=== PATIENT | male | born 1945 | race Caucasian/White ===

== ENCOUNTER → 2018-07-01 10:15 | Outpatient (CLI) | payer MEDICARE, BC, SELFPAY ==
[2018-06-30 13:37] VITALS: BMI 20.8
[2018-07-01 12:24] LABS: Absolute Lymphocyte Count 1.18 X10^3/ul (0.83-4.51); Absolute Neutrophil Count 4.1 X10^3/uL (2.0-7.7); Basophil# 0.03 X10^3/uL; Basophil% 0.5 % (0-1); Eosinophil# 0.11 X10^3/uL; Eosinophils% 1.8 % (0-5); Hematocrit 44.4 % (40-54); Hemoglobin 14.1 g/dl (13.0-16.5); Lymphocyte # 1.18 X10^3/ul (4.0); Lymphocyte % 19.5 % (19-41); Mean Corp Hgb Conc 31.8 g/gl (32-36); Mean Corpuscular Hgb 30.3 pg (27.0-32.0); Mean Corpuscular Volume 95.3 fL (80-94); Mean Platelet Vol. 10.9 fl (6.2-12.0); Monocyte# 0.57 X10^3/uL; Monocyte% 9.4 % (0-10); Neutrophil # 4.14 X10^3/uL (2.7-7.7); Neutrophil % 68.6 % (47-70); Platelet Count 203 K/mm3 (150-450); RBC Distribution Width CV 14.4 % (11.6-14.6); RBC Distribution Width SD 47.8 fl (35.1-43.9); Red Blood Count 4.66 M/mm3 (4.6-6.2)
[2018-07-01 12:32] LABS: POSITIVE COUNT NO; POSITIVE DIFFERENTIAL NO; POSITIVE MORPHOLOGY NO
[2018-07-01 12:42] LABS: Hemoglobin A1c 5.6 % (4.2-6.3)
[2018-07-01 12:54] LABS: AST(SGOT) 19 U/L (15-37); Alanine Aminotransfer ALT/SGPT 21 U/L (16-61); Albumin, Serum 3.7 g/dL (3.2-5.0); Alkaline Phosphatase 102 U/L (45-117); Anion Gap 8 (5-15); BUN 20 mg/dL (7-18); BUN/Creat Ratio 20.2 RATIO (10-20); Calcium,Total 8.6 mg/dL (8.5-10.1); Chloride 105 mmol/L (98-107); Cholesterol 156 mg/dL (200); Creatinine, Serum 0.99 mg/dL (0.70-1.30); EST Glomerular Filtration Rate 79 mL/min (>60); Est Glom Filt Rate - Afr Amer 96 mL/min (>60); Globulin 3.6 g/dL (2.2-4.2); Glucose 101 mg/dL (74-106); High Density Lipoprotein 48 mg/dL; PSA,Total - Annual Screen 4.34 ng/mL (0.00-4.00); Potassium 4.4 mmol/L (3.5-5.1); Protein, Total 7.3 g/dL (6.4-8.2); Sodium Level 139 mmol/L (136-145); Thyroid Stim Hormone (TSH) 2.71 uIU/mL (0.358-3.74); Triglycerides 66 mg/dL; Very Low Density Lipoprotein 13 mg/dL (5-40)
== END ==
PROVIDERS: Family Provider Family Medicine; PCP Family Medicine; Visit Provider Nurse Practitioner Family
DX: I50.9 Heart failure, unspecified (principal); E78.5 Hyperlipidemia, unspecified; R73.03 Prediabetes; N40.0 Benign prostatic hyperplasia without lower urinary tract symptoms; Z12.5 Encounter for screening for malignant neoplasm of prostate
CPT/HCPCS: 36415; 80053; 80061; 83036; 84153; 84443; 85025; G0103

== ENCOUNTER → 2018-07-27 10:42 | Outpatient (CLI) | payer MEDICARE, BC, SELFPAY ==
[2018-07-06 13:40] VITALS: BMI 19.8
[2018-07-20 13:11] VITALS: BMI 19.8
--- NOTE | 2018-07-27 10:46 | ECHOD_ITS ---
Reason For Study: VALVE REPL Procedure This was a 2D Doppler, Color Flow transthoracic echocardiogram. Exam performed in department. Left Ventricle Severely dilated left ventricle. The estimated ejection fraction is 15-20 %. Stage 2 diastolic dysfunction. Septal motion consistent with IVCD. There is severe global hypokinesis of the left ventricle. Right Ventricle Mildly dilated right ventricle. A moderator band is seen in the right ventricle. Normal systolic function. Atria Normal left atrium. Normal right atrium. Normal atrial septum. Mitral Valve The mitral valve is structurally normal. No prolapse or stenosis seen. Mild (1+) eccentric mitral valve insufficiency. Tricuspid Valve Normal tricuspid valve. Trivial tricuspid valve insufficiency. Right ventricular systolic pressure estimated to be 25 mmHg. Aortic Valve Peak aortic valve gradient 4 mmHg. Mean aortic valve gradient 2 mmHg. Stable appearing bioprosthetic aortic valve apparatus. Pulmonic Valve Normal pulmonic valve. Trivial pulmonic valve insufficiency. Great Vessels Normal aortic root. Normal arch. Normal inferior vena cava. Inferior vena cava collapse with sniff. Pericardium/Pleural No pericardial effusion. MMode/2D Measurements & Calculations LVIDd: 6.1 cm IVSd: 0.88 cm LVOT diam: 2.3 cm LVIDs: 5.5 cm LVPWd: 0.90 cm LVOT area: 4.2 cm2 RVDd: 3.6 cm FS: 10.3 % Ao root diam: 3.4 cm LAV(MOD-bp): 68.7 ml LA A4 area: 17.2 cm2 LAV(MOD-bp) Indexed: 37.9 ml/m2 LAV(MOD-sp2): 86.6 ml LAV(MOD-sp4): 47.0 ml LA dimension(2D): 5.2 cm RA A4 area: 16.6 cm2 Time Measurements MV dec time: 0.23 sec Doppler Measurements & Calculations MV E max abdiel: 69.3 cm/sec Lat Peak E' Abdiel: 4.8 cm/sec Med Peak E' Abdiel: 4.8 cm/sec MV A max abdiel: 41.5 cm/sec E/E' lat: 14.5 E/E' med: 14.3 MV E/A: 1.7 Ao V2 max: 98.4 cm/sec LV V1 max: 80.0 cm/sec SV(LVOT): 68.0 ml Ao max P.9 mmHg LV V1 max P.6 mmHg Ao V2 mean: 66.9 cm/sec LV V1 mean P.2 mmHg Ao mean P.0 mmHg LV V1 mean: 52.2 cm/sec Ao V2 VTI: 19.1 cm LV V1 VTI: 16.1 cm LOVE(I,D): 3.6 cm2 LOVE(V,D): 3.4 cm2 PA V2 max: 114.0 cm/sec PI end-d abdiel: 142.8 cm/sec TR max abdiel: 224.1 cm/sec TR max P.2 mmHg Interpretation Summary Severely dilated left ventricle. The estimated ejection fraction is 15-20 %. Stage 2 diastolic dysfunction. There is severe global hypokinesis of the left ventricle. Mild (1+) eccentric mitral valve insufficiency. Right ventricular systolic pressure estimated to be 25 mmHg. Trivial tricuspid valve insufficiency. Stable appearing bioprosthetic aortic valve apparatus. There is no comparison study available. Ordering Physician: Cody Mccord Referring Physician: REG ANGUIANO Performed By: Jacqueline Arzola RDCS, RVT
== END ==
PROVIDERS: Family Provider Family Medicine; PCP Family Medicine; Referring Provider Internal Medicine Cardiovascular Disease; Visit Provider Internal Medicine Cardiovascular Disease
DX: I21.4 Non-ST elevation (NSTEMI) myocardial infarction (principal)
CPT/HCPCS: 93306

== ENCOUNTER → 2018-09-07 12:22 | Outpatient (CLI) | payer MEDICARE, BC, SELFPAY ==
[2018-09-07 11:22] VITALS: BMI 19.5
--- NOTE | 2018-09-07 12:28 | RAD_ITS ---
STUDY: X-RAY CHEST REASON FOR EXAM: Male, 73 years old. ICD placement TECHNIQUE: PA and lateral views of the chest COMPARISON: None. FINDINGS: Post CABG changes are present. The lungs are clear. There are no pleural effusions. There is no pneumothorax. The heart is normal in size. The visualized osseous structures are within normal limits. RAD/Chest PA and Lateral IMPRESSION: No acute thoracic pathology. Electronically Signed: Chetan Cobos, at 21:04 EDT Tel , Service support ,
[2018-09-07 12:50] LABS: Mucous, Urine 0 SEEN /hpf (<or=2+); Red Blood Cells-Urine 0 SEEN /hpf (0-5); Squamous Epithelial Cells - UA 0 SEEN /hpf (0-5); White Blood Cells 0 SEEN /hpf (0-5)
[2018-09-07 13:07] LABS: Color, Urine Yellow (Yellow); Glucose, Dipstick Normal (Normal); Ketone-Dipstick Negative (Negative); Leukocyte Esterase-Dipstick Negative /ul (Negative); Nitrite-Dipstick Negative (Negative); Occult Blood-Urine Negative /ul (Negative); Protein-Dipstick Negative (Negative); Specific Gravity, Urine 1.015 (1.002-1.030); Urine Bilirubin Dipstick Negative (Negative); Urine Clarity Clear (Clear); Urine Urobilinogen Normal (Normal)
[2018-09-07 13:12] LABS: Hemoglobin 12.5 g/dl (13.0-16.5); Mean Corp Hgb Conc 32.1 g/gl (32-36); Mean Corpuscular Hgb 28.7 pg (27.0-32.0); Mean Corpuscular Volume 89.7 fL (80-94); Mean Platelet Vol. 10.5 fl (6.2-12.0); Platelet Count 189 K/mm3 (150-450); RBC Distribution Width CV 13.5 % (11.6-14.6); RBC Distribution Width SD 43.7 fl (35.1-43.9); Red Blood Count 4.35 M/mm3 (4.6-6.2); White Blood Count 6.5 K/mm3 (4.4-11.0)
[2018-09-07 13:13] LABS: Scan Indicated on CBC? Y/N NO
[2018-09-07 13:21] LABS: International Normalized Ratio 1.1; Prothrombin Time (Protime)PT. 13.9 SECONDS (11.7-14.9)
[2018-09-07 13:25] LABS: Bacteria RARE /hpf (None Seen)
[2018-09-07 13:43] LABS: Anion Gap 6 (5-15); BUN 15 mg/dL (7-18); BUN/Creat Ratio 11.9 RATIO (10-20); Calcium,Total 8.6 mg/dL (8.5-10.1); Chloride 109 mmol/L (98-107); Creatinine, Serum 1.26 mg/dL (0.70-1.30); EST Glomerular Filtration Rate 60 mL/min (>60); Est Glom Filt Rate - Afr Amer 72 mL/min (>60); Glucose 102 mg/dL (74-106); Potassium 4.1 mmol/L (3.5-5.1); Sodium Level 141 mmol/L (136-145)
== END ==
PROVIDERS: Family Provider Family Medicine; PCP Family Medicine; Referring Provider Internal Medicine Cardiovascular Disease; Visit Provider Internal Medicine Cardiovascular Disease
DX: I21.4 Non-ST elevation (NSTEMI) myocardial infarction (principal); I49.3 Ventricular premature depolarization; I42.8 Other cardiomyopathies; I25.10 Atherosclerotic heart disease of native coronary artery without angina pectoris; I50.9 Heart failure, unspecified; R06.09 Other forms of dyspnea; I45.10 Unspecified right bundle-branch block
CPT/HCPCS: 36415; 71046; 80048; 81001; 85027; 85610

== ENCOUNTER 2018-09-16 11:34 | Day surgery (SDC) | payer MEDICARE, BC, SELFPAY ==
[2018-08-03 13:59] VITALS: BMI 19.3
[2018-09-07 11:22] VITALS: BMI 19.5
--- NOTE | 2018-09-07 11:51 | HP_ITS ---
HPI HPI History of Present Illness Surgical H&P: No Details: Chief Complaint: establish care Details: DONNY SOLER, is a 73 M who presents to the office today for routine follow-up care there. He is a previous smoker who quit in 1971 after approximately 10-year smoking. He has a history of homograft AVR in 1996 at the [facility] with redo aortic valve replacement on 07/26/07 at [facility] with aortic root replacement. It appears that his GUTIERRES and SVG were harvested but apparently not used for CABG. On his second surgery he received a number 29 mm Freestyle AVR this appeared to be done preoperatively by Dr. Severino for possible CABG. He has chronic LV dysfunction with an EF around 30-35% at least since 2013. As best I can tell the patient was on no medicines for CHF until he was seen in our office. His most recent EKG is on 06/14/18 which showed normal sinus than with frequent PVCs and ventricular couplets. It appears that he stated that he did not want to have any further testing of his heart or continue any medications or follow- up with his cone examiner at [facility] as of June 25, 2018. He does have a history of PTSD from the [place]. His most recent echocardiogram dated 07/05/07 showed an EF of 28% and severely calcified porcine valve. This was prior to his aortic valve replacement. Follow-up echocardiogram done at [facility] demonstrated an EF of 30-35%, RVSP of 30 mmHg, and what appear to be normally functioning bioprosthetic aortic valve. His most recent catheterization took place at [facility] on 03/31/14 which showed mild disease in the origin of the first diagonal which was small in caliber, mild diffuse disease in his remaining coronary arteries with at most a 40-50% hazy area and obtuse marginal #1, no PCI was performed recommended. He is on no medications, and his significant other claims that no medications were ever recommended, which does not seem to be credible. There is a note from his last cone examiner in [facility], indicating that the patient did not want to pursue any additional therapy or cardiac evaluation. He has never been told about a defibrillator. At the time of our initial visit he was then placed on baby aspirin and Coreg and is now here in follow-up. A baseline echocardiogram dated 07/27/2018 was performed here at [facility] with the following results: Severely dilated left ventricle. The estimated ejection fraction is 15-20 %. Stage 2 diastolic dysfunction. There is severe global hypokinesis of the left ventricle. Mild (1+) eccentric mitral valve insufficiency. Right ventricular systolic pressure estimated to be 25 mmHg. Trivial tricuspid valve insufficiency. Stable appearing bioprosthetic aortic valve apparatus. There is no comparison study available. Patient is now agreeable to undergo a defibrillator here at [facility]. He will be seeing Mirna after this visit. Since her last visit he denies any chest pain, angina, shortness of breath or dyspnea on exertion. He is taking and tolerating his medicines well. In our office today's blood pressure is 120/60, pulse is 80 and regular with ectopic beats. He has a 2/6 systolic ejection murmur best heard at the upper right sternal border and radiating to the clavicles. He has excellent 2+ upstroke in his carotids bilaterally. He has no edema. His lipids as of 07/01/18 show an HDL of 48 and LDL of 95. EKG dated 06/14/18 shows normal sinus rhythm with PVCs, intraventricular conduction delay, no previous MO. EKG dated 09/07/2018 shows normal sinus rhythm with first-degree AV block, PVCs, and left bundle branch block with a QRS duration of 146 ms. Intake Vital Signs 09/07/18 Height 5 ft 11 in 09/07/18 Weight: 140 lb 09/07/18 Body Mass Index (BMI) 19.5 09/07/18 Blood Pressure 120/60 09/07/18 Blood Pressure Location Rt brachial 09/07/18 Blood Pressure Position Sitting 09/07/18 Respiratory Rate 20 H 09/07/18 Pulse Rate 64 09/07/18 Pulse Source Auscultation Intake Visit Reasons: PER MSG FROM MANDIE / MIRNA 2:30 Night Time Babysitter Required: No Accompanied by: Is patient in pain?: No Allergies Penicillins Allergy (Severe, Verified 09/07/18 11:33) Hives Medications aspirin 81 mg tablet,delayed release 81 mg PO DAILY #30 tab 07/06/18 [Rx Confirmed 08/04/18] atorvastatin 40 mg tablet 40 mg PO QHS #30 tab 07/06/18 [Rx Confirmed 08/04/18] carvedilol 6.25 mg tablet 6.25 mg PO BID #60 tab 07/29/18 [Rx Confirmed 08/04/18] [facility] Medical History Dyspnea on exertion (Chronic) Abnormal EKG (Chronic) PVCs (premature ventricular contractions) (Chronic) Right bundle branch block (Chronic) Nonrheumatic mitral (valve) insufficiency (Chronic) Nonrheumatic tricuspid (valve) insufficiency (Chronic) Nonischemic cardiomyopathy (Chronic) Atherosclerotic heart disease of [place] coronary artery without angina pectoris (Chronic) Hypertension (Chronic) CHF (congestive heart failure) (Chronic) PTSD (post-traumatic stress disorder) (Chronic) Surgical History History of aortic valve replacement with tissue graft (Chronic 07/26/07) History of left heart catheterization (Chronic) History of prostate surgery (Chronic) Family History Mother Cancer Kidney disease Father Myocardial infarction Brother Heart disease Social History Smoking Status: Former smoker quit date: 04/27/71 alcohol intake: never substance use type: does not use what type of physical activity do you participate in: walking frequency: daily ROS Const Const: Positive for other (Feels well, here to discuss prophylactic ICD.); negative for fatigue, weakness, body ache, fever(s), headache(s), chills, frequent falls, night sweats, daytime sleepiness, difficulty sleeping, excessive sweating, weight gain, weight loss, increased appetite, poor appetite or anorexia Eyes Eyes: Negative for blind spots, loss of peripheral vision, transient loss of vision, blurry vision, change in vision, double vision, floaters, tunnel vision or other ENT ENT: Negative for headache(s), dizziness, hearing loss, tinnitus, Nosebleed/epistaxis, balance problems, post nasal drip, lip swelling, tongue swelling, bleeding gums, hoarseness, neck pain, dry mouth or other Cardio Chest Pain: No Palpitations: No Edema: None Muscle aches with walking: None Resp Respiratory: Positive for SOB with activity and other (He mows grass and gets out of breath); negative for SOB at rest, SOB orthopnea\SOB lying down, Cough, Coughing up blood/hemoptysis, chest congestion, pain on inspiration, snoring, stridor, wheezing, crackles or paroxysmal nocturnal dyspnea GI GI: Negative nausea, vomiting, heartburn, constipation, belching, bloating, cramping, vomiting blood/hematemesis, bright, red blood in stools, black,tarry stools, loose stools, Difficulty Swallowing or other : Negative for hematuria, frequent nighttime urination/ nocturia, erectile dysfunction or abnormal vaginal bleeding Musc Musc: Negative for muscle aches/ myalgia, muscle weakness, joint pain or balance problems Skin Skin: Negative redness, non-healing lesions, rash, unusual bruising, skin ulcer, wounds, jaundice or other Neuro Neuro: Negative for dizziness, lightheadedness, near syncope, syncope, orthostatic symptoms, frequent falls, headache(s), weakness, confusion, memory loss, restless legs, blurry vision, double vision, vertigo, seizures, lack of coordination or other Miguel Hematologic/Lymphatic: Negative for easy bleeding, easy bruising, enlarged lymph nodes or other Endo Endo: Negative for fatigue, cold intolerance, heat intolerance, excessive sweating, flushing, increased thirst/drinking, increased hunger, hair loss, hair growth or other Psych Psych: Negative for anxiety, depression, thoughts of harming anyone, thoughts of harming yourself, visual hallucinations, panic attacks or audible hallucinations Allergy Allergy/Immunology: Negative for throat swelling, Negative for tongue swelling, Negative for hives, Negative for rash, Negative for lip swelling Cardiology Exam Const Appearance: cooperative, healthy appearing and no acute distress Nutritional Appearance: well nourished Orientation: alert, oriented x3 and oriented to person Head Head: normal to inspection, normocephalic and atraumatic Nose: external nose normal Face and Sinus: face symmetric Mouth: oral mucosae normal Eyes General: appearance normal, both eyes and all related structures Eyelids: eyelids normal Conjunctivae: conjunctivae normal Pupils: PERRL and normal by confrontation EOM: EOM intact bilaterally Neck Neck: normal visual inspection and full ROM Carotids: normal carotid upstroke Chest Chest inspection: normal inspection of the chest Auscultation: Bilateral: Clear to Auscultation Cardio Palpation: normal PMI Rate: regular rate Rhythm: regular rhythm Heart sounds: S1 normal and S2 normal GI GI: normal to inspection, no hepatosplenomegaly and bowel sounds present Neuro General: alert, awake, oriented x3, CN's II-XI intact bilaterally and moves all extremities Skin Skin: no rashes or lesions noted Extremities Pulses: Normal: Right Femoral Pulse, Left Femoral Pulse, Right Dorsalis Pedis Pulse, Left Dorsalis Pedis Pulse, Right Posterior Tibial Pulse, Left Posterior Tibial Pulse, Right Radial Pulse, Left Radial Pulse Lower Extremity Edema: None: Bilateral Psych Psychological: normal affect Assessment & Plan 1. Nonischemic cardiomyopathy I42.8 EF 30-35% per echo 03/31/2014 done @ [facility], Dr. Jorge Randle. Mild mitral and tricuspid regurg, mild pulmonary hypertension, RVSP 30mmhg. Plan 1. Cardiomyopathy: Patient has had a persistent cardiomyopathy for several years, despite valvular replacement therapy and maximal medical therapy. I recommended that he undergo prophylactic AICD placement, and he is agreeable to this. He will continue his Coreg, and baby aspirin. His EKG suggest a left bundle branch block, with a QRS of approximately 146 ms. I will defer to Dr. Begum with respect to PRICING SPECIALIST as well as AICD. We will hold off on NEDA inhibitors or arms until after his defibrillator has been in place. Once this is completed I would have a low threshold for possible cardiac rehab, although the patient has declined this in the past. Orders Orders: 12 Lead EKG performed by [facility] Today Pacemaker Primary Insertion 09/16/18 Partial Thromboplast Time 08/30/18 Chest PA and Lateral 08/30/18 2. Atherosclerotic heart disease of [place] coronary artery without angina pectoris I25.10 Mild, nonobstructive per [facility] done 03/31/[address] Giovani Dubois, [facility] (Mild disease origin of first dx,small caliber artery. Mild diffuse disease in remainder of coronaries). Medical management recommended. Plan 2. Coronary artery disease: Patient has minimal nonobstructive coronary artery disease. No indication for any additional testing at this time. His LDL and HDL cholesterol are fairly well-controlled. Continue Lipitor. 3. Return to office in 6 months. This note was generated using a voice recognition system and there may be incorrect words, spelling or punctuation that were not noted when reviewing the office note prior to saving. A SDM interaction occurred at this visit using an SDM tool prior to initial implant of ICD. Orders Orders: Pacemaker Primary Insertion 09/16/18 Chest PA and Lateral 08/30/18 Plan Detail Other Orders Orders: 12 Lead EKG performed by [facility] Today I49.3 Pacemaker Primary Insertion 09/16/18 I45.10, I50.9, R94.31, Z95.4 Partial Thromboplast Time 08/30/18 I50.9, R06.09 Chest PA and Lateral 08/30/18 I45.10, R06.09 Follow Up +6M (Flex) Coding Level of Care Code Off vis,est,level 3 Diagnoses Nonischemic cardiomyopathy I42.8 Atherosclerotic heart disease of [place] coronary artery without angina pectoris I25.10 Coding Level of Care Code Off vis,est,level 3 Diagnoses Nonischemic cardiomyopathy I42.8 Atherosclerotic heart disease of [place] coronary artery without angina pectoris I25.10 Supplemental Info Supplemental Information Labs LDL Cholesterol 95 mg/dL (0-130) 07/01/18 HDL Cholesterol 48 mg/dL (40-) 07/01/18 Triglycerides 66 mg/dL (-199) 07/01/18 VLDL Cholesterol 13 mg/dL (5-40) 07/01/18 Diagnostics Echocardiogram 07/27/18 Electrocardiogram 09/07/18 09/07/18 1152 <Electronically signed by Cody Mccord MD> Date Cody Mccord MD
[2018-09-15 14:51] VITALS: BMI 19.5
[2018-09-16] VITALS (11 sets, daily range): BP systolic 105–119; BP diastolic 65–78; PULSE 42–70; RESP 12–18; TEMP 36.4–37.3; O2SAT 95–100
--- NOTE | 2018-09-16 14:06 | OP.PCM_ITS ---
Report of Operation Description of Surgical Findings:: Preoperative diagnosis implantation of primaRY PREVENTION icd Postoperative diagnosis same as above After informed consent and IV antibiotics the patient was brought to the [facility] catheterization laboratory. The left side of the chest was prepped and draped in the usual sterile manner. The patient was sedated with intermittent boluses of IV Versed fentanyl and propofol as well as subcutaneous 1% lidocaine. An incision was made inferior to the clavicle to accommodate the size of the hardware device. The pocket was created using blunt and Bovie dissection. Hemostasis was obtained. Using the Seldinger technique the axillary vein was cannulated once and a guidewire was advanced under fluoroscopic guidance. Over the guidewire a sheath was advanced. Through this sheath, the electrode was positioned under fluoroscopic guidance into the right ventricle and was actively fixated. Once actively fixated, the lead was tested to check for proper sensing, capture threshold, impedance and to exclude diaphragmatic stimulation. Once the lead was implanted and all electrical parameters were confirmed to be functioning normally with appropriate values, the leads was then sutured to the pectoralis muscle with 2-0 silk on the Silastic collar ?2. The sponge and needle count were correct. Hemostasis was obtained. Antibiotic solution was used to flush the pocket. The new device was brought to the field. The lead was placed in the appropriate position of the header of the device and were secured by the setscrews and confirmed by the tug test. The device and the leads were then placed in the pocket. Pocket was closed with a deep layer of running 2-0 Vicryl, superficial layer of running 4-0 Vicryl and skin with Steri- Strips that were covered with a rolled 4 x 4's and Tegaderm. There were no complications. Lead and device serial and model numbers are available in the chart documents provided by the device company herbicide service sales representative procedure summary.
--- NOTE | 2018-09-16 17:30 | RAD_ITS ---
STUDY: X-RAY CHEST REASON FOR EXAM: Male, 73 years old. ICD placement TECHNIQUE: Single AP portable view of the chest. COMPARISON: None. FINDINGS: EKG leads overlie the chest. Since the previous study, patient has undergone placement of a left subclavian ICD. Lead is in satisfactory position. No pneumothorax or mediastinal shift. There are interstitial fibrotic changes of the lungs. There is no demonstrated pleural abnormality. Sternal cerclage wires and vascular clips are present from a prior sternotomy and coronary artery bypass graft procedure (CABG). Normal mediastinum and gene. Normal visualized pulmonary arteries. There is atherosclerotic calcification of the aortic arch with tortuosity. There are diffuse degenerative changes of the visualized thoracic spine. Normal visualized ribs, clavicles, and shoulders. There is no demonstrated abnormality of the visualized soft tissue structures of the upper abdomen. RAD/Chest 1 View (Portable) IMPRESSION: Status post left subclavian ICD placement, leads in satisfactory position, no pneumothorax or mediastinal shift No acute pulmonary process Remote CABG. Electronically Signed: Vincent Sales MD at 17:58 EDT , Service support ,
[2018-09-16] MEDS: Carvedilol 6.25 MG Tablet PO (22:03)
[2018-09-16] MEDS: Atorvastatin Calcium 40 MG Tablet PO (22:03)
[2018-09-17] VITALS (9 sets, daily range): BP systolic 113–125; BP diastolic 63–74; PULSE 53–70; RESP 16–18; TEMP 36.5–36.7; O2SAT 93–96
--- NOTE | 2018-09-17 05:55 | RAD_ITS ---
STUDY: X-RAY CHEST REASON FOR EXAM: Male, 73 years old. Chest pain status post ICD TECHNIQUE: PA and lateral chest, 4 views COMPARISON: 09/16/2018 FINDINGS: Single lead left pectoral AICD. Stable position. Median sternotomy. Clear lungs. Next line normal cardiomediastinal silhouette. No acute osseous or upper abdominal process. RAD/Chest PA and Lateral IMPRESSION: No acute cardiopulmonary process. Electronically Signed: Camilo Rodrigues MD at 8:31 EDT Tel , Service support ,
[2018-09-17 06:34] LABS: Anion Gap 5 (5-15); BUN 14 mg/dL (7-18); BUN/Creat Ratio 12.6 RATIO (10-20); Calcium,Total 8.5 mg/dL (8.5-10.1); Chloride 111 mmol/L (98-107); Creatinine, Serum 1.11 mg/dL (0.70-1.30); EST Glomerular Filtration Rate 69 mL/min (>60); Est Glom Filt Rate - Afr Amer 84 mL/min (>60); Estimated Creatinine Clearance 54.03 ml/min; Glucose 84 mg/dL (74-106); Potassium 4.2 mmol/L (3.5-5.1); Sodium Level 142 mmol/L (136-145)
[2018-09-17] MEDS: Acetaminophen 325 MG Tablet PO (07:26)
[2018-09-17] MEDS: Aspirin E.C. 81 MG Tablet PO (07:55)
--- NOTE | 2018-09-17 12:18 | PCM.PN.CARD ---
Subjectve: Patient doing very well this morning, slight pain over his left wound site, but otherwise no symptoms. Defibrillator interrogated by Mirna this morning, and defibrillator activated. Defibrillator was not activated overnight out of concern for possible lead noise that may inadvertently trigger his defibrillator to discharge. Chest x-ray before and after reviewed, no evidence of pneumothorax, leads appear to be appropriately placed. Objective: Vital Signs Temp Pulse Resp BP Pulse Ox 97.7 F L 57 L 18 113/68 96 09/17/18 11:48 09/17/18 11:59 09/17/18 11:48 09/17/18 11:48 09/17/18 11:48 Oxygen Delivery Method Room Air Weight: 140 lb Body Mass Index (BMI) 19.5 Intake and Output for Last 24 Hours 09/15/18 09/16/18 09/17/18 23:59 23:59 23:59 Output Total 925 / 925 350 / 350 Balance -925 / -925 -350 / -350 General: Awake, Alert, Oriented x 3 HEENT: PERRL, EOMI, Sclera Non Icteric Neck: Supple, Good ROM, No Lymph Node Enlargement Lungs: Clear to auscultation Cardiovascular: Regular Rhythm, Normal S1, Normal S2, No Murmurs, No Rubs, No Gallops Vascular: No Carotid Bruits, Normal Femoral Pulses, Normal Radial Pulses, Normal Dorsalis Pedal Pulse, Normal Posterior Tibial Pulses Abdomen: Bowel Sounds Present, Soft, Non Tender, No HSM, No Organomegaly Extremities: No Cyanosis, No Clubbing, No edema Neurological: No Focal Motor or Sensory Deficit 09/17/18 05:53: Sodium 142, Potassium 4.2, Chloride 111 H, Carbon Dioxide 26.0, Anion Gap 5, BUN 14, Creatinine 1.11, Est GFR (MDRD) Af Amer 84, Est GFR (MDRD) Non-Af 69, BUN/Creatinine Ratio 12.6, Glucose 84, Calcium 8.5 Rhythm: EKG: ECHO: Stress Test: Cardiac Cath: PCI: CT Surgery: Holter monitor: EPS: PPM: CXR: Chest CT Scan: Medical Necessity - Tobacco Use Smoking Status: Former smoker Assessment/Plan 1. AICD implantation: Patient's chest x-rays look appropriate for lead placement, and no evidence of pneumothorax. His defibrillator has now been turned down, and hopefully with less noise in his lead system. The patient will be discharged home today with a monitoring device and transmit in order to transmit telemetry data to our office regarding noise in the lead. If the patient has any defibrillator discharges that are inappropriate, I would recommend deactivating the defibrillator until his lead system has better healed. 2. Patient may be discharged home once he receives his monitoring device. To follow-up with Dr. Mccord going forward. Code Visit Inpatient E&M: 61956 Subs Hosp L2
[2018-09-17] MEDS: Carvedilol 6.25 MG Tablet PO (12:45)
[2018-09-17] MEDS: Ramipril 2.5 MG Capsule PO (12:45)
== END 2018-09-17 12:37 | disposition home or self-care (01) ==
LOC: CLSP 11:36 → PCU 09-17 09:35
PROVIDERS: Family Provider Family Medicine; PCP Family Medicine; Referring Provider Internal Medicine Cardiovascular Disease; Visit Provider Internal Medicine Cardiovascular Disease
DX: I42.8 Other cardiomyopathies (principal); I25.10 Atherosclerotic heart disease of native coronary artery without angina pectoris; R06.09 Other forms of dyspnea; I11.0 Hypertensive heart disease with heart failure; I50.9 Heart failure, unspecified; Z95.810 Presence of automatic (implantable) cardiac defibrillator; Z87.891 Personal history of nicotine dependence; Z79.82 Long term (current) use of aspirin; Z79.899 Other long term (current) drug therapy
CPT/HCPCS: 33249; 36415; 71045; 71046; 80048; 93641; 99152; 99153; J7040; J7050; C1769; C1894

== ENCOUNTER → 2018-09-28 | Outpatient (CLI) | payer MEDICARE, BC, SELFPAY ==
[2018-09-15 14:51] VITALS: BMI 19.5
--- NOTE | 2018-09-28 12:41 | RAD_ITS ---
STUDY: X-RAY CHEST REASON FOR EXAM: Male, 73 years old. Check lead placement TECHNIQUE: PA and lateral views of the chest. COMPARISON: Prior study of 09/17/2018 FINDINGS: A left-sided pacemaker is noted. Pacemaker lead tip is in the right ventricle and appears stable in position in the interval. Status post sternotomy changes are seen. There is hyperinflation of the lungs consistent with chronic obstructive lung disease (COPD). There is no demonstrated pleural abnormality. Normal size heart. Normal mediastinum and gene. Normal visualized pulmonary arteries. There are calcified plaques of the aortic arch. Normal visualized thoracic spine. Normal visualized ribs, clavicles, and shoulders. There is no demonstrated abnormality of the visualized soft tissue structures of the upper abdomen. RAD/Chest PA and Lateral IMPRESSION: Unipolar left-sided ICD seen with lead tip appearing to be in the right ventricle. There is hemidiaphragmatic flattening with increased retrosternal airspace suggestive of COPD. There are calcified plaques of the aortic arch. Status post sternotomy changes are seen. Electronically Signed: Andres Joshi MD at 17:01 EDT , Service support ,
== END | disposition home or self-care (01) ==
LOC: RAD 12:40
PROVIDERS: Family Provider Family Medicine; PCP Family Medicine; Referring Provider Internal Medicine Cardiovascular Disease; Visit Provider Internal Medicine Cardiovascular Disease
DX: I25.10 Atherosclerotic heart disease of native coronary artery without angina pectoris (principal); I42.8 Other cardiomyopathies; I45.10 Unspecified right bundle-branch block; I50.9 Heart failure, unspecified; Z95.810 Presence of automatic (implantable) cardiac defibrillator
CPT/HCPCS: 71046

== ENCOUNTER 2018-10-15 05:54 | Day surgery (SDC) | payer MEDICARE, BC, SELFPAY ==
[2018-10-13 13:51] VITALS: BMI 19.5
[2018-10-15] VITALS (7 sets, daily range): BP systolic 134–153; BP diastolic 75–97; PULSE 56–80; RESP 16–18; TEMP 36–36.2; O2SAT 98–100; BMI 18.8
--- NOTE | 2018-10-15 06:47 | HP.PCM_ITS ---
Problem List (1) Rectal bleed Status: Acute History and Physical Date of Admission: 10/15/18 Intake Vital Signs 10/13/18 Body Mass Index (BMI) 19.5 10/13/18 Height 5 ft 11 in 10/13/18 Weight: 139 lb 4 oz 10/13/18 Body Mass Index (BMI) 19.4 10/13/18 Blood Pressure 94/69 10/13/18 Blood Pressure Location Rt brachial 10/13/18 Blood Pressure Position Sitting 10/13/18 Respiratory Rate 14 10/13/18 Pulse Rate 46 L 10/13/18 Pulse Source Monitor 10/13/18 Temperature 97.4 F L 10/13/18 Temperature Source Oral 10/13/18 Pulse Ox 97 10/13/18 Oxygen Delivery Method room air Intake Visit Reasons: Rectal Bleeding/Weight Loss Chief Complaint: 3 Mo FU Brake Tester Required: No Accompanied by: Family / Other Is patient in pain?: No Allergies Penicillins Allergy (Severe, Verified 09/29/18 13:00) Hives Medications aspirin 81 mg tablet,delayed release 81 mg PO DAILY #30 tab 07/06/18 [Rx Confirmed 10/13/18] atorvastatin 40 mg tablet 40 mg PO QHS #30 tab 07/06/18 [Rx Confirmed 10/13/18] carvedilol 6.25 mg tablet 6.25 mg PO BID #60 tab 07/29/18 [Rx Confirmed 10/13/18] ramipril 2.5 mg capsule 2.5 mg PO DAILY #30 cap 09/16/18 [Rx Confirmed 10/13/18] [facility] Medical History (Updated 09/29/18 @ 13:19 by Brain Bustamante DO) 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) Dyspnea on exertion (Chronic) Abnormal EKG (Chronic) PVCs (premature ventricular contractions) (Chronic) Right bundle branch block (Chronic) Nonrheumatic mitral (valve) insufficiency (Chronic) Nonrheumatic tricuspid (valve) insufficiency (Chronic) Nonischemic cardiomyopathy (Chronic) Atherosclerotic heart disease of [place] coronary artery without angina pectoris (Chronic) Hypertension (Chronic) CHF (congestive heart failure) (Chronic) PTSD (post-traumatic stress disorder) (Chronic) Surgical History (Updated 09/16/18 @ 14:06 by Panda Blas MD) History of aortic valve replacement with tissue graft (Chronic 07/26/07) History of left heart catheterization (Chronic) History of prostate surgery (Chronic) Family History (Updated 06/30/18 @ 13:43 by Cinda Sebastian) Mother Cancer Kidney disease Father Myocardial infarction Brother Heart disease Social History (Updated 10/13/18 @ 14:09 by Noah Michaud MD) Smoking Status: Former smoker quit date: 04/27/71 alcohol intake: never substance use type: does not use what type of physical activity do you participate in: walking frequency: daily HPI HPI HPI: DONNY SOLER, is a 73 M who presents to the office today for HPI HPI Surgical H&P: Yes HPI: DONNY SOLER, is a 73 M who presents to the office today for weight loss and rectal bleeding. The patient notes that he has been losing weight unintentionally since May of this year. He says he is not having any abdominal pain. For the last month or so he has been having bright red blood per rectum. He reports the blood is being copious and filling the bowl. His last colonoscopy was about 5 years ago according to his . ROS General General: Yes weight change and fatigue; no appetite, colon cancer, breast cancer or weakness HEENT HEENT: No difficulty swallowing, eye injury, eye surgery, swollen glands or hoarseness Endo Endocrine: No thyroid disease, diabetes mellitus, thyroid cancer, Hair loss, heat intolerance or cold intolerance Skin Skin: No rash or changing moles Musc Musculoskeletal: No back problems, arthritis, rheumatoid arthritis, gout or joint pain Cardio Cardiovascular: Yes pacemaker, heart disease and heart attack; no murmur, atrial fibrillation, high blood pressure, heart stent, palpitations, shortness of breat with exertion or chest pain Psych Psychiatric: No depression, anxiety or hearing voices Resp Respiratory: Yes shortness of breath, No sleep apnea, No cough, No COPD, No asthma, No emphysema, No wheezing Gastro Gastrointestinal: No abdominal pain, No nausea or vomiting, No diarrhea, Yes constipation, Yes blood in stool, No acid reflux, No hemorrhoids, No ulcers, No gallbladder problem, No black,tarry stools Miguel Hematologic: No blood thinners, No blood disorders, No bleeding, No anemia, No blood clots Neuro Neurologic: No system reviewed and no additional complaints, except as docu, No as per HPI, No abnormal walking, No abnormal hearing, No abnormal movements, No abnormal speech, No behavioral changes, No burning sensations, No confusion, No seizure-like activity, No unsteadiness, No dizziness, No localized weakness, No frequent falls, No headache(s), No lack of coordination, No loss of vision, No memory loss, No numbness, No other visual disturbances, No radiating pain, No restless legs, No sensory deficit, No fainting, No tingling, No tremor(s), No weakness, No other Exam Const General: cooperative Nutritional Appearance: cachectic, thin Orientation: alert, oriented x3 Resp Effort & Inspection: normal respiratory effort Auscultation: clear to auscultation bilaterally Cardio Rate: regular rate Rhythm: regular rhythm Heart Sounds: no murmurs GI Inspection: non-distended Palpation: soft, nontender Assessment & Plan Problems 1. Recent unexplained weight loss R63.4 2. Rectal hemorrhage K62.5 Plan The patient has been having rectal bleeding and unintentional weight loss. He is not having any abdominal pain and his last scope was 5 years ago. Recommend colonoscopy. If colonoscopy does not reveal anything I would recommend CT scan. I explained endoscopy in detail to the patient. I explained the risks including but not limited to stroke or heart attack with anesthesia, perforation of the GI tract, bleeding, infection. I explained that any of these could necessitate further emergency surgery. The patient understands and all questions were answered sufficiently. The patient wishes to proceed with procedure. Noah Michaud MD Pager: [facility] [address] [place] [address], [address] [place] [address] Office:
--- NOTE | 2018-10-15 07:53 | OP.ENDO_ITS ---
10/15/2018 Brain Bustamante Re : Colonoscopy procedure for Jewel Guevara Dear Dr. Bustamante This procedure was performed on Monday, October 15, 2018. My impressions and recommendations are as follows: Impressions : - Preparation of the colon was poor. - The procedure was aborted due to poor bowel prep with stool present. - No specimens collected. Recommendations : - Discharge patient to home. - Resume previous diet. - Continue present medications. - Repeat colonoscopy in 2 weeks because the bowel preparation was poor. My findings are described in the full procedure note, which is enclosed. If I can be of further assistance, please feel free to contact me at Doctor phone number(s): , Work: . Sincerely, Noah Michaud MD 10/15/2018 7:53:08 AM This report has been signed electronically.
== END 2018-10-15 08:30 | disposition home or self-care (01) ==
LOC: EN 05:54 → AC 05:55
PROVIDERS: Family Provider Family Medicine; PCP Family Medicine; Referring Provider Family Medicine; Visit Provider Surgery
PROC: 0DJD8ZZ Inspection of Lower Intestinal Tract, Via Natural or Artificial Opening Endoscopic (ICD-10-PCS; CPT 45378; principal; 2018-10-15 06:55)
DX: K62.5 Hemorrhage of anus and rectum (principal); I11.0 Hypertensive heart disease with heart failure; I50.9 Heart failure, unspecified; I25.10 Atherosclerotic heart disease of native coronary artery without angina pectoris; I42.9 Cardiomyopathy, unspecified; E78.00 Pure hypercholesterolemia, unspecified; I25.2 Old myocardial infarction; Z95.1 Presence of aortocoronary bypass graft; Z95.810 Presence of automatic (implantable) cardiac defibrillator; Z87.891 Personal history of nicotine dependence; Z79.82 Long term (current) use of aspirin; Z79.899 Other long term (current) drug therapy
CPT/HCPCS: 45378; J7120

== ENCOUNTER 2018-10-27 09:19 | Day surgery (SDC) | payer MEDICARE, BC, SELFPAY ==
--- NOTE | 2018-10-13 02:09 | HP_ITS ---
Intake Vital Signs 10/13/18 Body Mass Index (BMI) 19.5 10/13/18 Height 5 ft 11 in 10/13/18 Weight: 139 lb 4 oz 10/13/18 Body Mass Index (BMI) 19.4 10/13/18 Blood Pressure 94/69 10/13/18 Blood Pressure Location Rt brachial 10/13/18 Blood Pressure Position Sitting 10/13/18 Respiratory Rate 14 10/13/18 Pulse Rate 46 L 10/13/18 Pulse Source Monitor 10/13/18 Temperature 97.4 F L 10/13/18 Temperature Source Oral 10/13/18 Pulse Ox 97 10/13/18 Oxygen Delivery Method room air Intake Visit Reasons: Rectal Bleeding/Weight Loss Chief Complaint: 3 Mo FU Shoe Treer Required: No Accompanied by: Family / Other Is patient in pain?: No Allergies Penicillins Allergy (Severe, Verified 09/29/18 13:00) Hives Medications aspirin 81 mg tablet,delayed release 81 mg PO DAILY #30 tab 07/06/18 [Rx Confirmed 10/13/18] atorvastatin 40 mg tablet 40 mg PO QHS #30 tab 07/06/18 [Rx Confirmed 10/13/18] carvedilol 6.25 mg tablet 6.25 mg PO BID #60 tab 07/29/18 [Rx Confirmed 10/13/18] ramipril 2.5 mg capsule 2.5 mg PO DAILY #30 cap 09/16/18 [Rx Confirmed 10/13/18] [facility] Medical History (Updated 09/29/18 @ 13:19 by Brain Bustamante DO) 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) Dyspnea on exertion (Chronic) Abnormal EKG (Chronic) PVCs (premature ventricular contractions) (Chronic) Right bundle branch block (Chronic) Nonrheumatic mitral (valve) insufficiency (Chronic) Nonrheumatic tricuspid (valve) insufficiency (Chronic) Nonischemic cardiomyopathy (Chronic) Atherosclerotic heart disease of [place] coronary artery without angina pectoris (Chronic) Hypertension (Chronic) CHF (congestive heart failure) (Chronic) PTSD (post-traumatic stress disorder) (Chronic) Surgical History (Updated 09/16/18 @ 14:06 by Panda Blas MD) History of aortic valve replacement with tissue graft (Chronic 07/26/07) History of left heart catheterization (Chronic) History of prostate surgery (Chronic) Family History (Updated 06/30/18 @ 13:43 by Cinda Sebastian) Mother Cancer Kidney disease Father Myocardial infarction Brother Heart disease Social History (Updated 10/13/18 @ 14:09 by Noah Michaud MD) Smoking Status: Former smoker quit date: 04/27/71 alcohol intake: never substance use type: does not use what type of physical activity do you participate in: walking frequency: daily HPI HPI HPI: DONNY SOLER, is a 73 M who presents to the office today for HPI HPI Surgical H&P: Yes HPI: DONNY SOLER, is a 73 M who presents to the office today for weight loss and rectal bleeding. The patient notes that he has been losing weight unintentionally since May of this year. He says he is not having any abdominal pain. For the last month or so he has been having bright red blood per rectum. He reports the blood is being copious and filling the bowl. His last colonoscopy was about 5 years ago according to his . ROS General General: Yes weight change and fatigue; no appetite, colon cancer, breast cancer or weakness HEENT HEENT: No difficulty swallowing, eye injury, eye surgery, swollen glands or hoarseness Endo Endocrine: No thyroid disease, diabetes mellitus, thyroid cancer, Hair loss, heat intolerance or cold intolerance Skin Skin: No rash or changing moles Musc Musculoskeletal: No back problems, arthritis, rheumatoid arthritis, gout or joint pain Cardio Cardiovascular: Yes pacemaker, heart disease and heart attack; no murmur, atrial fibrillation, high blood pressure, heart stent, palpitations, shortness of breat with exertion or chest pain Psych Psychiatric: No depression, anxiety or hearing voices Resp Respiratory: Yes shortness of breath, No sleep apnea, No cough, No COPD, No asthma, No emphysema, No wheezing Gastro Gastrointestinal: No abdominal pain, No nausea or vomiting, No diarrhea, Yes constipation, Yes blood in stool, No acid reflux, No hemorrhoids, No ulcers, No gallbladder problem, No black,tarry stools Miguel Hematologic: No blood thinners, No blood disorders, No bleeding, No anemia, No blood clots Neuro Neurologic: No system reviewed and no additional complaints, except as docu, No as per HPI, No abnormal walking, No abnormal hearing, No abnormal movements, No abnormal speech, No behavioral changes, No burning sensations, No confusion, No seizure-like activity, No unsteadiness, No dizziness, No localized weakness, No frequent falls, No headache(s), No lack of coordination, No loss of vision, No memory loss, No numbness, No other visual disturbances, No radiating pain, No restless legs, No sensory deficit, No fainting, No tingling, No tremor(s), No weakness, No other Exam Const General: cooperative Nutritional Appearance: cachectic, thin Orientation: alert, oriented x3 Resp Effort & Inspection: normal respiratory effort Auscultation: clear to auscultation bilaterally Cardio Rate: regular rate Rhythm: regular rhythm Heart Sounds: no murmurs GI Inspection: non-distended Palpation: soft, nontender Assessment & Plan Problems 1. Recent unexplained weight loss R63.4 2. Rectal hemorrhage K62.5 Plan The patient has been having rectal bleeding and unintentional weight loss. He is not having any abdominal pain and his last scope was 5 years ago. Recommend colonoscopy. If colonoscopy does not reveal anything I would recommend CT scan. I explained endoscopy in detail to the patient. I explained the risks including but not limited to stroke or heart attack with anesthesia, perforation of the GI tract, bleeding, infection. I explained that any of these could necessitate further emergency surgery. The patient understands and all questions were answered sufficiently. The patient wishes to proceed with procedure. Noah Michaud MD Pager: [facility] [address] [place] [address], [address] [place] [address] Office: Orders Orders: Colonoscopy Today K62.5, R63.4 Coding Level of Care Code Off vis,new,level 3 Diagnoses Recent unexplained weight loss R63.4 Rectal hemorrhage K62.5 10/13/18 0939 <Electronically signed by Noah suárez MD> Date _ Noah Michaud MD I have re-examined the patient. There are no clinical changes since date of exam.
[2018-10-15 06:21] VITALS: BMI 18.8
[2018-10-27] VITALS (10 sets, daily range): BP systolic 85–146; BP diastolic 53–91; PULSE 48–65; RESP 16–18; TEMP 36.1–36.7; O2SAT 99–100; BMI 18.3
--- NOTE | 2018-10-27 11:26 | OP.ENDO_ITS ---
10/27/2018 Brain Bustamante Re : Colonoscopy procedure for Jewel Guevara Dear Dr. Bustamante This procedure was performed on Saturday, October 27, 2018. My impressions and recommendations are as follows: Impressions : - Diverticulosis in the sigmoid colon and in the descending colon. - Internal hemorrhoids. - The examination was otherwise normal on direct and retroflexion views. - No specimens collected. Recommendations : - Discharge patient to home. - Resume previous diet. - Continue present medications. - My office will schedule CT scan. - Repeat colonoscopy in 10 years for screening purposes. My findings are described in the full procedure note, which is enclosed. If I can be of further assistance, please feel free to contact me at Doctor phone number(s): , Work: . Sincerely, Noah Michaud MD 10/27/2018 11:26:21 AM This report has been signed electronically.
== END 2018-10-27 12:19 | disposition home or self-care (01) ==
LOC: EN 09:20 → AC 09:21
PROVIDERS: Family Provider Family Medicine; PCP Family Medicine; Referring Provider Surgery; Visit Provider Surgery
PROC: 0DJD8ZZ Inspection of Lower Intestinal Tract, Via Natural or Artificial Opening Endoscopic (ICD-10-PCS; CPT 45378; principal; 2018-10-27 10:55)
DX: K57.30 Diverticulosis of large intestine without perforation or abscess without bleeding (principal); K64.1 Second degree hemorrhoids; I25.10 Atherosclerotic heart disease of native coronary artery without angina pectoris; I11.0 Hypertensive heart disease with heart failure; I50.9 Heart failure, unspecified; Z87.891 Personal history of nicotine dependence; Z79.82 Long term (current) use of aspirin; Z79.899 Other long term (current) drug therapy
CPT/HCPCS: 45378; J7120

== ENCOUNTER 2019-04-04 17:41 | Emergency (ER) | payer OTHER, MEDICARE, BC, SELFPAY ==
[2018-12-03 12:59] VITALS: BMI 18.3
[2019-04-04 17:43] VITALS: BP 136/77; PULSE 86; RESP 14; TEMP 36.3; O2SAT 97; BMI 20.3
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
[2019-04-04 20:37] VITALS: BP 131/72; PULSE 80; RESP 17; O2SAT 97
== END 2019-04-04 20:37 | disposition home or self-care (01) ==
PROVIDERS: Emergency Provider Emergency Medicine; Family Provider Family Medicine; PCP Family Medicine
DX: S20.219A Contusion of unspecified front wall of thorax, initial encounter (principal); S50.02XA Contusion of left elbow, initial encounter; I25.10 Atherosclerotic heart disease of native coronary artery without angina pectoris; Z95.0 Presence of cardiac pacemaker; Z79.82 Long term (current) use of aspirin; V43.52XA Car driver injured in collision with other type car in traffic accident, initial encounter; Y93.I9 Activity, other involving external motion; Y92.410 Unspecified street and highway as the place of occurrence of the external cause; Y99.8 Other external cause status
CPT/HCPCS: 71046; 73060; 99282

== ENCOUNTER → 2019-07-12 | Outpatient (CLI) | payer MEDICARE, BC, SELFPAY ==
[2019-06-24 14:29] VITALS: BMI 19.6
--- NOTE | 2019-07-12 13:05 | ECHOD_ITS ---
Version 2 Reason For Study: CHF Procedure This was a 2D Doppler, Color Flow transthoracic echocardiogram. Exam performed in department. Dr. Mccord notified of low EF. Left Ventricle Severely dilated left ventricle. The estimated ejection fraction is 10-15 %. Septal motion consistent with IVCD. There is severe global hypokinesis of the left ventricle. Right Ventricle Severely dilated right ventricle. ICD or pacer leads identified within the right ventricle. Moderately severe global right ventricular systolic dysfunction. Atria The left atrium is severely enlarged. The right atrium is severely enlarged. Normal atrial septum. Mitral Valve The mitral valve is structurally normal. No prolapse or stenosis seen. Tricuspid Valve Normal tricuspid valve. Mild (1+) tricuspid valve insufficiency. Right ventricular systolic pressure estimated to be 44 mmHg. Mild pulmonary hypertension. Aortic Valve Bioprosthetic aortic valve. Stable appearing bioprosthetic aortic valve apparatus. Pulmonic Valve Normal pulmonic valve. Mild (1+) pulmonic valve insufficiency. Great Vessels Normal aortic root. Normal arch. The inferior vena cava is dilated. No collapse of the inferior vena cava. Pericardium/Pleural No pericardial effusion. MMode/2D Measurements & Calculations LVIDd: 7.1 cm IVSd: 0.99 cm LAV(MOD-bp): 90.5 ml LVIDs: 6.4 cm LVPWd: 0.76 cm LAV(MOD-bp) Indexed: 49.9 ml/m2 RVDd: 4.6 cm FS: 9.0 % LAV(MOD-sp2): 87.6 ml LAV(MOD-sp4): 86.7 ml LA dimension(2D): 4.3 cm LA A4 area: 25.2 cm2 RA A4 area: 23.4 cm2 Doppler Measurements & Calculations MV E max patricia: 98.1 cm/sec Ao V2 max: 113.9 cm/sec LV V1 max: 84.3 cm/sec Ao max P.2 mmHg LV V1 max P.8 mmHg PA V2 max: 89.9 cm/sec PI end-d patricia: 199.5 cm/sec TR max patricia: 323.2 cm/sec TR max P.5 mmHg Interpretation Summary Severely dilated left ventricle. The estimated ejection fraction is 10-15 %. There is severe global hypokinesis of the left ventricle. Severely dilated right ventricle. Moderately severe global right ventricular systolic dysfunction. The left atrium is severely enlarged. Mild (1+) tricuspid valve insufficiency. Right ventricular systolic pressure estimated to be 44 mmHg. Mild pulmonary hypertension. Bioprosthetic aortic valve. Stable appearing and normally functioning bioprosthetic aortic valve apparatus. The inferior vena cava is dilated Compared to echo report dated 07/27/2018, LV function has remained the same, but RVSP has increased from 20 to 44 mm Hg. Ordering Physician: Benito Donohue Referring Physician: Brain Bustamante Performed By: Clari Garcia RDCS, RVT
== END | disposition home or self-care (01) ==
LOC: CVS 12:55
PROVIDERS: PCP Family Medicine; Referring Provider Nurse Practitioner Family; Visit Provider Nurse Practitioner Family
DX: I21.4 Non-ST elevation (NSTEMI) myocardial infarction (principal); I11.0 Hypertensive heart disease with heart failure; I50.9 Heart failure, unspecified; I42.8 Other cardiomyopathies; Z95.4 Presence of other heart-valve replacement
CPT/HCPCS: 93306

== ENCOUNTER → 2019-07-19 14:45 | Outpatient (CLI) | payer MEDICARE, BC, SELFPAY ==
[2019-06-24 14:29] VITALS: BMI 19.6
[2019-07-19 15:43] LABS: Absolute Lymphocyte Count 1.37 X10^3/uL (0.83-4.51); Absolute Neutrophil Count 4.1 X10^3/uL (2.0-7.7); Basophil# 0.05 X10^3/uL; Basophil% 0.8 % (0-1); Eosinophil# 0.12 X10^3/uL; Eosinophils% 1.9 % (0-5); Hematocrit 40.4 % (40-54); Hemoglobin 12.2 g/dL (13.0-16.5); Lymphocyte # 1.37 X10^3/ul (4.0); Lymphocyte % 22.1 % (19-41); Mean Corp Hgb Conc 30.2 g/dL (32-36); Mean Corpuscular Hgb 25.1 pg (27.0-32.0); Mean Corpuscular Volume 83.1 fL (80-94); Mean Platelet Vol. 10.5 fl (6.2-12.0); Monocyte# 0.58 X10^3/uL; Monocyte% 9.4 % (0-10); NRBC Flagged by Analyzer 0 % (0-5); Neutrophil # 4.06 X10^3/uL (2.7-7.7); Neutrophil % 65.6 % (47-70); Platelet Count 242 K/mm3 (150-450); RBC Distribution Width CV 15.9 % (11.6-14.6); RBC Distribution Width SD 48.2 fl (35.1-43.9); Red Blood Count 4.86 M/mm3 (4.6-6.2); White Blood Count 6.2 K/mm3 (4.4-11.0)
[2019-07-19 16:14] LABS: BNP,B-Type NATRIURETIC PEPTIDE 1646.9 pg/mL (0-100)
[2019-07-19 16:23] LABS: Anion Gap 7 (5-15); BUN 21 mg/dL (7-18); BUN/Creat Ratio 15.9 RATIO (10-20); Calcium,Total 9.2 mg/dL (8.5-10.1); Chloride 110 mmol/L (98-107); Creatinine, Serum 1.32 mg/dL (0.70-1.30); EST Glomerular Filtration Rate 57 mL/min (>60); Est Glom Filt Rate - Afr Amer 68 mL/min (>60); Glucose 125 mg/dL (74-106); Sodium Level 142 mmol/L (136-145)
== END ==
PROVIDERS: PCP Family Medicine; Referring Provider Physician Assistant Medical; Visit Provider Physician Assistant Medical
DX: I25.10 Atherosclerotic heart disease of native coronary artery without angina pectoris (principal); I11.0 Hypertensive heart disease with heart failure; I50.9 Heart failure, unspecified; I42.8 Other cardiomyopathies
CPT/HCPCS: 36415; 80048; 83880; 85025

== ENCOUNTER 2019-11-20 14:27 | Inpatient (IN) | payer MEDICARE, BC, SELFPAY ==
[2019-11-20] VITALS (10 sets, daily range): BP systolic 117–140; BP diastolic 58–104; PULSE 78–95; RESP 14–26; TEMP 36.1–36.6; O2SAT 95–100; BMI 19.9; BMI 19.6; BMI 19.7
--- NOTE | 2019-11-20 14:49 | EKG12_ITS ---
Test Reason : CP Blood Pressure : / mmHG Vent. Rate : 089 BPM Atrial Rate : 089 BPM P-R Int : 264 ms QRS Dur : 158 ms QT Int : 412 ms P-R-T Axes : 050 000 126 degrees QTc Int : 501 ms Sinus rhythm with 1st degree A-V block with frequent Premature ventricular complexes Left bundle branch block Abnormal ECG Confirmed by ANDRZEJ GARZA, CORNELL ([id number]), film and video editor LOKI WILLIAM ([id number]) on 11/21/2019 1:19:47 PM Referred By: MEG Confirmed By:CORNELL DONNELLY MD
--- NOTE | 2019-11-20 14:51 | ED.RN ---
pt daughter alcides at desk hoping to be in with the patient. aware one visitor and at bedside. states she has ability to make decisions and they just filled out paperwork with dr. agarwal office. unable to find. notified if we had questions we would call her to notify and receive approval if needed.
--- NOTE | 2019-11-20 14:54 | ED.VIS.GEN ---
History of Present Illness Chief Complaint: Chest Pain Informant: Patient, Family Onset: Yesterday Context: Gradual Onset Current Severity: Mild Maximum Severity: Moderate Narrative: Patient presents with sharp left-sided chest pain that radiates through to his back. He states pain is worse with a deep breath he does not particularly feel short of breath. He denies any recent injury or change in activity. He does have a history of PR and has an ICD in place. Patient states that he follows with Dr. Mccord. He did take 2 baby aspirin which seemed to help alleviate his pain. - Past Medical History (1) Atherosclerotic heart disease of [place] coronary artery without angina pectoris Status: Chronic Comment: Mild, nonobstructive per [facility] done 03/31/[address] Giov[place] [facility] [place]Mild disease origin of first dx,small caliber artery. Mild diffuse disease in remainder of coronaries). Medical management recommended. (2) CHF (congestive heart failure) Status: Chronic (3) History of aortic valve replacement with tissue graft Status: Chronic Comment: Original Aortic homograft surgery (using #21 mm aortic homograft) 01/12/1997 @ [facility] per Dr. Kwaku Little for and AI with heavy calcification of aortic valve. REDO SURGERY: Degenerated aortic homograft and degenerated aortic root replaced with re-do sternotomy and #22 homograft, re-replacement of aortic root with #29 freestyle; SVG and GUTIERRES harvest (no CABG was done); right axillary artery cannulation per Dr. Wali Severino [facility] (4) Hypertension Status: Chronic (5) Implantable cardioverter-defibrillator (ICD) in situ Status: Chronic (6) NSTEMI (non-ST elevated myocardial infarction) Status: Chronic (7) Nonischemic cardiomyopathy Status: Chronic Comment: EF 30-35% per echo 03/31/2014 done @ [facility], Dr. Jorge Randle. Mild mitral and tricuspid regurg, mild pulmonary hypertension, RVSP 30mmhg. (8) Right bundle branch block Status: Chronic Past Medical History - Allergies and Home Meds Allergies/Adverse Reactions: Allergies Penicillins Allergy (Severe, Verified 11/20/19 14:29) Hives Primary Care Physician: Brain Bustamante DO [Primary Care Provider] - Doctors: Dr. Mccord Prior records reviewed: Yes Lives: Spouse/ Significant Other Smoking Status: Former smoker Review of Systems General: Denies: Chills, Fever Eyes: Denies: Visual changes - bilaterally ENT: Denies: Bilateral ear pain Cardiovascular: Reports: Chest pain Respiratory: Denies: Dyspnea - Chest pain with deep breath but does not feel short of breath, Cough Gastrointestinal: Denies: Abdominal pain, Nausea, Vomiting Musculoskeletal: Denies: Swelling, Extremity Pain Skin: Denies: Rash Neurological: Denies: Headache Hematologic: Denies: Easy bruising, Easy bleeding Allergy: Denies: Uticaria Physical Exam Vital Signs/Narrative: Vital Signs Temp Pulse Resp BP Pulse Ox 11/20/19 14:34 97.9 F 78 19 H 127/91 H 98 11/20/19 14:29 97.9 F 87 16 127/91 H 100 Inital Vital Signs reviewed: Yes General: Well nourished, Well developed Head: Normocephalic Neck: Supple Cardiovascular: Regular rate, Regular rhythm Respiratory: No distress, CTA bilaterally, Chest tenderness - Reproducible left upper chest wall tenderness. No crepitus. Abdomen: Soft, Nontender Extremities: Nontender, No edema Skin: Normal color Neurological: Alert, Oriented x3, Normal Strength, Normal Sensation Psychological: Normal affect Diagnostic/Tx/Re-eval Chest X-Ray - ED: 1 View, Read by ED Physician, Chronic Changes, Cardiomegaly Impressions Chest X-Ray 11/20/19 15:35 IMPRESSION: Possible very slight congestion/interstitial edema. There may also be mild segmental atelectasis of the lung bases. Electronically Signed: Blake Norris MD at 16:19 EDT , Service support , 11/20/19 15:35 Chest 1 View (Portable) [RAD] Stat Laboratory Results 11/20/19 11/20/19 11/20/19 14:30 14:30 14:30 WBC 5.4 RBC 4.73 Hgb 12.0 L Hct 38.8 L MCV 82.0 MCH 25.4 L MCHC 30.9 L RDW Std Deviation 50.2 H RDW Coeff of Bj 17.1 H Plt Count 215 MPV 10.1 Immature Gran % (Auto) 0.200 Neut % (Auto) 64.2 Lymph % (Auto) 24.8 Cannon % (Auto) 8.9 Eos % (Auto) 1.5 Baso % (Auto) 0.4 Absolute Neuts (auto) 3.5 Absolute Lymphs (auto) 1.33 Nucleated RBC % 0 D-Dimer Quant (PE/DVT) 2.19 H* Sodium 139 Potassium 4.4 Chloride 112 H Carbon Dioxide 20.0 L Anion Gap 7 BUN 27 H Creatinine 1.28 Estim Creat Clear Calc 47.11 Est GFR (MDRD) Af Amer 71 Est GFR (MDRD) Non-Af 59 L BUN/Creatinine Ratio 21.1 H Glucose 86 Calcium 8.7 Troponin I 0.219 H - EKG Initial EKG Interpretation: Sinus Rhythm - Sinus at 89 with frequent PVCs. 1/[address] depression in the lateral precordial leads. - Medical Decision Making Patient had taken 2 baby aspirin prior to arrival and was given 2 additional baby aspirin here. D-dimer is elevated and troponin is slightly elevated as well. I ordered a CTA however tech states patient was having a panic attack and was refusing to the CAT scan. When I went to bedside he states that he has severe claustrophobia and will not do a CT scan or an MRI. I offered to give him sedation medicine to help with anxiety and he still refuses to get a CT scan. I advised him at that point my only other choice would be to go ahead and give him anticoagulants tonight, admit him to the hospital for cycling of cardiac enzymes, and try to get a VQ scan tomorrow. I did speak with the patient's gas welder, Dr. Mccord. He agrees the patient would need a VQ scan before any kind of cardiac cath could be performed. ED Disposition - Plan for ED Patient: Disposition: Acute Care Hospital [facility] Diagnosis: Chest pain, Elevated d-dimer Referrals: Brain Bustamante, [Primary Care Provider] -
[2019-11-20 14:58] LABS: Absolute Lymphocyte Count 1.33 X10^3/uL (0.83-4.51); Absolute Neutrophil Count 3.5 X10^3/uL (2.0-7.7); Basophil# 0.02 X10^3/uL; Basophil% 0.4 % (0-1); Eosinophil# 0.08 X10^3/uL; Eosinophils% 1.5 % (0-5); Hematocrit 38.8 % (40-54); Lymphocyte # 1.33 X10^3/ul (4.0); Lymphocyte % 24.8 % (19-41); Mean Corp Hgb Conc 30.9 g/dL (32-36); Mean Corpuscular Hgb 25.4 pg (27.0-32.0); Mean Platelet Vol. 10.1 fl (6.2-12.0); Monocyte# 0.48 X10^3/uL; Monocyte% 8.9 % (0-10); NRBC Flagged by Analyzer 0 % (0-5); Neutrophil # 3.45 X10^3/uL (2.7-7.7); Neutrophil % 64.2 % (47-70); Platelet Count 215 K/mm3 (150-450); RBC Distribution Width CV 17.1 % (11.6-14.6); RBC Distribution Width SD 50.2 fl (35.1-43.9); Red Blood Count 4.73 M/mm3 (4.6-6.2); White Blood Count 5.4 K/mm3 (4.4-11.0)
[2019-11-20 15:07] LABS: D-Dimer Quantitative (DVT/PE) 2.19 FEU/ug/m (0.27-0.49)
[2019-11-20 15:12] LABS: Anion Gap 7 (5-15); BUN 27 mg/dL (7-18); BUN/Creat Ratio 21.1 RATIO (10-20); Calcium,Total 8.7 mg/dL (8.5-10.1); Chloride 112 mmol/L (98-107); Creatinine, Serum 1.28 mg/dL (0.70-1.30); EST Glomerular Filtration Rate 59 mL/min (>60); Est Glom Filt Rate - Afr Amer 71 mL/min (>60); Estimated Creatinine Clearance 47.11 ml/min; Glucose 86 mg/dL (74-106); Potassium 4.4 mmol/L (3.5-5.1); Sodium Level 139 mmol/L (136-145)
--- NOTE | 2019-11-20 15:35 | RAD_ITS ---
STUDY: X-RAY CHEST REASON FOR EXAM: Male, 74 years old. CHEST PAIN, ANXIETY TECHNIQUE: Single AP portable view of the chest. COMPARISON: 04-04-19. FINDINGS: Normal lung volumes. Mild increased interstitial markings of the mid and lower lungs bilaterally not present previously and possibly representing very slight congestion/interstitial edema. There may also be mild segmental atelectasis of the lung bases. Very small effusions not excluded. There is moderate cardiac enlargement. Previous CABG. Single lead pacemaker terminates in the right ventricle. Normal mediastinum and gene. Normal visualized pulmonary arteries. There is atherosclerotic tortuosity of the aortic arch and descending thoracic aorta. Normal visualized thoracic spine. Normal visualized ribs, clavicles, and shoulders. There is no demonstrated abnormality of the visualized soft tissue structures of the upper abdomen. RAD/Chest 1 View (Portable) IMPRESSION: Possible very slight congestion/interstitial edema. There may also be mild segmental atelectasis of the lung bases. Electronically Signed: Blake Norris MD at 16:19 EDT , Service support ,
[2019-11-20] MEDS: LORazepam 0.5 MG Tablet PO (15:40)
[2019-11-20] MEDS: 0.9% Normal Saline 1,000 ML 150 ML IV (15:40)
[2019-11-20] MEDS: Aspirin 81 MG TAB.CHEW 162 MG PO (15:40)
[2019-11-20] MEDS: Enoxaparin 60 MG/0.6 ML Syringe SC (16:05)
--- NOTE | 2019-11-20 16:33 | NURSING ---
DR FERNANDES FOR DR LANE
--- NOTE | 2019-11-20 16:55 | PCM.HP.STD ---
Problem List (1) Chest pain Status: Acute (2) Elevated d-dimer Status: Acute (3) Implantable cardioverter-defibrillator (ICD) in situ Status: Chronic (4) NSTEMI (non-ST elevated myocardial infarction) Status: Chronic (5) Nonischemic cardiomyopathy Status: Chronic Comment: EF 30-35% per echo 03/31/[address] done @ [facility], Dr. Jorge Randle. Mild mitral and tricuspid regurg, mild pulmonary hypertension, RVSP 30mmhg. (6) History of aortic valve replacement with tissue graft Status: Chronic Comment: Original Aortic homograft surgery (using #21 mm aortic homograft) 01/12/1997 @ [facility] per Dr. Kwaku Little for and AI with heavy calcification of aortic valve. REDO SURGERY: Degenerated aortic homograft and degenerated aortic root replaced with re-do sternotomy and #22 homograft, re-replacement of aortic root with #29 freestyle; SVG and GUTIERRES harvest (no CABG was done); right axillary artery cannulation per Dr. Wali Severino [facility] (7) Hypertension Status: Chronic (8) CHF (congestive heart failure) Status: Chronic History of Present Illness Date of Admission: 11/20/19 Chief Complaint: Chest pain. The patient is a 74 year old M with past medical history as mentioned above presented to the emergency room because of chest pain. Her symptoms started yesterday evening with chest pain, left-sided/retrosternal pain, dull aching pain, 8 out of 10 in severity, radiates to his back, aggravated by taking a deep breath, no relieving factors and denied associated symptoms. He denied associated shortness of breath, dizziness, lightheadedness, sweating, nausea or vomiting. He denied cough or sputum production. Denied fever or chills. In the emergency department, his vital signs were stable, was afebrile. Routine blood work was remarkable for BUN of 27, otherwise normal. EKG revealed normal sinus rhythm, first-degree AV block, PVCs, inverted T waves in leads V4, V5 and V6, LBBB, no acute segment changes. D-dimer was elevated at 2.19. Chest x-ray revealed cardiomegaly, possible very minimal pulmonary vascular congestion. He is being admitted for chest pain and elevated d-dimer for evaluation and treatment. Past Medical History Past Medical History (Chronic Problems): Chronic Problems (Last Updated 11/20/19 @ 16:[address] Marie Long MD) 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) NSTEMI (non-ST elevated myocardial infarction) (Chronic ~03/2014) Abnormal EKG (Chronic) PVCs (premature ventricular contractions) (Chronic) Right bundle branch block (Chronic) Nonrheumatic mitral (valve) insufficiency (Chronic) Mild per echo 03/31/2014 Nonrheumatic tricuspid (valve) insufficiency (Chronic) Mild per echo 03/31/2014 Nonischemic cardiomyopathy (Chronic) EF 30-35% per echo 03/31/[address] [facility], Dr. Jorge Randle. Mild mitral and tricuspid regurg, mild pulmonary hypertension, RVSP 30mmhg. Atherosclerotic heart disease of [place] coronary artery without angina pectoris (Chronic) Mild, nonobstructive per [facility] done 03/31/[address] Giovani [place]buois, [facility] [place] (Mild disease origin of first dx,small caliber artery. Mild diffuse disease in remainder of coronaries). Medical management recommended. 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 Kwaku Little for and AI with heavy calcification of aortic valve. REDO SURGERY: Degenerated aortic homograft and degenerated aortic root replaced with re-do sternotomy and #22 homograft, re-replacement of aortic root with #29 freestyle; SVG and GUTIERRES harvest (no CABG was done); right axillary artery cannulation per Dr. Wali Severino [facility] Hypertension (Chronic) CHF (congestive heart failure) (Chronic) Medical History: Medical History (Last Updated 11/20/19 @ 16:[address] Marie Long MD) 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) Z95.810 Abnormal EKG (Chronic) R94.31 PVCs (premature ventricular contractions) (Chronic) I49.3 Right bundle branch block (Chronic) I45.10 Nonrheumatic mitral (valve) insufficiency (Chronic) I34.0 Mild per echo 03/31/2014 Nonrheumatic tricuspid (valve) insufficiency (Chronic) I36.1 Mild per echo 03/31/2014 Nonischemic cardiomyopathy (Chronic) I42.8 EF 30-35% per echo 03/31/[address] [facility], Dr. Jorge Randle. Mild mitral and tricuspid regurg, mild pulmonary hypertension, RVSP 30mmhg. Atherosclerotic heart disease of [place] coronary artery without angina pectoris (Chronic) I25.10 Mild, nonobstructive per [facility] done 03/31/[address] Giovani Dubois, [facility] [place] (Mild disease origin of first dx,small caliber artery. Mild diffuse disease in remainder of coronaries). Medical management recommended. Hypertension (Chronic) I10 CHF (congestive heart failure) (Chronic) I50.9 PTSD (post-traumatic stress disorder) F43.10 Allergies Penicillins Allergy (Severe, Verified 11/20/19 14:29) Hives Home Medications: Ambulatory Orders Medication Instructions Recorded aspirin 81 mg tablet,delayed 81 mg PO DAILY #30 tab 07/06/18 release carvedilol 3.125 mg tablet 3.125 mg PO BID #60 tab 07/19/19 Atorvastatin Calcium 40 mg PO DAILY 11/20/19 Surgical History: Surgical History (Last Reviewed 11/20/19 @ 17:[address] Marie Long MD) History of aortic valve replacement with tissue graft (Chronic) Onset Date: 07/26/07 Z95.4 Original Aortic homograft surgery (using #21 mm aortic homograft) 01/12/1997 @ [facility] per Dr. Kwaku Little for and AI with heavy calcification of aortic valve. REDO SURGERY: Degenerated aortic homograft and degenerated aortic root replaced with re-do sternotomy and #22 homograft, re-replacement of aortic root with #29 freestyle; SVG and GUTIERRES harvest (no CABG was done); right axillary artery cannulation per Dr. Wali Severino [facility] History of left heart catheterization Z98.890 Most recent 03/31/2014, mild nonobstructive disease per Dr. Giovani Dubois @ [facility] History of prostate surgery Z98.890 Surgical History: - - Aortic valve replacement, prostate surgery. Psychiatric History: - - Claustrophobia. Lives: Spouse/ Significant Other Smoking Status: Former smoker Alcohol: None, Rare - *Family History Maternal Family History: Family History (Last Reviewed 11/20/19 @ 17:[address] Marie Long MD) Mother Cancer Kidney disease Father Myocardial infarction Brother Heart disease Review of Systems Constitutional: Denies: Anorexia, Chills, Fever, Weakness Eyes: Denies: Blurred vision, Double vision, Drainage, Redness HEENT: Denies: Difficulty Hearing, Ear Pain, Eye Pain, Nasal Congestion, Sore Throat Cardiovascular: Reports: Chest Pain. Denies: Chest Tightness, Edema, Heaviness, Light Headedness, Palpitations, Syncope Respiratory: Reports: Pleuritic Pain. Denies: Cough, Shortness of Breath, Sputum production, Wheezing Gastrointestinal: Denies: Abdominal Pain, Constipation, Diarrhea, Nausea, Vomiting Genitourinary: Denies: Dysuria, Frequency, Hematuria Musculoskeletal: Denies: Arm Pain, Back Pain Skin: Denies: Dryness, Rash Neurological: Denies: Balance problems, Double vision, Change in Speech, Slurred speech, Confusion, Headaches, Incoordination Psychiatric: Denies: Anxiety, Depression Endocrine: Denies: Change in Body Habitus, Polydipsia, Polyuria VTE Information - Inpt Only VTE Present on Admission: No VTE Mechan Device Prophylaxis: None VTE Pharm Prophylaxis ordered?: Yes Patient Problems: Active and Suspected Problems (Last Updated 11/20/19 @ 16:[address] Marie Long MD) Chest pain (Acute) Elevated d-dimer (Acute) - Physical Exam Vitals/I&O's: Vital Signs Temp Pulse Resp BP Pulse Ox 97.9 F 86 20 H 136/104 H 100 11/20/19 15:07 11/20/19 15:54 11/20/19 15:54 11/20/19 15:54 11/20/19 15:07 Oxygen Flow Rate (L/min) 2 Oxygen Delivery Method Nasal Cannula Weight: 142 lb 13.753 oz Body Mass Index (BMI) 19.9 General: Alert, Oriented x3, Cooperative, No apparent distress HEENT: Atraumatic, PERRLA, EOMI, Normocephalic Oral: Moist Mucosa, No Gingival or Mucosal Lesions/ Ulcerations Neck: Supple, No JVD, Negative Carotid Bruits Lungs: Clear to auscultation, Normal air movement, No wheeze, No rales, Diminished, Rhonchi Cardiovascular: Regular rate, Regular Rhythm, Normal S1, Normal S2, PMI Normal Abdomen: Bowel Sounds Present, Soft, Non Tender, Non-Distended, No Hepato-splenomegaly Extremities: No clubbing, No cyanosis, No edema Skin: No rashes, No breakdown Lymphatic: No Cervical, Supraclavicular, or Inguinal Adenopathy Neurological: Cranial nerves II-XII grossly intact, Motor Exam 5/5 strength throughout Psych/Mental Status: Normal Affect, Appropriate, Alert and oriented to time, place, person, mood and affect Laboratory Results 11/20/19 14:30: WBC 5.4, RBC 4.73, Hgb 12.0 L, Hct 38.8 L, MCV 82.0, MCH 25.4 L, MCHC 30.9 L, RDW Std Deviation 50.2 H, RDW Coeff of Bj 17.1 H, Plt Count 215, MPV 10.1, Immature Gran % (Auto) 0.200, Neut % (Auto) 64.2, Lymph % (Auto) 24.8, Ford % (Auto) 8.9, Eos % (Auto) 1.5, Baso % (Auto) 0.4, Absolute Neuts (auto) 3.5, Absolute Lymphs (auto) 1.33, Nucleated RBC % 0 11/20/19 14:30: D-Dimer Quant (PE/DVT) 2.19 H* 11/20/19 14:30: Sodium 139, Potassium 4.4, Chloride 112 H, Carbon Dioxide 20.0 L, Anion Gap 7, BUN 27 H, Creatinine 1.28, Estim Creat Clear Calc 47.11, Est GFR (MDRD) Af Amer 71, Est GFR (MDRD) Non-Af 59 L, BUN/Creatinine Ratio 21.1 H, Glucose 86, Calcium 8.7, Troponin I 0.219 H Clinical Impression(s) from Imaging Studies Chest X-Ray 11/20/19 15:35 IMPRESSION: Possible very slight congestion/interstitial edema. There may also be mild segmental atelectasis of the lung bases. Electronically Signed: Blake Norris MD at 16:19 EDT , Service support , Current Medications Sodium Chloride () 1,000 mls @ 150 mls/hr IV .[id number] [facility] Last Admin: 11/20/19 15:40 Dose: 150 mls/hr Documented by: Assessment/Plan All Active Problems (Last Updated 11/20/19 @ 16:[address] Marie Long MD) Chest pain (Acute) Elevated d-dimer (Acute) This is a 74 years old male patient presented to the emergency room because of chest pain, found to have abnormal cardiac enzymes as well as elevated d-dimer and he is being admitted for evaluation and treatment. #1 chest pain/abnormal cardiac enzymes: Differential diagnoses include CAD versus pulmonary embolism. D-dimer was elevated, patient refused to go for CTA chest. EKG reviewed as above, no acute acute changes. Troponin is 0.219. Chest x-ray reviewed as above. Plan: Admit to PCU, cardiac monitoring, serial cardiac enzymes, repeat EKG tomorrow morning, 2D echocardiogram, cardiology consult, CTA chest, start therapeutic Lovenox, continue aspirin, statins, Coreg, repeat CBC and BMP tomorrow morning, IV fluids, Tylenol PRN, PT OT evaluation and treatment. #2 elevated d-dimer: Given the pleuritic nature of the pain, PE cannot be ruled out. In the ED, patient refused CTA chest because of claustrophobia. After I offered the patient IV Ativan, he agreed to go for CTA chest. Plan: CTA chest, start therapeutic Lovenox twice daily. #3 CAD: Without prior cardiac interventions. Plan as above, continue aspirin, statin and beta-blockers. 2D echocardiogram. #4 chronic systolic CHF/nonischemic cardiomyopathy/status post ICD: Clinically stable, compensated. Chest therapy, minimal vascular congestion. Patient denies worsening shortness of breath. Plan: Continue beta-blockers, 2D echocardiogram, monitor volume status to avoid volume overload. #5 status post bioprosthetic aortic valve replacement: 2D echocardiogram ordered. #6 hypertension: Blood pressure stable, continue Coreg. #7 DVT prophylaxis: He will be on therapeutic Lovenox twice daily. This note was generated with [employer]obe[employer] dictation software. It may contain incorrect words, spelling, and punctuation that were not noted in checking the note before signing. Inpatient E&M: [id number] Init Hosp L3
--- NOTE | 2019-11-20 17:06 | EKG12_ITS ---
Test Reason : REPEAT: CP Blood Pressure : / mmHG Vent. Rate : 088 BPM Atrial Rate : 082 BPM P-R Int : 280 ms QRS Dur : 140 ms QT Int : 416 ms P-R-T Axes : 040 -10 125 degrees QTc Int : 503 ms Normal sinus rhythm 1st degree AV block Left ventricular hypertrophy with QRS widening T wave abnormality, consider lateral ischemia Abnormal ECG Confirmed by CORNELL DONNELLY MD ([id number]), editorial specialist LOKI WILLIAM ([id number]) on 11/21/2019 1:20:55 PM Referred By: KELLY Confirmed By:CORNELL DONNELLY MD
--- NOTE | 2019-11-20 17:33 | CT_ITS ---
STUDY: CTA CHEST REASON FOR EXAM: Male, 74 years old. CP AND ELEVATED D-DIMER WITH AGGRAVATION WITH DEEP INSPIRATION HX AORTIC VALVE REPLACEMENT, CHF RADIATION DOSAGE (If Supplied By Facility): CTDIvol = ( 9.97 ) mGy, DLP = ( 258.29 ) mGycm TECHNIQUE: The examination was performed with the intravenous administration of IV 75mL Isovue-370. Post-processing of the angiographic images was performed, with multiplanar reformation and 3D reconstruction. Individualized dose optimization techniques were used for this CT. COMPARISON: None. FINDINGS: Pacemaker on the left. Normal enhancement of the main pulmonary artery and right and left pulmonary arteries. Normal enhancement of the bilateral peripheral pulmonary arteries. There is no demonstrated pulmonary embolism. Normal thoracic aorta and visualized great vessels. There is no demonstrated aortic dissection. Cardiomegaly. Normal mediastinum. Normal hilar regions. Normal visualized trachea and bronchi. The lungs are well expanded. Normal pulmonary parenchyma. Bilateral pleural effusions. Normal chest wall structures. Normal osseous structures. Normal visualized upper abdomen. CT/CTA Chest W/WO Contrast IMPRESSION: No pulmonary embolus. Bilateral pleural effusions. Electronically Signed: Maksim Machado MD at 21:19 EDT Tel , Service support ,
--- NOTE | 2019-11-20 17:33 | ECHOCS_ITS ---
Reason For Study: Abn EKG Procedure This was a 2D Doppler, Color Flow transthoracic echocardiogram. Contrast injection was performed. Exam performed in department. Left Ventricle Severely dilated left ventricle. The estimated ejection fraction is 10-15 %. Stage 2 diastolic dysfunction. There is severe global hypokinesis of the left ventricle. Right Ventricle Moderately dilated right ventricle. ICD or pacer leads identified within the right ventricle. Mild to moderate global right ventricular systolic dysfunction. Atria The left atrium is mildly enlarged. The right atrium is moderately enlarged. ICD or pacer leads identified within the right atrium. Normal atrial septum. Mitral Valve The mitral valve is structurally normal. No prolapse or stenosis seen. Mild (1+) eccentric mitral valve insufficiency. Tricuspid Valve Normal tricuspid valve. Mild (1+) tricuspid valve insufficiency. Right ventricular systolic pressure estimated to be 45 mmHg. Mild pulmonary hypertension. Aortic Valve Trisinus/trileaflet aortic valve. Mild diffuse aortic valve thickening. There is no aortic stenosis. Pulmonic Valve Normal pulmonic valve. Trivial pulmonic valve insufficiency. Great Vessels Normal aortic root. Normal arch. The inferior vena cava is dilated. No collapse of the inferior vena cava. Pericardium/Pleural No pericardial effusion. Medication Diluted definity 3ml given slow IV push to enhance endocardial definition. MMode/2D Measurements & Calculations LVIDd: 6.6 cm IVSd: 1.1 cm Ao root diam: 3.4 cm LVIDs: 6.4 cm LVPWd: 0.92 cm RVDd: 4.9 cm FS: 3.5 % LAV(MOD-bp): 105.2 ml LVAd ap4: 58.2 cm2 SV(MOD-sp4): 36.5 ml LAV(MOD-bp) Indexed: 58.0 ml/m2 EDV(MOD-sp4): 261.6 ml LAV(MOD-sp2): 134.9 ml EDV(sp4-el): 271.9 ml LAV(MOD-sp4): 59.8 ml LVAs ap4: 53.7 cm2 ESV(MOD-sp4): 225.1 ml ESV(sp4-el): 238.8 ml EF(MOD-sp4): 14.0 % EF(sp4-el): 12.2 % SV(sp4-el): 33.1 ml LA A4 area: 18.2 cm2 LA dimension(2D): 5.4 cm RA A4 area: 22.6 cm2 Doppler Measurements & Calculations MV E max patricia: 79.6 cm/sec Ao V2 max: 113.1 cm/sec LV V1 max: 61.9 cm/sec Ao max P.2 mmHg LV V1 max P.6 mmHg Ao V2 mean: 80.2 cm/sec Ao mean P.9 mmHg Ao V2 VTI: 18.2 cm PA V2 max: 77.0 cm/sec PI end-d patricia: 220.7 cm/sec TR max patricia: 320.5 cm/sec TR max P.1 mmHg Interpretation Summary Severely dilated left ventricle. The estimated ejection fraction is 10-15 %. Stage 2 diastolic dysfunction. There is severe global hypokinesis of the left ventricle. Moderately dilated right ventricle. Mild to moderate global right ventricular systolic dysfunction. The left atrium is mildly enlarged. The right atrium is moderately enlarged. Mild (1+) eccentric mitral valve insufficiency. Mild (1+) tricuspid valve insufficiency. Right ventricular systolic pressure estimated to be 45 mmHg. Mild pulmonary hypertension. The inferior vena cava is dilated No collapse of the inferior vena cava. Compared to echo report dated 07/12/2019, no appreciable changes noted. The study was technically difficult. Contrast injection was performed. Ordering Physician: Marie Long Referring Physician: Brain Bustamante Performed By: Shilpa Donohue, YESSENIA, RVT
[2019-11-20] MEDS: 0.9% Normal Saline 1,000 ML 75 ML IV (18:33)
[2019-11-20] MEDS: LORazepam 2 MG/ML Syringe 1 MG IV (18:36)
[2019-11-20] MEDS: 0.9% Saline Lock 10 ML Syringe IV (18:37)
[2019-11-20] MEDS: Carvedilol 3.125 MG TABLET PO (19:16)
[2019-11-20 21:21] LABS: Magnesium 1.9 mg/dL (1.6-2.6)
[2019-11-20] MEDS: Atorvastatin Calcium 40 MG Tablet PO (22:15)
[2019-11-20] MEDS: Acetylcysteine (Mucomyst Oral) 20% SOLN 1200 MG PO (22:15)
[2019-11-21] VITALS (11 sets, daily range): BP systolic 92–120; BP diastolic 55–83; PULSE 58–88; RESP 14–20; TEMP 36.8–37.1; O2SAT 96–100
--- NOTE | 2019-11-21 05:13 | CON.PCM_ITS ---
Problem List (1) Chest pain Status: Acute (2) Elevated d-dimer Status: Acute (3) Implantable cardioverter-defibrillator (ICD) in situ Status: Chronic (4) NSTEMI (non-ST elevated myocardial infarction) Status: Chronic (5) Abnormal EKG Status: Chronic (6) PVCs (premature ventricular contractions) Status: Chronic (7) Right bundle branch block Status: Chronic (8) Nonischemic cardiomyopathy Status: Chronic Comment: EF 30-35% per echo 03/31/2014 done @ [facility], Dr. Jorge Randle. Mild mitral and tricuspid regurg, mild pulmonary hypertension, RVSP 30mmhg. (9) Atherosclerotic heart disease of [place] coronary artery without angina pectoris Status: Chronic Qualifiers: [place] vs. transplanted heart: [place] heart Qualified Code(s): I25.10 - Atherosclerotic heart disease of [place] coronary artery without angina pectoris Comment: Mild, nonobstructive per [facility] done 03/31/[address] Giovani Dubois, [facility] (Mild disease origin of first dx,small caliber artery. Mild diffuse disease in remainder of coronaries). Medical management recommended. Reason for Consult Date of Consultation: 11/21/19 Reason for Consultation: Chest pain, hypertension, hyperlipidemia, ischemic cardiomyopathy status post bypass surgery and AICD placement. Atypical chest pain. History of Present Illness: DONNY SOLER, is a 74 M who is a current patient of [facility] [employer], he is a previous smoker who quit in 1971 after approximately 10-year smoking. He has a history of homograft AVR in 1996 at the [facility] with redo aortic valve replacement on 07/26/07 at [facility] with aortic root replacement. It appears that his GUTIERRES and SVG were harvested but apparently not used for CABG. On his second surgery he received a number 29 mm Freestyle AVR this appeared to be done preoperatively by Dr. Severino for possible CABG. He has chronic LV dysfunction with an EF around 30-35% at least since 2013. As best I can tell the patient was on no medicines for CHF until he was seen in our office. His review is EKG is on 06/14/18 which showed normal sinus than with frequent PVCs and ventricular couplets. It appears that he stated that he did not want to have any further testing of his heart or continue any medications or follow- up with his cokeman at [facility] as of June 25, 2018. He does have a history of PTSD from the [place]. His previous echocardiogram dated 07/05/07 showed an EF of 28% and severely calcified porcine valve. This was prior to his aortic valve replacement. Follow-up echocardiogram done at [facility] demonstrated an EF of 30-35%, RVSP of 30 mmHg, and what appear to be normally functioning bioprosthetic aortic valve. His most recent catheterization took place at [facility] on 03/31/14 which showed mild disease in the origin of the first diagonal which was small in caliber, mild diffuse disease in his remaining coronary arteries with at most a 40-50% hazy area and obtuse marginal #1, no PCI was performed recommended. He is on no medications, and his significant other claims that no medications were ever recommended, which does not seem to be credible. There is a note from his last cokeman in [facility], indicating that the patient did not want to pursue any additional therapy or cardiac evaluation. He has never been told about a defibrillator. At the time of our initial visit he was then placed on baby aspirin and Coreg and is now here in follow-up. A baseline echocardiogram dated 07/27/2018 was performed here at [facility] with the following results: Severely dilated left ventricle. The estimated ejection fraction is 15-20 %. Stage 2 diastolic dysfunction. There is severe global hypokinesis of the left ventricle. Mild (1+) eccentric mitral valve insufficiency. Right ventricular systolic pressure estimated to be 25 mmHg. Trivial tricuspid valve insufficiency. Stable appearing bioprosthetic aortic valve apparatus. There is no comparison study available. His most recent echocardiogram dated 07/12/2019 is as follows: Severely dilated left ventricle. The estimated ejection fraction is 10-15 %. There is severe global hypokinesis of the left ventricle. Severely dilated right ventricle. Moderately severe global right ventricular systolic dysfunction. The left atrium is severely enlarged. Mild (1+) tricuspid valve insufficiency. Right ventricular systolic pressure estimated to be 44 mmHg. Mild pulmonary hypertension. Bioprosthetic aortic valve. Stable appearing and normally functioning bioprosthetic aortic valve apparatus. The inferior vena cava is dilated Compared to echo report dated 07/27/2018, LV function has remained the same, but RVSP has increased from 20 to 44 mm Hg. Patient was doing well up until around 3 days ago when he developed new onset chest pain, which apparently wax and wane, and then developed a pleuritic nature. When this did not improve he sought medical attention at [facility], and underwent an EKG which showed normal sinus rhythm with ventricular bigeminy, left bundle branch block, and first-degree AV block. His d-dimer was felt to be abnormal, and underwent a CTA of his chest which demonstrated no pulmonary embolism but pleural effusions were noted. In addition his troponins were felt to be minimally elevated at 0.21, 0.20, and 0.199. Patient was treated with aspirin and Lovenox. Currently is resting comfortably, no acute distress, and reports his chest pain is completely resolved. On my examination the patient has no reproducible tactile chest pain in his anterior chest. Symmetry is showed normal sinus rhythm with PVCs. [] Past Medical History Allergies/Adverse Reactions: Allergies Penicillins Allergy (Severe, Verified 11/20/19 14:29) Hives Home Medications: Ambulatory Orders Medication Instructions Recorded carvedilol 3.125 mg tablet 3.125 mg PO BID #60 tab 07/19/19 Aspirin [Aspirin, Baby] 162 mg PO DAILY@0800 11/20/19 Atorvastatin Calcium 40 mg PO DAILY 11/20/19 Past Medical History (Chronic Problems): Chronic Problems (Last Updated 11/20/19 @ 16:[address] Marie Long MD) 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) NSTEMI (non-ST elevated myocardial infarction) (Chronic ~03/2014) Abnormal EKG (Chronic) PVCs (premature ventricular contractions) (Chronic) Right bundle branch block (Chronic) Nonrheumatic mitral (valve) insufficiency (Chronic) Mild per echo 03/31/2014 Nonrheumatic tricuspid (valve) insufficiency (Chronic) Mild per echo 03/31/2014 Nonischemic cardiomyopathy (Chronic) EF 30-35% per echo 03/31/2014 done @ [facility], Dr. Jorge Randle. Mild mitral and tricuspid regurg, mild pulmonary hypertension, RVSP 30mmhg. Atherosclerotic heart disease of [place] coronary artery without angina pectoris (Chronic) Mild, nonobstructive per [facility] done 03/31/[address] Giovani Dubois, [facility] (Mild disease origin of first dx,small caliber artery. Mild diffuse disease in remainder of coronaries). Medical management recommended. 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 Kwaku Little for and AI with heavy calcification of aortic valve. REDO SURGERY: Degenerated aortic homograft and degenerated aortic root replaced with re-do sternotomy and #22 homograft, re-replacement of aortic root with #29 freestyle; SVG and GUTIERRES harvest (no CABG was done); right axillary artery cannulation per Dr. Wali Severino [facility] Hypertension (Chronic) CHF (congestive heart failure) (Chronic) Surgical History: - - Aortic valve replacement, prostate surgery. Psychiatric History: - - Claustrophobia. - *Family History Maternal Family History: Family History (Last Reviewed 11/20/19 @ 17:[address] Marie Long MD) Mother Cancer Kidney disease Father Myocardial infarction Brother Heart disease Lives: Spouse/ Significant Other Smoking Status: Former smoker Alcohol: None, Rare Review of Systems - Review of Systems General: Denies: Fever, Night Sweats, Fatigue Cardiovascular: Reports: Chest Discomfort, Chest Discomfort at Rest. Denies: Shortness of Breath, Orthopnea, PND, Peripheral Edema, Palpitations, Lightheadedness, Dizziness, Near Syncope, Syncope Respiratory: Denies: Cough, Sputum Production, Hemoptysis Gastrointestinal: Denies: Hematemesis, Hematochezia, Melena Genitourinary: Denies: Dysuria, Hematuria Skin: Denies: Rash Subjectve: Patient sitting up in bed, no acute distress. Objective: Vital Signs Temp Pulse Resp BP Pulse Ox 98.7 F 71 20 H 92/55 L 97 11/21/19 04:20 11/21/19 04:20 11/21/19 04:20 11/21/19 04:20 11/21/19 04:20 Oxygen Flow Rate (L/min) 2 Oxygen Delivery Method Nasal Cannula Weight: 141 lb 1.533 oz Body Mass Index (BMI) 19.6 Intake and Output for Last 24 Hours 11/19/19 11/20/19 11/21/19 23:59 23:59 23:59 Intake Total 1706.25 / 1706.25 Balance 1706.25 / 1706.25 General: Awake, Alert, Oriented x 3 HEENT: PERRL, EOMI, Sclera Non Icteric Neck: Supple, Good ROM, No Lymph Node Enlargement Lungs: Clear to auscultation Cardiovascular: Regular Rhythm, Normal S1, Normal S2, No Murmurs, No Rubs, No Gallops Vascular: No Carotid Bruits, Normal Femoral Pulses, Normal Radial Pulses, Normal Dorsalis Pedal Pulse, Normal Posterior Tibial Pulses Abdomen: Bowel Sounds Present, Soft, Non Tender, No HSM, No Organomegaly Extremities: No Cyanosis, No Clubbing, No edema Neurological: No Focal Motor or Sensory Deficit 11/20/19 14:30: WBC 5.4, RBC 4.73, Hgb 12.0 L, Hct 38.8 L, MCV 82.0, MCH 25.4 L, MCHC 30.9 L, Plt Count 215, MPV 10.1, Immature Gran % (Auto) 0.200, Neut % (Auto) 64.2, Lymph % (Auto) 24.8, Sac % (Auto) 8.9, Eos % (Auto) 1.5, Baso % (Auto) 0.4, Absolute Neuts (auto) 3.5, Nucleated RBC % 0 11/20/19 14:30: D-Dimer Quant (PE/DVT) 2.19 H* 11/20/19 14:30: Sodium 139, Potassium 4.4, Chloride 112 H, Carbon Dioxide 20.0 L , Anion Gap 7, BUN 27 H, Creatinine 1.28, Est GFR (MDRD) Af Amer 71, Est GFR (MDRD) Non-Af 59 L, BUN/Creatinine Ratio 21.1 H, Glucose 86, Calcium 8.7, Troponin I 0.219 H 11/20/19 18:08: Troponin I 0.210 H 11/20/19 20:56: Magnesium 1.9, Troponin I 0.199 H Rhythm: EKG: ECHO: From 07/12/2019 Severely dilated left ventricle. The estimated ejection fraction is 10-15 %. There is severe global hypokinesis of the left ventricle. Severely dilated right ventricle. Moderately severe global right ventricular systolic dysfunction. The left atrium is severely enlarged. Mild (1+) tricuspid valve insufficiency. Right ventricular systolic pressure estimated to be 44 mmHg. Mild pulmonary hypertension. Bioprosthetic aortic valve. Stable appearing and normally functioning bioprosthetic aortic valve apparatus. The inferior vena cava is dilated Compared to echo report dated 07/27/2018, LV function has remained the same, but RVSP has increased from 20 to 44 mm Hg. Stress Test: Cardiac Cath: PCI: CT Surgery: Holter monitor: EPS: PPM: CXR: Chest CT Scan: Assessment/Plan 1. Chest pain: The patient appears to have pleuritic type chest pain on history as well as initial physical exam upon arrival. His d-dimer was mildly elevated. This is superimposed on known severe ischemic cardiomyopathy with an EF around 10 to 15% as of June 2019. I recommended the patient undergo a repeat echocardiogram to determine if he has any kind of pericardial effusion. His CT scan demonstrated pleural effusions which may be consistent with his pleuritic type chest pain. Given the patient's known coronary artery disease and new onset chest pain and indeterminate troponin, I recommend he undergo a dobutamine echocardiogram. In addition I recommend he undergo hs-CRP and a sed rate to determine if he has pericarditis. If this is abnormal, and assuming he has no overt ischemia, would recommend treatment with ibuprofen therapy at 400 mg p.o. every 8 hours. In the meantime we will continue baby aspirin, subcu Lovenox, and Coreg therapy. His blood pressure is little bit too low for NEDA inhibitor's or arms. If the patient's stress test is grossly abnormal, he may require diagnostic coronary angiogram. If however there is no overt ischemia, I would hold off on diagnostic coronary angiogram at this time. 2. Hyperlipidemia: Recommend obtaining a fasting lipid profile. Continue Lipitor therapy. 3. Thank you very much for the opportunity to participate in the cardiac care of your patient. Consultation time took place between 430 and 5 AM. Inpatient E&M: 87007 Init Hosp L2
[2019-11-21 05:20] LABS: Basophil# 0.03 X10^3/uL; Basophil% 0.7 % (0-1); Eosinophil# 0.06 X10^3/uL; Eosinophils% 1.4 % (0-5); Hematocrit 34.7 % (40-54); Hemoglobin 10.7 g/dL (13.0-16.5); Lymphocyte % 22.6 % (19-41); Mean Corp Hgb Conc 30.8 g/dL (32-36); Mean Corpuscular Hgb 25.8 pg (27.0-32.0); Mean Corpuscular Volume 83.6 fL (80-94); Mean Platelet Vol. 10.5 fl (6.2-12.0); Monocyte# 0.36 X10^3/uL; Monocyte% 8.1 % (0-10); NRBC Flagged by Analyzer 0 % (0-5); Neutrophil # 2.96 X10^3/uL (2.7-7.7); Neutrophil % 66.7 % (47-70); Platelet Count 192 K/mm3 (150-450); RBC Distribution Width SD 51.7 fl (35.1-43.9); Red Blood Count 4.15 M/mm3 (4.6-6.2); White Blood Count 4.4 K/mm3 (4.4-11.0)
[2019-11-21 05:34] LABS: Anion Gap 6 (5-15); BUN 26 mg/dL (7-18); BUN/Creat Ratio 19.5 RATIO (10-20); Calcium,Total 8.4 mg/dL (8.5-10.1); Chloride 110 mmol/L (98-107); Creatinine, Serum 1.33 mg/dL (0.70-1.30); EST Glomerular Filtration Rate 56 mL/min (>60); Est Glom Filt Rate - Afr Amer 68 mL/min (>60); Estimated Creatinine Clearance 44.78 ml/min; Glucose 101 mg/dL (74-106); Potassium 4.3 mmol/L (3.5-5.1); Sodium Level 137 mmol/L (136-145)
[2019-11-21 05:45] LABS: CRP, High Sensitivity Cardiac 1.85 mg/L; Cholesterol 110 mg/dL (200); High Density Lipoprotein 35 mg/dL; Triglycerides 67 mg/dL; Very Low Density Lipoprotein 13 mg/dL (5-40)
[2019-11-21 05:50] LABS: Erythrocyte Sedimentation Rate 2 mm/hr (0-20)
--- NOTE | 2019-11-21 05:55 | EKG12_ITS ---
Test Reason : AM EKG Blood Pressure : / mmHG Vent. Rate : 069 BPM Atrial Rate : 069 BPM P-R Int : 282 ms QRS Dur : 132 ms QT Int : 460 ms P-R-T Axes : 057 016 207 degrees QTc Int : 492 ms Sinus rhythm with 1st degree A-V block with occasional Premature ventricular complexes Left ventricular hypertrophy with QRS widening T wave abnormality, consider inferolateral ischemia Abnormal ECG When compared with ECG of 20-NOV-2019 17:10, MANUAL COMPARISON REQUIRED, DATA IS UNCONFIRMED Confirmed by ANDRZEJ GARZA, CORNELL ([id number]), news videotape editor LOKI WILLIAM ([id number]) on 11/23/2019 1:20:24 PM Referred By: DOM Confirmed By:CORNELL DONNELLY MD
[2019-11-21] MEDS: Aspirin E.C. 81 MG Tablet PO (06:22)
--- NOTE | 2019-11-21 06:47 | NURSING ---
Left VM for notifying that pt's room moved closer to the nurses station ELIF Franco
[2019-11-21] MEDS: Carvedilol 3.125 MG TABLET PO ×2 (11:03→17:12)
[2019-11-21] MEDS: Acetylcysteine (Mucomyst Oral) 20% SOLN 1200 MG PO ×2 (11:04→20:59)
--- NOTE | 2019-11-21 11:18 | VDLE_ITS ---
Reason For Study: ELEVATED D-DIMER RIGHT LEFT GSV is normal. GSV is normal. CFV is compressible, spontaneous, phasic, CFV is compressible, spontaneous, phasic, competent and demonstrates normal competent, and demonstrates normal augmentation. augmentation. FV is compressible, spontaneous, phasic, FV is compressible, spontaneous, phasic, competent and demonstrates normal competent and demonstrates normal augmentation. augmentation. POP V is compressible, spontaneous, phasic, POP V is compressible, spontaneous, phasic, competent and demonstrates normal competent and demonstrates normal augmentation. augmentation. T/P Trunk is compressible. T/P Trunk is compressible. PTV is compressible. PTV is compressible. RT PerV is compressible. LT PerV is compressible. Procedure NON-Vascular anaechoic structure noted in the Exam performed portable in patient room. left pop fossa area measuring 1.38cm x The study was technically difficult. 1.55cm. A preliminary report was called and/or faxed to [facility]. Interpretation Summary No evidence for acute deep venous thrombosis bilateral lower extremities with patent and compressible bilateral great saphenous veins. Left popliteal space 1.3 x 1.55 cm nonvascular structure. Possible cyst but clinical correlation would be indicated Technically difficult examination Ordering Physician: Cody Mccord Referring Physician: Brain Bustamante Performed By: Clari Garcia, YESSENIA, RVT
--- NOTE | 2019-11-21 11:40 | CASEMGMT ---
RN CM Face to Face with patient for initial transition planning/care coordination assessment. RN CM introduced self and role at [facility]. Patient lying in bed, alert and oriented, at bedside. Patient willing to participate in assessment and is able to answer all questions appropriately. Care providers, pharmacy, and demographics verified. Patient wishes to discharge home, denies need for home health at this time. Patient states he has no further needs or concerns at this time. CM to follow for discharge planning needs that may arise. PCP: Brain Bustamante Specialists: Flex commercial teller [facility] Insurance: [employer] Prescription Benefit: yes Living Will/HPOA: yes Clari Guevara LNOK: Living Arrangements: Patient lives with in 1 story home with 3 steps and railing to enter home. Patient states he is independent at home. Transportation: self/ DME/HHC: Patient denies DME in the home. Patient denies previous HHC. Will monitor for need for home oxygen at discharge. Disposition Plan: Patient to discharge home with family support and follow-up plans in place. Marline BEASLEY, RN, CM
--- NOTE | 2019-11-21 11:47 | PN_ITS ---
Patient Problems: Active and Suspected Problems (Last Updated 11/20/19 @ 16:[address] Marie Long MD) Chest pain (Acute) Elevated d-dimer (Acute) Subjective: Chief complaint: Follow-up after admission for chest pain with abnormal cardiac enzymes, probable unstable angina. Patient seen and examined. No acute events overnight. This morning, he has no more chest pain. Denies shortness of breath. He underwent 2D echocardiogram, results reviewed. His vital signs are stable. - Physical Exam Vitals/I&O's: Vital Signs Temp Pulse Resp BP Pulse Ox 98.5 F 79 18 108/83 H 100 11/21/19 10:50 11/21/19 11:00 11/21/19 10:50 11/21/19 10:50 11/21/19 10:50 Oxygen Flow Rate (L/min) 2 Oxygen Delivery Method Nasal Cannula Weight: 141 lb 1.533 oz Body Mass Index (BMI) 19.6 Intake and Output for Last 24 Hours 11/19/19 11/20/19 11/21/19 23:59 23:59 23:59 Intake Total 1706.25 / 1706.25 593.75 / 593.75 Balance 1706.25 / 1706.25 593.75 / 593.75 General: Alert, Oriented x3, Cooperative, No apparent distress HEENT: Atraumatic, PERRLA, EOMI, Normocephalic Oral: Moist Mucosa, No Gingival or Mucosal Lesions/ Ulcerations Neck: Supple, No JVD, Negative Carotid Bruits, Trachea Midline, Thyroid Normal Size and Texture Lungs: Clear to auscultation, No rhonchi, No wheeze, No rales, Diminished Cardiovascular: Regular rate, Regular Rhythm, Normal S1, Normal S2, PMI Normal Abdomen: Bowel Sounds Present, Soft, Non Tender, Non-Distended, No Hepato- splenomegaly Extremities: No clubbing, No cyanosis, No edema Skin: No rashes, No breakdown Lymphatic: No Cervical, Supraclavicular, or Inguinal Adenopathy Neurological: Cranial nerves II-XII grossly intact, Neuro grossly intact Psych/Mental Status: Normal Affect, Appropriate, Alert and oriented to time, place, person, mood and affect Laboratory Results 11/20/19 14:30: WBC 5.4, RBC 4.73, Hgb 12.0 L, Hct 38.8 L, MCV 82.0, MCH 25.4 L, MCHC 30.9 L, RDW Std Deviation 50.2 H, RDW Coeff of Bj 17.1 H, Plt Count 215, M PV 10.1, Immature Gran % (Auto) 0.200, Neut % (Auto) 64.2, Lymph % (Auto) 24.8, Cross % (Auto) 8.9, Eos % (Auto) 1.5, Baso % (Auto) 0.4, Absolute Neuts (auto) 3.5, Absolute Lymphs (auto) 1.33, Nucleated RBC % 0 11/20/19 14:30: D-Dimer Quant (PE/DVT) 2.19 H* 11/20/19 14:30: Sodium 139, Potassium 4.4, Chloride 112 H, Carbon Dioxide 20.0 L , Anion Gap 7, BUN 27 H, Creatinine 1.28, Estim Creat Clear Calc 47.11, Est GFR (MDRD) Af Amer 71, Est GFR (MDRD) Non-Af 59 L, BUN/Creatinine Ratio 21.1 H, Glucose 86, Calcium 8.7, Troponin I 0.219 H 11/20/19 18:08: Troponin I 0.210 H 11/20/19 20:56: Magnesium 1.9, Troponin I 0.199 H 11/21/19 05:02: WBC 4.4, RBC 4.15 L, Hgb 10.7 L, Hct 34.7 L, MCV 83.6, MCH 25.8 L, MCHC 30.8 L, RDW Std Deviation 51.7 H, RDW Coeff of Bj 17.0 H, Plt Count 192, MPV 10.5, Immature Gran % (Auto) 0.500, Neut % (Auto) 66.7, Lymph % (Auto) 22.6, Cross % (Auto) 8.1, Eos % (Auto) 1.4, Baso % (Auto) 0.7, Absolute Neuts (auto) 3.0, Absolute Lymphs (auto) 1.00, Nucleated RBC % 0 11/21/19 05:02: Sodium 137, Potassium 4.3, Chloride 110 H, Carbon Dioxide 21.0, Anion Gap 6, BUN 26 H, Creatinine 1.33 H, Estim Creat Clear Calc 44.78, Est GFR (MDRD) Af Amer 68, Est GFR (MDRD) Non-Af 56 L, BUN/Creatinine Ratio 19.5, Glucose 101, Calcium 8.4 L 11/21/19 05:02: ESR 2 11/21/19 05:02: C-React Prot High Sens 1.85, Triglycerides 67, Cholesterol 110, LDL Cholesterol 62, VLDL Cholesterol 13, HDL Cholesterol 35 L Current Medications Acetaminophen (Tylenol) 650 mg PO Q6H PRN PRN PRN Reason: Pain Score 1-10/Temp > 100.7 F Acetylcysteine (Mucomyst) 1,200 mg PO BID [facility] Stop: 11/22/19 10:01 Last Admin: 11/21/19 11:04 Dose: 1,200 mg Documented by: [facility]) [facility] Last Admin: 11/21/19 06:22 Dose: 81 mg Documented by: Atorvastatin Calcium (Lipitor) 40 mg PO QHS [facility] Last Admin: 11/20/19 22:15 Dose: 40 mg Documented by: Carvedilol (Coreg) 3.[facility] Last Admin: 11/21/19 11:03 Dose: 3.125 mg Documented by: Clopidogrel Bisulfate (Plavix) 75 mg PO DAILY [facility] Enoxaparin Sodium (Lovenox) 60 mg SC Q12@0600,1800 [facility] Last Admin: 11/21/19 06:50 Dose: Not Given Documented by: Sodium Chloride () 250 mls @ 15 mls/hr IV .[id number] PRN PRN Reason: Saline Flush Sodium Chloride () 250 mls @ 15 mls/hr IV .[id number] PRN PRN Reason: Additional IVPB Infusion Sodium Chloride () 1,000 mls @ 0 mls/hr IV .Q0M [facility] Morphine Sulfate () 2 mg IV Q4H PRN PRN PRN Reason: Pain Score 6-10/10 Nutritional Formula (Lactose Free) (Ensure Enlive) 120 ml PO 4X/DAY [facility] Last Admin: 11/21/19 11:04 Dose: 120 ml Documented by: Ondansetron HCl (Zofran) 4 mg IV Q8H PRN PRN PRN Reason: NAUSEA/VOMITING Senna/Docusate Sodium (Senokot-S, Stephanie-Colace) 2 tablet PO BID PRN PRN PRN Reason: Constipation Sodium Chloride () 10 - 40 ml IV UD PRN PRN Reason: SALINE FLUSH Last Admin: 11/20/19 18:37 Dose: 10 ml Documented by: Zolpidem Tartrate (Ambien (Generic)) 5 mg PO QHS PRN PRN PRN Reason: INSOMNIA Medical Necessity - Tobacco Use Smoking Status: Former smoker Assessment/Plan All Active Problems (Last Updated 11/20/19 @ 16:[address] Marie Long MD) Chest pain (Acute) Elevated d-dimer (Acute) This is a 74 years old male patient presented to the emergency room because of chest pain, found to have abnormal cardiac enzymes as well as elevated d-dimer and he is being admitted for evaluation and treatment. #1 chest pain/abnormal cardiac enzymes: Probable unstable angina. Troponin remained almost flat, patient denied any more chest pain. His vital signs are stable. CTA chest showed no PE or dissection, revealed small bilateral pleural effusion. Chest x-ray reviewed as above. He is on therapeutic Lovenox twice daily, aspirin, statins, Plavix and Coreg. 2D echocardiogram revealed ejection fraction of 10 to 15%, stage II diastolic dysfunction, other findings reviewed. Cardiology on the case, plan for cardiac catheterization tomorrow morning. #2 elevated d-dimer: CTA chest showed no PE or dissection, reviewed. Patient is already on subcu Lovenox twice daily therapeutic dose. #3 CAD: Without prior cardiac interventions. continue aspirin, Lovenox, statin and beta-blockers. Plan for cardiac catheterization tomorrow morning. #4 chronic systolic CHF/nonischemic cardiomyopathy/status post ICD: Clinically s table, compensated. 2D echocardiogram reveals above. Plan to continue atenolol, statins, patient need to be started on diuretics. #5 status post bioprosthetic aortic valve replacement: 2D echocardiogram reviewed as above. #6 hypertension: Blood pressure stable, continue Coreg. #7 DVT prophylaxis: Continue therapeutic Lovenox twice daily. This note was generated with [employer] dictation software. It may contain incorrect words, spelling, and punctuation that were not noted in checking the note before signing. Inpatient E&M: 41737 Subs Hosp L2
[2019-11-21] MEDS: Clopidogrel Bisulfate 300 MG Tablet PO (12:56)
[2019-11-21] MEDS: Enoxaparin 60 MG/0.6 ML Syringe SC (17:12)
[2019-11-21] MEDS: Atorvastatin Calcium 40 MG Tablet PO (20:59)
[2019-11-22] VITALS (16 sets, daily range): BP systolic 97–125; BP diastolic 62–88; PULSE 59–82; RESP 16–20; TEMP 36.2–37; O2SAT 86–99
--- NOTE | 2019-11-22 05:55 | EKG12_ITS ---
Test Reason : AM EKG Blood Pressure : / mmHG Vent. Rate : 074 BPM Atrial Rate : 074 BPM P-R Int : 330 ms QRS Dur : 164 ms QT Int : 440 ms P-R-T Axes : 076 -04 136 degrees QTc Int : 488 ms Sinus rhythm with 1st degree A-V block Left bundle branch block Abnormal ECG When compared with ECG of 21-NOV-2019 04:44, MANUAL COMPARISON REQUIRED, DATA IS UNCONFIRMED Confirmed by APRIL LORENZ ([id number]), copy editor LOKI WILLIAM ([id number]) on 11/24/2019 11:29:46 AM Referred By: DOM Confirmed By:APRIL LORENZ
[2019-11-22] MEDS: Carvedilol 3.125 MG TABLET PO (05:57)
[2019-11-22] MEDS: Aspirin E.C. 81 MG Tablet PO (05:57)
[2019-11-22] MEDS: Clopidogrel Bisulfate 75 MG Tablet PO (05:57)
[2019-11-22] MEDS: DiphenhydrAMINE 25 MG Capsule 50 MG PO (06:55)
--- NOTE | 2019-11-22 06:57 | NURSING ---
Report called to [facility] in center medical and lab director. Pt transported down at 0657. ELIF Franco
--- NOTE | 2019-11-22 08:12 | CL.D_ITS ---
Patient Name: DONNY SOLER Study Date: 11/22/2019 Performing: Cody Mccord MD Ht: 70.86 inches 180 cm : 1945 Wt: 141.1 lbs 64 kg Age: 74 Gender: male BSA: 1.82 PROCEDURE(S) PERFORMED [id number] CLINICAL PROFILE AND INDICATIONS Patient presents with NSTEMI for urgent cardiac cath Indications: Stable Known CAD, Valvular Disease, Cardiomyopathy, Cardiac Arrythmia Heart Failure: NYHA Class: 2, Newly Diagnosed: No, Heart Failure Type: Systolic Stress/Imaging Stress/Image Study Performed: No Angina Classification Anginal Classification w/in 2 Weeks: Anginal Equivalent Dyspnea CAD Presentations: Unstable angina. Other: Dyspnea on exertion Non-STEMI. Symptom onset Date/Time : 11/20/2019 Time Not Available Comorbidities/Risk Factors: Hypertension Dyslipidemia Prior CHF Prior Valve Surgery/Procedure CONCLUSIONS Non obstructive coronary arteries Ramus branch with 65% proximal stenosis but doubtful that would improve LV dysfunction, and PCI would be high risk given severe LV dysfunction. RECOMMENDATIONS Management as per referring [employer] Specialist Would hold on PCI of small Ramus branch given severe LV dysfunciton out of proportion of amount of CA D. Doubtful that PCI of Ramus would appreciably improve LV function. Would recommend starting cozaar, lasix and eliquis for severe LV dysfunction and moderate pulmonary H TN in order to prevent LV thrombus and DVT. Manual sheath removal as pt is too thin for closure. D/w Dr Long. DESCRIPTION OF PROCEDURE The patient arrived to the procedure lab. The risks and benefits of the procedure as well as a full d escription of our services here and current unavailability of surgical backup were fully explained to the patient and/or their significant other prior to the catheterization. The Timeout was completed, verifying the correct patient and procedure. The patient's procedural site was prepped and draped in the usual fashion. Local anesthetic was given subcutaneously to right groin region with Lidocaine 2%. Using a modified Seldinger technique, arterial access was obtained via the right femoral artery, a 4 Fr sheath was inserted Left Coronary Artery selective angiography was performed in multiple views us ing a 4 Fr. JL5 catheter. Right Coronary Artery selective angiography was then performed in multiple views using a 4 Fr. 3DRC catheter.The arterial sheath was pulled and manual compression applied until hemostasis is achieved. CORONARY ANGIOGRAPHY DOMINANCE: Co- Dominant LEFT HEART ASSESSMENT Left Ventricular Ejection Fraction: Not assessed LEFT MAIN: Mild calcification, Angiographically normal LEFT ANTERIOR DESCENDING ARTERY: PROX LAD: Mild luminal irregularities less than 30% DIAGONAL 1: Mid - Moderate luminal irregularities up to 50% CIRCUMFLEX ARTERY: PROX CIRC: Mild luminal irregularities less than 30% OM 1: Proximal - Mild luminal irregularities less than 30% RAMUS: 65 % Stenosis RIGHT CORONARY ARTERY: MID RCA: Mild luminal irregularities less than 30% COMPLICATIONS No Complications PROCEDURE MEDICATIONS Oxygen: 2 L/min via nasal cannula SUMMARY OF HEMODYNAMIC DATA Time AIR REST ECG 07:22:10 AO 107/75 (86) SA 07:43:43 Signed By Cody Mccord MD On 11/22/2019 08:11:16 Cody Mccord MD
[2019-11-22] MEDS: Losartan Potassium 25 MG Tablet 12.5 MG PO (09:31)
[2019-11-22] MEDS: Furosemide 40 MG Tablet PO (09:32)
[2019-11-22] MEDS: Acetylcysteine (Mucomyst Oral) 20% SOLN 1200 MG PO (10:34)
--- NOTE | 2019-11-22 11:47 | DCINST_ITS ---
- Discharge Diagnoses Current Active Problems: Current Active and Chronic Problems (Last Updated 11/20/19 @ 16:[address] Marie Long MD) Chest pain (Acute) Elevated d-dimer (Acute) You will use the following diet at home:: Cardiac, Fluid restricted (specify 2000 mls, 1500 mls) - 1500 cc daily Your food should be the consistency of: Regular Discharge Activity: Return to Normal Activity Weight Bearing Status: Weight bearing as tolerated Call your doctor if you observe: Fever of 101 or Higher, Shortness of breath, Dizziness, Swelling in the ankles, Chest pain, Increased palpitations (irregular heartbeat), Uncontrolled pain Allergies/Adverse Reactions: Allergies Penicillins Allergy (Severe, Verified 11/20/19 14:29) Hives Medications to take at Discharge carvedilol 3.125 mg tablet 3.125 mg PO BID #60 tab 07/19/19 Atorvastatin Calcium 40 mg PO DAILY 11/20/19 Apixaban [Eliquis] 2.5 mg PO BID #90 tab 11/22/19 Aspirin E.C. [Ecotrin] 81 mg PO DAILYCM #90 tab 11/22/19 Furosemide [Lasix] 40 mg PO DAILY #90 tab 11/22/19 Losartan Potassium [Cozaar] 12.5 mg PO DAILY #90 tab 11/22/19 The following prescriptions were given: Losartan Potassium [Cozaar] 12.5 mg PO DAILY #90 tab Transmission Status: Pending to [facility] Aspirin E.C. [Ecotrin] 81 mg PO DAILYCM #90 tab Transmission Status: Pending to [facility] Apixaban [Eliquis] 2.5 mg PO BID #90 tab Transmission Status: Pending to [facility] Furosemide [Lasix] 40 mg PO DAILY #90 tab Transmission Status: Pending to [facility] Primary Care Physician: Brain Bustamante DO [Primary Care Provider] - Please follow up with your Primary Care Physician in: 1 week. Test Results: Test results from this visit will be discussed in further detail at your follow- up appointment, if applicable. Please Follow Up With: Cody Mccord MD When: 2 weeks.
--- NOTE | 2019-11-22 13:01 | CASEMGMT ---
Addendum entered by Marline So 11/22/19 13:41: D/C summary faxed to [facility] and [facility] aware that pt to be discharged today, voice understanding. Belen SAENCIO CM Addendum entered by Mraline So 11/22/19 13:16: D/C summary to be faxed once obtained. Belen ASENCIO CM Original Note: Pt to be sent home on Eliquis at discharge and med e-scribed to [facility] previously. Call to tech at [facility] and per tech, pt's co-pay for Eliquis is $4.50 at this time. Pt does qualify for home oxygen at this time. This ELIF CAMILO to room and pt/ updated on Eliquis co-pay, voice understanding. After being provided with a list of in-network local DME companies, pt's states they would like [facility] for home oxygen at this time. Script signed and faxed to [facility] at this time. Pt/ decline the need for HHC or OP at this time and decline need for any further DME, pt states 'I won't use it.' Pt/ voice no further questions/concerns/needs at this time. Belen ASENCIO CM
--- NOTE | 2019-11-22 13:13 | PCM.DC.SUM ---
Discharge Date and Diagnosis - Problem List Patient Problems: Active and Suspected Problems (Last Updated 11/20/19 @ 16:[address] Marie Long MD) Chest pain (Acute) Elevated d-dimer (Acute) Date of Admission: 11/20/19 Date of Discharge: 11/22/19 - Primary Discharge Diagnosis Acute Problems: Active Problems (Last Updated 11/20/19 @ 16:[address] Marie Long MD) #1 acute non-ST elevation DC. #2 elevated d-dimer, PE ruled out. #3 nonischemic cardiomyopathy. - Secondary Discharge Diagnosis Chronic Problems: Chronic Problems (Last Updated 11/20/19 @ 16:[address] Marie Long MD) History of left heart catheterization (Chronic 11/22/19) 03/31/2014, mild nonobstructive disease per Dr. Giovani Dubois @ [facility] 11/22/19:Ramus branch with 65% proximal stenosis but doubtful that would improve LV dysfunction, and PCI would be high risk given severe LV dysfunction. RECOMMENDATIONS: Would hold on PCI of small Ramus branch given severe LV dysfunciton out of proportion of amount of CAD. Doubtful that PCI of Ramus would appreciably improve LV function. Would recommend starting cozaar, lasix and eliquis for severe LV dysfunction and moderate pulmonary HTN in order to prevent LV thrombus and DVT. 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 Jorge Randle. Mild mitral and tricuspid regurg, mild pulmonary hypertension, RVSP 30mmhg. Atherosclerotic heart disease of [place] coronary artery without angina pectoris (Chronic) Mild, nonobstructive per [facility] done 03/31/[address] Giovani Dubois, [facility] [place] (Mild disease origin of first dx,small caliber artery. Mild diffuse disease in remainder of coronaries). Medical management recommended. 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 Kwaku Little for and AI with heavy calcification of aortic valve. REDO SURGERY: Degenerated aortic homograft and degenerated aortic root replaced with re-do sternotomy and #22 homograft, re-replacement of aortic root with #29 freestyle; SVG and GUTIERRES harvest (no CABG was done); right axillary artery cannulation per Dr. Wali Severino [facility] Hypertension (Chronic) CHF (congestive heart failure) (Chronic) Hospital Course and Treatment Imaging Results: Clinical Impression(s) from Imaging Studies Chest X-Ray 11/20/19 15:35 IMPRESSION: Possible very slight congestion/interstitial edema. There may also be mild segmental atelectasis of the lung bases. Electronically Signed: Blake Norris MD at 16:19 EDT , Service support , Chest CTA 11/20/19 17:33 IMPRESSION: No pulmonary embolus. Bilateral pleural effusions. Electronically Signed: Maksim Machado MD at 21:19 EDT Tel , Service support , Dr. Mccord, cardiology. Procedures: 2-D Echocardiogram, Cardiac catheterization, EKG Summary of Care Provided: Patient seen and examined on the day of discharge and appeared to be stable to be discharged home. He had no more chest pain. He did have minimal shortness of breath. Ambulatory pulse oximetry performed and his pulse ox came down to 86% on room air with ambulation and he did qualify for oxygen. Other vital signs were stable. The patient is a 74 year old M presented to the emergency room because of chest pain and he was admitted for evaluation. His initial EKG revealed normal sinus rhythm, first-degree AV block, PVCs, inverted T waves in leads V4, V5 and V6 as well as LBBB and without evidence of acute segment changes. Troponin was slightly elevated at 0.19, 0.210, 0.199. Patient was found to have elevated d-dimer for which CTA chest done and showed no evidence of PE or dissection, revealed small bilateral pleural effusion. Venous Doppler of bilateral lower extremities done also and showed no evidence of acute DVT. Cardiology consulted and patient underwent cardiac catheterization, found to have nonobstructive CAD, severe LV dysfunction, no interventions performed. 2D echocardiogram revealed ejection fraction of 10 to 15%, stage II diastolic function, moderately dilated right ventricle, RVSP of 45 consistent with moderate pulmonary hypertension, other findings reviewed. There was no evidence of acute CHF. Patient did require oxygen of up to 2 L. He was started on Lasix, losartan and continued on Coreg, aspirin and statins. His vital signs remained stable. Ambulatory pulse oximetry performed and his pulse ox came down to 86% with ambulation on room air and he did qualify for home oxygen to be able to ambulate around at home as he is doing his daily activities without restrictions. Patient discharged home in a stable condition, discharged on aspirin, statins, Coreg, Lasix and losartan, cardiology recommended to start patient on anticoagulation with Eliquis because he is at very high risk for developing LV thrombus, patient instructed to start taking Eliquis after 3 days given his cardiac catheterization tomorrow, instructed to start taking Eliquis on November 26, 2019, recommended follow-up with PCP in 1 week and follow-up with cardiology in 2 weeks. Patient Problems: Active and Suspected Problems (Last Updated 11/20/19 @ 16:[address] Marie Long MD) Chest pain (Acute) Elevated d-dimer (Acute) - Physical Exam Vitals/I&O's: Vital Signs Temp Pulse Resp BP Pulse Ox 97.6 F L 65 18 117/76 94 11/22/19 09:20 11/22/19 12:20 11/22/19 12:20 11/22/19 12:11/22/19 12:47 Oxygen Flow Rate (L/min) [ 2 AMBULATION with Oxygen] Oxygen Flow Rate (L/min) [ 0 AMBULATING on Room Air] Oxygen Flow Rate (L/min) [At 0 REST on Room Air] Oxygen Flow Rate (L/min) 2 Oxygen Delivery Method Room Air Weight: 141 lb 1.533 oz Body Mass Index (BMI) 19.6 Intake and Output for Last 24 Hours 11/20/19 11/21/19 11/22/19 23:59 23:59 23:59 Intake Total 1706.25 / 1706.25 953.75 / 953.75 360 / 360 Output Total 800 / 800 1850 / 1850 Balance 1706.25 / 1706.25 153.75 / 153.75 -1490 / -1490 General: Alert, Oriented x3, Cooperative, No apparent distress HEENT: Atraumatic, PERRLA, EOMI, Normocephalic Oral: Moist Mucosa, No Gingival or Mucosal Lesions/ Ulcerations Neck: Supple, No JVD, Negative Carotid Bruits, Trachea Midline, Thyroid Normal Size and Texture Lungs: Clear to auscultation, Normal air movement, No rhonchi, No wheeze, No rales, Diminished Cardiovascular: Regular rate, Regular Rhythm, Normal S1, Normal S2, PMI Normal Abdomen: Bowel Sounds Present, Soft, Non Tender, Non-Distended, No Hepato-splenomegaly Extremities: No clubbing, No cyanosis, No edema Skin: No rashes, No breakdown Lymphatic: No Cervical, Supraclavicular, or Inguinal Adenopathy Neurological: Cranial nerves II-XII grossly intact, Neuro grossly intact Psych/Mental Status: Normal Affect, Appropriate Current Medications Acetaminophen (Tylenol) 650 mg PO Q6H PRN PRN PRN Reason: Pain Score 1-10/Temp > 100.7 F [facility] Last Admin: 11/22/19 05:57 Dose: 81 mg Documented by: Atorvastatin Calcium (Lipitor) 40 mg PO QHS [facility] Last Admin: 11/21/19 20:59 Dose: 40 mg Documented by: Carvedil[facility] (Coreg) [facility] Last Admin: 11/22/19 05:57 Dose: 3.125 mg Documented by: Furosemide (Lasix) 40 mg PO DAILY [facility] Last Admin: 11/22/19 09:32 Dose: 40 mg Documented by: Heparin Sodium (Beef Lung) (Heparin 500 Unit/5 Ml (100/Ml)) 500 unit IV UD PRN PRN Reason: HEPARIN FLUSH Sodium Chloride () 250 mls @ 15 mls/hr IV .[id number] PRN PRN Reason: Saline Flush Sodium Chloride () 250 mls @ 15 mls/hr IV .[id number] PRN PRN Reason: Additional IVPB Infusion Sodium Chloride () 1,000 mls @ 0 mls/hr IV .Q0M [facility] Labetalol HCl (Trandate) 5 mg IV X1 PRN PRN Reason: SBP > 160 prior to sheath pull Stop: 11/24/19 07:57 Losartan Potassium (Cozaar) 12.5 mg PO DAILY [facility] Last Admin: 11/22/19 09:31 Dose: 12.5 mg Documented by: Morphine Sulfate () 2 mg IV Q4H PRN PRN PRN Reason: Pain Score 6-10/10 Nutritional Formula (Lactose Free) (Ensure Enlive) 120 ml PO 4X/DAY [facility] Last Admin: 11/22/19 09:32 Dose: Not Given Documented by: Ondansetron HCl (Zofran) 4 mg IV Q8H PRN PRN PRN Reason: NAUSEA/VOMITING Senna/Docusate Sodium (Senokot-S, Stephanie-Colace) 2 tablet PO BID PRN PRN PRN Reason: Constipation Sodium Chloride () 10 - 40 ml IV UD PRN PRN Reason: SALINE FLUSH Last Admin: 11/20/19 18:37 Dose: 10 ml Documented by: Zolpidem Tartrate (Ambien (Generic)) 5 mg PO QHS PRN PRN PRN Reason: INSOMNIA Discharge Activity: Return to Normal Activity Weight Bearing Status: Weight bearing as tolerated Call your doctor if you observe: Fever of 101 or Higher, Shortness of breath, Dizziness, Swelling in the ankles, Chest pain, Increased palpitations (irregular heartbeat), Uncontrolled pain Home Medications: Medications to take at Discharge carvedilol 3.125 mg tablet 3.125 mg PO BID #60 tab 07/19/19 Atorvastatin Calcium 40 mg PO DAILY 11/20/19 Apixaban [Eliquis] 2.5 mg PO BID #90 tab 11/22/19 Aspirin E.C. [Ecotrin] 81 mg PO DAILYCM #90 tab 11/22/19 Furosemide [Lasix] 40 mg PO DAILY #90 tab 11/22/19 Losartan Potassium [Cozaar] 12.5 mg PO DAILY #90 tab 07/28/20 Following Prescrptions Were Given to Patient: Losartan Potassium [Cozaar] 12.5 mg PO DAILY #90 tab Transmission Status: Received by [address] Aspirin E.C. [Ecotrin] 81 mg PO DAILYCM #90 tab Transmission Status: Received by [address] Apixaban [Eliquis] 2.5 mg PO BID #90 tab Transmission Status: Received by [address] Furosemide [Lasix] 40 mg PO DAILY #90 tab Transmission Status: Received by [address] Primary Care Physician: Brain Bustamante DO [Primary Care Provider] - Please follow up with your Primary Care Physician in: 1 week. Please Follow Up With: Cody Mccord MD When: 2 weeks. Please Follow Up With: Brain Bustamante DO Disposition: Home Minutes spent on discharge:: 32 Patient Condition:: Stable Medical Necessity - Tobacco Use Smoking Status: Former smoker Meaningful Use Info Meaningful Use Diagnoses (Choose all that apply): None applicable Inpatient E&M: 98787 [facility]
--- NOTE | 2019-11-23 14:16 | CASEMGMT ---
RN CM Discharge Follow-Up Phone Call. Margot: [place] Str[place]: 3 Discharge Date: 11/22/19 Adm Dx: CP, Abnormal cardiac enzymes, elevated D-dimer. Call to pt to inquire about how he has been doing since being discharged from the hospital. Pt's , Clari, answered and spoke w/this ELIF CAMILO. Clari states pt is doing pretty good' and staed, he slept very peacefully last night. She states he is doing well with the oxygen and denies having any questions/concerns re: oxygen at this time. She states they were able to continuous pickling line pickler the new prescriptions. She is aware of the f/u appts w/PCP and electric distribution checker. She denies having any questions/concerns/needs at this time. Mery BEASLEY RN CM
== END 2019-11-22 15:00 | disposition home or self-care (01) | DRG 281 ==
LOC: ED 15:50 → PCU 18:09
PROVIDERS: Internal Medicine Cardiovascular Disease; Admitting Provider Hospitalist; Emergency Provider Emergency Medicine; PCP Family Medicine; Visit Provider Hospitalist
DX: I21.4 Non-ST elevation (NSTEMI) myocardial infarction (principal); I42.8 Other cardiomyopathies; I50.22 Chronic systolic (congestive) heart failure; I11.0 Hypertensive heart disease with heart failure; R79.1 Abnormal coagulation profile; Z95.810 Presence of automatic (implantable) cardiac defibrillator; I25.2 Old myocardial infarction; I25.119 Atherosclerotic heart disease of native coronary artery with unspecified angina pectoris; Z95.3 Presence of xenogenic heart valve; Z87.891 Personal history of nicotine dependence; Z79.82 Long term (current) use of aspirin; Z79.899 Other long term (current) drug therapy; E78.5 Hyperlipidemia, unspecified
CPT/HCPCS: 36415; 71045; 71275; 80048; 80061; 83735; 84484; 85025; 85379; 85652; 86141; 93005; 93306; 93454; 93970; 97802; 99285; J7030; J7040; Q9957; Q9967; A4216; C1769; C1894; C8929

== ENCOUNTER → 2019-11-30 11:03 | Outpatient (CLI) | payer MEDICARE, BC, SELFPAY ==
[2019-11-30 10:34] VITALS: BMI 19.6
[2019-11-30 15:04] LABS: Hematocrit 40.4 % (40-54); Hemoglobin 12.2 g/dL (13.0-16.5); Mean Corp Hgb Conc 30.2 g/dL (32-36); Mean Corpuscular Hgb 26.2 pg (27.0-32.0); Mean Corpuscular Volume 86.7 fL (80-94); Mean Platelet Vol. 10.9 fl (6.2-12.0); Platelet Count 245 K/mm3 (150-450); RBC Distribution Width CV 17.4 % (11.6-14.6); Red Blood Count 4.66 M/mm3 (4.6-6.2); White Blood Count 5.7 K/mm3 (4.4-11.0)
[2019-11-30 15:28] LABS: ALB/GLOB Ratio 1.1 RATIO (0.9-2.4); AST(SGOT) 20 U/L (15-37); Alanine Aminotransfer ALT/SGPT 25 U/L (16-61); Albumin, Serum 3.8 g/dL (3.2-5.0); Alkaline Phosphatase 106 U/L (45-117); Anion Gap 6 (5-15); BUN 20 mg/dL (7-18); BUN/Creat Ratio 13.9 RATIO (10-20); Bilirubin, Direct 0.21 mg/dL (0.00-0.30); Calcium,Total 8.9 mg/dL (8.5-10.1); Chloride 107 mmol/L (98-107); Creatinine, Serum 1.44 mg/dL (0.70-1.30); EST Glomerular Filtration Rate 51 mL/min (>60); Est Glom Filt Rate - Afr Amer 62 mL/min (>60); Globulin 3.6 g/dL (2.2-4.2); Glucose 98 mg/dL (74-106); Potassium 3.9 mmol/L (3.5-5.1); Protein, Total 7.4 g/dL (6.4-8.2); Sodium Level 140 mmol/L (136-145); Thyroid Stim Hormone (TSH) 4.24 uIU/mL (0.358-3.74)
[2019-11-30 15:38] LABS: Cholesterol 123 mg/dL (200); High Density Lipoprotein 50 mg/dL; Triglycerides 38 mg/dL; Very Low Density Lipoprotein 8 mg/dL (5-40)
== END ==
PROVIDERS: Internal Medicine Cardiovascular Disease; PCP Family Medicine; Referring Provider Nurse Practitioner Family; Visit Provider Nurse Practitioner Family
DX: R07.9 Chest pain, unspecified (principal); I13.0 Hypertensive heart and chronic kidney disease with heart failure and stage 1 through stage 4 chronic kidney disease, or unspecified chronic kidney disease; I50.9 Heart failure, unspecified
CPT/HCPCS: 36415; 80053; 80061; 82248; 84443; 85027

== ENCOUNTER 2020-06-10 20:01 | Inpatient (IN) | payer MEDICARE, BC, SELFPAY ==
[2020-03-07 13:31] VITALS: BMI 19.9
[2020-06-10] VITALS (9 sets, daily range): BP systolic 102–117; BP diastolic 69–93; PULSE 65–78; RESP 14–24; TEMP 36.2–36.6; O2SAT 94–100; BMI 21.7; BMI 20.7; BMI 20.8
--- NOTE | 2020-06-10 20:13 | EKG12_ITS ---
Test Reason : SOB Blood Pressure : / mmHG Vent. Rate : 069 BPM Atrial Rate : 069 BPM P-R Int : 304 ms QRS Dur : 168 ms QT Int : 462 ms P-R-T Axes : 054 -22 142 degrees QTc Int : 495 ms Sinus rhythm with 1st degree A-V block with occasional Premature ventricular complexes Left bundle branch block Abnormal ECG Confirmed by GOOD GARZA, MARY ([id number]), order editor CHADWICK KELSEY ([id number]) on 06/14/2020 1:25:13 PM Referred By: DOMINGO Confirmed By:MARY FUNK MD
--- NOTE | 2020-06-10 20:17 | ED.VIS.GEN ---
History of Present Illness Chief Complaint: Shortness of Breath Informant: Patient Onset: Today, - - Acute on chronic Current Severity: Moderate Maximum Severity: Moderate Narrative: Patient presents secondary to worsening shortness of breath. He states he always has shortness of breath but yet denies history of COPD or asthma. His breathing has been worse today. He denies chest pain. No significant cough. No fever or chills. He does not use inhalers or oxygen at home. - Past Medical History (1) Atherosclerotic heart disease of [place] coronary artery without angina pectoris Status: Chronic Comment: Mild, nonobstructive per [facility] done 03/31/[address] Giovani Dubois, [facility] [place] (Mild disease origin of first dx,small caliber artery. Mild diffuse disease in remainder of coronaries). Medical management recommended. (2) CHF (congestive heart failure) Status: Chronic (3) History of aortic valve replacement with tissue graft Status: Chronic Comment: Original Aortic homograft surgery (using #21 mm aortic homograft) 01/12/[address] [facility] [address]. Kwaku Little for and AI with heavy calcification of aortic valve. REDO SURGERY: Degenerated aortic homograft and degenerated aortic root replaced with re-do sternotomy and #22 homograft, re-replacement of aortic root with #29 freestyle; SVG and GUTIERRES harvest (no CABG was done); right axillary artery cannulation per Dr. Wali Severino [facility] (4) Hypertension Status: Chronic (5) Implantable cardioverter-defibrillator (ICD) in situ Status: Chronic (6) NSTEMI (non-ST elevated myocardial infarction) Status: Chronic (7) Nonischemic cardiomyopathy Status: Chronic Comment: EF 30-35% per echo 03/31/2014 done @ [facility], Dr. Jorge Randle. Mild mitral and tricuspid regurg, mild pulmonary hypertension, RVSP 30mmhg. Past Medical History - Allergies and Home Meds Allergies/Adverse Reactions: Allergies Penicillins Allergy (Severe, Verified 06/10/20 20:01) Hives Primary Care Physician: Brain Bustamante DO [Primary Care Provider] - Prior records reviewed: Yes Surgical History: - - Aortic valve replacement, prostate surgery. Smoking Status: Never smoker Review of Systems General: Denies: Chills, Fever Eyes: Denies: Visual changes - bilaterally ENT: Denies: Bilateral ear pain Cardiovascular: Denies: Chest pain Respiratory: Reports: Dyspnea. Denies: Cough Gastrointestinal: Denies: Abdominal pain, Nausea, Vomiting, Diarrhea Genitourinary: Denies: Dysuria Musculoskeletal: Denies: Swelling, Extremity Pain Skin: Denies: Rash Hematologic: Denies: Easy bruising, Easy bleeding Allergy: Denies: Uticaria Physical Exam Vital Signs/Narrative: Vital Signs Temp Pulse Resp BP Pulse Ox 06/10/20 20:02 97.2 F L 78 24 H 117/87 H 100 Inital Vital Signs reviewed: Yes General: Well nourished, Well developed Head: Normocephalic ENT: Moist mucous membranes Neck: Supple Cardiovascular: Regular rate, Regular rhythm Respiratory: - - Tachypnea noted. Equal breath sounds bilaterally. No rhonchi or wheezes noted. Abdomen: Soft, Nontender Extremities: Nontender Skin: Pallor Neurological: Alert, Oriented x3 Psychological: Normal affect Diagnostic/Tx/Re-eval Chest X-Ray - ED: 1 View, Read by ED Physician, Chronic Changes, Cardiomegaly Impressions Chest X-Ray 06/10/20 20:33 IMPRESSION: Cardiomegaly. No acute chest disease. Electronically Signed: Blake Norris MD at 21:12 EST , Service support , 06/10/20 20:33 Chest 1 View (Portable) [RAD] Stat 06/10/20 20:10 Mucosa - Nose SARS-CoV-2 Antigen (Rapid) - Final Laboratory Results 06/10/20 06/10/20 06/10/20 20:15 20:15 20:15 WBC 4.6 RBC 4.32 L Hgb 11.7 L Hct 37.7 L MCV 87.3 MCH 27.1 MCHC 31.0 L RDW Std Deviation 46.6 H RDW Coeff of Bj 14.5 Plt Count 234 MPV 10.3 Immature Gran % (Auto) 0.200 Neut % (Auto) 64.8 Lymph % (Auto) 19.7 [place] % (Auto) 12.2 H Eos % (Auto) 2.2 Baso % (Auto) 0.9 Absolute Neuts (auto) 3.0 Absolute Lymphs (auto) 0.90 Nucleated RBC % 0 D-Dimer Quant (PE/DVT) 3.66 H* Sodium 140 Potassium 4.2 Chloride 111 H Carbon Dioxide 19.0 L Anion Gap 10 BUN 31 H Creatinine 1.72 H Estim Creat Clear Calc 37.17 Est GFR (MDRD) Af Amer 50 L Est GFR (MDRD) Non-Af 42 L BUN/Creatinine Ratio 18.0 Glucose 111 H Calcium 8.5 Troponin I 0.194 H B-Natriuretic Peptide 06/10/20 20:15 WBC RBC Hgb Hct MCV MCH MCHC RDW Std Deviation RDW Coeff of Bj Plt Count MPV Immature Gran % (Auto) Neut % (Auto) Lymph % (Auto) [place] % (Auto) Eos % (Auto) Baso % (Auto) Absolute Neuts (auto) Absolute Lymphs (auto) Nucleated RBC % D-Dimer Quant (PE/DVT) Sodium Potassium Chloride Carbon Dioxide Anion Gap BUN Creatinine Estim Creat Clear Calc Est GFR (MDRD) Af Amer Est GFR (MDRD) Non-Af BUN/Creatinine Ratio Glucose Calcium Troponin I B-Natriuretic Peptide 3821.8 H - EKG Initial EKG Interpretation: Sinus Rhythm - Sinus at 69 with occasional PVCs. Left bundle branch block. Lateral T wave flattening. - Medical Decision Making Patient's oxygenation has remained stable on room air. Test results are discussed with the patient and his daughter at bedside. I was advised by nursing staff that the patient had stopped taking his Eliquis as well as all of his cardiac medications last January because he did not feel that they were helping him. Patient has had increasing shortness of breath since that time. Blood work today does reveal a BNP greater than 3000 with a troponin of 0.194. This is consistent with his troponin values last summer. D-dimer is elevated. Creatinine is also elevated above baseline. I went back to discuss with the patient and daughter the potential of getting a CTA of his chest as the patient does describe extreme claustrophobia. I also wanted to discuss the risks with his elevated creatinine. After discussion patient does not feel that he is able to cooperate for a CTA. After thinking about this, the patient is supposed to be on Eliquis secondary to his heart valve surgery. I think it is reasonable to restart his Eliquis and he can likely forego further imaging as treatment would not be changed. Patient will be given a dose of Eliquis in the emergency room as well as IV Lasix. Patient will be admitted for further treatment. I anticipate cardiology will need to determine which medications he needs to be on going forward. ED Disposition - Plan for ED Patient: Disposition: Acute Care Hospital [facility] Diagnosis: CHF (congestive heart failure), Elevated troponin, Acute renal insufficiency Referrals: Brain Bustamante DO [Primary Care Provider] -
--- NOTE | 2020-06-10 20:23 | NURSING ---
pt quit taking most of his meds since 0ct 20
[2020-06-10 20:30] LABS: Basophil# 0.04 X10^3/uL; Basophil% 0.9 % (0-1); Eosinophils% 2.2 % (0-5); Hematocrit 37.7 % (40-54); Hemoglobin 11.7 g/dL (13.0-16.5); Lymphocyte % 19.7 % (19-41); Mean Corpuscular Hgb 27.1 pg (27.0-32.0); Mean Corpuscular Volume 87.3 fL (80-94); Mean Platelet Vol. 10.3 fl (6.2-12.0); Monocyte# 0.56 X10^3/uL; Monocyte% 12.2 % (0-10); NRBC Flagged by Analyzer 0 % (0-5); Neutrophil # 2.97 X10^3/uL (2.7-7.7); Neutrophil % 64.8 % (47-70); Platelet Count 234 K/mm3 (150-450); RBC Distribution Width CV 14.5 % (11.6-14.6); RBC Distribution Width SD 46.6 fl (35.1-43.9); Red Blood Count 4.32 M/mm3 (4.6-6.2); White Blood Count 4.6 K/mm3 (4.4-11.0)
--- NOTE | 2020-06-10 20:33 | RAD_ITS ---
STUDY: X-RAY CHEST REASON FOR EXAM: Male, 74 years old. Increased shortness of breath. Hx of hypertension and CHF. TECHNIQUE: Single AP portable view of the chest. COMPARISON: 11/20/2019. FINDINGS: Normal lung volumes. No infiltrates or effusions. There is moderate cardiac enlargement. Previous CABG. Pacemaker lead terminates in the right ventricle. Normal mediastinum and gene. Normal visualized pulmonary arteries. There is atherosclerotic tortuosity of the aortic arch and descending thoracic aorta. Normal visualized thoracic spine. Normal visualized ribs, clavicles, and shoulders. There is no demonstrated abnormality of the visualized soft tissue structures of the upper abdomen. RAD/Chest 1 View (Portable) IMPRESSION: Cardiomegaly. No acute chest disease. Electronically Signed: Blake Norris MD at 21:12 EST , Service support ,
[2020-06-10 20:48] LABS: Anion Gap 10 (5-15); BUN 31 mg/dL (7-18); Calcium,Total 8.5 mg/dL (8.5-10.1); Chloride 111 mmol/L (98-107); Creatinine, Serum 1.72 mg/dL (0.70-1.30); EST Glomerular Filtration Rate 42 mL/min (>60); Est Glom Filt Rate - Afr Amer 50 mL/min (>60); Estimated Creatinine Clearance 37.17 ml/min; Glucose 111 mg/dL (74-106); Potassium 4.2 mmol/L (3.5-5.1); Sodium Level 140 mmol/L (136-145)
[2020-06-10 20:59] LABS: D-Dimer Quantitative (DVT/PE) 3.66 FEU/ug/m (0.27-0.49)
[2020-06-10] MEDS: Furosemide 40 MG/4 ML Vial IV (21:29)
[2020-06-10] MEDS: APIXABAN 5 MG TABLET PO (21:29)
--- NOTE | 2020-06-10 21:30 | PCM.HP.STD ---
History of Present Illness Date of Admission: 06/10/20 Chief Complaint: shortness of breath The patient is a 74 year old M with an extensive PMH as outlined who was admitted via the ED on 06/10/2020 with a complaint of shortness of breath. Patient says he stopped taking all his BP and heart failure meds in January 2020 becuase they were too many for him to take. He has been feeling short of breath since then and this is gradually worsened to the point where he could absolutely not. Today. He therefore decided to come into the ED. He had associated orthopnea and PND. He denied any fever or chills or palpitations. Review of systems otherwise negative. ED, vitals were temperature of 97.2 Fahrenheit with blood pressure of 107/93, pulse rate of 72 respiratory rate of 18 with a pulse ox of 96% on room air. Chemistry showed creatinine of 1.72 and sodium of 140 with bicarb of 19 and initial troponin of 0.194 with BNP of 3821.8. CBC showed hb of 11.7, with wbc of 4.6, platelets of 234 and CXR showed cardiomegaly. D dimer was also elevated at 3.66, with patient admitting noncompliance with his eliquis since January. He is being admitted to be mangaed for acute on chronic heart failure with reduced EF due to noncompliance [] Past Medical History Past Medical History (Chronic Problems): Chronic Problems (Last Reviewed 03/07/20 @ 13:[address] Brain Bustamante, DO) History of left heart catheterization (Chronic 11/22/19) 03/31/2014, mild nonobstructive disease per Dr. Giovani Dubois @ [facility] 11/22/19:Ramus branch with 65% proximal stenosis but doubtful that would improve LV dysfunction, and PCI would be high risk given severe LV dysfunction. RECOMMENDATIONS: Would hold on PCI of small Ramus branch given severe LV dysfunciton out of proportion of amount of CAD. Doubtful that PCI of Ramus would appreciably improve LV function. Would recommend starting cozaar, lasix and eliquis for severe LV dysfunction and moderate pulmonary HTN in order to prevent LV thrombus and DVT. 11/22/19 per PEDRO @ [facility] Manual sheath removal as pt is too thin for closure 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) NSTEMI (non-ST elevated myocardial infarction) (Chronic ~03/2014) Abnormal EKG (Chronic) PVCs (premature ventricular contractions) (Chronic) Right bundle branch block (Chronic) Nonrheumatic mitral (valve) insufficiency (Chronic) Mild per echo 03/31/2014 Nonrheumatic tricuspid (valve) insufficiency (Chronic) Mild per echo 03/31/2014 Nonischemic cardiomyopathy (Chronic) EF 30-35% per echo 03/31/2014 done @ [facility], Dr. Jorge Randle. Mild mitral and tricuspid regurg, mild pulmonary hypertension, RVSP 30mmhg. Atherosclerotic heart disease of [place] coronary artery without angina pectoris (Chronic) Mild, nonobstructive per [facility] done 03/31/[address] Giovani Dubois, [facility] (Mild disease origin of first dx,small caliber artery. Mild diffuse disease in remainder of coronaries). Medical management recommended. 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 Kwaku Little for and AI with heavy calcification of aortic valve. REDO SURGERY: Degenerated aortic homograft and degenerated aortic root replaced with re-do sternotomy and #22 homograft, re-replacement of aortic root with #29 freestyle; SVG and GUTIERRES harvest (no CABG was done); right axillary artery cannulation per Dr. Wali Severino [facility] [place] Hypertension (Chronic) CHF (congestive heart failure) (Chronic) Medical History: Medical History (Last Reviewed 03/07/20 @ 13:[address] Brain Bustamante, ) 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) Z95.810 Abnormal EKG (Chronic) R94.31 PVCs (premature ventricular contractions) (Chronic) I49.3 Right bundle branch block (Chronic) I45.10 Nonrheumatic mitral (valve) insufficiency (Chronic) I34.0 Mild per echo 03/31/2014 Nonrheumatic tricuspid (valve) insufficiency (Chronic) I36.1 Mild per echo 03/31/2014 Nonischemic cardiomyopathy (Chronic) I42.8 EF 30-35% per echo 03/31/2014 done @ [facility], Dr. Jorge Randle. Mild mitral and tricuspid regurg, mild pulmonary hypertension, RVSP 30mmhg. Atherosclerotic heart disease of [place] coronary artery without angina pectoris (Chronic) I25.10 Mild, nonobstructive per [facility] done 03/31/[address] Giovani Dubois, [facility] (Mild disease origin of first dx,small caliber artery. Mild diffuse disease in remainder of coronaries). Medical management recommended. Hypertension (Chronic) I10 CHF (congestive heart failure) (Chronic) I50.9 PTSD (post-traumatic stress disorder) F43.10 Allergies Penicillins Allergy (Severe, Verified 06/10/20 20:01) Hives Home Medications: Ambulatory Orders Medication Instructions Recorded Aspirin E.C. [Ecotrin] 81 mg PO DAILYCM #90 tab 11/22/19 Furosemide [Lasix] 40 mg PO DAILY #90 tab 11/22/19 apixaban 2.5 mg tablet 2.5 mg PO BID #180 tab 01/16/20 atorvastatin 40 mg tablet 40 mg PO QPM #90 tab 01/16/20 carvedilol 3.125 mg tablet 3.125 mg PO BID #180 tab 01/16/20 Clindamycin HCl 150 mg PO TID 06/10/20 Losartan Potassium [Cozaar] 125 mg PO DAILY 06/10/20 Surgical History: Surgical History (Last Reviewed 03/07/20 @ 13:[address] Brain Bustamante, DO) History of left heart catheterization (Chronic) Onset Date: 11/22/19 Z98.890 03/31/2014, mild nonobstructive disease per Dr. Giovani Dubois @ [facility] 11/22/19:Ramus branch with 65% proximal stenosis but doubtful that would improve LV dysfunction, and PCI would be high risk given severe LV dysfunction. RECOMMENDATIONS: Would hold on PCI of small Ramus branch given severe LV dysfunciton out of proportion of amount of CAD. Doubtful that PCI of Ramus would appreciably improve LV function. Would recommend starting cozaar, lasix and eliquis for severe LV dysfunction and moderate pulmonary HTN in order to prevent LV thrombus and DVT. 11/22/19 per DJN @ [facility] Manual sheath removal as pt is too thin for closure History of aortic valve replacement with tissue graft (Chronic) Onset Date: 07/26/07 Z95.4 Original Aortic homograft surgery (using #21 mm aortic homograft) 01/12/[address] @ [facility] per [address] Kwaku Little for and AI with heavy calcification of aortic valve. REDO SURGERY: Degenerated aortic homograft and degenerated aortic root replaced with re-do sternotomy and #22 homograft, re-replacement of aortic root with #29 freestyle; SVG and GUTIERRES harvest (no CABG was done); right axillary artery cannulation per Dr. Wali Severino [facility] History of prostate surgery Z98.890 Surgical History: - - Aortic valve replacement, prostate surgery. Psychiatric History: - - Claustrophobia. Smoking Status: Never smoker Tobacco Use: Non-smoker Alcohol: None Drugs: None Review of Systems Constitutional: Denies: Chills, Fever, Weight Change HEENT: Denies: Head Aches, Sinus Congestion, Sinus Drainage Cardiovascular: Reports: Edema, Orthopnea, Paroxysmal Noc. Dyspnea. Denies: Chest Pain, Heaviness, Light Headedness, Palpitations Respiratory: Reports: Shortness of Breath, Shortness of breath at rest, Shortness of breath upon exertion. Denies: Cough, Sputum production Gastrointestinal: Denies: Abdominal Pain, Nausea, Vomiting Genitourinary: Denies: Dysuria Musculoskeletal: Denies: Joint Pain, Joint Tenderness Skin: Denies: Rash, Wounds Neurological: Denies: Numbness, Tingling, Focal weakness Psychiatric: Denies: Anxiety, Depression, Homicidal Ideations, Suicidal Ideations Hematologic/ Lymphatic: Denies: Easy Bruising, Easy Bleeding VTE Information - Inpt Only VTE Present on Admission: No VTE Pharm Prophylaxis ordered?: Yes Patient Problems: Active and Suspected Problems (Last Reviewed 03/07/20 @ 13:[address] Brain Bustamante, DO) Elevated troponin (Acute) Acute renal insufficiency (Acute) - Physical Exam Vitals/I&O's: Vital Signs Temp Pulse Resp BP Pulse Ox 97.2 F L 72 18 107/93 H 96 06/10/20 20:02 06/10/20 21:16 06/10/20 21:16 06/10/20 21:16 06/10/20 21:16 Oxygen Delivery Method Room Air Weight: 151 lb 7.321 oz Body Mass Index (BMI) 21.7 General: Alert, Oriented x3, Cooperative, No apparent distress HEENT: Atraumatic, PERRLA, EOMI, Normocephalic Oral: Dry Mucosa Neck: Supple, No JVD, Negative Carotid Bruits Lungs: - - diminished breath sounds bibasally, no wheezes or crackles Cardiovascular: Regular rate, Regular Rhythm, Normal S1, Normal S2, No murmurs Abdomen: Bowel Sounds Present, Soft, Non Tender, Non-Distended, No Hepato-splenomegaly Extremities: No clubbing, No cyanosis, No edema, Capillary Refill Less than 3 Seconds Skin: No rashes, No breakdown Musculoskeletal: No Tenderness to Palpation of Joints or Extremities Lymphatic: No Cervical, Supraclavicular, or Inguinal Adenopathy Neurological: Cranial nerves II-XII grossly intact, Neuro grossly intact, Motor Exam 5/5 strength throughout Psych/Mental Status: Normal Affect, Appropriate, Alert and oriented to time, place, person, mood and affect Microbiology Past 72 Hours 06/10/20 20:10 Mucosa - Nose SARS-CoV-2 Antigen (Rapid) - Final Laboratory Results 06/10/20 20:15: WBC 4.6, RBC 4.32 L, Hgb 11.7 L, Hct 37.7 L, MCV 87.3, MCH 27.1, MCHC 31.0 L, RDW Std Deviation 46.6 H, RDW Coeff of Bj 14.5, Plt Count 234, MPV 10.3, Immature Gran % (Auto) 0.200, Neut % (Auto) 64.8, Lymph % (Auto) 19.7, [place] % (Auto) 12.2 H, Eos % (Auto) 2.2, Baso % (Auto) 0.9, Absolute Neuts (auto) 3.0, Absolute Lymphs (auto) 0.90, Nucleated RBC % 0 06/10/20 20:15: D-Dimer Quant (PE/DVT) 3.66 H* 06/10/20 20:15: Sodium 140, Potassium 4.2, Chloride 111 H, Carbon Dioxide 19.0 L, Anion Gap 10, BUN 31 H, Creatinine 1.72 H, Estim Creat Clear Calc 37.17, Est GFR (MDRD) Af Amer 50 L, Est GFR (MDRD) Non-Af 42 L, BUN/Creatinine Ratio 18.0, Glucose 111 H, Calcium 8.5, Troponin I 0.194 H 06/10/20 20:15: B-Natriuretic Peptide 3821.8 H Diagnostic Data Chest X-Ray 06/10/20 20:33 IMPRESSION: Cardiomegaly. No acute chest disease. Electronically Signed: Blake Norris MD at 21:12 EST , Service support , Assessment/Plan All Active Problems (Last Reviewed 03/07/20 @ 13:[address] Brain Busatmante, DO) Elevated troponin (Acute) Acute renal insufficiency (Acute) Chest pain (Acute) Elevated d-dimer (Acute) 74 y/o admitted with a complaint of shortness of breath #Acute on chronic HFrEF BNP markedly elevated at 3800 and above. Patient not compliant with his medications since January 2020. Admit to PCU Start on IV Lasix 40 mg twice daily. Monitor intake and output. Fluid restriction 1500 cc daily. order 2D echo last 2D echo from October 2019 showed EF of 10-15% consult cardiology #Elevated troponin troponin elevated at 0.194, likely due to demand ischemia in setting of heart failure troponins appear to be chronically elevated. cycle troponins EKG showed no acute ST changes consult cardiology #Elevated D dimer: D dimer was 3.66. Patient refusing CTA because he is claustrophobic; prefers to discuss it with his associate software engineer before he decides if it is worth doing. in the interim, will resume eliquis #CKD stage 3: Cr is 1.72, with baseline of ~ 1.28. Will trend and monitor with diuresis #Ischemic cardiomyopathy with ICD in place 2D echo as above on carvedilol, losartan and furosemide. #History of aortic valve replacement: Stable on Eliquis which he has not been compliant with. DVT prophylaxis; will resume eliquis COde status: full code Patient and daughter counseled extensively about different types of CODE STATUS including full code, DNR CCA and DNR CCA. Patient elects to be dull code. Total [id number] time 17 minutes. Inpatient E&M: 02146 Init Hosp L3 Procedures: 49912 Advncd Care Plan 30 Min
[2020-06-11] VITALS (8 sets, daily range): BP systolic 106–127; BP diastolic 54–86; PULSE 57–112; RESP 16–18; TEMP 36.3–36.7; O2SAT 93–100
[2020-06-11 01:52] LABS: Absolute Lymphocyte Count 1.04 X10^3/uL (0.83-4.51); Absolute Neutrophil Count 3.4 X10^3/uL (2.0-7.7); Basophil# 0.04 X10^3/uL; Basophil% 0.8 % (0-1); Eosinophil# 0.16 X10^3/uL; Hematocrit 34.8 % (40-54); Hemoglobin 10.8 g/dL (13.0-16.5); Lymphocyte # 1.04 X10^3/ul (4.0); Lymphocyte % 19.7 % (19-41); Mean Corpuscular Hgb 27.8 pg (27.0-32.0); Mean Corpuscular Volume 89.7 fL (80-94); Mean Platelet Vol. 10.3 fl (6.2-12.0); Monocyte# 0.62 X10^3/uL; Monocyte% 11.7 % (0-10); NRBC Flagged by Analyzer 0 % (0-5); Neutrophil # 3.42 X10^3/uL (2.7-7.7); Neutrophil % 64.6 % (47-70); Platelet Count 181 K/mm3 (150-450); RBC Distribution Width CV 14.8 % (11.6-14.6); Red Blood Count 3.88 M/mm3 (4.6-6.2); White Blood Count 5.3 K/mm3 (4.4-11.0)
[2020-06-11 02:07] LABS: Anion Gap 8 (5-15); BUN 30 mg/dL (7-18); BUN/Creat Ratio 18.6 RATIO (10-20); Calcium,Total 8.3 mg/dL (8.5-10.1); Chloride 110 mmol/L (98-107); Creatinine, Serum 1.61 mg/dL (0.70-1.30); EST Glomerular Filtration Rate 45 mL/min (>60); Est Glom Filt Rate - Afr Amer 54 mL/min (>60); Estimated Creatinine Clearance 39.01 ml/min; Glucose 85 mg/dL (74-106); Potassium 3.8 mmol/L (3.5-5.1); Sodium Level 141 mmol/L (136-145)
[2020-06-11] MEDS: Clindamycin HCl 150 MG Capsule PO ×3 (05:03→21:11)
--- NOTE | 2020-06-11 05:55 | ECHOCS_ITS ---
Version 2 Reason For Study: Dyspnea/SOB Procedure This was a 2D Doppler, Color Flow transthoracic echocardiogram. Contrast injection was performed. Exam performed portable in patient room. Left Ventricle Severely dilated left ventricle. The estimated ejection fraction is 10 %. Stage 3 diastolic dysfunction. There is severe global hypokinesis of the left ventricle. Right Ventricle Normal RV size. ICD or pacer leads identified within the right ventricle. Normal systolic function. Atria The left atrium is moderately enlarged. The right atrium is moderately enlarged. Mitral Valve Normal mitral valve. Mild (1+) mitral valve insufficiency. Tricuspid Valve Normal tricuspid valve. Mild (1+) tricuspid valve insufficiency. Pulmonary artery systolic pressure is 40 mmHg. Aortic Valve Bioprosthetic aortic valve. Pulmonic Valve Normal pulmonic valve. Great Vessels Normal aortic root. The pulmonary artery is normal size. The inferior vena cava is dilated. Pericardium/Pleural No pericardial effusion. Medication Diluted definity 3.5ml given slow IV push to enhance endocardial definition. MMode/2D Measurements & Calculations LVIDd: 6.3 cm IVSd: 1.5 cm Ao root diam: 3.7 cm LVIDs: 6.0 cm LVPWd: 1.2 cm RVDd: 5.4 cm FS: 5.0 % LAV(MOD-bp): 119.8 ml LVAd ap4: 53.9 cm2 SV(MOD-sp4): 29.0 ml LAV(MOD-bp) Indexed: 64.6 ml/m2 EDV(MOD-sp4): 227.6 ml LAV(MOD-sp2): 124.4 ml EDV(sp4-el): 241.9 ml LAV(MOD-sp4): 115.1 ml LVAs ap4: 49.1 cm2 ESV(MOD-sp4): 198.7 ml ESV(sp4-el): 206.5 ml EF(MOD-sp4): 12.7 % EF(sp4-el): 14.6 % SV(sp4-el): 35.4 ml LA A4 area: 30.4 cm2 LA dimension(2D): 5.5 cm RA A4 area: 26.8 cm2 Doppler Measurements & Calculations MV E max abdiel: 91.3 cm/sec Lat Peak E' Abdiel: 6.6 cm/sec Med Peak E' Abdiel: 2.8 cm/sec MV A max abdiel: 25.3 cm/sec E/E' lat: 13.9 E/E' med: 32.2 MV E/A: 3.6 Ao V2 max: 111.6 cm/sec LV V1 max: 83.8 cm/sec PA V2 max: 79.8 cm/sec Ao max P.0 mmHg LV V1 max P.8 mmHg Ao V2 mean: 83.6 cm/sec Ao mean P.0 mmHg Ao V2 VTI: 18.6 cm PI end-d abdiel: 184.4 cm/sec TR max abdiel: 303.9 cm/sec TR max P.9 mmHg Interpretation Summary Severely dilated left ventricle. The estimated ejection fraction is 10 %. Stage 3 diastolic dysfunction. There is severe global hypokinesis of the left ventricle. Mild (1+) tricuspid valve insufficiency. Pulmonary artery systolic pressure is 40 mmHg. Bioprosthetic aortic valve. Contrast injection was performed. Ordering Physician: Sepideh Garland Referring Physician: Brain Bustamante Performed By: Shilpa Donohue, YESSENIA, RVT
[2020-06-11] MEDS: Acetaminophen 325 MG Tablet 650 MG PO (06:05)
--- NOTE | 2020-06-11 08:19 | CON.PCM_ITS ---
Reason for Consult Date of Consultation: 06/11/20 Reason for Consultation: Shortness of breath History of Present Illness: The patient is a 74 year old M who presented to the emergency room on June 10 with a complaint of progressive shortness of breath. He apparently discontinued taking his medications in January 2020 because there were too many for him. He has been feeling short of breath since then he denies any fever or diaphoresis near syncope or syncope. For reasons that are not entirely clear he decided to present to the emergency room was noted to have an elevated natruretic peptide level, mildly elevated troponin, elevated D-dimer. He is a previous smoker who quit in 1971 after approximately 10-year smoking. He has a history of homograft AVR in 1996 at the [facility] with redo aortic valve replacement on 07/26/07 at [facility] with aortic root replacement. It appears that his GUTIERRES and SVG were harvested but apparently not used for CABG. On his second surgery he received a number 29 mm Freestyle AVR this appeared to be done preoperatively by Dr. Severino. He has chronic LV dysfunction with an EF around 30-35% in 2013. He is status post single-chamber ICD placement on 09/16/2017. He also has a history of right bundle branch block and hypertension. He does have a history of PTSD from the [place]. Patient was recently admitted and evaluated [facility] for chest pain. He underwent heart catheterization on 11/22/2019. This showed a ramus branch with 65% proximal stenosis, but it was thought that this would not improve his overall LV function and PCI would be high risk given severe LV dysfunction. An echocardiogram during hospitalization showed an ejection fraction of 10-15% and stage II diastolic dysfunction. Patient was on Eliquis therapy to prevent LV thrombus. His major complaint is as noted above. Past Medical History Allergies/Adverse Reactions: Allergies Penicillins Allergy (Severe, Verified 06/10/20 20:01) Hives Home Medications: Ambulatory Orders Medication Instructions Recorded Aspirin E.C. [Ecotrin] 81 mg PO DAILYCM #90 tab 11/22/19 Furosemide [Lasix] 40 mg PO DAILY #90 tab 11/22/19 apixaban 2.5 mg tablet 2.5 mg PO BID #180 tab 01/16/20 atorvastatin 40 mg tablet 40 mg PO QPM #90 tab 01/16/20 carvedilol 3.125 mg tablet 3.125 mg PO BID #180 tab 01/16/20 Clindamycin HCl 150 mg PO TID 06/10/20 Losartan Potassium [Cozaar] 12.5 mg PO DAILY 06/10/20 Past Medical History (Chronic Problems): Chronic Problems (Last Updated 06/11/20 @ 16:27 by Angeles Bird) Nonrheumatic aortic (valve) stenosis with insufficiency (Chronic) History of aortic valve replacement with tissue graft (Chronic 07/26/07) Original Aortic homograft surgery (using #21 mm aortic homograft) 01/12/1997 REDO SURGERY:re-do sternotomy and #22 homograft, re-replacement of aortic root with #29 freestyle; 07/26/2007 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 Psychiatric History: - - Claustrophobia. Smoking Status: Former smoker Tobacco Use: Non-smoker Alcohol: None Drugs: None Review of Systems - Review of Systems General: Denies: Fever, Night Sweats, Fatigue HEENT: Denies: Vision Change Cardiovascular: Reports: Shortness of Breath, Shortness of Breath at Rest, Shortness of Breath with Exertion. Denies: Chest Discomfort, Orthopnea, PND, Peripheral Edema, Palpitations, Lightheadedness, Dizziness, Near Syncope, Syncope Respiratory: Denies: Cough, Sputum Production, Hemoptysis Gastrointestinal: Denies: Hematemesis, Hematochezia, Melena Genitourinary: Denies: Dysuria, Hematuria Muscoloskeletal: Denies: Myalgias Skin: Denies: Rash Neurological: Denies: Dizziness Psychiatric: Denies: Anxiety Subjectve: Middle-aged man in no distress Objective: Vital Signs Temp Pulse Resp BP Pulse Ox 97.4 F L 57 L 18 121/83 H 99 06/11/20 04:45 06/11/20 07:09 06/11/20 04:45 06/11/20 04:45 06/11/20 04:45 Oxygen Delivery Method Room Air Weight: 148 lb 12.992 oz Body Mass Index (BMI) 20.7 Intake and Output for Last 24 Hours 06/09/20 06/10/20 06/11/20 23:59 23:59 23:59 Intake Total 120 / 120 Output Total 1875 / 1875 Balance -1755 / -1755 General: Awake, Alert, Oriented x 3 HEENT: PERRL, EOMI, Sclera Non Icteric Neck: Supple, Good ROM, No Lymph Node Enlargement Lungs: Clear to auscultation Cardiovascular: Regular Rhythm, Normal S1, Normal S2, No Murmurs, No Rubs, No Gallops Vascular: No Carotid Bruits, Normal Femoral Pulses, Normal Radial Pulses, Normal Dorsalis Pedal Pulse, Normal Posterior Tibial Pulses Abdomen: Bowel Sounds Present, Soft, Non Tender, No HSM, No Organomegaly Extremities: No Cyanosis, No Clubbing, No edema Musculoskeletal: No Erythema Skin: No Rashes Lymphatic: No Lymph Node Enlargement Neurological: No Focal Motor or Sensory Deficit 06/10/20 20:15: WBC 4.6, RBC 4.32 L, Hgb 11.7 L, Hct 37.7 L, MCV 87.3, MCH 27.1, MCHC 31.0 L, Plt Count 234, MPV 10.3, Immature Gran % (Auto) 0.200, Neut % (Auto) 64.8, Lymph % (Auto) 19.7, [place] % (Auto) 12.2 H, Eos % (Auto) 2.2, Baso % (Auto) 0.9, Absolute Neuts (auto) 3.0, Nucleated RBC % 0 06/10/20 20:15: D-Dimer Quant (PE/DVT) 3.66 H* 06/10/20 20:15: Sodium 140, Potassium 4.2, Chloride 111 H, Carbon Dioxide 19.0 L , Anion Gap 10, BUN 31 H, Creatinine 1.72 H, Est GFR (MDRD) Af Amer 50 L, Est GFR (MDRD) Non-Af 42 L, BUN/Creatinine Ratio 18.0, Glucose 111 H, Calcium 8.5, Troponin I 0.194 H 06/10/20 20:15: B-Natriuretic Peptide 3821.8 H 06/10/20 23:05: Troponin I 0.186 H 06/11/20 01:45: WBC 5.3, RBC 3.88 L, Hgb 10.8 L, Hct 34.8 L, MCV 89.7, MCH 27.8, MCHC 31.0 L, Plt Count 181, MPV 10.3, Immature Gran % (Auto) 0.200, Neut % (Auto) 64.6, Lymph % (Auto) 19.7, [place] % (Auto) 11.7 H, Eos % (Auto) 3.0, Baso % (Auto) 0.8, Absolute Neuts (auto) 3.4, Nucleated RBC % 0 06/11/20 01:45: Sodium 141, Potassium 3.8, Chloride 110 H, Carbon Dioxide 23.0, Anion Gap 8, BUN 30 H, Creatinine 1.61 H, Est GFR (MDRD) Af Amer 54 L, Est GFR (MDRD) Non-Af 45 L, BUN/Creatinine Ratio 18.6, Glucose 85, Calcium 8.3 L 06/11/20 01:45: Troponin I 0.197 H Rhythm: EKG: Normal sinus rhythm with frequent premature ventricular complexes ECHO: Global reduction in left ventricular systolic function estimated EF 15% Stress Test: Cardiac Cath: PCI: CT Surgery: Holter monitor: EPS: PPM: CXR: Chest CT Scan: Assessment/Plan 1. Heart failure with reduced ejection fraction * Patient presents with shortness of breath and is noted to have an elevated natruretic peptide level and reduced left ventricular systolic function. The above is compatible with heart failure with reduced ejection fraction. The etiology of the above is nonischemic by the precipitating factor is noncompliance with medication. I have instructed him to be more compliant w ith the medication at this time. * He will continue with the beta-krystal and will titrate the dose as appropriate * Will consider Entresto * Continue diuretic * Fluid restriction * Salt restriction * I have urged follow-up. * 2. Hypertension * His blood pressure is under good control at this particular time and I would not recommend that we make any other changes. * 3. Aortic valve disease * He is status post aortic valve replacement twice. His aortic valve appears to be functioning well based on his recent echocardiogram and I will not recommend we make any changes. * He will continue with antibiotic prophylaxis * 4. Status post ICD implantation * He does have a history of an ICD implantation. Will review of his chart to make sure that he has been following up. We will continue to follow him remotely. * 5. Cardiomyopathy * He appears to have a likely nonischemic cardiomyopathy. He has mild coronary artery disease but I suspect that his minimal troponin elevation is likely demand ischemia. No recommendations to undergo a cardiac catheterization at this particular time. * He does have severe left ventricular systolic dysfunction and was placed on Eliquis for the above. The current evidence for the above is rather scanty. * With his renal dysfunction I would suggest that we either reduce the above dose or discontinuing it. * * Thank you for allowing me to participate in the care of your patient. Please don't hesitate to call if any issues arise.
--- NOTE | 2020-06-11 09:10 | CT_ITS ---
STUDY: CTA CHEST REASON FOR EXAM: Male, 74 years old. ELEV D DIMER, PROGRESSIVE SOB, QUIT TAKING HEART MEDS IN OCT RADIATION DOSAGE (If Supplied By Facility): CTDIvol = ( 7.86 ) mGy, DLP = ( 171.86 ) mGycm TECHNIQUE: The examination was performed with the intravenous administration of IV 75mL Isovue-370. Post-processing of the angiographic images was performed, with multiplanar reformation and 3D reconstruction. Individualized dose optimization techniques were used for this CT. COMPARISON: 11/20/2019, chest x-ray 06/10/2020 FINDINGS: Left subclavian pacemaker. Status post median sternotomy. Normal enhancement of the main pulmonary artery and right and left pulmonary arteries. Normal enhancement of the bilateral peripheral pulmonary arteries. There is no demonstrated pulmonary embolism. Normal thoracic aorta and visualized great vessels. There is no demonstrated aortic dissection. There is cardiomegaly. There are calcifications of the coronary arteries. Normal mediastinum. Normal hilar regions. Normal visualized trachea and bronchi. The lungs are well expanded. Normal pulmonary parenchyma. Small right pleural effusion and tiny left pleural effusion. Normal chest wall structures. Normal osseous structures. Normal visualized upper abdomen. CT/CTA Chest W/WO Contrast IMPRESSION: 1. No CT evidence of pulmonary embolism. 2. Cardiomegaly. 3. Small right pleural effusion and tiny left pleural effusion. Electronically Signed: Camilo Schaffer MD at 10:29 EST Tel , Service support ,
[2020-06-11] MEDS: 0.9% Saline Lock 10 ML Syringe IV ×2 (09:35→17:39)
[2020-06-11] MEDS: LORazepam 2 MG/ML Syringe 0.5 MG IV (09:36)
--- NOTE | 2020-06-11 11:03 | CASEMGMT ---
ELIF CAMILO assessment: Face to Face with patient for initial transition planning/care coordination assessment. RN TON introduced self and role at [facility], pt voices understanding and consents to assessment at this time. Pt is lying in bed, restless on room air at this time. Pt was sleeping when this RN TON entered room and seems sl confused while assessment completed with at bedside at this time. Care providers, pharmacy, and demographics verified at this time. Presentation: Per family, pt's SOB is worse. Heart hx but not sure what all he has had done. Admitting dx: Acute on Chronic HF PCP: Robby Specialists: [facility] Preferred [facility]acy: [facility] Insurance: [facility] Prescription Benefit: Yes Living Will/HPOA: states pt has LW and is aware that it's not on file at [facility] at this time. Pt does have HPOA on file at [facility] at this time and his , Clari Guevara, is HPOA. LNOK: Clari Guevara, ; Chitra Ca, daughter Living Arrangements: Pt states lives with in 1 story home with 3 steps in and states no concerns at home at this time. Pt states is independent with ADL's normally. Transportation: Pt states drives self and states no transportation concerns at this time. DME/HHC: Pt states has grab bars and no further DME at this time. Pt declines need for any further DME at this time. Per , pt has had home oxygen in the past. Per , pt has not been to SNF in the past but has had HHC set up in the past. Pt states no concerns with going home at time of discharge. Pt states is retired. Pt states does not smoke cigarettes or drink ETOH. Pt/ state no further concerns/needs at this time. CM to follow for home oxygen need, Xarelto co-pay, and any further discharge planning/needs. Advised pt to ask for CM if any further questions/concerns/needs arise, voice understanding. Pt Goal: Home Plan[place]IF [place]
[2020-06-11] MEDS: Furosemide 40 MG/4 ML Vial IV ×2 (11:27→17:39)
[2020-06-11] MEDS: Carvedilol 3.125 MG TABLET PO (11:27)
[2020-06-11] MEDS: Aspirin E.C. 81 MG Tablet PO (11:27)
[2020-06-11] MEDS: APIXABAN 2.5 MG TABLET PO (11:28)
[2020-06-11] MEDS: Losartan Potassium 25 MG Tablet 12.5 MG PO (11:33)
--- NOTE | 2020-06-11 12:33 | VDLE_ITS ---
Reason For Study: elevated D-dimer RIGHT LEFT GSV is normal. GSV is normal. CFV is compressible, spontaneous, competent CFV is compressible, spontaneous, competent, and demonstrates pulsatile venous flow. and demonstrates pulsatile venous flow. FV is compressible, spontaneous, competent FV is compressible, spontaneous, competent and demonstrates pulsatile venous flow. and demonstrates pulsatile venous flow. POP V is compressible, spontaneous, competent POP V is compressible, spontaneous, competent and demonstrates pulsatile venous flow. and demonstrates pulsatile venous flow. T/P Trunk is compressible. T/P Trunk is compressible. PTV is compressible. PTV is compressible. RT PerV is compressible. LT PerV is compressible. Procedure NON-vascular structure noted in the left pop This is a venous duplex using B-mode, color fossa space measuring 1.44cm x 1.55cm. flow and spectral Doppler. Exam performed portable in patient room. The exam was diagnostic. A preliminary report was called and/or faxed to PCU. Interpretation Summary No evidence for acute deep venous thrombosis bilateral lower extremities with patent and compressible bilateral great saphenous veins. Pulsatile venous flow noted bilaterally consistent with proximal venous hypertension or obstruction. Clinical correlation would be indicated Complex cystic nonvascular structure left popliteal space measuring 1.44 x 1.55 cm Ordering Physician: Slade Bob Referring Physician: Brain Bustamante Performed By: Clari Garcia, YESSENIA, RVT
--- NOTE | 2020-06-11 19:21 | PCM.PROGNOTE ---
Patient Problems: Active and Suspected Problems (Last Updated 06/11/20 @ 16:27 by Angeles Bird) Acute renal insufficiency (Acute) Elevated troponin (Acute) Subjective: Patient was seen and examined today, he underwent a CTA of the chest today which showed no evidence of pulmonary emboli, there was no evidence of any infiltrates on the chest CTA. Patient also underwent a venous duplex scan of his legs which showed no evidence of VTE. Patient's echocardiogram showed a very poor ejection fraction of 10%, cardiology did not recommend a cardiac catheterization and instead recommended medication adjustments. Patient has been self adjusting his own meds at home and he is gone off his Lasix several weeks ago. I talked at length with the patient and his who was in the room at the time of my examination, his is not in approval of the patient self adjusting his medications. I took the patient off Eliquis today because there is no evidence that he has VTE or PE. He is currently on room air. - Physical Exam Vitals/I&O's: Vital Signs Temp Pulse Resp BP Pulse Ox 97.8 F 112 H 18 106/74 100 06/11/20 16:20 06/11/20 16:20 06/11/20 16:20 06/11/20 16:20 06/11/20 16:20 Oxygen Delivery Method Room Air Weight: 67.5 kg Body Mass Index (BMI) 20.7 Intake and Output for Last 24 Hours 06/09/20 06/10/20 06/11/20 23:59 23:59 23:59 Intake Total 880 / 880 Output Total 3225 / 3225 Balance -2345 / -2345 General: Alert, Oriented x3, Cooperative, No apparent distress, Well developed HEENT: Atraumatic, PERRLA, EOMI, Normocephalic Oral: Moist Mucosa Neck: Supple, No JVD, No Nuchal Rigidity, Trachea Midline, Thyroid Normal Size and Texture Lungs: Clear to auscultation, Normal air movement, No rhonchi, No wheeze, No rales Cardiovascular: Regular rate, Regular Rhythm, Normal S1, Normal S2, No murmurs, PMI Normal, No rub noted Abdomen: Bowel Sounds Present, Soft, Non Tender, Non-Distended, No hernias noted Extremities: No clubbing, No cyanosis, Capillary Refill Less than 3 Seconds Skin: No rashes, No breakdown Musculoskeletal: No Tenderness to Palpation of Joints or Extremities Neurological: Cranial nerves II-XII grossly intact, Neuro grossly intact, Sensory exam intact to light touch and pain Psych/Mental Status: Normal Affect, Appropriate, Alert and oriented to time, place, person, mood and affect Microbiology Past 72 Hours 06/10/20 20:10 Mucosa - Nose SARS-CoV-2 Antigen (Rapid) - Final Laboratory Results 06/10/20 20:15: WBC 4.6, RBC 4.32 L, Hgb 11.7 L, Hct 37.7 L, MCV 87.3, MCH 27.1, MCHC 31.0 L, RDW Std Deviation 46.6 H, RDW Coeff of Bj 14.5, Plt Count 234, MPV 10.3, Immature Gran % (Auto) 0.200, Neut % (Auto) 64.8, Lymph % (Auto) 19.7, [place] % (Auto) 12.2 H, Eos % (Auto) 2.2, Baso % (Auto) 0.9, Absolute Neuts (auto) 3.0, Absolute Lymphs (auto) 0.90, Nucleated RBC % 0 06/10/20 20:15: D-Dimer Quant (PE/DVT) 3.66 H* 06/10/20 20:15: Sodium 140, Potassium 4.2, Chloride 111 H, Carbon Dioxide 19.0 L, Anion Gap 10, BUN 31 H, Creatinine 1.72 H, Estim Creat Clear Calc 37.17, Est GFR (MDRD) Af Amer 50 L, Est GFR (MDRD) Non-Af 42 L, BUN/Creatinine Ratio 18.0, Glucose 111 H, Calcium 8.5, Troponin I 0.194 H 06/10/20 20:15: B-Natriuretic Peptide 3821.8 H 06/10/20 23:05: Troponin I 0.186 H 06/11/20 01:45: WBC 5.3, RBC 3.88 L, Hgb 10.8 L, Hct 34.8 L, MCV 89.7, MCH 27.8, MCHC 31.0 L, RDW Std Deviation 48.0 H, RDW Coeff of Bj 14.8 H, Plt Count 181, MPV 10.3, Immature Gran % (Auto) 0.200, Neut % (Auto) 64.6, Lymph % (Auto) 19.7, [place] % (Auto) 11.7 H, Eos % (Auto) 3.0, Baso % (Auto) 0.8, Absolute Neuts (auto) 3.4, Absolute Lymphs (auto) 1.04, Nucleated RBC % 0 06/11/20 01:45: Sodium 141, Potassium 3.8, Chloride 110 H, Carbon Dioxide 23.0, Anion Gap 8, BUN 30 H, Creatinine 1.61 H, Estim Creat Clear Calc 39.01, Est GFR (MDRD) Af Amer 54 L, Est GFR (MDRD) Non-Af 45 L, BUN/Creatinine Ratio 18.6, Glucose 85, Calcium 8.3 L 06/11/20 01:45: Troponin I 0.197 H Current Medications Acetaminophen (Acetaminophen 325 Mg Tablet) 650 mg PO Q6H PRN PRN PRN Reason: Pain Score 1-10/Temp > 100.7 F Last Admin: 06/11/20 06:05 Dose: 650 mg Documented by: Aspirin (Aspirin E.C. 81 Mg Tablet) [facility] Last Admin: 06/11/20 11:27 Dose: 81 mg Documented by: Atorvastatin Calcium (Atorvastatin Calcium 40 Mg Tablet) 40 mg PO QHS COUNT INCLUDES THE [facility] Carvedilol (Carvedilol 6.25 Mg Tablet) 6.25 mg PO BID COUNT INCLUDES THE [facility] Clindamycin HCl (Clindamycin Hcl 150 Mg Capsule) 150 mg PO TID COUNT INCLUDES THE [facility] Last Admin: 06/11/20 14:41 Dose: 150 mg Documented by: Furosemide (Furosemide 40 Mg Tablet) 40 mg PO BID@1000,1800 COUNT INCLUDES THE [facility] Losartan Potassium (Losartan Potassium 25 Mg Tablet) 12.5 mg PO DAILY COUNT INCLUDES THE [facility] Last Admin: 06/11/20 11:33 Dose: 12.5 mg Documented by: Nitroglycerin (Nitroglycerin (Inpatient Use) 0.4 Mg Tab.Subl) 0.4 mg SUBLINGUAL Q5M PRN PRN Reason: CARDIAC/CHEST PAIN Ondansetron HCl (Ondansetron 4 Mg/2 Ml Vial) 4 mg IV Q8H PRN PRN PRN Reason: NAUSEA/VOMITING Sodium Chloride (0.9% Saline Lock 10 Ml Syringe) 10 - 40 ml IV UD PRN PRN Reason: SALINE FLUSH Last Admin: 06/11/20 17:39 Dose: 20 ml Documented by: Medical Necessity - Tobacco Use Smoking Status: Former smoker Tobacco Use: Non-smoker Assessment/Plan All Active Problems (Last Updated 06/11/20 @ 16:27 by Angeles Bird) Chest pain (Acute) Elevated d-dimer (Acute) Acute renal insufficiency (Acute) Elevated troponin (Acute) #1 acute systolic congestive heart failure-currently patient is stable and I do not believe he needs continued IV Lasix at this time, he is on room air, I have changed his medication to oral Lasix 40 mg twice a day. I discussed this with cardiology. #2 nonischemic cardiomyopathy-patient will be treated with medication, he has an ICD #3 essential hypertension #4 aortic valvular disease #5 noncompliance with medications-it was stressed to the patient that he should take his medications as directed. #6 elevated [id number] unknown #7 elevated troponins-chronic #8 stage III chronic kidney disease Inpatient E&M: 40245 Subs Hosp L2
[2020-06-11] MEDS: Carvedilol 6.25 MG Tablet PO (21:11)
[2020-06-11] MEDS: Atorvastatin Calcium 40 MG Tablet PO (21:11)
[2020-06-12 03:02] VITALS: BP 113/79; PULSE 70; RESP 16; TEMP 36.6; O2SAT 92
[2020-06-12 03:53] VITALS: PULSE 65
[2020-06-12] MEDS: Clindamycin HCl 150 MG Capsule PO ×2 (06:15→15:10)
[2020-06-12 06:42] VITALS: PULSE 57
[2020-06-12 07:59] LABS: Absolute Lymphocyte Count 0.66 X10^3/uL (0.83-4.51); Absolute Neutrophil Count 3.6 X10^3/uL (2.0-7.7); Basophil# 0.04 X10^3/uL; Basophil% 0.8 % (0-1); Eosinophil# 0.08 X10^3/uL; Eosinophils% 1.6 % (0-5); Hematocrit 33.3 % (40-54); Hemoglobin 10.5 g/dL (13.0-16.5); Lymphocyte # 0.66 X10^3/ul (4.0); Lymphocyte % 13.5 % (19-41); Mean Corp Hgb Conc 31.5 g/dL (32-36); Mean Corpuscular Hgb 27.2 pg (27.0-32.0); Mean Corpuscular Volume 86.3 fL (80-94); Mean Platelet Vol. 9.9 fl (6.2-12.0); Monocyte# 0.53 X10^3/uL; Monocyte% 10.8 % (0-10); NRBC Flagged by Analyzer 0 % (0-5); Neutrophil # 3.57 X10^3/uL (2.7-7.7); Neutrophil % 73.1 % (47-70); Platelet Count 184 K/mm3 (150-450); RBC Distribution Width CV 14.5 % (11.6-14.6); RBC Distribution Width SD 45.3 fl (35.1-43.9); Red Blood Count 3.86 M/mm3 (4.6-6.2); White Blood Count 4.9 K/mm3 (4.4-11.0)
[2020-06-12 08:10] LABS: Anion Gap 7 (5-15); BUN 27 mg/dL (7-18); BUN/Creat Ratio 19.9 RATIO (10-20); Calcium,Total 8.2 mg/dL (8.5-10.1); Chloride 108 mmol/L (98-107); Creatinine, Serum 1.36 mg/dL (0.70-1.30); EST Glomerular Filtration Rate 55 mL/min (>60); Est Glom Filt Rate - Afr Amer 66 mL/min (>60); Estimated Creatinine Clearance 42.49 ml/min; Glucose 87 mg/dL (74-106); Potassium 3.7 mmol/L (3.5-5.1); Sodium Level 141 mmol/L (136-145)
[2020-06-12 10:10] VITALS: BP 111/76; PULSE 74; RESP 16; TEMP 36.7; O2SAT 98
[2020-06-12] MEDS: Aspirin E.C. 81 MG Tablet PO (10:21)
[2020-06-12] MEDS: Losartan Potassium 25 MG Tablet 12.5 MG PO (10:22)
[2020-06-12] MEDS: Furosemide 40 MG Tablet PO (10:22)
[2020-06-12] MEDS: Carvedilol 6.25 MG Tablet PO (10:27)
[2020-06-12] MEDS: Acetaminophen 325 MG Tablet 650 MG PO (10:27)
[2020-06-12 11:35] VITALS: PULSE 56
--- NOTE | 2020-06-12 14:32 | PHA.DC.MR ---
Pharmacy Service has performed discharge medication reconciliation for this patient. The patient's discharge medication list was reviewed for discrepancies and discrepancies were resolved. Home Medications Aspirin E.C. [Ecotrin] 81 mg PO DAILYCM #90 tab 11/22/19 Furosemide [Lasix] 40 mg PO DAILY #90 tab 11/22/19 apixaban 2.5 mg tablet 2.5 mg PO BID #180 tab 01/16/20 atorvastatin 40 mg tablet 40 mg PO QPM #90 tab 01/16/20 carvedilol 3.125 mg tablet 3.125 mg PO BID #180 tab 01/16/20 Clindamycin HCl 150 mg PO TID 06/10/20 Losartan Potassium [Cozaar] 12.5 mg PO DAILY 06/10/20
--- NOTE | 2020-06-12 14:55 | PCM.DC ---
- Discharge Diagnoses Current Active Problems: Current Active and Chronic Problems (Last Updated 06/11/20 @ 16:27 by Angeles Bird) Acute renal insufficiency (Acute) Elevated troponin (Acute) History of aortic valve replacement with tissue graft (Chronic 07/26/07) Original Aortic homograft surgery (using #21 mm aortic homograft) 01/12/1997 [facility]:re-do sternotomy and #22 homograft, re-replacement of aortic root with #29 freestyle; 07/26/2007 Nonischemic cardiomyopathy (Chronic) 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) NSTEMI (non-ST elevated myocardial infarction) (Chronic 06/11/20) 03/2014, 06/11/20 Atherosclerotic heart disease of [place] coronary artery without angina pectoris (Chronic) Reason(s) for Visit for Discharge Instructions: Shortness of breath You will use the following diet at home:: Cardiac, Fluid restricted (specify 2000 mls, 1500 mls) - 1500mls Your food should be the consistency of: Regular Your liquids should be the consistency of: Regular/Thin Discharge Activity: Return to Normal Activity Instructions: What Is Heart Failure?, Heart Failure: Tracking Your Weight, Taking Medications for Your Heart, Heart Failure: Making Changes to Your Diet Additional Instructions: Continue to take all your medications as prescribed. Take note of changes to your medication. Continue on a low-fat low-salt diet. Restrict your total fluid intake to less than 1500 mils. Weigh yourself every day. Let your doctor know when you gain more than 4 pounds of weight. Follow-up with your primary care doctor in 1 to 2 weeks. Follow-up with the senior net c developer within 1 month.You would need repeat blood work to check on your kidney function within a week of discharge. Allergies/Adverse Reactions: Allergies Penicillins Allergy (Severe, Verified 06/10/20 20:01) Hives Medications to take at Discharge Aspirin E.C. [Ecotrin] 81 mg PO DAILYCM #90 tab 11/22/19 atorvastatin 40 mg tablet 40 mg PO QPM #90 tab 01/16/20 Clindamycin HCl 150 mg PO TID 06/10/20 Losartan Potassium [Cozaar] 12.5 mg PO DAILY 06/10/20 Acetaminophen [Tylenol Tablet] 650 mg PO Q6H PRN PRN tablet 06/12/20 Carvedilol [Coreg (Beta Aleksander)] 6.25 mg PO BID 30 Days #60 tab 06/12/20 Furosemide [Lasix] 40 mg PO BID@1000,1800 30 Days #60 tab 06/12/20 The following prescriptions were given: Carvedilol [Coreg (Beta Aleksander)] 6.25 mg PO BID 30 Days #60 tab [facility] Status: [facility] Furosemide [Lasix] 40 mg PO BID@1000,1800 30 Days #60 tab Transmission Status: Pending to [id number] [facility]. Primary Care Physician: Brain Bustamante DO [Primary Care Provider] - Please follow up with your Primary Care Physician in: within 1-2 weeks Test Results: Test results from this visit will be discussed in further detail at your follow-up appointment, if applicable. Please Follow Up With: Titi Tucker MD When: within 1 month Proposed Discharge Date: 06/12/20
--- NOTE | 2020-06-12 15:00 | DS.PCM_ITS ---
Discharge Date and Diagnosis - Problem List Patient Problems: Active and Suspected Problems (Last Updated 06/11/20 @ 16:27 by Angeles Bird) Acute renal insufficiency (Acute) Elevated troponin (Acute) Date of Admission: 06/10/20 Date of Discharge: 06/12/20 - Primary Discharge Diagnosis Acute Problems: Active Problems (Last Updated 06/11/20 @ 16:27 by Angeles Bird) Acute on chronic heart failure with reduced EF, EF 10% Elevated troponins likely demand ischemia Elevated D-dimer - Secondary Discharge Diagnosis Chronic Problems: Chronic Problems (Last Updated 06/11/20 @ 16:27 by Angeles Bird) Nonrheumatic aortic (valve) stenosis with insufficiency (Chronic) History of aortic valve replacement with tissue graft (Chronic 07/26/07) Original Aortic homograft surgery (using #21 mm aortic homograft) 01/12/1997 [facility]:re-do sternotomy and #22 homograft, re-replacement of aortic root with #29 freestyle; 07/26/2007 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 No acute chest disease. Electronically Signed: Blake Norris MD at 21:12 EST , Service support , Chest CTA 06/11/20 09:10 IMPRESSION: 1. No CT evidence of pulmonary embolism. 2. Cardiomegaly. 3. Small right pleural effusion and tiny left pleural effusion. Electronically Signed: Camilo Schaffer MD at 10:29 EST Tel , Service support , Cardiology Operations: None Procedures: 2-D Echocardiogram Summary of Care Provided: The patient is a 74 year old M with past medical history of CAD, ischemic cardi omyopathy status post AICD. Taking all his blood pressure and heart failure medication in January 2020 because there were too many for him to take. Patient was admitted with progressive shortness of breath. He admitted to orthopnea and PND. In the emergency room, he was saturating 96% on room air. His admitting creatinine was 1.72, his BMP Was three 821.8. Chest x-ray showed cardiomegaly. D-dimer was elevated at 3.66. Troponins were mildly elevated likely secondary to demand ischemia from acute CHF. He was admitted to the telemetry floor managed as acute on chronic CHF with reduced EF secondary to noncompliance. Started on Lasix with improvement. Cardiology was consulted. 2D echo shows an EF of 10%, stage III diastolic dysfunction, severe global hypokinesia nieces of the left ventricle. Pulmonary artery systolic pressure was 40. Patient initially refused a CT of the chest but was later convinced. CT of the chest was negative for acute PE. It showed cardiomegaly and small right and left pleural effusions. Ultrasound of the lower extremity was negative for acute DVT. Patient continued to improve and was counseled strongly on following the CHF protocol with low-salt diet, daily weight, fluid restriction. He will follow-up with his primary care doctor and with cardiology in the outpatient. Patient Problems: Active and Suspected Problems (Last Updated 06/11/20 @ 16:27 by Angeles Bird) Acute renal insufficiency (Acute) Elevated troponin (Acute) Subjective: The day of discharge, patient was seen and examined. He feels much improved. He denied any new complaints. He is on room air, did not qualify for oxygen. Objective: Physical exam: General: Alert, Oriented x3, Cooperative, No apparent distress, Well developed HEENT: Atraumatic, PERRLA, EOMI, Normocephalic Oral: Moist Mucosa Neck: Supple, No JVD, No Nuchal Rigidity, Trachea Midline, Thyroid Normal Size and Texture Lungs: Clear to auscultation, Normal air movement, No rhonchi, No wheeze, No rales Cardiovascular: Regular rate, Regular Rhythm, Normal S1, Normal S2, No murmurs, PMI Normal, No rub noted Abdomen: Bowel Sounds Present, Soft, Non Tender, Non-Distended, No hernias noted Extremities: No clubbing, No cyanosis, Capillary Refill Less than 3 Seconds Skin: No rashes, No breakdown Musculoskeletal: No Tenderness to Palpation of Joints or Extremities Neurological: Cranial nerves II-XII grossly intact, Neuro grossly intact, Sensory exam intact to light touch and pain Psych/Mental Status: Normal Affect, Appropriate, Alert and oriented to time, place, person, mood and affect - Physical Exam Vitals/I&O's: Vital Signs Temp Pulse Resp BP Pulse Ox 98.1 F 74 16 111/76 98 06/12/20 10:10 06/12/20 10:10 06/12/20 10:10 06/12/20 10:10 06/12/20 10:10 Oxygen Delivery Method Room Air Weight: 62.1 kg Body Mass Index (BMI) 20.7 Intake and Output for Last 24 Hours 06/10/20 06/11/20 06/12/20 23:59 23:59 23:59 Intake Total 880 / 880 200 / 200 Output Total 3225 / 3225 Balance -2345 / -2345 200 / 200 Microbiology Past 72 Hours 06/10/20 20:10 Mucosa - Nose SARS-CoV-2 Antigen (Rapid) - Final Laboratory Results 06/12/20 07:46: WBC 4.9, RBC 3.86 L, Hgb 10.5 L, Hct 33.3 L, MCV 86.3, MCH 27.2, MCHC 31.5 L, RDW Std Deviation 45.3 H, RDW Coeff of Bj 14.5, Plt Count 184, MPV 9.9, Immature Gran % (Auto) 0.200, Neut % (Auto) 73.1 H, Lymph % (Auto) 13.5 L, [place] % (Auto) 10.8 H, Eos % (Auto) 1.6, Baso % (Auto) 0.8, Absolute Neuts (auto) 3.6, Absolute Lymphs (auto) 0.66 L, Nucleated RBC % 0 06/12/20 07:46: Sodium 141, Potassium 3.7, Chloride 108 H, Carbon Dioxide 26.0, Anion Gap 7, BUN 27 H, Creatinine 1.36 H, Estim Creat Clear Calc 42.49, Est GFR (MDRD) Af Amer 66, Est GFR (MDRD) Non-Af 55 L, BUN/Creatinine Ratio 19.9, Glucose 87, Calcium 8.2 L Current Medications Acetaminophen (Acetaminophen 325 Mg Tablet) 650 mg PO Q6H PRN PRN PRN Reason: Pain Score 1-10/Temp > 100.7 F Last Admin: 06/12/20 10:27 Dose: 650 mg Documented by: Aspirin (Aspirin E.C. 81 Mg Tablet) [facility] Last Admin: 06/12/20 10:21 Dose: 81 mg Documented by: Atorvastatin Calcium (Atorvastatin Calcium 40 Mg Tablet) 40 mg PO QHS [facility] Last Admin: 06/11/20 21:11 Dose: 40 mg Documented by: Carvedilol (Carvedilol 6.25 Mg Tablet) 6.25 mg PO BID [facility] Last Admin: 06/12/20 10:27 Dose: 6.25 mg Documented by: Clindamycin HCl (Clindamycin Hcl 150 Mg Capsule) 150 mg PO TID [facility] Last Admin: 06/12/20 06:15 Dose: 150 mg Documented by: Furosemide (Furosemide 40 Mg Tablet) 40 mg PO BID@1000,1800 [facility] Last Admin: 06/12/20 10:22 Dose: 40 mg Documented by: Losartan Potassium (Losartan Potassium 25 Mg Tablet) 12.5 mg PO DAILY [facility] Last Admin: 06/12/20 10:22 Dose: 12.5 mg Documented by: Nitroglycerin (Nitroglycerin (Inpatient Use) 0.4 Mg Tab.Subl) 0.4 mg SUBLINGUAL Q5M PRN PRN Reason: CARDIAC/CHEST PAIN Ondansetron HCl (Ondansetron 4 Mg/2 Ml Vial) 4 mg IV Q8H PRN PRN PRN Reason: NAUSEA/VOMITING Sodium Chloride (0.9% Saline Lock 10 Ml Syringe) 10 - 40 ml IV UD PRN PRN Reason: SALINE FLUSH Last Admin: 06/11/20 17:39 Dose: 20 ml Documented by: Discharge Diet: Low fat/ Low Cholesterol, 2000 mg Sodium Diet Discharge Activity: Return to Normal Activity Home Medications: Medications to take at Discharge Aspirin E.C. [Ecotrin] 81 mg PO DAILY #90 tab 11/22/19 atorvastatin 40 mg tablet 40 mg PO QPM #90 tab 09/21/20 Clindamycin HCl 150 mg PO TID 06/10/20 Losartan Potassium [Cozaar] 12.5 mg PO DAILY 06/10/20 Acetaminophen [Tylenol Tablet] 650 mg PO Q6H PRN PRN tab 06/12/20 Carvedilol [Coreg (Beta Aleksander)] 6.25 mg PO BID 30 Days #60 tab 06/12/20 Furosemide [Lasix] 40 mg PO BID@1000,1800 30 Days #60 tab 06/12/20 Following Prescriptions Were Given to Patient: Carvedilol [Coreg (Beta Aleksander)] 6.25 mg PO BID 30 Days #60 tab Transmission Status: Received by [facility] [employer] Furosemide [Lasix] 40 mg PO BID@1000,1800 30 Days #60 tab Transmission Status: Received by [facility] [employer] Primary Care Physician: Brain Bustamante DO [Primary Care Provider] - Please follow up with your Primary Care Physician in: within 1-2 weeks Please Follow Up With: Titi Tucker MD When: within 1 month Patient Instructions: What Is Heart Failure?, Heart Failure: Tracking Your Weight, Taking Medications for Your Heart, Heart Failure: Making Changes to Your Diet Disposition: Home Minutes spent on discharge:: 40 Patient Condition:: Stable Medical Necessity - Tobacco Use Smoking Status: Former smoker Tobacco Use: Non-smoker Meaningful Use Info Meaningful Use Diagnoses (Choose all that apply): CHF - CHF NEDA/ARB ordered at discharge?: Yes Documented LVEF (%): 10 Inpatient E&M: 36151 Disch Hosp
[2020-06-12 15:01] VITALS: BP 103/71; PULSE 56; RESP 16; TEMP 36.6; O2SAT 97
--- NOTE | 2020-06-14 16:30 | CASEMGMT ---
ELIF CAMILO Discharge Follow-Up Phone Call. Margot: [place] Strata: 3 Discharge Date: 06/12/20 Adm Dx: Acute on Chronic CHF Call to pt's phone number to inquire about how he has been doing since being discharged from the hospital. Pt's answered and spoke with this ELIF CAMILO. She states He's doing okay, just sitting around a lot and eating. She states his breathing is doing okay. So far, so good. She states they did pickle solution maker the new prescriptions @ [facility] yesterday and denies having any questions about any of his medications. Pt is scheduled for an appt with Dr Bustamante next Thursday and with Becka Thompson @ [facility] on 07/10. She denies having any questions about the discharge instructions. She did inquire if pt is able to drive. She was made aware, per discharge instructions, there were no restrictions addressed re: driving but advised to contact pt's PCP if there were concerns or further questions. She voices understanding. Mery BEASLEY RN, CM
== END 2020-06-12 17:31 | disposition home or self-care (01) | DRG 291 ==
LOC: ED 21:47 → PCU 21:58
PROVIDERS: Internal Medicine; Admitting Provider Student in an Organized Health Care Education/Training Program; Emergency Provider Emergency Medicine; PCP Family Medicine; Visit Provider Internal Medicine
DX: I13.0 Hypertensive heart and chronic kidney disease with heart failure and stage 1 through stage 4 chronic kidney disease, or unspecified chronic kidney disease (principal); I50.43 Acute on chronic combined systolic (congestive) and diastolic (congestive) heart failure; I24.8 Other forms of acute ischemic heart disease; N18.31 Chronic kidney disease, stage 3a; Z79.1 Long term (current) use of non-steroidal anti-inflammatories (NSAID); Z91.14 Patient's other noncompliance with medication regimen; I42.8 Other cardiomyopathies; Z95.810 Presence of automatic (implantable) cardiac defibrillator; Z95.3 Presence of xenogenic heart valve; Z87.891 Personal history of nicotine dependence
CPT/HCPCS: 36415; 71045; 71275; 80048; 83880; 84484; 85025; 85379; 87426; 93005; 93306; 93970; 97802; 99285; Q9957; Q9967; A4216; C8929; J1940

== ENCOUNTER → 2020-08-14 12:03 | Outpatient (CLI) | payer MEDICARE, BC, SELFPAY ==
[2020-08-14 15:50] LABS: Absolute Lymphocyte Count 1.46 X10^3/uL (0.83-4.51); Absolute Neutrophil Count 4.6 X10^3/uL (2.0-7.7); Basophil# 0.05 X10^3/uL; Basophil% 0.7 % (0-1); Eosinophil# 0.15 X10^3/uL; Eosinophils% 2.1 % (0-5); Hematocrit 39.5 % (40-54); Hemoglobin 12.4 g/dL (13.0-16.5); Lymphocyte # 1.46 X10^3/ul (0.83-4.51); Lymphocyte % 20.8 % (19-41); Mean Corp Hgb Conc 31.4 g/dL (32-36); Mean Corpuscular Hgb 27.6 pg (27.0-32.0); Mean Corpuscular Volume 87.8 fL (80-94); Mean Platelet Vol. 11.1 fl (6.2-12.0); NRBC Flagged by Analyzer 0 % (0-5); Neutrophil # 4.64 X10^3/uL (2.7-7.7); Neutrophil % 66.1 % (47-70); Platelet Count 160 K/mm3 (150-450); RBC Distribution Width SD 63.1 fl (35.1-43.9)
[2020-08-14 16:21] LABS: ALB/GLOB Ratio 1.3 RATIO (0.9-2.4); AST(SGOT) 29 U/L (15-37); Alanine Aminotransfer ALT/SGPT 27 U/L (16-61); Albumin, Serum 3.9 g/dL (3.2-5.0); Alkaline Phosphatase 105 U/L (45-117); Anion Gap 6 (5-15); BUN 29 mg/dL (7-18); BUN/Creat Ratio 18.8 RATIO (10-20); Calcium,Total 8.9 mg/dL (8.5-10.1); Chloride 104 mmol/L (98-107); Creatinine, Serum 1.54 mg/dL (0.70-1.30); EST Glomerular Filtration Rate 47 mL/min (>60); Est Glom Filt Rate - Afr Amer 57 mL/min (>60); Globulin 3.1 g/dL (2.2-4.2); Glucose 91 mg/dL (74-106); Potassium 3.8 mmol/L (3.5-5.1); Sodium Level 138 mmol/L (136-145); T4 Free Direct 0.88 ng/dL (0.76-1.46); Thyroid Stim Hormone (TSH) 1.77 uIU/mL (0.358-3.74)
== END ==
PROVIDERS: PCP Family Medicine; Referring Provider Physician Assistant; Visit Provider Physician Assistant
DX: G24.01 Drug induced subacute dyskinesia (principal); I10 Essential (primary) hypertension; R53.83 Other fatigue
CPT/HCPCS: 36415; 80053; 84439; 84443; 85025

== ENCOUNTER 2021-08-02 13:59 | Emergency (ER) | payer MEDICARE, BC, OTHER, SELFPAY ==
[2021-08-02 14:02] VITALS: BP 154/126; PULSE 48; RESP 19; TEMP 36; O2SAT 100; BMI 18.3
--- NOTE | 2021-08-02 14:20 | EKG12_ITS ---
Test Reason : GI BLEED Blood Pressure : / mmHG Vent. Rate : 069 BPM Atrial Rate : 096 BPM P-R Int : 256 ms QRS Dur : 162 ms QT Int : 462 ms P-R-T Axes : 046 -31 149 degrees QTc Int : 495 ms Sinus rhythm with 1st degree A-V block with Premature supraventricular complexes and with frequent Pr emature ventricular complexes Left axis deviation Left bundle branch block Abnormal ECG Confirmed by ANDRZEJ GARZA, CORNELL ([id number]), map editor CHADWICK KELSEY ([id number]) on 08/07/2021 10:31:55 AM Referred By: ABRAM Confirmed By:CORNELL DONNELLY MD
--- NOTE | 2021-08-02 14:26 | EX.ED.DYSGE1 ---
HPI <NIK Fields - Last Filed: 08/02/21 14:33> History of Present Illness Chief Complaint: GI Bleed Narrative Narrative: Patient is a 76-year-old male with history of atrial fibrillation, pacer defibrillator on Eliquis who presents to the emergency department with 2 to 3 weeks of blood in his stool. Patient states that he went to his primary care doctor today, due to his abdominal pain, rectal pain, being pale weak and short of breath he is here for evaluation. Patient denies any fevers or chills. Patient did not tell his for multiple weeks, she states that he is more pale than usual as well as more lethargic, short of breath on exertion. He denies any nausea or vomiting. 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4 mg SUBLINGUAL Q5-15M PRN #25 tab 04/01/21 [Rx Last Taken Unknown] dapagliflozin 5 mg tablet 5 mg PO DAILY #90 tab 07/01/21 [Rx Last Taken Unknown] aspirin 81 mg PO DAILY 08/02/21 [History Last Taken Unknown] cephalexin 500 mg PO Q6 7 Days #28 cap 08/02/21 [Rx Last Taken Unknown] cholecalciferol (vitamin D3) 50 mcg (2,000 unit) capsule 50 mcg PO DAILY 08/02/21 [History Last Taken Unknown] amiodarone 200 mg PO DAILYCM 30 Days #30 tab 08/06/21 [Rx Last Taken Unknown] apixaban 2.5 mg PO BID #60 tab 08/06/21 [Rx Last Taken Unknown] atorvastatin 40 mg PO QPM #30 tab 08/06/21 [Rx Last Taken Unknown] carvedilol 6.25 mg PO BID #60 tablet 08/06/21 [Rx Last Taken Unknown] donepezil 10 mg PO DAILY #0 tab 08/06/21 [Rx Last Taken Unknown] furosemide 40 mg PO BID #60 tablet 08/06/21 [Rx Last Taken Unknown] isosorbide mononitrate 30 mg PO DAILY #30 tab 08/06/21 [Rx Last Taken Unknown] tamsulosin 0.4 mg PO 1730 30 Days #30 cap 08/06/21 [Rx Last Taken Unknown] Allergy/AdvReac Type Severity Reaction Status Date / Time Penicillins Allergy Severe Hives Verified 08/03/21 19:02 Family History Mother Cancer Kidney disease Father Myocardial infarction Brother Heart disease Surgical History History of aortic valve replacement with tissue graft (07/26/07) History of left heart catheterization (11/22/19) History of prostate surgery Implantable cardioverter-defibrillator (ICD) in situ Social History household members: spouse Smoking Status: Former smoker quit date: 04/27/71 alcohol intake: never substance use type: does not use what type of physical activity do you participate in: walking frequency: daily ROS <NIK Fields - Last Filed: 08/02/21 14:33> ROS ED ROS Narrative Constitutional: Negative for fever, chills, weight loss. Positive for generalized weakness Eyes: Negative for vision loss, vision change, double vision ENT: Negative for any sore throat, ear pain, congestion Cardiovascular: Negative for any chest pain, tightness, palpitations, racing heartbeat Respiratory: Negative for any cough, sputum production, hemoptysis, shortness of breath, orthopnea. Positive for shortness of breath on exertion Gastrointestinal: Negative for any nausea, vomiting, diarrhea, constipation, blood in vomit. Positive for abdominal pain, blood in stool : Negative for any urinary frequency, incontinence, dysuria, retention, blood in urine Muscle skeletal: Negative for any muscle joint pain, stiffness, myalgias, arthralgias, neck pain, back pain Neurological: Negative for any headache, dizziness, syncope, numbness or tingling Skin: Negative for any rashes, lumps, itching, abrasions, lacerations Psychiatric: Negative for any depression, anxiety, stress, suicidal ideation, homicidal ideation Hematologic: Negative for any easy bruising, excessive bruising, easy bleeding Allergies: Negative for any eczema, hives, rash EXAM <NIK Fields - Last Filed: 08/02/21 14:33> Physical Exam Narrative Exam Narrative: Vital signs reviewed. Patient is alert and oriented x4, patient does have a pale appearance. Patient is a poor historian, informant. His has to continually interrupt him to put forth information. HEET: Head normocephalic atraumatic, TMs clear bilaterally. Posterior pharynx is clear, moist mucous membranes. Nares clear bilaterally. Patient's eyelids appear pale Neck: Supple with no lymphadenopathy or tenderness. No signs of meningismus, negative jolt sign. Cardiac: Regular rate and rhythm no murmurs gallops or rubs, equal peripheral pulses bilaterally. Respiratory: Lungs clear to auscultation bilaterally. No chest tenderness. Abdomen: Soft, nondistended. No abdominal bruit or pulsatile masses. No hepatosplenomegaly. Patient does have tenderness to the lower abdomen Extremities: No peripheral edema, no signs of gross trauma or deformity. Active full range of motion of all extremities. Neuro: Cranial nerves II through XII intact, no focal neurological deficits. Skin: Clean dry and intact with no rash, purpura, petechiae, vesicles or pustules. Backslash flank: No CVA tenderness, no midline spinal tenderness, no deformity. Psych: Normal mood and affect. No SI, HI or acute psychosis. Const Vital Signs: 08/02/21 14:02 08/02/21 14:58 08/02/21 16:21 Temperature 96.8 F L Temperature Source Temporal Pulse Rate 48 L 76 Pulse Rate [Lying] 35 L Pulse Rate [Sitting (for 1 minute prior to obtaining)] 45 L Pulse Rate [Standing (for 1 minute prior to obtaining)] 67 Respiratory Rate 19 H 14 Blood Pressure 154/126 H Blood Pressure [Lying] 86/56 L Blood Pressure [Sitting (for 1 minute prior to obtaining)] 116/78 Blood Pressure [Standing (for 1 minute prior to obtaining)] 106/68 Blood Pressure Mean 135 Blood Pressure Mean [Lying] 66 Blood Pressure Mean [Sitting (for 1 minute prior to obtaining)] 90 Blood Pressure Mean [Standing (for 1 minute prior to obtaining)] 80 Pulse Ox 100 99 Oxygen Delivery Method Room Air Room Air <Dr. Geronimo Rm DO - Last Filed: 08/07/21 14:41> Physical Exam Const Vital Signs: 08/02/21 14:02 08/02/21 14:58 08/02/21 16:21 Temperature 96.8 F L Temperature Source Temporal Pulse Rate 48 L 76 Pulse Rate [Lying] 35 L Pulse Rate [Sitting (for 1 minute prior to obtaining)] 45 L Pulse Rate [Standing (for 1 minute prior to obtaining)] 67 Respiratory Rate 19 H 14 Blood Pressure 154/126 H Blood Pressure [Lying] 86/56 L Blood Pressure [Sitting (for 1 minute prior to obtaining)] 116/78 Blood Pressure [Standing (for 1 minute prior to obtaining)] 106/68 Blood Pressure Mean 135 Blood Pressure Mean [Lying] 66 Blood Pressure Mean [Sitting (for 1 minute prior to obtaining)] 90 Blood Pressure Mean [Standing (for 1 minute prior to obtaining)] 80 Pulse Ox 100 99 Oxygen Delivery Method Room Air Room Air [facility] <NIK Fields - Last Filed: 08/02/21 14:33> [facility] Lab Data Labs: Laboratory Results - last 24 hr 08/02/21 08/02/21 08/02/21 14:30 14:30 14:30 WBC 10.5 RBC 4.82 Hgb 14.8 Hct 44.8 MCV 92.9 MCH 30.7 MCHC 33.0 RDW Std Deviation 46.6 H RDW Coeff of Bj 13.8 Plt Count 195 MPV 10.3 Immature Gran % (Auto) 0.600 Neut % (Auto) 77.2 H Lymph % (Auto) 11.9 L [place] % (Auto) 7.7 Eos % (Auto) 2.2 Baso % (Auto) 0.4 Absolute Neuts (auto) 8.1 H Absolute Lymphs (auto) 1.24 Nucleated RBC % 0 PT INR Sodium 139 Potassium 3.8 Chloride 107 Carbon Dioxide 26.0 Anion Gap 6 BUN 33 H Creatinine 1.45 H Estim Creat Clear Calc 37.28 Est GFR (MDRD) Af Amer 61 Est GFR (MDRD) Non-Af 50 L BUN/Creatinine Ratio 22.8 H Glucose 112 H Lactic Acid 1.1 Calcium 8.9 Total Bilirubin 1.00 AST 14 L ALT 17 Alkaline Phosphatase 146 H Total Protein 8.3 H Albumin 4.1 Globulin 4.2 Albumin/Globulin Ratio 1.0 Lipase 160 Urine Color Urine Clarity Urine pH Ur Specific [place] Urine Protein Urine Glucose (UA) Urine Ketones Urine Occult Blood Urine Nitrite Urine Bilirubin Urine Urobilinogen Ur Leukocyte Esterase Urine RBC Urine WBC Ur Squamous Epith Cells Triple Phos Crystals Urine Bacteria Urine Mucus Blood Type Antibody Screen 08/02/21 08/02/21 08/02/21 14:30 14:30 15:15 WBC RBC Hgb Hct MCV MCH MCHC RDW Std Deviation RDW Coeff of Bj Plt Count MPV Immature Gran % (Auto) Neut % (Auto) Lymph % (Auto) [place] % (Auto) Eos % (Auto) Baso % (Auto) Absolute Neuts (auto) Absolute Lymphs (auto) Nucleated RBC % PT 13.3 INR 1.1 Sodium Potassium Chloride Carbon Dioxide Anion Gap BUN Creatinine Estim Creat Clear Calc Est GFR (MDRD) Af Amer Est GFR (MDRD) Non-Af BUN/Creatinine Ratio Glucose Lactic Acid Calcium Total Bilirubin AST ALT Alkaline Phosphatase Total Protein Albumin Globulin Albumin/Globulin Ratio Lipase Urine Color Yellow Urine Clarity Cloudy Urine pH 8.0 Ur Specific [place] 1.015 Urine Protein 30 H Urine Glucose (UA) 100 H Urine Ketones Negative Urine Occult Blood 150 H Urine Nitrite Negative Urine Bilirubin Negative Urine Urobilinogen Normal Ur Leukocyte Esterase 500 H Urine RBC 0-5 SEEN Urine WBC 10-25 SEEN Ur Squamous Epith Cells 0 SEEN Triple Phos Crystals RARE Urine Bacteria 2+ Urine Mucus 0 SEEN Blood Type A POSITIVE Antibody Screen NEGATIVE Radiography Diagnostic Testing: Clinical Impression(s) from Imaging Studies Abdomen/Pelvis CT 08/02/21 15:31 <Dr. Geronimo Rm, DO - Last Filed: 08/07/21 14:41> [facility] MDM Narrative Medical decision making narrative: Attending note: Patient seen and evaluated with office technology instructor. I perform my own [id number] evaluation. I agree with the plan of work-up. Brought in by spouse today increasing fatigue today. Patient reports noting makes blood in the stools for the past 3 weeks. He is on Eliquis for history of atrial fibrillation. History of cardiomyopathy with a AICD for the past [address] Yeager. Denies lightheaded symptoms denies dyspnea or any exertional dyspnea. Patient denies any abdominal pain however spouse reports there noticed some distention. History of enlarged prostate seen Dr. Aguilar in 2010 denies cancer history. Reports he had surgery of some sort of mesh however denied any hernia history. Brought in here today due to increasing fatigue. Exam slightly distended lower abdomen, mild tenderness there is no guarding or rebound. Negative Card's or McBurney's tenderness. Rectal exam per office technology instructor no gross blood however guaiac is returned positive. Hemoglobin 14.8. Labs otherwise stable. Creatinine 1.45 stable from previous. Lactic acid 1.1. CT scan distended bladder. Apparently self caths at home due to neurogenic bladder. Garcia catheter was placed. Treatment for UTI. Follow-up as an outpatient. Lab Data Attestation: I reviewed the patient's lab results. Labs: Laboratory Results - last 24 hr 08/02/21 08/02/21 08/02/21 14:30 14:30 14:30 WBC 10.5 RBC 4.82 Hgb 14.8 Hct 44.8 MCV 92.9 MCH 30.7 MCHC 33.0 RDW Std Deviation 46.6 H RDW Coeff of Bj 13.8 Plt Count 195 MPV 10.3 Immature Gran % (Auto) 0.600 Neut % (Auto) 77.2 H Lymph % (Auto) 11.9 L [place] % (Auto) 7.7 Eos % (Auto) 2.2 Baso % (Auto) 0.4 Absolute Neuts (auto) 8.1 H Absolute Lymphs (auto) 1.24 Nucleated RBC % 0 PT INR Sodium 139 Potassium 3.8 Chloride 107 Carbon Dioxide 26.0 Anion Gap 6 BUN 33 H Creatinine 1.45 H Estim Creat Clear Calc 37.28 Est GFR (MDRD) Af Amer 61 Est GFR (MDRD) Non-Af 50 L BUN/Creatinine Ratio 22.8 H Glucose 112 H Lactic Acid 1.1 Calcium 8.9 Total Bilirubin 1.00 AST 14 L ALT 17 Alkaline Phosphatase 146 H Total Protein 8.3 H Albumin 4.1 Globulin 4.2 Albumin/Globulin Ratio 1.0 Lipase 160 Urine Color Urine Clarity Urine pH Ur Specific [place] Urine Protein Urine Glucose (UA) Urine Ketones Urine Occult Blood Urine Nitrite Urine Bilirubin Urine Urobilinogen Ur Leukocyte Esterase Urine RBC Urine WBC Ur Squamous Epith Cells Triple Phos Crystals Urine Bacteria Urine Mucus Blood Type Antibody Screen 08/02/21 08/02/21 08/02/21 14:30 14:30 15:15 WBC RBC Hgb Hct MCV MCH MCHC RDW Std Deviation RDW Coeff of Bj Plt Count MPV Immature Gran % (Auto) Neut % (Auto) Lymph % (Auto) [place] % (Auto) Eos % (Auto) Baso % (Auto) Absolute Neuts (auto) Absolute Lymphs (auto) Nucleated RBC % PT 13.3 INR 1.1 Sodium Potassium Chloride Carbon Dioxide Anion Gap BUN Creatinine Estim Creat Clear Calc Est GFR (MDRD) Af Amer Est GFR (MDRD) Non-Af BUN/Creatinine Ratio Glucose Lactic Acid Calcium Total Bilirubin AST ALT Alkaline Phosphatase Total Protein Albumin Globulin Albumin/Globulin Ratio Lipase Urine Color Yellow Urine Clarity Cloudy Urine pH 8.0 Ur Specific [place] 1.015 Urine Protein 30 H Urine Glucose (UA) 100 H Urine Ketones Negative Urine Occult Blood 150 H Urine Nitrite Negative Urine Bilirubin Negative Urine Urobilinogen Normal Ur Leukocyte Esterase 500 H Urine RBC 0-5 SEEN Urine WBC 10-25 SEEN Ur Squamous Epith Cells 0 SEEN Triple Phos Crystals RARE Urine Bacteria 2+ Urine Mucus 0 SEEN Blood Type A POSITIVE Antibody Screen NEGATIVE Radiography Diagnostic Testing: Clinical Impression(s) from Imaging Studies Abdomen/Pelvis CT 08/02/21 15:31 Discharge Plan Triage Chief Complaint: GI Bleed ED Midlevel Provider: Louie Jung ED Provider: Geronimo Rm Dx/Rx/DC Orders Clinical Impression: Neurogenic bladder, Acute urinary retention, Urinary tract infection Instructions: ED Garcia Catheter, Care, ED Urinary Retention, Male, ED Bladder Infection, Male (Adult) Prescriptions: New cephalexin 500 mg capsule 500 mg PO Q6 7 Days Qty: 28 RF: 0 No Action nitroglycerin [Nitrostat] 0.4 mg tablet, sublingual 0.4 mg sublingual Q5-15M PRN (Reason: chest pain) Qty: 25 RF: 3 Farxiga 5 mg tablet 5 mg PO DAILY Qty: 90 RF: 3 cholecalciferol (vitamin D3) 50 mcg (2,000 unit) capsule 50 mcg PO DAILY RF: 0 acetaminophen 325 MG tablet 650 mg PO Q6H PRN PRN (Reason: Pain Score 1-10/Temp > 100.7 F) RF: 0 aspirin 81 mg Tablet,Chewable 81 mg PO DAILY RF: 0 amiodarone 200 mg Tablet 200 mg PO DAILYCM 30 Days Qty: 30 RF: 0 tamsulosin 0.4 mg Capsule 0.4 mg PO 1730 30 Days Qty: 30 RF: 0 furosemide 40 mg tablet 40 mg PO BID Qty: 60 RF: 0 atorvastatin 40 mg tablet 40 mg PO QPM Qty: 30 RF: 0 carvedilol 6.25 mg tablet 6.25 mg PO BID Qty: 60 RF: 0 donepezil 10 mg tablet 10 mg PO DAILY Qty: 0 RF: 0 isosorbide mononitrate 30 mg tablet extended release 24 hr 30 mg PO DAILY Qty: 30 RF: 0 apixaban 2.5 mg tablet 2.5 mg PO BID Qty: 60 RF: 0 Primary Care Provider: Brain Bustamante Referrals: Brain Bustamante, [Primary Care Provider] - Rivera Aguilar MD [STAFF PHYSICIAN] - Activity Restrictions/Additional Instructions: You are not emptying your bladder normally, this is causing you to have a urinary tract infection. Please follow-up with the urologist here, please let them know that you have a catheter placed from the emergency department and you need follow-up. Please take the antibiotics until finished. Print Language: Telugu Disposition Disposition: Home, Self Care Discharge Date/Time: 08/02/21 18:50
[2021-08-02] MEDS: 0.9% Normal Saline 1,000 ML 1000 ML IV (14:45)
[2021-08-02 14:52] LABS: Absolute Lymphocyte Count 1.24 X10^3/uL (0.83-4.51); Absolute Neutrophil Count 8.1 X10^3/uL (2.0-7.7); Basophil# 0.04 X10^3/uL; Basophil% 0.4 % (0-1); Eosinophil# 0.23 X10^3/uL; Eosinophils% 2.2 % (0-5); Hematocrit 44.8 % (40-54); Hemoglobin 14.8 g/dL (13.0-16.5); Lymphocyte # 1.24 X10^3/ul (0.83-4.51); Lymphocyte % 11.9 % (19-41); Mean Corpuscular Hgb 30.7 pg (27.0-32.0); Mean Corpuscular Volume 92.9 fL (80-94); Mean Platelet Vol. 10.3 fl (6.2-12.0); Monocyte# 0.81 X10^3/uL; Monocyte% 7.7 % (0-10); NRBC Flagged by Analyzer 0 % (0-5); Neutrophil # 8.08 X10^3/uL (2.7-7.7); Neutrophil % 77.2 % (47-70); Platelet Count 195 K/mm3 (150-450); RBC Distribution Width CV 13.8 % (11.6-14.6); RBC Distribution Width SD 46.6 fl (35.1-43.9); Red Blood Count 4.82 M/mm3 (4.6-6.2); White Blood Count 10.5 K/mm3 (4.4-11.0)
--- NOTE | 2021-08-02 14:56 | EX.ED.DYSGE1 ---
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 Atrial fibrillation and flutter Chronic systolic CHF (congestive heart failure) Essential (primary) hypertension HLD (hyperlipidemia) Nonischemic cardiomyopathy Nonrheumatic aortic (valve) stenosis with insufficiency Nonrheumatic mitral (valve) insufficiency Nonrheumatic tricuspid (valve) insufficiency NSTEMI (non-ST elevated myocardial infarction) (06/11/20) PTSD (post-traumatic stress disorder) PVCs (premature ventricular contractions) Right bundle branch block Home Medications acetaminophen 650 mg PO Q6H PRN PRN tab 06/12/20 [Rx Last Taken Unknown] furosemide 40 mg tablet 40 mg PO BID #180 tablet 07/26/20 [Rx Last Taken Unknown] carvedilol 6.25 mg tablet 6.25 mg PO BID #180 tablet 03/13/21 [Rx Last Taken Unknown] atorvastatin 40 mg tablet 40 mg PO QPM #90 tab 03/19/21 [Rx Last Taken Unknown] isosorbide mononitrate 30 mg tablet,extended release 24 hr 30 mg PO DAILY #30 tab 04/01/21 [Rx Last Taken Unknown] nitroglycerin 0.4 mg sublingual tablet 0.4 mg SUBLINGUAL Q5-15M PRN #25 tab 04/01/21 [Rx Last Taken Unknown] apixaban 2.5 mg tablet 2.5 mg PO BID #180 tab 07/01/21 [Rx Last Taken Unknown] dapagliflozin 5 mg tablet 5 mg PO DAILY #90 tab 07/01/21 [Rx Last Taken Unknown] aspirin [Baby Aspirin] 81 mg PO DAILY 08/02/21 [History Last Taken Unknown] cephalexin 500 mg PO Q6 7 Days #28 cap 08/02/21 [Rx Last Taken Unknown] cholecalciferol (vitamin D3) 50 mcg (2,000 unit) capsule 50 mcg PO DAILY 08/02/21 [History Last Taken Unknown] donepezil mg 08/02/21 [History Last Taken Unknown] Allergy/AdvReac Type Severity Reaction Status Date / Time Penicillins Allergy Severe Hives Verified 08/02/21 14:04 Family History Mother Cancer Kidney disease Father Myocardial infarction Brother Heart disease Surgical History (Reviewed 07/01/21 @ 15:01 by Hilary Locke MATERIAL CONTROL SUPERVISOR, MATERIAL CONTROL SUPERVISOR-C) History of aortic valve replacement with tissue graft (07/26/07) History of left heart catheterization (11/22/19) History of prostate surgery Implantable cardioverter-defibrillator (ICD) in situ Social History (Reviewed 07/01/21 @ 15:01 by Hilary Locke MATERIAL CONTROL SUPERVISOR, MATERIAL CONTROL SUPERVISOR-C) Smoking Status: Former smoker quit date: 04/27/71 alcohol intake: never substance use type: does not use what type of physical activity do you participate in: walking frequency: daily ROS ROS ED ROS Narrative Constitutional: Negative for fever, chills, weight loss, weakness Eyes: Negative for vision loss, vision change, double vision ENT: Negative for any sore throat, ear pain, congestion Cardiovascular: Negative for any chest pain, tightness, palpitations, racing heartbeat Respiratory: Negative for any cough, sputum production, hemoptysis, shortness of breath, shortness of breath on exertion, orthopnea Gastrointestinal: Negative for any abdominal pain, nausea, vomiting, diarrhea, constipation, blood in vomit. Positive for blood in stool : Negative for any urinary frequency, incontinence, dysuria, retention, blood in urine Muscle skeletal: Negative for any muscle joint pain, stiffness, myalgias, arthralgias, neck pain, back pain Neurological: Negative for any headache, dizziness, syncope, numbness or tingling Skin: Negative for any rashes, lumps, itching, abrasions, lacerations Psychiatric: Negative for any depression, anxiety, stress, suicidal ideation, homicidal ideation Hematologic: Negative for any easy bruising, excessive bruising, easy bleeding Allergies: Negative for any eczema, hives, rash EXAM Physical Exam Narrative Exam Narrative: Vital signs reviewed. HEET: Head normocephalic atraumatic, TMs clear bilaterally. Posterior pharynx is clear, moist mucous membranes. Nares clear bilaterally. Neck: Supple with no lymphadenopathy or tenderness. No signs of meningismus, negative jolt sign. Cardiac: Regular rate and rhythm no murmurs gallops or rubs, equal peripheral pulses bilaterally. Respiratory: Lungs clear to auscultation bilaterally. No chest tenderness. Abdomen: Soft, nondistended. No abdominal bruit or pulsatile masses. No hepatosplenomegaly. Tender to the suprapubic area Extremities: No peripheral edema, no signs of gross trauma or deformity. Active full range of motion of all extremities. Neuro: Cranial nerves II through XII intact, no focal neurological deficits. Skin: Clean dry and intact with no rash, purpura, petechiae, vesicles or pustules. Backslash flank: No CVA tenderness, no midline spinal tenderness, no deformity. Psych: Normal mood and affect. No SI, HI or acute psychosis. Rectal: Patient had no franny blood, dried blood, patient had no hemorrhoid external or internal. Patient had little to no stool in the rectal vault. My finger was clear. Const Vital Signs: 08/02/21 14:02 08/02/21 14:58 08/02/21 16:21 Temperature 96.8 F L Temperature Source Temporal Pulse Rate 48 L 76 Pulse Rate [Lying] 35 L Pulse Rate [Sitting (for 1 minute prior to obtaining)] 45 L Pulse Rate [Standing (for 1 minute prior to obtaining)] 67 Respiratory Rate 19 H 14 Blood Pressure 154/126 H Blood Pressure [Lying] 86/56 L Blood Pressure [Sitting (for 1 minute prior to obtaining)] 116/78 Blood Pressure [Standing (for 1 minute prior to obtaining)] 106/68 Blood Pressure Mean 135 Blood Pressure Mean [Lying] 66 Blood Pressure Mean [Sitting (for 1 minute prior to obtaining)] 90 Blood Pressure Mean [Standing (for 1 minute prior to obtaining)] 80 Pulse Ox 100 99 Oxygen Delivery Method Room Air Room Air 08/02/21 17:15 Temperature 97.8 F Temperature Source Oral Pulse Rate 84 Pulse Rate [Lying] Pulse Rate [Sitting (for 1 minute prior to obtaining)] Pulse Rate [Standing (for 1 minute prior to obtaining)] Respiratory Rate 22 H Blood Pressure 107/77 Blood Pressure [Lying] Blood Pressure [Sitting (for 1 minute prior to obtaining)] Blood Pressure [Standing (for 1 minute prior to obtaining)] Blood Pressure Mean 87 Blood Pressure Mean [Lying] Blood Pressure Mean [Sitting (for 1 minute prior to obtaining)] Blood Pressure Mean [Standing (for 1 minute prior to obtaining)] Pulse Ox 100 Oxygen Delivery Method MDM MDM MDM Narrative Medical decision making narrative: Patient appears well, patient appears nontoxic, vital signs are stable. Patient presents to the emergency department with rectal bleeding, patient is concerned because he is on Eliquis. Patient did receive a full work-up. Patient CBC showed a hemoglobin of 14.8, patient has no signs or symptoms of anemia, patient's chemistries were unremarkable, patient's urinalysis was positive for infection patient did receive a CT scan of the abdomen pelvis. The CT did show a diffuse urinary bladder diverticuli or uterus feels. This can be seen in a neurogenic bladder. Small calculi noted in the bladder. Dependent hyperdense material in the left lower side of the urinary bladder may be small milk or calcium stones. Patient's bladder was large on the CT scan. Patient also had some abdominal pain on initial exam. Patient did receive type and screen. At this time, the patient's CT scan showed a large bladder, patient states when he goes the bathroom only a little bit comes out, he now tells me that he does cath himself [facility] however he is only able to do them once or twice a day secondary to not having of catheters. Patient also has a urinary tract infection which he will be treated with Keflex. At this time, patient will receive a Garcia catheter, patient will follow up with urology, patient has a urinary tract infection secondary to not emptying his bladder more frequently. At this time, I do not believe the patient has any rectal bleeding, I believe that he is wiping and it is blood from the skin around his rectum, I do not believe that this is an internal GI bleed. Patient's vital signs remained stable. Patient stable for discharge instructed return for any worsening process. Patient given catheter care, given a leg bag, no follow-up with urology in this hospital system. Lab Data Labs: Laboratory Results - last 24 hr 08/02/21 08/02/21 08/02/21 14:30 14:30 14:30 WBC 10.5 RBC 4.82 Hgb 14.8 Hct 44.8 MCV 92.9 MCH 30.7 MCHC 33.0 RDW Std Deviation 46.6 H RDW Coeff of Bj 13.8 Plt Count 195 MPV 10.3 Immature Gran % (Auto) 0.600 Neut % (Auto) 77.2 H Lymph % (Auto) 11.9 L [place] % (Auto) 7.7 Eos % (Auto) 2.2 Baso % (Auto) 0.4 Absolute Neuts (auto) 8.1 H Absolute Lymphs (auto) 1.24 Nucleated RBC % 0 PT INR Sodium 139 Potassium 3.8 Chloride 107 Carbon Dioxide 26.0 Anion Gap 6 BUN 33 H Creatinine 1.45 H Estim Creat Clear Calc 37.28 Est GFR (MDRD) Af Amer 61 Est GFR (MDRD) Non-Af 50 L BUN/Creatinine Ratio 22.8 H Glucose 112 H Lactic Acid 1.1 Calcium 8.9 Total Bilirubin 1.00 AST 14 L ALT 17 Alkaline Phosphatase 146 H Total Protein 8.3 H Albumin 4.1 Globulin 4.2 Albumin/Globulin Ratio 1.0 Lipase 160 Urine Color Urine Clarity Urine pH Ur Specific [place] Urine Protein Urine Glucose (UA) Urine Ketones Urine Occult Blood Urine Nitrite Urine Bilirubin Urine Urobilinogen Ur Leukocyte Esterase Urine RBC Urine WBC Ur Squamous Epith Cells Triple Phos Crystals Urine Bacteria Urine Mucus Blood Type Antibody Screen 08/02/21 08/02/21 08/02/21 14:30 14:30 15:15 WBC RBC Hgb Hct MCV MCH MCHC RDW Std Deviation RDW Coeff of Bj Plt Count MPV Immature Gran % (Auto) Neut % (Auto) Lymph % (Auto) [place] % (Auto) Eos % (Auto) Baso % (Auto) Absolute Neuts (auto) Absolute Lymphs (auto) Nucleated RBC % PT 13.3 INR 1.1 Sodium Potassium Chloride Carbon Dioxide Anion Gap BUN Creatinine Estim Creat Clear Calc Est GFR (MDRD) Af Amer Est GFR (MDRD) Non-Af BUN/Creatinine Ratio Glucose Lactic Acid Calcium Total Bilirubin AST ALT Alkaline Phosphatase Total Protein Albumin Globulin Albumin/Globulin Ratio Lipase Urine Color Yellow Urine Clarity Cloudy Urine pH 8.0 Ur Specific [place] 1.015 Urine Protein 30 H Urine Glucose (UA) 100 H Urine Ketones Negative Urine Occult Blood 150 H Urine Nitrite Negative Urine Bilirubin Negative Urine Urobilinogen Normal Ur Leukocyte Esterase 500 H Urine RBC 0-5 SEEN Urine WBC 10-25 SEEN Ur Squamous Epith Cells 0 SEEN Triple Phos Crystals RARE Urine Bacteria 2+ Urine Mucus 0 SEEN Blood Type A POSITIVE Antibody Screen NEGATIVE Radiography Diagnostic Testing: Clinical Impression(s) from Imaging Studies Abdomen/Pelvis CT 08/02/21 15:31 Discharge Plan Triage Chief Complaint: GI Bleed ED Midlevel Provider: Louie Jung ED Provider: Geronimo Rm Dx/Rx/DC Orders Clinical Impression: Neurogenic bladder, Acute urinary retention, Urinary tract infection Instructions: ED Garcia Catheter, Care, ED Urinary Retention, Male, ED Bladder Infection, Male (Adult) Prescriptions: New cephalexin 500 mg capsule 500 mg PO Q6 7 Days Qty: 28 RF: 0 No Action carvedilol 6.25 mg tablet 6.25 mg PO BID Qty: 180 RF: 3 furosemide 40 mg tablet 40 mg PO BID Qty: 180 RF: 3 isosorbide mononitrate 30 mg tablet extended release 24 hr 30 mg PO DAILY Qty: 30 RF: 3 nitroglycerin [Nitrostat] 0.4 mg tablet, sublingual 0.4 mg sublingual Q5-15M PRN (Reason: chest pain) Qty: 25 RF: 3 apixaban 2.5 mg tablet 2.5 mg PO BID Qty: 180 RF: 3 Farxiga 5 mg tablet 5 mg PO DAILY Qty: 90 RF: 3 cholecalciferol (vitamin D3) 50 mcg (2,000 unit) capsule 50 mcg PO DAILY RF: 0 acetaminophen 325 MG tablet 650 mg PO Q6H PRN PRN (Reason: Pain Score 1-10/Temp > 100.7 F) RF: 0 donepezil 10 mg tablet RF: 0 aspirin [Baby Aspirin] 81 mg Tablet,Chewable 81 mg PO DAILY RF: 0 atorvastatin 40 mg tablet 40 mg PO QPM Qty: 90 RF: 3 Primary Care Provider: Brain Bustamante Referrals: Brain Bustamante DO [Primary Care Provider] - Rivera Aguilar MD [STAFF PHYSICIAN] - Activity Restrictions/Additional Instructions: You are not emptying your bladder normally, this is causing you to have a urinary tract infection. Please follow-up with the urologist here, please let them know that you have a catheter placed from the emergency department and you need follow-up. Please take the antibiotics until finished. Print Language: Irish Disposition Disposition: Home, Self Care
[2021-08-02 14:58] VITALS: BP 106/68; BP 116/78; BP 86/56; PULSE 35; PULSE 45; PULSE 67
[2021-08-02 15:01] LABS: International Normalized Ratio 1.1; Prothrombin Time (Protime)PT. 13.3 SECONDS (11.7-14.9)
[2021-08-02 15:11] LABS: AST(SGOT) 14 U/L (15-37); Alanine Aminotransfer ALT/SGPT 17 U/L (16-61); Albumin, Serum 4.1 g/dL (3.2-5.0); Alkaline Phosphatase 146 U/L (45-117); Anion Gap 6 (5-15); BUN 33 mg/dL (7-18); BUN/Creat Ratio 22.8 RATIO (10-20); Calcium,Total 8.9 mg/dL (8.5-10.1); Chloride 107 mmol/L (98-107); Creatinine, Serum 1.45 mg/dL (0.70-1.30); EST Glomerular Filtration Rate 50 mL/min (>60); Est Glom Filt Rate - Afr Amer 61 mL/min (>60); Estimated Creatinine Clearance 37.28 ml/min; Globulin 4.2 g/dL (2.2-4.2); Glucose 112 mg/dL (74-106); Lipase 160 U/L (73-393); Potassium 3.8 mmol/L (3.5-5.1); Protein, Total 8.3 g/dL (6.4-8.2); Sodium Level 139 mmol/L (136-145)
[2021-08-02 15:20] LABS: Lactic Acid 1.1 mmol/L (0.4-1.9)
[2021-08-02 15:23] LABS: Mucous, Urine 0 SEEN /hpf (<or=2+); Squamous Epithelial Cells - UA 0 SEEN /hpf (0-5)
[2021-08-02 15:24] LABS: Color, Urine Yellow (Yellow); Glucose, Dipstick 100 mg/dl (Normal); Ketone-Dipstick Negative (Negative); Leukocyte Esterase-Dipstick 500 /ul (Negative); Nitrite-Dipstick Negative (Negative); Occult Blood-Urine 150 /ul (Negative); Protein-Dipstick 30 mg/dl (Negative); Specific Gravity, Urine 1.015 (1.002-1.030); Urine Bilirubin Dipstick Negative (Negative); Urine Clarity Cloudy (Clear); Urine Urobilinogen Normal (Normal)
--- NOTE | 2021-08-02 15:31 | CT_ITS ---
STUDY: CT Abdomen And Pelvis W/ Contrast Injection 08/02/2021 4:52 PM REASON FOR EXAM: Male, 76 years old. ABDOMINAL PAIN abdominal pain TECHNIQUE: Transaxial images were obtained without oral contrast, and with IV 100mL Isovue-300 intravenous contrast. Individualized dose optimization techniques were used for this CT. COMPARISON: 02.12.12. FINDINGS: The visualized lung bases are unremarkable. The visualized portions of the heart are within normal limits. Normal liver. Normal gallbladder and extrahepatic biliary system. Normal spleen. Normal pancreas. Normal bilateral adrenal glands. No acute findings of the right kidney. No acute findings of the left kidney. Normal visualized stomach. Normal small intestine. There are multiple colonic diverticula consistent with diverticulosis. There is non-visualization of the appendix. There are no acute findings of the abdominal aorta. Normal inferior vena cava. Subcentimeter mesenteric lymph nodes. The urinary bladder is distended. This can suggest urinary retention. There are prostatic calcifications. There is are diffuse urinary bladder diverticuli or ureteroceles. Small calculi noted in the bladder. Dependent hyperdense material in the left lower side of the urinary bladder may be small milk of calcium stones. There is an umbilical hernia containing fat. There are diffuse degenerative changes of the visualized lumbar spine. IMPRESSION: (NOT LISTED IN ORDER OF SIGNIFICANCE) The urinary bladder is distended. This can suggest urinary retention. There is are diffuse urinary bladder diverticuli or ureteroceles. This can be seen in a neurogenic bladder. Small calculi noted in the bladder. Dependent hyperdense material in the left lower side of the urinary bladder may be small milk of calcium stones. Other findings as above. Electronically Signed: Zacarias Al MD at 17:02 EDT , CT/Abdomen/Pelvis W IV Cont ONLY
[2021-08-02 15:55] LABS: Bacteria 2+ /hpf (None Seen); Red Blood Cells-Urine 0-5 SEEN /hpf (0-5); Triple Phosphate Crystals Ur RARE /hpf (<or=1+); White Blood Cells 10-25 SEEN /hpf (0-5)
[2021-08-02 16:21] VITALS: PULSE 76; RESP 14; O2SAT 99
[2021-08-02 17:15] VITALS: BP 107/77; PULSE 84; RESP 22; TEMP 36.6; O2SAT 100
[2021-08-02] MEDS: Cephalexin 250 MG Capsule 500 MG PO (18:20)
[2021-08-02 18:37] VITALS: BP 168/82; PULSE 84; RESP 19; O2SAT 95
== END 2021-08-02 18:50 | disposition home or self-care (01) ==
PROVIDERS: Nurse Practitioner; Emergency Provider Emergency Medicine; PCP Family Medicine; Visit Provider Emergency Medicine
DX: K62.5 Hemorrhage of anus and rectum (principal); I11.0 Hypertensive heart disease with heart failure; I42.8 Other cardiomyopathies; I50.22 Chronic systolic (congestive) heart failure; N31.9 Neuromuscular dysfunction of bladder, unspecified; N39.0 Urinary tract infection, site not specified; Z87.891 Personal history of nicotine dependence; I25.10 Atherosclerotic heart disease of native coronary artery without angina pectoris; E78.5 Hyperlipidemia, unspecified; R33.9 Retention of urine, unspecified; Z79.899 Other long term (current) drug therapy; Z79.01 Long term (current) use of anticoagulants; Z79.82 Long term (current) use of aspirin; I25.2 Old myocardial infarction
CPT/HCPCS: 51702; 96360; 99285; 74177; 80053; 81001; 82274; 83605; 83690; 85025; 85610; 86850; 86900; 86901; 93005; J7030; Q9967; A4216

== ENCOUNTER 2021-08-03 18:50 | Inpatient (IN) | payer MEDICARE, BC, SELFPAY ==
[2021-08-03] VITALS (8 sets, daily range): BP systolic 97–136; BP diastolic 63–79; PULSE 70–98; RESP 17–25; TEMP 36.5–37.1; O2SAT 97–99; BMI 19.3; BMI 17.9
--- NOTE | 2021-08-03 18:52 | EKG12_ITS ---
Test Reason : CP Blood Pressure : / mmHG Vent. Rate : 085 BPM Atrial Rate : 066 BPM P-R Int : 322 ms QRS Dur : 170 ms QT Int : 450 ms P-R-T Axes : 071 -14 136 degrees QTc Int : 535 ms Sinus rhythm with 1st degree A-V block with frequent and consecutive Premature ventricular complexes Left bundle branch block Septal ID, age undetermined, cannot be excluded Abnormal ECG Confirmed by GOOD GARZA, MARY ([id number]), proposal editor CHADWICK KELSEY ([id number]) on 08/07/2021 11:21:01 AM Referred By: AMIRAH Confirmed By:MARY FUNK MD
--- NOTE | 2021-08-03 18:54 | EDS_ITS ---
HPI History of Present Illness Chief Complaint: Chest Pain Narrative Narrative: Patient presents via EMS because of chest pain that he had this morning, but now he complains of a headache all over. He has past medical history of atrial fibrillation with pacemaker, neurogenic bladder with Garcia catheter placement. According to EMS, family called because he had chest pain earlier today. Patient states that that has resolved. He has past medical history of reported memory loss, and is unsure why he is here but complains mainly of a headache. He denies any shortness of breath. No fevers or chills. No cough. No nausea or vomiting. 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 Atrial fibrillation and flutter Chronic systolic CHF (congestive heart failure) Essential (primary) hypertension HLD (hyperlipidemia) Nonischemic cardiomyopathy Nonrheumatic aortic (valve) stenosis with insufficiency Nonrheumatic mitral (valve) insufficiency Nonrheumatic tricuspid (valve) insufficiency NSTEMI (non-ST elevated myocardial infarction) (06/11/20) PTSD (post-traumatic stress disorder) PVCs (premature ventricular contractions) Right bundle branch block Home Medications acetaminophen 650 mg PO Q6H PRN PRN tab 06/12/20 [Rx Last Taken Unknown] furosemide 40 mg tablet 40 mg PO BID #180 tablet 07/26/20 [Rx Last Taken Unknown] carvedilol 6.25 mg tablet 6.25 mg PO BID #180 tablet 03/13/21 [Rx Last Taken Unknown] atorvastatin 40 mg tablet 40 mg PO QPM #90 tab 03/19/21 [Rx Last Taken Unknown] isosorbide mononitrate 30 mg tablet,extended release 24 hr 30 mg PO DAILY #30 tab 04/01/21 [Rx Last Taken Unknown] nitroglycerin 0.4 mg sublingual tablet 0.4 mg SUBLINGUAL Q5-15M PRN #25 tab 04/01/21 [Rx Last Taken Unknown] apixaban 2.5 mg tablet 2.5 mg PO BID #180 tab 07/01/21 [Rx Last Taken Unknown] dapagliflozin 5 mg tablet 5 mg PO DAILY #90 tab 07/01/21 [Rx Last Taken Unknown] aspirin [Baby Aspirin] 81 mg PO DAILY 08/02/21 [History Last Taken Unknown] cephalexin 500 mg PO Q6 7 Days #28 cap 08/02/21 [Rx Last Taken Unknown] cholecalciferol (vitamin D3) 50 mcg (2,000 unit) capsule 50 mcg PO DAILY 08/02/21 [History Last Taken Unknown] donepezil 10 mg DAILY 08/02/21 [History Last Taken Unknown] Allergy/AdvReac Type Severity Reaction Status Date / Time Penicillins Allergy Severe Hives Verified 08/03/21 19:02 Family History Mother Cancer Kidney disease Father Myocardial infarction Brother Heart disease Surgical History History of aortic valve replacement with tissue graft (07/26/07) History of left heart catheterization (11/22/19) History of prostate surgery Implantable cardioverter-defibrillator (ICD) in situ Social History (Updated 08/03/21 @ 20:[address] China Wallace MD) household members: spouse Smoking Status: Former smoker quit date: 04/27/71 alcohol intake: never substance use type: does not use what type of physical activity do you participate in: walking frequency: daily ROS ROS ED ROS Narrative Constitutional: No fever, no chills. HEENT: No sore throat. No neck pain. No loss of vision. No rhinorrhea. Cardiovascular: Positive chest pain-resolved. No palpitations. No pedal edema. Respiratory: No cough, no shortness of breath. Abdominal: No abdominal pain. No nausea. No vomiting. Genitourinary: No dysuria. No hematuria. Musculoskeletal: No myalgias. No arthralgias. Neurologic: Positive headaches. No dizziness. No lightheadedness. Skin: No rash. No change in color. Psychiatric: No depression. No anxiety. EXAM Physical Exam Narrative Exam Narrative: Afebrile. Vital signs noted. Mildly cachectic. HEENT: Normocephalic. Atraumatic. PERRL, EOMI. Neck soft and supple. No point tenderness or step off. Cardiovascular: Regular rate and rhythm. No murmurs, rubs, or gallops appreciated. Respiratory: No tachypnea. Lungs clear to auscultation bilaterally. Gastrointestinal: Abdomen soft, nontender, with normoactive bowel sounds. No rebound or guarding. Neurological: Awake. Alert. Oriented to person and place. Nonfocal, nonlateralizing. Skin: No rash. Normal color. No pallor. Musculoskeletal: No pedal edema. Full range of motion extremities. Const Vital Signs: 08/03/21 18:51 08/03/21 19:19 08/03/21 19:24 Temperature 97.7 F L Temperature Source Temporal Pulse Rate 85 74 Respiratory Rate 25 H 21 H Respiratory Effort Normal Non-Labored Respiratory Pattern Normal Blood Pressure 115/79 130/74 H Blood Pressure Mean 91 92 Pulse Ox 99 97 Oxygen Delivery Method Room Air Room Air 08/03/21 20:08 08/03/21 20:13 Temperature Temperature Source Pulse Rate 74 Respiratory Rate 17 Respiratory Effort Respiratory Pattern Blood Pressure 97/63 136/69 H Blood Pressure Mean 74 91 Pulse Ox 98 Oxygen Delivery Method Room Air MDM MDM MDM Narrative Medical decision making narrative: Chest pain work-up was pursued. EKG demonstrates sinus rhythm with first-degree AV block with PVCs. There is a left bundle branch block. There is no significant change from previous. No STEMI. CBC shows normal white count of 11.0, hemoglobin normal at 13.1 with hematocrit of 39.9. Platelet count slightly low at 147. Sodium normal, chloride elevated at 110, BUN also elevated at 24 with a normal creatinine of 1.22. High- sensitivity troponin is elevated at 168. BNP is elevated at 1243, but has been as high as 3000. Chest x-ray interpretation by myself shows no acute process, no infiltrate. This was confirmed by radiology. Given his elevated troponin, I discussed the patient with Dr. Main, who agrees with IV heparin and admission. I will speak with the hospitalist. Of note, his and daughter are at the bedside. They state that he felt as if he was kicked in the chest yesterday. I had his pacemaker interrogated, and the report shows no events to display since last reset of July 01, 2021. Given his elevated troponin, although he is pain- free now, I will discuss the patient for admission. He is in stable condition. In discussion with Dr. Wallace, we are unsure if he took his evening Eliquis dose. She will ask and asked that the heparin be held until his next dose of Eliquis is due should he already have taken it. Patient will be admitted to the PCU in stable condition. Lab Data Attestation: I reviewed the patient's lab results. Labs: Laboratory Results - last 24 hr 08/03/21 08/03/21 08/03/21 19:15 19:15 19:15 WBC 11.0 RBC 4.23 L Hgb 13.1 Hct 39.9 L MCV 94.3 H MCH 31.0 MCHC 32.8 RDW Std Deviation 47.3 H RDW Coeff of Bj 13.9 Plt Count 147 L MPV 10.6 Immature Gran % (Auto) 0.300 Neut % (Auto) 80.1 H Lymph % (Auto) 9.7 L [place] % (Auto) 7.5 Eos % (Auto) 2.0 Baso % (Auto) 0.4 Absolute Neuts (auto) 8.8 H Absolute Lymphs (auto) 1.07 Nucleated RBC % 0 PT INR APTT Sodium 139 Potassium 4.0 Chloride 110 H Carbon Dioxide 23.0 Anion Gap 6 BUN 24 H Creatinine 1.22 Estim Creat Clear Calc 46.54 Est GFR (MDRD) Af Amer 75 Est GFR (MDRD) Non-Af 62 BUN/Creatinine Ratio 19.7 Glucose 106 Calcium 8.4 L Troponin I High Sens 168 H* B-Natriuretic Peptide 1243.8 H 08/03/21 20:25 WBC RBC Hgb Hct MCV MCH MCHC RDW Std Deviation RDW Coeff of Bj Plt Count MPV Immature Gran % (Auto) Neut % (Auto) Lymph % (Auto) [place] % (Auto) Eos % (Auto) Baso % (Auto) Absolute Neuts (auto) Absolute Lymphs (auto) Nucleated RBC % PT 14.1 INR 1.2 APTT 30.8 Sodium Potassium Chloride Carbon Dioxide Anion Gap BUN Creatinine Estim Creat Clear Calc Est GFR (MDRD) Af Amer Est GFR (MDRD) Non-Af BUN/Creatinine Ratio Glucose Calcium Troponin I High Sens B-Natriuretic Peptide Radiography Diagnostic Testing: Clinical Impression(s) from Imaging Studies Chest X-Ray 08/03/21 19:06 IMPRESSION: Nonacute portable x-ray examination of the chest. Electronically Signed: Mir Farris MD ([place]) at 20:01 EDT , Discharge Plan Dx/Rx/DC Orders Clinical Impression: Non-ST elevated myocardial infarction (non-STEMI), Chest pain, Headache Disposition Disposition: Acute Care Hospital [facility]
--- NOTE | 2021-08-03 19:06 | RAD_ITS ---
STUDY: X-RAY CHEST REASON FOR EXAM: Male, 76 years old. chest pain TECHNIQUE: AP COMPARISON: 06/10/2020 FINDINGS: EKG leads project over the chest. The lungs are clear and expanded. There is no demonstrated pleural abnormality. There is mild cardiac enlargement. Cardiac conduction device is stable. Sternal wires and mediastinal surgical clips compatible with prior CABG. Normal mediastinum and gene. Normal visualized pulmonary arteries. There is atherosclerotic calcification of the aortic arch with tortuosity. There is demineralization of the osseous structures. Normal visualized ribs, clavicles, and shoulders. There is no demonstrated abnormality of the visualized soft tissue structures of the upper abdomen. RAD/Chest 1 View (Portable) IMPRESSION: Nonacute portable x-ray examination of the chest. Electronically Signed: Mir Farris MD ([place]) at 20:01 EDT ,
[2021-08-03] MEDS: 0.9% Normal Saline 1,000 ML 250 ML IV (19:18)
[2021-08-03] MEDS: Aspirin 81 MG TAB.CHEW 324 MG PO (19:18)
[2021-08-03 19:21] LABS: Absolute Lymphocyte Count 1.07 X10^3/uL (0.83-4.51); Absolute Neutrophil Count 8.8 X10^3/uL (2.0-7.7); Basophil# 0.04 X10^3/uL; Basophil% 0.4 % (0-1); Eosinophil# 0.22 X10^3/uL; Hematocrit 39.9 % (40-54); Hemoglobin 13.1 g/dL (13.0-16.5); Lymphocyte # 1.07 X10^3/ul (0.83-4.51); Lymphocyte % 9.7 % (19-41); Mean Corp Hgb Conc 32.8 g/dL (32-36); Mean Corpuscular Volume 94.3 fL (80-94); Mean Platelet Vol. 10.6 fl (6.2-12.0); Monocyte# 0.83 X10^3/uL; Monocyte% 7.5 % (0-10); NRBC Flagged by Analyzer 0 % (0-5); Neutrophil # 8.84 X10^3/uL (2.7-7.7); Neutrophil % 80.1 % (47-70); Platelet Count 147 K/mm3 (150-450); RBC Distribution Width CV 13.9 % (11.6-14.6); RBC Distribution Width SD 47.3 fl (35.1-43.9); Red Blood Count 4.23 M/mm3 (4.6-6.2)
--- NOTE | 2021-08-03 19:29 | ED.RN ---
DEFIB/PACEMAKER IS [employer]- INTERROGATED IN ED.
--- NOTE | 2021-08-03 19:31 | ED.RN ---
Encouraged daughter to check bottles the is pulling from and call with those medications so we know what he is actually taking vs what has been prescribed.
--- NOTE | 2021-08-03 19:39 | ED.RN ---
CT came to get patient and family declined, statng they talked to the doctor and do not want another CT.
[2021-08-03 19:40] LABS: BNP,B-Type NATRIURETIC PEPTIDE 1243.8 pg/mL (0-100)
[2021-08-03] MEDS: Acetaminophen 325 MG Tablet 650 MG PO (19:47)
--- NOTE | 2021-08-03 19:49 | ED.RN ---
Discussed the CT brain ordered since had abd and pelvis yesterday but patient still states he doess not want to go back through a CT today.
[2021-08-03 19:56] LABS: Anion Gap 6 (5-15); BUN 24 mg/dL (7-18); BUN/Creat Ratio 19.7 RATIO (10-20); Calcium,Total 8.4 mg/dL (8.5-10.1); Chloride 110 mmol/L (98-107); Creatinine, Serum 1.22 mg/dL (0.70-1.30); EST Glomerular Filtration Rate 62 mL/min (>60); Est Glom Filt Rate - Afr Amer 75 mL/min (>60); Estimated Creatinine Clearance 46.54 ml/min; Glucose 106 mg/dL (74-106); Sodium Level 139 mmol/L (136-145); Troponin-I HS 168 pg/mL (3.0-78.0)
--- NOTE | 2021-08-03 20:14 | ED.RN ---
BP went low again on monitor but went into room and patient resting on his side so asked him to roll to back and rechecked the pressure. Would like stronger pain med.
--- NOTE | 2021-08-03 20:18 | ED.RN ---
Dr Barfield declined stronger pain med for headache at this time.
--- NOTE | 2021-08-03 20:25 | HP.PCM.HOS_ITS ---
HPI - General General Date of Admission: 08/03/21 Date of Service: 08/03/21 Chief Complaint: Recent CP, current day headache. HPI Narrative The patient is a 76 y/o M w/ PMHx: Severe claustrophobia, CKD stage III unclear subtype, PAF, Chronic Systolic/Diastolic CHF/Nonischemic cardiomyopathy s/p ACID, Valvular Heart Disease s/p AVR, HTN, HLD, CAD, Dementia unclear type with unclear behavioral disturbance history, Former tobacco use who presents to the [facility] ED on 08/03/21 with history of chest discomfort earlier in the day however patient notes that this is resolved but upon current presentation is complaining of a headache (generalized, pressure, 4/10 in severity) and general malaise with no reported dyspnea, fevers or chills, nausea or vomiting or any cough however given ongoing complaints presented to the ED for patient evaluation. Patient was seen in the ED the day prior also for at that time complaints of abdominal pain and complaints of small amount of rectal BRB with wiping with CT A/P obtained noting urinary bladder distention, diffuse urinary bladder diverticuli or ureteroceles, small calculi noted in the bladder, dependent hyperdense material in the left lower side of the urinary bladder possibly small milk of calcium stones. He had notable UA and was started on keflex. Catheter was placed secondary to urinary retention with referral to Urology at discharge. Patient denies any chest pain today on presentation. He is a poor historian secondary to dementia. Patient's did administer his a.m. dose of Eliquis but is not had any evening meds. Work-up in the ED included T 97.7, heart rate 85, BP 115/79, respiratory rate 25, 99% on room air, CBC with WC 11, hemoglobin 13.1, platelet 147 with left shift, BNP 1243.8, troponin 168, BMP with chloride 110, BUN/creatinine 24/1.22, glucose 106 otherwise not marked appearing, chest x-ray with no acute cardiopulmonary findings with chronic changes, EKG SR with PVCs with no acute evidence of ischemia and no change from day prior. In the ED patient administered tylenol 650 mg po x 1, ASA 324 mg po x 1 and NS. Discussed with ED physician and plan heparin drip initiation at next dose due of Eliquis therefore confirmed he had not taken his evening dose and heparin drip is initiated. ED did discuss case with on-call distributor advertising material who will evaluate patient. [facility] Medical History Abnormal EKG Acute on chronic combined systolic (congestive) and diastolic (congestive) heart failure Atherosclerotic heart disease of [place] coronary artery without angina pectoris Atrial fibrillation and flutter Chronic systolic CHF (congestive heart failure) Essential (primary) hypertension HLD (hyperlipidemia) Nonischemic cardiomyopathy Nonrheumatic aortic (valve) stenosis with insufficiency Nonrheumatic mitral (valve) insufficiency Nonrheumatic tricuspid (valve) insufficiency NSTEMI (non-ST elevated myocardial infarction) (06/11/20) PTSD (post-traumatic stress disorder) PVCs (premature ventricular contractions) Right bundle branch block Home Medications acetaminophen 650 mg PO Q6H PRN PRN tab 06/12/20 [Rx Last Taken Unknown] furosemide 40 mg tablet 40 mg PO BID #180 tablet 07/26/20 [Rx Last Taken Unknown] carvedilol 6.25 mg tablet 6.25 mg PO BID #180 tablet 03/13/21 [Rx Last Taken Unknown] atorvastatin 40 mg tablet 40 mg PO QPM #90 tab 03/19/21 [Rx Last Taken Unknown] isosorbide mononitrate 30 mg tablet,extended release 24 hr 30 mg PO DAILY #30 tab 04/01/21 [Rx Last Taken Unknown] nitroglycerin 0.4 mg sublingual tablet 0.4 mg SUBLINGUAL Q5-15M PRN #25 tab 04/01/21 [Rx Last Taken Unknown] apixaban 2.5 mg tablet 2.5 mg PO BID #180 tab 07/01/21 [Rx Last Taken Unknown] dapagliflozin 5 mg tablet 5 mg PO DAILY #90 tab 07/01/21 [Rx Last Taken Unknown] aspirin [Baby Aspirin] 81 mg PO DAILY 08/02/21 [History Last Taken Unknown] cephalexin 500 mg PO Q6 7 Days #28 cap 08/02/21 [Rx Last Taken Unknown] cholecalciferol (vitamin D3) 50 mcg (2,000 unit) capsule 50 mcg PO DAILY 08/02/21 [History Last Taken Unknown] donepezil 10 mg DAILY 08/02/21 [History Last Taken Unknown] Allergy/AdvReac Type Severity Reaction Status Date / Time Penicillins Allergy Severe Hives Verified 08/03/21 19:02 Family History Mother Cancer Kidney disease Father Myocardial infarction Brother Heart disease Surgical History History of aortic valve replacement with tissue graft (07/26/07) History of left heart catheterization (11/22/19) History of prostate surgery Implantable cardioverter-defibrillator (ICD) in situ Social History (Updated 08/03/21 @ 20:[address] China Wallace MD) household members: spouse Smoking Status: Former smoker quit date: 04/27/71 alcohol intake: never substance use type: does not use what type of physical activity do you participate in: walking frequency: daily ROS ROS Narrative Admission Review of Systems: CONSTITUTIONAL: No weight loss, fever, chills, + weakness or fatigue. HEENT: + Headache. Eyes: No visual loss, blurred vision, double vision or yellow sclerae. Ears, Nose, Throat: No hearing loss, sneezing, congestion, runny nose or sore throat. SKIN: No rash or itching, lesions, wounds. CARDIOVASCULAR: + Chest pain, No palpitations, edema, orthopnea, syncopal events. RESPIRATORY: No shortness of breath, cough or sputum, wheezing, hemoptysis. GASTROINTESTINAL: + Suprapubic pain although improving, BRB with wiping, No anorexia, nausea, vomiting or diarrhea, melena. GENITOURINARY: + Suprapubic TTP, urinary retention. NEUROLOGICAL: + Headache, No dizziness, syncope, paralysis, ataxia, numbness or tingling in the extremities, focal weakness, change in bowel or bladder control, seizure. MUSCULOSKELETAL: + muscle, back pain, joint pain or stiffness. HEMATOLOGIC: + anemia, bleeding or bruising. LYMPHATICS: No enlarged nodes. No history of splenectomy. PSYCHIATRIC: + Severe claustrophobia, No specific history of depression or anxiety. ENDOCRINOLOGIC: No reports of sweating, cold or heat intolerance. No polyuria or polydipsia. ALLERGIES: No history of asthma, hives, eczema or rhinitis. Vital Signs Vital Signs Vital Signs: 08/03/21 18:51 08/03/21 19:19 08/03/21 19:24 Temperature 97.7 F L Temperature Source Temporal Pulse Rate 85 74 Respiratory Rate 25 H 21 H Respiratory Effort Normal Non-Labored Respiratory Pattern Normal Blood Pressure 115/79 130/74 H Blood Pressure Mean 91 92 Pulse Ox 99 97 Oxygen Delivery Method Room Air Room Air 08/03/21 20:08 08/03/21 20:13 Temperature Temperature Source Pulse Rate 74 Respiratory Rate 17 Respiratory Effort Respiratory Pattern Blood Pressure 97/63 136/69 H Blood Pressure Mean 74 91 Pulse Ox 98 Oxygen Delivery Method Room Air Weight Weight: 138 lb 10.732 oz Body Mass Index (BMI) 19.3 Physical Exam Narrative Physical Examination: General: Awake, alert, oriented to self, place and some recent events, but does have underlying dementia, remains cooperative, seated upright in the ED bed, fatigued appearing. Skin: Normal color, normal turgor, no icterus, no cyanosis. HEENT: AT/NC, EOMI, PERRLA, MMM, no carotid bruits or JVD noted. Lungs: Diminished, greater bases, appropriate effort, no rales, ronchi or wheezing. Heart: Currently regular rate and rhythm; no gallop, rub audible, + SM. Abdomen: Soft, thin cachectic habitus, NTTP except still some mild discomfort suprapubic region, narayan in place, ND, normal BS, no HSM. Extremities: No cyanosis, clubbing, or edema. Neurological: Patient awake, alert, oriented as noted, cognitive function decreased baseline with underlying dementia, appears baseline intact; pupils equally reactive to light and accommodation, cranial nerves II-XII grossly normal, moving all 4 extremities, no focal deficits, strength moderately global decreased secondary to acute complaints. Psychiatric: Affect appears fatigued, no acute evidence of depressive or anxiety feelings. Results Lab / Micro Data Result Diagrams: 08/03/21 19:15 08/03/21 19:15 Labs: Laboratory Results - last 24 hr 08/03/21 19:15: Sodium 139, Potassium 4.0, Chloride 110 H, Carbon Dioxide 23.0, Anion Gap 6, BUN 24 H, Creatinine 1.22, Estim Creat Clear Calc 46.54, Est GFR (MDRD) Af Amer 75, Est GFR (MDRD) Non-Af 62, BUN/Creatinine Ratio 19.7, Glucose 106, Calcium 8.4 L, Troponin I High Sens 168 H* 08/03/21 19:15: WBC 11.0, RBC 4.23 L, Hgb 13.1, Hct 39.9 L, MCV 94.3 H, MCH 31.0, MCHC 32.8, RDW Std Deviation 47.3 H, RDW Coeff of Bj 13.9, Plt Count 147 L, MPV 10.6, Immature Gran % (Auto) 0.300, Neut % (Auto) 80.1 H, Lymph % (Auto) 9.7 L, [place] % (Auto) 7.5, Eos % (Auto) 2.0, Baso % (Auto) 0.4, Absolute Neuts (auto) 8.8 H, Absolute Lymphs (auto) 1.07, Nucleated RBC % 0 08/03/21 19:15: B-Natriuretic Peptide 1243.8 H Radiology Impression Chest X-Ray 08/03/21 19:06 IMPRESSION: Nonacute portable x-ray examination of the chest. Electronically Signed: Mir Farris MD (Brooks) at 20:01 EDT Reading Location ID and State: [facility] / [place] , Service support , Assessment & Plan Assessment/Plan (1) Non-ST elevated myocardial infarction (non-STEMI): PLAN: The patient is a 76 y/o M w/ PMHx: CKD stage III unclear subtype, PAF, Chronic Systolic/Diastolic CHF/Nonischemic cardiomyopathy s/p ACID, Valvular Heart Disease s/p AVR, HTN, HLD, CAD, Dementia unclear type with u nclear behavioral disturbance history, Former tobacco use who presents to the [facility] ED on 08/03/21 with history of chest discomfort earlier in the day however patient notes that this is resolved but upon current presentation is complaining of a headache and general malaise, started the day prior on keflex for UTI with narayan for also retention. #1. Chest Pain concerning for NSTEMI: EKG SR with PVCs with no acute evidence of ischemia and no change from day prior, CXR w/ no acute cardiopulmonary find ings with chronic changes, initial trop 168. Will admit to PCU, place on a monitored bed, continue serial cardiac enzymes and EKGs. Magnesium level requested. FLP in AM. From review of records patient has been considered in the past for revascularization therapy of the intermedius ramus coronary artery system however from prior records he is considered not an ideal candidate for either percutaneous or surgical intervention as it might be too risky secondary to severely diminished LV systolic function with most recent catheterization 11/22/2019. Repeat echo requested. Cardiology consulted, pending. Will transition at next dose due from apixaban to heparin drip. ASA, NG, morphine. #2. Headache, unclear etiology: Patient and family have declined CT of the head despite repeated requests. We will continue evaluation of #1, maintain on monitor, if any decline or concerning neurological symptoms will immediately obtain CT of the head which was discussed at length with family given antico agulant history. #3. Recent Acute Urinary Tract Infection w/ urinary retention: 08/02/[address] abdomen pelvis consistent with UTI and UA also, UX pending, will continue oral Keflex, continue Narayan catheter given retention. Patient will have outpatient urology follow-up. #4. Chronic systolic/diastolic CHF/nonischemic cardiomyopathy: Chest x-ray with no obvious overload apparent. BNP 1243.8 however this of note is less than any previous BNP including last 06/10/2020. Patient status post AICD, will be interrogated, continue patient aspirin, apixaban-> heparin drip at next dose due, Coreg, Lasix as well as SGLT2 regimen, not on NEDA inhibitor or ARB, 06/11/2020 echocardiogram with severely dilated LV, EF 10%, stage III diastolic dysfunction, severe global hypokinesis LV, mild TVI, PASP 40 mmHg, bioprosthetic AV present. Repeat echo requested #5. CAD: We will continue patient home aspirin, apixaban-> heparin drip at next dose due, statin, Coreg regimen, not on AC better/ARB. #6. PAF: We will continue patient home Coreg and temporally transition from apixaban to heparin drip at next dose due. #7. Hypertension: Continue home regimen including isosorbide, Lasix, Coreg with hold parameters as needed, PRN hydralazine. #8. Hyperlipidemia: We will continue home statin therapy, FLP in a.m. #9. Valvular heart disease: [facility] 1996 and [facility] 2007 with most recent including aortic root replacement with AVR, 06/11/2020 echocardiogram with severely dilated LV, EF 10%, stage III diastolic dysfunction, severe global hypokinesis LV, mild TVI, PASP 40 mmHg, bioprosthetic AV present. Repeat echo requested. #10. Dementia unclear type with unclear behavioral disturbance history: We will continue patient home donepezil regimen. #11. Former tobacco use: Encourage continued tobacco cessation. #12. Chronic Kidney Disease Stage III, unclear subtype: Admission BUN/Cr 24/1.22, baseline renal function noted primarily 1.3-1.6, repeat BMP in AM. #13. Severe protein calorie malnutrition: Evidenced by reduced BMI, obvious muscle and fat loss, nutrition will be consulted. #14. DVT prophylaxis: SCDs, temporarily transition from apixaban to heparin drip at next dose due. #15. CODE status: Patient JUNIOR is his and his daughter is secondary, both are present and living will is currently in place. Discussed CODE status at length including difference between FULL code, DNR-CCA and DNR-CC status. Following discussions about the differences in these status, requested Full Code status for now. Advanced Care Planning Face to Face Time: 16 minutes. Charges/Coding Visit Charges Inpatient E&M: 14272 Init Hosp L3 Procedures Hospitalists Procedures: 54545 Advncd Care Plan 30 Min
[2021-08-03] MEDS: Heparin Injection (Vial) 5,000 UNIT/ML VIAL 4500 UNIT IV (20:31)
[2021-08-03 20:46] LABS: International Normalized Ratio 1.2; Prothrombin Time (Protime)PT. 14.1 SECONDS (11.7-14.9)
[2021-08-03 20:47] LABS: Partial Thromboplast Time 30.8 Seconds (24.1-36.2)
--- NOTE | 2021-08-03 21:57 | EKG12_ITS ---
Test Reason : CP ADMIT Blood Pressure : / mmHG Vent. Rate : 081 BPM Atrial Rate : 044 BPM P-R Int : 000 ms QRS Dur : 172 ms QT Int : 450 ms P-R-T Axes : 000 -34 133 degrees QTc Int : 522 ms Sinus rhythm with PAC's 1st degree AV block Left axis deviation Left bundle branch block Abnormal ECG When compared with ECG of 03-AUG-2021 18:55, MANUAL COMPARISON REQUIRED, DATA IS UNCONFIRMED Confirmed by MAMTA GARZA, HUGH ([id number]), index editor BRENT WAHL ([id number]) on 08/09/2021 1:08:14 PM Referred By: Confirmed By:CHELY OLEARY MD
[2021-08-03 21:58] LABS: Troponin-I HS 166 pg/mL (3.0-78.0)
--- NOTE | 2021-08-03 22:02 | ECHOD_ITS ---
Reason For Study: NSTEMI Procedure This was a 2D Doppler, Color Flow transthoracic echocardiogram. Techncically difficult due to arrhythmia. The study was technically difficult. Exam performed portable in patient room. Left Ventricle Severely dilated left ventricle. Severe global left ventricular systolic dysfunction. The estimated ejection fraction is 15 %. Unable to assess diastolic dysfunction. Right Ventricle Normal RV size. ICD or pacer leads identified within the right ventricle. Normal systolic function. Atria The left atrium is mildly enlarged. The right atrium is mildly enlarged. ICD or pacer leads identified within the right atrium. No doppler evidence for ASD. Mitral Valve There is no mitral annular calcification. Anterior leaflet diffuse mitral valve thickening. Mild (1+) mitral valve insufficiency. Tricuspid Valve Normal tricuspid valve. Moderate (2+) tricuspid valve insufficiency. Right ventricular systolic pressure estimated to be 22 mmHg. Aortic Valve Mild focal aortic valve calcification. Stable appearing bioprosthetic aortic valve apparatus. Pulmonic Valve The pulmonic valve is not well visualized. Trivial pulmonic valve insufficiency. Great Vessels The aortic root is not well visualized. Pericardium/Pleural No pericardial effusion. MMode/2D Measurements & Calculations LVIDd: 6.5 cm IVSd: 1.2 cm LVOT diam: 2.2 cm LVIDs: 6.1 cm LVPWd: 1.1 cm LVOT area: 3.9 cm2 RVDd: 4.8 cm FS: 6.3 % LA dimension: 4.1 cm LAV(MOD-bp): 65.9 ml LA A4 area: 20.2 cm2 LAV(MOD-bp) Indexed: 37.8 ml/m2 LAV(MOD-sp2): 74.9 ml LAV(MOD-sp4): 57.0 ml RA A4 area: 20.8 cm2 Doppler Measurements & Calculations MV E max patricia: 69.8 cm/sec MV V2 max: 68.1 cm/sec MV P1/2t max patricia: 65.4 cm/sec MV max P.9 mmHg MV P1/2t: 82.9 msec MV V2 mean: 45.1 cm/sec MV dec slope: 231.2 cm/sec2 MV mean P.93 mmHg MV V2 VTI: 25.8 cm MVA(P1/2t): 2.7 cm2 MVA(VTI): 2.4 cm2 Ao V2 max: 137.7 cm/sec LV V1 max: 101.7 cm/sec SV(LVOT): 61.6 ml Ao max P.7 mmHg LV V1 max P.4 mmHg Ao V2 mean: 85.4 cm/sec LV V1 mean P.0 mmHg Ao mean P.5 mmHg LV V1 mean: 62.8 cm/sec Ao V2 VTI: 21.0 cm LV V1 VTI: 15.7 cm LOVE(I,D): 2.9 cm2 LOVE(V,D): 2.9 cm2 PA V2 max: 90.6 cm/sec TR max patricia: 219.3 cm/sec TR max P.3 mmHg ECHO/Echo Complete Interpretation Summary The study was technically difficult. Severely dilated left ventricle. Severe global left ventricular systolic dysfunction. The estimated ejection fraction is 15 %. The left atrium is mildly enlarged. The right atrium is mildly enlarged. Anterior leaflet diffuse mitral valve thickening. Mild (1+) mitral valve insufficiency. Moderate (2+) tricuspid valve insufficiency. Stable appearing bioprosthetic aortic valve apparatus. Mild focal aortic valve calcification. Trivial pulmonic valve insufficiency. Right ventricular systolic pressure estimated to be 22 mmHg. Unable to assess diastolic dysfunction. ICD or pacer leads identified within the right atrium ICD or pacer leads identified within the right ventricle. Ordering Physician: China Wallace Referring Physician: Rex Bustamante M.D. Performed By: Hemal Marrufo RCS
--- NOTE | 2021-08-03 22:32 | NURSING ---
Addendum entered by Sarah Mckeon 08/03/21 22:33: This RN clarified orders with Dr. Wallace Original Note: heparin drip infusing @ 10ml/hr upon arrival to floor, original ER order d/c'd. Dr. Wallace entered new order. titrated current bag to 8ml/hr per new order.
[2021-08-03] MEDS: Atorvastatin Calcium 40 MG Tablet PO (23:02)
[2021-08-03] MEDS: Carvedilol 6.25 MG Tablet PO (23:15)
[2021-08-03] MEDS: Cephalexin 500 MG Capsule PO (23:40)
[2021-08-04] VITALS (10 sets, daily range): BP systolic 86–105; BP diastolic 59–80; PULSE 60–95; RESP 16–18; TEMP 36.3–36.7; O2SAT 95–98
[2021-08-04 01:53] LABS: Troponin-I HS 141 pg/mL (3.0-78.0)
[2021-08-04 02:42] LABS: Absolute Lymphocyte Count 1.14 X10^3/uL (0.83-4.51); Absolute Neutrophil Count 5.2 X10^3/uL (2.0-7.7); Basophil# 0.03 X10^3/uL; Basophil% 0.4 % (0-1); Eosinophil# 0.22 X10^3/uL; Eosinophils% 3.1 % (0-5); Hematocrit 33.4 % (40-54); Hemoglobin 11.1 g/dL (13.0-16.5); Lymphocyte # 1.14 X10^3/ul (0.83-4.51); Lymphocyte % 15.9 % (19-41); Mean Corp Hgb Conc 33.2 g/dL (32-36); Mean Corpuscular Hgb 30.9 pg (27.0-32.0); Mean Platelet Vol. 10.1 fl (6.2-12.0); Monocyte# 0.57 X10^3/uL; Monocyte% 7.9 % (0-10); NRBC Flagged by Analyzer 0 % (0-5); Neutrophil % 72.4 % (47-70); Platelet Count 131 K/mm3 (150-450); RBC Distribution Width CV 13.7 % (11.6-14.6); RBC Distribution Width SD 46.6 fl (35.1-43.9); Red Blood Count 3.59 M/mm3 (4.6-6.2); White Blood Count 7.2 K/mm3 (4.4-11.0)
[2021-08-04 02:58] LABS: Partial Thromboplast Time 69.5 Seconds (24.1-36.2)
[2021-08-04 03:00] LABS: ALB/GLOB Ratio 0.9 RATIO (0.9-2.4); AST(SGOT) 10 U/L (15-37); Alanine Aminotransfer ALT/SGPT 9 U/L (16-61); Albumin, Serum 2.7 g/dL (3.2-5.0); Alkaline Phosphatase 94 U/L (45-117); Anion Gap 5 (5-15); BUN 22 mg/dL (7-18); BUN/Creat Ratio 21.2 RATIO (10-20); Chloride 113 mmol/L (98-107); Cholesterol 94 mg/dL (200); Creatinine, Serum 1.04 mg/dL (0.70-1.30); EST Glomerular Filtration Rate 74 mL/min (>60); Est Glom Filt Rate - Afr Amer 90 mL/min (>60); Estimated Creatinine Clearance 50.61 ml/min; Glucose 115 mg/dL (74-106); High Density Lipoprotein 35 mg/dL; Potassium 3.7 mmol/L (3.5-5.1); Protein, Total 5.7 g/dL (6.4-8.2); Sodium Level 140 mmol/L (136-145); Triglycerides 61 mg/dL; Very Low Density Lipoprotein 12 mg/dL (5-40)
--- NOTE | 2021-08-04 05:55 | EKG12_ITS ---
Test Reason : AM EKG Blood Pressure : / mmHG Vent. Rate : 082 BPM Atrial Rate : 082 BPM P-R Int : 000 ms QRS Dur : 140 ms QT Int : 466 ms P-R-T Axes : 000 -36 166 degrees QTc Int : 544 ms Sinus rhythm with 1st degree AV block, PVC's Left axis deviation Left ventricular hypertrophy with QRS widening T wave abnormality, consider inferolateral ischemia Abnormal ECG When compared with ECG of 03-AUG-2021 22:04, MANUAL COMPARISON REQUIRED, DATA IS UNCONFIRMED Confirmed by MAMTA GARZA, HUGH ([id number]), art editor BRENT WAHL ([id number]) on 08/09/2021 1:13:04 PM Referred By: Confirmed By:CHELY OLEARY MD
[2021-08-04] MEDS: Cephalexin 500 MG Capsule PO ×4 (06:03→23:14)
[2021-08-04 09:11] LABS: Partial Thromboplast Time 51.5 Seconds (24.1-36.2)
[2021-08-04] MEDS: Carvedilol 6.25 MG Tablet PO (09:20)
[2021-08-04] MEDS: Empagliflozin 10 MG Tablet PO (09:20)
[2021-08-04] MEDS: Aspirin 81 MG TAB.CHEW PO (09:20)
[2021-08-04] MEDS: Donepezil HCl 10 MG Tablet PO (09:20)
[2021-08-04] MEDS: Isosorbide Mononitrate 30 MG Tablet PO (09:20)
[2021-08-04] MEDS: Furosemide 40 MG Tablet PO (09:20)
[2021-08-04] MEDS: Heparin Injection (Vial) 5,000 UNIT/ML VIAL IV ×2 (09:40→23:16)
--- NOTE | 2021-08-04 10:40 | PN.HOSP_ITS ---
Documented by User: Margarita Petersen NP, SEWING MACHINE OPERATOR [employer] 08/04/21 10:56 Subjective Subjective Patient seen and examined. Denies further chest pain overnight. Denies shortness of breath. Patient states headache has resolved. He states he had a head injury when he was in the service many years ago and has had chronic headaches since that time. Objective Data Objective Data Vital Signs: Vital Signs Temp Pulse Resp BP Pulse Ox 97.3 F L 75 16 104/79 98 08/04/21 09:15 08/04/21 09:15 08/04/21 09:15 08/04/21 09:15 08/04/21 09:15 Oxygen Delivery Method Room Air Weight: 128 lb 8.472 oz Body Mass Index (BMI) 17.9 Intake & Output: Intake and Output for Last 24 Hours 08/02/21 08/03/21 08/04/21 23:59 23:59 23:59 Intake Total 1019.83 / 1019.83 89.33 / 89.33 Output Total 600 / 600 Balance 1019.83 / 619.83 -510.67 / -510.67 Lab / Micro Data Result Diagrams: 08/04/21 02:30 08/04/21 02:30 Labs: Laboratory Results - last 24 hr 08/03/21 19:15: Sodium 139, Potassium 4.0, Chloride 110 H, Carbon Dioxide 23.0, Anion Gap 6, BUN 24 H, Creatinine 1.22, Estim Creat Clear Calc 46.54, Est GFR (MDRD) Af Amer 75, Est GFR (MDRD) Non-Af 62, BUN/Creatinine Ratio 19.7, Glucose 106, Calcium 8.4 L, Troponin I High Sens 168 H* 08/03/21 19:15: WBC 11.0, RBC 4.23 L, Hgb 13.1, Hct 39.9 L, MCV 94.3 H, MCH 31.0, MCHC 32.8, RDW Std Deviation 47.3 H, RDW Coeff of Bj 13.9, Plt Count 147 L, MPV 10.6, Immature Gran % (Auto) 0.300, Neut % (Auto) 80.1 H, Lymph % (Auto) 9.7 L, Stewart % (Auto) 7.5, Eos % (Auto) 2.0, Baso % (Auto) 0.4, Absolute Neuts (auto) 8.8 H, Absolute Lymphs (auto) 1.07, Nucleated RBC % 0 08/03/21 19:15: B-Natriuretic Peptide 1243.8 H 08/03/21 20:25: PT 14.1, INR 1.2, APTT 30.8 08/03/21 21:00: Magnesium 2.0, Troponin I High Sens 166 H* 08/04/21 01:20: Troponin I High Sens 141 H* 08/04/21 02:30: WBC 7.2, RBC 3.59 L, Hgb 11.1 L, Hct 33.4 L, MCV 93.0, MCH 30.9, MCHC 33.2, RDW Std Deviation 46.6 H, RDW Coeff of Bj 13.7, Plt Count 131 L, MPV 10.1, Immature Gran % (Auto) 0.300, Neut % (Auto) 72.4 H, Lymph % (Auto) 15.9 L, Stewart % (Auto) 7.9, Eos % (Auto) 3.1, Baso % (Auto) 0.4, Absolute Neuts (auto) 5.2, Absolute Lymphs (auto) 1.14, Nucleated RBC % 0 08/04/21 02:30: Sodium 140, Potassium 3.7, Chloride 113 H, Carbon Dioxide 22.0, Anion Gap 5, BUN 22 H, Creatinine 1.04, Estim Creat Clear Calc 50.61, Est GFR ( MDRD) Af Amer 90, Est GFR (MDRD) Non-Af 74, BUN/Creatinine Ratio 21.2 H, Glucose 115 H, Calcium 8.0 L, Total Bilirubin 0.50, AST 10 L, ALT 9 L, Alkaline Phosphatase 94, Total Protein 5.7 L, Albumin 2.7 L, Globulin 3.0, Albumin/Globulin Ratio 0.9, Triglycerides 61, Cholesterol 94, LDL Cholesterol 47, VLDL Cholesterol 12, HDL Cholesterol 35 L 08/04/21 02:30: APTT 69.5 H 08/04/21 08:40: APTT 51.5 H Radiography Diagnostic Testing: Radiology Impression Chest X-Ray 08/03/21 19:06 IMPRESSION: Nonacute portable x-ray examination of the chest. Electronically Signed: Mir Farris MD (Brooks) at 20:01 EDT Reading Location ID and State: [facility] / [place] , Service support , Physical Exam Const alert, oriented x3 and no apparent distress Orientation / Consciousness: awake, oriented to person, oriented to place and oriented to time HEENT normocephalic and moist oral mucous membranes Eyes PERRL, EOMs intact bilaterally and conjunctivae normal Neck no lymphadenopathy Resp normal respiratory effort and clear to auscultation bilaterally Cardio regular rate, regular rhythm and no murmurs Peripheral Pulses: pulses 2+ throughout GI normal to inspection, nondistended, normoactive bowel sounds, non-tender and non-distended Extremity normal to inspection Skin no rashes or lesions noted Lesions: no lesions Rashes: no rashes Trauma: no lacerations or abrasions Neuro CN's II-XII intact bilaterally, no focal motor deficits, no sensory deficits noted and deep tendon reflexes 2+ bilaterally Psych mental status grossly normal and affect normal Assessment & Plan Assessment/Plan (1) Chest pain: PLAN: 1. Chest pain-cardiology consulted. Troponin mildly elevated however did not trend. Prior cath October 2019 demonstrated nonobstructive coronary arteries, ramus branch with 65% proximal stenosis. Documented PCI would be high risk given severe LV dysfunction. Echocardiogram ordered. Heparin drip. Aspirin, statin. Likely continued medical management however will await repeat echo and cardiology evaluation. 2. 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 Echocardiogram 06/11/2020 demonstrated an EF of 10%, stage III diastolic dysfunction. Repeat echo ordered. No evidence of acute failure. Continue home Lasix regimen. 3. Recent UTI with urinary retention-continue previously prescribed Keflex and Gracia catheter. Outpatient follow-up with urology. Begin Flomax. 4. CAD-continue aspirin, statin, carvedilol, isosorbide. 5. Paroxysmal atrial fibrillation-on Eliquis, carvedilol. 6. Chronic kidney disease stage IIIa-at baseline. 7. Hypertension-stable, continue carvedilol, Lasix, isosorbide. 8. Hyperlipidemia-continue statin. 9. 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 10. Dementia, no known behavioral disturbance history-continue donepezil. 11. Former tobacco use-encouraged cessation. 12. Severe protein calorie malnutrition-as evidenced by cachectic appearance, evidence of muscle and fat loss. Nutrition consult. DVT prophylaxis-heparin drip This patient was seen by NIK Marie under the supervision of Dr. Garland. Time spent examining patient, reviewing data and subsequent management of care: 14 Minutes Documented by User: Dr. Sepideh Garland MD 08/04/21 13:57 Objective Data Lab / Micro Data Result Diagrams: 08/04/21 02:30 08/04/21 02:30 Charges/Coding Addendum Addendum: Patient seen by Margarita ZARAGOZA under my supervison Patient seen and examined. He had no active events overnight and felt well. Chest pain hadnt recurred. Review of systems otherwise negative he remains on heparin drip. on Examination Const alert, oriented x3 and no apparent distress General Appearance: cooperative HEENT normocephalic, head/scalp atraumatic, hearing grossly normal bilaterally and moist oral mucous membranes Eyes PERRL, EOMs intact bilaterally and conjunctivae normal Neck no lymphadenopathy, supple and no JVD Resp normal respiratory effort and clear to auscultation bilaterally Cardio regular rate, regular rhythm, S1 normal heart sound, S2 normal heart sound and no murmurs GI normal to inspection, nondistended, normoactive bowel sounds and soft to palpation GI Narrative: abdominal dressing over surgical site Extremity normal to inspection, full ROM and no clubbing, cyanosis or edema Skin no rashes or lesions noted Neuro oriented x3, CN's II-XII intact bilaterally and moves all extremities Sensorium / Orientation: awake and alert Psych affect normal Assessment and plan #Nonstemi * on heparin drip and high intensity statin * chest pain has resolved * on aspirin and high intensity statin as well as carvedilol * cardiology consulted. await rec's * 2D echo ordered * * #Chronic combined systolic and diastolic heart failure * Has known EF of 10% and stage III diastolic dysfunction from 2D echo done in May 2020. 2D echo ordered. * Not in exacerbation. * Continue Lasix * #Paroxysmal A. fib: On carvedilol. Eliquis on hold and patient currently on heparin drip #Hypertension: Stable. On carvedilol, Lasix and Imdur #Hyperlipidemia: On statin #Valvular heart disease * S/p aortic valve replacement. On heparin drip. Eliquis on hold. * #CKD stage III: Stable. Creatinine in his baseline DVT prophylaxis: On heparin drip Total time spent on care of patient today by me is 20 minutes with Margarita Petersen spending 14 minutes making a total of 34 minutes. * * Visit Charges Inpatient E&M: 67422 Subs Hosp L2
--- NOTE | 2021-08-04 14:33 | CON.PCM.CA_ITS ---
Assessment & Plan Assessment/Plan (1) History of aortic valve replacement with tissue graft: (2) Acute on chronic combined systolic (congestive) and diastolic (congestive) heart failure: (3) Nonischemic cardiomyopathy: (4) Implantable cardioverter-defibrillator (ICD) in situ: (5) Atherosclerotic heart disease of [place] coronary artery without angina pectoris: QUALIFIERS: [place] vs. transplanted heart: [place] heart Qualified Code(s): I25.10 - Atherosclerotic heart disease of [place] coronary artery without angina pectoris (6) Essential (primary) hypertension: (7) Right bundle branch block: (8) Non-ST elevated myocardial infarction (non-STEMI): PLAN: 76-year-old patient with known extensive cardiac history Patient presented with symptoms of chest pain and had a very mild elevation of cardiac biomarker high sensitive troponin CAD with paroxysmal A. fib, chronic systolic and diastolic heart failure with nonischemic cardiomyopathy and history of AICD Also patient had a history of AVR, hypertension hyperlipidemia. Review of the record last cardiac catheterization had a lesion involving the proximal ramus intermedius and due to the severe LV dysfunction decision was made to treat with medical therapy. Has severe LV systolic dysfunction by echocardiogram moderate pulmonary hypertension. Chest pain resolved no further episode of chest pain today Cardiac care plan recommendations; 1. Patient presentation is chest pain with mild elevated troponin level, last cardiac catheterization was in October 2019 Which showed ramus intermedius branch 65% proximal stenosis and a decision was made to treat with medical therapy. 2. Patient had combined chronic systolic and diastolic heart failure Last echocardiogram in June 17 showed ejection fraction of 10% with grade 3 diastolic dysfunction 3. Device interrogation showed no recent shocked by the device/ICD 4. We will continue medical therapy and will reevaluate by echocardiogram 5. His primary woodwinds teacher Dr. Yeager will continue cardiac care plan HPI Consult Data Date of Consult: 08/04/21 HPI Narrative Reason for Consultation: CAD/non-STEMI HPI Narrative: DONNY SOLER, is a 76 M who presents [facility] Medical History Abnormal EKG Acute on chronic combined systolic (congestive) and diastolic (congestive) heart failure Atherosclerotic heart disease of [place] coronary artery without angina pectoris Atrial fibrillation and flutter Chronic systolic CHF (congestive heart failure) Essential (primary) hypertension HLD (hyperlipidemia) Nonischemic cardiomyopathy Nonrheumatic aortic (valve) stenosis with insufficiency Nonrheumatic mitral (valve) insufficiency Nonrheumatic tricuspid (valve) insufficiency NSTEMI (non-ST elevated myocardial infarction) (06/11/20) PTSD (post-traumatic stress disorder) PVCs (premature ventricular contractions) Right bundle branch block Home Medications acetaminophen 650 mg PO Q6H PRN PRN tab 06/12/20 [Rx Last Taken Unknown] furosemide 40 mg tablet 40 mg PO BID #180 tablet 07/26/20 [Rx Last Taken Unknown] carvedilol 6.25 mg tablet 6.25 mg PO BID #180 tablet 03/13/21 [Rx Last Taken Unknown] atorvastatin 40 mg tablet 40 mg PO QPM #90 tab 03/19/21 [Rx Last Taken Unknown] isosorbide mononitrate 30 mg tablet,extended release 24 hr 30 mg PO DAILY #30 tab 04/01/21 [Rx Last Taken Unknown] nitroglycerin 0.4 mg sublingual tablet 0.4 mg SUBLINGUAL Q5-15M PRN #25 tab 10/15 [Rx Last Taken Unknown] apixaban 2.5 mg tablet 2.5 mg PO BID #180 tab 07/01/21 [Rx Last Taken Unknown] dapagliflozin 5 mg tablet 5 mg PO DAILY #90 tab 07/01/21 [Rx Last Taken Unknown] aspirin [Baby Aspirin] 81 mg PO DAILY 08/02/21 [History Last Taken Unknown] cephalexin 500 mg PO Q6 7 Days #28 cap 08/02/21 [Rx Last Taken Unknown] cholecalciferol (vitamin D3) 50 mcg (2,000 unit) capsule 50 mcg PO DAILY 08/02/21 [History Last Taken Unknown] donepezil 10 mg DAILY 08/02/21 [History Last Taken Unknown] Allergy/AdvReac Type Severity Reaction Status Date / Time Penicillins Allergy Severe Hives Verified 08/03/21 19:02 Family History Mother Cancer Kidney disease Father Myocardial infarction Brother Heart disease Surgical History History of aortic valve replacement with tissue graft (07/26/07) History of left heart catheterization (11/22/19) History of prostate surgery Implantable cardioverter-defibrillator (ICD) in situ Social History household members: spouse Smoking Status: Former smoker quit date: 04/27/71 alcohol intake: never substance use type: does not use what type of physical activity do you participate in: walking frequency: daily Physical Exam Narrative Patient seen and evaluated today at bedside, at bedside at time of evaluation Symptoms of chest pain resolved Patient alert orientated x3 Cardiovascular exam S1-S2 is regular Chest exam is clear to auscultation bilateral Examinations abdomen soft Examination lower extremity no clubbing no cyanosis no lower extremity edema. Risk Stratification Risk Stratification Applicable: Yes Age >/= 65: Yes >/= 3 CAD Risk Factors (HTN, HLD, DM, family hx of CAD, or current smoker): Yes Aspirin Use in the Past 7 Days: Yes Severe Angina (>/= episodes in 24 hours): No EKG ST Changes >/= 0.5mm: No Positive Cardiac Marker: Yes YARITZA Risk Stratification Score: 4 YARITZA % Risk: 20% Risk Objective Data Vital Signs: Vital Signs Temp Pulse Resp BP Pulse Ox 97.3 F L 75 16 104/79 98 08/04/21 09:15 08/04/21 09:15 08/04/21 09:15 08/04/21 09:15 08/04/21 09:15 Oxygen Delivery Method Room Air Weight: 128 lb 8.472 oz Body Mass Index (BMI) 17.9 Intake & Output: Intake and Output for Last 24 Hours 08/02/21 08/03/21 08/04/21 23:59 23:59 23:59 Intake Total 1019.83 / 1019.83 89.33 / 89.33 Output Total 600 / 600 Balance 1019.83 / 619.83 -510.67 / -510.67 Lab / Micro Data Result Diagrams: 08/04/21 02:30 08/04/21 02:30 Labs: Laboratory Results - last 24 hr 08/03/21 19:15: Sodium 139, Potassium 4.0, Chloride 110 H, Carbon Dioxide 23.0, Anion Gap 6, BUN 24 H, Creatinine 1.22, Estim Creat Clear Calc 46.54, Est GFR (MDRD) Af Amer 75, Est GFR (MDRD) Non-Af 62, BUN/Creatinine Ratio 19.7, Glucose 106, Calcium 8.4 L, Troponin I High Sens 168 H* 08/03/21 19:15: WBC 11.0, RBC 4.23 L, Hgb 13.1, Hct 39.9 L, MCV 94.3 H, MCH 31.0, MCHC 32.8, RDW Std Deviation 47.3 H, RDW Coeff of Bj 13.9, Plt Count 147 L, MPV 10.6, Immature Gran % (Auto) 0.300, Neut % (Auto) 80.1 H, Lymph % (Auto) 9.7 L, [place] % (Auto) 7.5, Eos % (Auto) 2.0, Baso % (Auto) 0.4, Absolute Neuts (auto) 8.8 H, Absolute Lymphs (auto) 1.07, Nucleated RBC % 0 08/03/21 19:15: B-Natriuretic Peptide 1243.8 H 08/03/21 20:25: PT 14.1, INR 1.2, APTT 30.8 08/03/21 21:00: Magnesium 2.0, Troponin I High Sens 166 H* 08/04/21 01:20: Troponin I High Sens 141 H* 08/04/21 02:30: WBC 7.2, RBC 3.59 L, Hgb 11.1 L, Hct 33.4 L, MCV 93.0, MCH 30.9, MCHC 33.2, RDW Std Deviation 46.6 H, RDW Coeff of Bj 13.7, Plt Count 131 L, MPV 10.1, Immature Gran % (Auto) 0.300, Neut % (Auto) 72.4 H, Lymph % (Auto) 15.9 L, [place] % (Auto) 7.9, Eos % (Auto) 3.1, Baso % (Auto) 0.4, Absolute Neuts (auto) 5.2, Absolute Lymphs (auto) 1.14, Nucleated RBC % 0 08/04/21 02:30: Sodium 140, Potassium 3.7, Chloride 113 H, Carbon Dioxide 22.0, Anion Gap 5, BUN 22 H, Creatinine 1.04, Estim Creat Clear Calc 50.61, Est GFR (MDRD) Af Amer 90, Est GFR (MDRD) Non-Af 74, BUN/Creatinine Ratio 21.2 H, Glucose 115 H, Calcium 8.0 L, Total Bilirubin 0.50, AST 10 L, ALT 9 L, Alkaline Phosphatase 94, Total Protein 5.7 L, Albumin 2.7 L, Globulin 3.0, Albumin/Globulin Ratio 0.9, Triglycerides 61, Cholesterol 94, LDL Cholesterol 47, VLDL Cholesterol 12, HDL Cholesterol 35 L 08/04/21 02:30: APTT 69.5 H 08/04/21 08:40: APTT 51.5 H Cardiology Labs/Tests 08/03/21 19:15: Sodium 139, Potassium 4.0, Chloride 110 H, Carbon Dioxide 23.0, Anion Gap 6, BUN 24 H, Creatinine 1.22, Est GFR (MDRD) Af Amer 75, Est GFR (MDRD) Non-Af 62, BUN/Creatinine Ratio 19.7, Glucose 106, Calcium 8.4 L 08/03/21 19:15: WBC 11.0, RBC 4.23 L, Hgb 13.1, Hct 39.9 L, MCV 94.3 H, MCH 31.0, MCHC 32.8, Plt Count 147 L, MPV 10.6, Immature Gran % (Auto) 0.300, Neut % (Auto) 80.1 H, Lymph % (Auto) 9.7 L, [place] % (Auto) 7.5, Eos % (Auto) 2.0, Baso % (Auto) 0.4, Absolute Neuts (auto) 8.8 H, Nucleated RBC % 0 08/03/21 19:15: B-Natriuretic Peptide 1243.8 H 08/03/21 20:25: PT 14.1, INR 1.2, APTT 30.8 08/03/21 21:00: Magnesium 2.0 08/04/21 02:30: WBC 7.2, RBC 3.59 L, Hgb 11.1 L, Hct 33.4 L, MCV 93.0, MCH 30.9, MCHC 33.2, Plt Count 131 L, MPV 10.1, Immature Gran % (Auto) 0.300, Neut % (Auto) 72.4 H, Lymph % (Auto) 15.9 L, [place] % (Auto) 7.9, Eos % (Auto) 3.1, Baso % (Auto) 0.4, Absolute Neuts (auto) 5.2, Nucleated RBC % 0 08/04/21 02:30: Sodium 140, Potassium 3.7, Chloride 113 H, Carbon Dioxide 22.0, Anion Gap 5, BUN 22 H, Creatinine 1.04, Est GFR (MDRD) Af Amer 90, Est GFR (MDRD) Non-Af 74, BUN/Creatinine Ratio 21.2 H, Glucose 115 H, Calcium 8.0 L, Total Bilirubin 0.50, Triglycerides 61, Cholesterol 94, LDL Cholesterol 47, VLDL Cholesterol 12, HDL Cholesterol 35 L 08/04/21 02:30: APTT 69.5 H 08/04/21 08:40: APTT 51.5 H Rhythm: EKG: ECHO: Stress Test: Cardiac Cath: PCI: CT Surgery: Holter monitor: EPS: PPM: CXR: Chest CT Scan: Radiography Diagnostic Testing: Radiology Impression Chest X-Ray 08/03/21 19:06 IMPRESSION: Nonacute portable x-ray examination of the chest. Electronically Signed: Mir Farris MD (Brooks) at 20:01 EDT Reading Location ID and State: [facility] / [place] , Service support ,
[2021-08-04 16:31] LABS: Partial Thromboplast Time 59.5 Seconds (24.1-36.2)
[2021-08-04 16:40] LABS: Magnesium 2.2 mg/dL (1.6-2.6)
[2021-08-04] MEDS: Tamsulosin HCl 0.4 MG Capsule PO (17:12)
[2021-08-04] MEDS: Atorvastatin Calcium 40 MG Tablet PO (21:54)
[2021-08-04 22:52] LABS: Partial Thromboplast Time 50.5 Seconds (24.1-36.2)
[2021-08-05] VITALS (13 sets, daily range): BP systolic 93–117; BP diastolic 60–73; PULSE 60–94; RESP 18; TEMP 36.2–36.7; O2SAT 92–97
[2021-08-05 05:35] LABS: Absolute Lymphocyte Count 0.81 X10^3/uL (0.83-4.51); Absolute Neutrophil Count 4.8 X10^3/uL (2.0-7.7); Basophil# 0.03 X10^3/uL; Basophil% 0.5 % (0-1); Eosinophil# 0.19 X10^3/uL; Hematocrit 34.2 % (40-54); Hemoglobin 11.4 g/dL (13.0-16.5); Lymphocyte # 0.81 X10^3/ul (0.83-4.51); Lymphocyte % 12.8 % (19-41); Mean Corp Hgb Conc 33.3 g/dL (32-36); Mean Corpuscular Hgb 30.9 pg (27.0-32.0); Mean Corpuscular Volume 92.7 fL (80-94); Mean Platelet Vol. 10.2 fl (6.2-12.0); Monocyte# 0.52 X10^3/uL; Monocyte% 8.2 % (0-10); NRBC Flagged by Analyzer 0 % (0-5); Neutrophil # 4.75 X10^3/uL (2.7-7.7); Platelet Count 154 K/mm3 (150-450); RBC Distribution Width CV 13.7 % (11.6-14.6); RBC Distribution Width SD 46.6 fl (35.1-43.9); Red Blood Count 3.69 M/mm3 (4.6-6.2); White Blood Count 6.3 K/mm3 (4.4-11.0)
[2021-08-05] MEDS: Cephalexin 500 MG Capsule PO ×4 (05:41→23:11)
[2021-08-05] MEDS: 0.9% Saline Lock 10 ML Syringe IV (05:48)
[2021-08-05 05:50] LABS: Anion Gap 5 (5-15); BUN 22 mg/dL (7-18); BUN/Creat Ratio 19.8 RATIO (10-20); Calcium,Total 8.2 mg/dL (8.5-10.1); Chloride 108 mmol/L (98-107); Creatinine, Serum 1.11 mg/dL (0.70-1.30); EST Glomerular Filtration Rate 69 mL/min (>60); Est Glom Filt Rate - Afr Amer 83 mL/min (>60); Estimated Creatinine Clearance 47.42 ml/min; Glucose 116 mg/dL (74-106); Partial Thromboplast Time 35.3 Seconds (24.1-36.2); Potassium 3.8 mmol/L (3.5-5.1); Sodium Level 137 mmol/L (136-145)
[2021-08-05 05:58] LABS: International Normalized Ratio 1.1; Prothrombin Time (Protime)PT. 13.9 SECONDS (11.7-14.9)
[2021-08-05] MEDS: Heparin Injection (Vial) 5,000 UNIT/ML VIAL IV (06:09)
[2021-08-05] MEDS: Aspirin 81 MG TAB.CHEW PO (09:01)
[2021-08-05] MEDS: Empagliflozin 10 MG Tablet PO (09:01)
[2021-08-05] MEDS: Furosemide 40 MG Tablet PO ×2 (09:02→17:29)
[2021-08-05] MEDS: Donepezil HCl 10 MG Tablet PO (09:02)
[2021-08-05] MEDS: Isosorbide Mononitrate 30 MG Tablet PO (09:02)
[2021-08-05] MEDS: Carvedilol 3.125 MG TABLET PO ×2 (09:02→23:11)
--- NOTE | 2021-08-05 09:18 | PN.CARD_ITS ---
Subjective Subjective The patient states he is feeling better today with respect to his chest as well as his breathing. His and daughter are present at the time. His states that he does look better, appears to be breathing more comfortably, and she also notes his lower extremity edema has improved. She does state that the [facility] has adjusted his medicines and that he has not necessarily been taking his medicines and/or may have missed some of his medications. Objective Data Vital Signs: Vital Signs Temp Pulse Resp BP Pulse Ox 97.1 F L 83 18 117/64 97 08/05/21 08:59 08/05/21 08:59 08/05/21 08:59 08/05/21 08:59 08/05/21 08:59 Oxygen Flow Rate (L/min) 97 Oxygen Delivery Method Room Air Weight: 133 lb 6.075 oz Body Mass Index (BMI) 17.9 Intake & Output: Intake and Output for Last 24 Hours 08/03/21 08/04/21 08/05/21 23:59 23:59 23:59 Intake Total 1019.83 / 1019.83 1511.28 / 1511.28 74.22 / 74.22 Output Total 2150 / 2750 1200 / 1200 Balance 1019.83 / 619.83 -638.72 / -1238.72 -1125.78 / -1125.78 Lab / Micro Data Result Diagrams: 08/05/21 05:23 08/05/21 05:23 Labs: Laboratory Results - last 24 hr 08/04/21 15:50: APTT 59.5 H 08/04/21 15:50: Magnesium 2.2 08/04/21 22:30: APTT 50.5 H 08/05/21 05:23: WBC 6.3, RBC 3.69 L, Hgb 11.4 L, Hct 34.2 L, MCV 92.7, MCH 30.9, MCHC 33.3, RDW Std Deviation 46.6 H, RDW Coeff of Bj 13.7, Plt Count 154, MPV 10.2, Immature Gran % (Auto) 0.500, Neut % (Auto) 75.0 H, Lymph % (Auto) 12.8 L, [place] % (Auto) 8.2, Eos % (Auto) 3.0, Baso % (Auto) 0.5, Absolute Neuts (auto) 4.8, Absolute Lymphs (auto) 0.81 L, Nucleated RBC % 0 08/05/21 05:23: PT 13.9, INR 1.1 08/05/21 05:23: Sodium 137, Potassium 3.8, Chloride 108 H, Carbon Dioxide 24.0, Anion Gap 5, BUN 22 H, Creatinine 1.11, Estim Creat Clear Calc 47.42, Est GFR (MDRD) Af Amer 83, Est GFR (MDRD) Non-Af 69, BUN/Creatinine Ratio 19.8, Glucose 116 H, Calcium 8.2 L 08/05/21 05:23: APTT 35.3 Cardiology Labs/Tests 08/04/21 15:50: APTT 59.5 H 08/04/21 15:50: Magnesium 2.2 08/04/21 22:30: APTT 50.5 H 08/05/21 05:23: WBC 6.3, RBC 3.69 L, Hgb 11.4 L, Hct 34.2 L, MCV 92.7, MCH 30.9, MCHC 33.3, Plt Count 154, MPV 10.2, Immature Gran % (Auto) 0.500, Neut % (Auto) 75.0 H, Lymph % (Auto) 12.8 L, [place] % (Auto) 8.2, Eos % (Auto) 3.0, Baso % (Auto) 0.5, Absolute Neuts (auto) 4.8, Nucleated RBC % 0 08/05/21 05:23: PT 13.9, INR 1.1 08/05/21 05:23: Sodium 137, Potassium 3.8, Chloride 108 H, Carbon Dioxide 24.0, Anion Gap 5, BUN 22 H, Creatinine 1.11, Est GFR (MDRD) Af Amer 83, Est GFR (MDR D) Non-Af 69, BUN/Creatinine Ratio 19.8, Glucose 116 H, Calcium 8.2 L 08/05/21 05:23: APTT 35.3 Rhythm: Sinus rhythm; PVCs; electronic ventricular paced beat Transthoracic echocardiogram: 06/11/2020 Interpretation Summary Severely dilated left ventricle. The estimated ejection fraction is 10 %. Stage 3 diastolic dysfunction. There is severe global hypokinesis of the left ventricle. Mild (1+) tricuspid valve insufficiency. Pulmonary artery systolic pressure is 40 mmHg. Bioprosthetic aortic valve. Contrast injection was performed. Cardiac cath: 11/22/2019: [facility] CONCLUSIONS Non obstructive coronary arteries Ramus branch with 65% proximal stenosis but doubtful that would improve LV dysfunction, and PCI would be high risk given severe LV dysfunction. RECOMMENDATIONS Management as per referring Mouthpiece Maker Would hold on PCI of small Ramus branch given severe LV dysfunciton out of proportion of amount of CAD. Doubtful that PCI of Ramus would appreciably improve LV function. Would recommend starting cozaar, lasix and eliquis for severe LV dysfunction and moderate pulmonary HTN in order to prevent LV thrombus and DVT. Manual sheath removal as pt is too thin for closure. D/w Dr Long. DESCRIPTION OF PROCEDURE The patient arrived to the procedure lab. The risks and benefits of the procedure as well as a full description of our services here and current unavailability of surgical backup were fully explained to the patient and/or their significant other prior to the catheterization. The Timeout was completed, verifying the correct patient and procedure. The patient's procedural site was prepped and draped in the usual fashion. Local anesthetic was given subcutaneously to right groin region with Lidocaine 2%. Using a modified Seldinger technique, arterial access was obtained via the right femoral artery, a 4Fr sheath was inserted Left Coronary Artery selective angiography was performed in multiple views using a 4 Fr. JL5 catheter. Right Coronary Artery selective angiography was then performed in multiple views using a 4 Fr. 3DRC catheter.The arterial sheath was pulled and manual compression applied until hemostasis is achieved. CORONARY ANGIOGRAPHY DOMINANCE: Co- Dominant LEFT HEART ASSESSMENT Left Ventricular Ejection Fraction: Not assessed LEFT MAIN: Mild calcification, Angiographically normal LEFT ANTERIOR DESCENDING ARTERY: PROX LAD: Mild luminal irregularities less than 30% DIAGONAL 1: Mid - Moderate luminal irregularities up to 50% CIRCUMFLEX ARTERY: PROX CIRC: Mild luminal irregularities less than 30% OM 1: Proximal - Mild luminal irregularities less than 30% RAMUS: 65 % Stenosis RIGHT CORONARY ARTERY: MID RCA: Mild luminal irregularities less than 30% Physical Exam Const alert, oriented x3 and no apparent distress Orientation / Consciousness: awake HEENT normocephalic, head/scalp atraumatic and hearing grossly normal bilaterally Eyes PERRL, EOMs intact bilaterally and conjunctivae normal Neck full ROM, supple and no JVD Resp Auscultation: diminished lung sounds bilateral lower Cardio regular rate, regular rhythm, S1 normal heart sound and S2 normal heart sound Rhythm: abnormal rhythm ectopic beats GI normal to inspection, nondistended, normoactive bowel sounds Extremity no pedal edema Skin no rashes or lesions noted Psych mental status grossly normal Assessment & Plan Assessment/Plan (1) Non-ST elevated myocardial infarction (non-STEMI): PLAN: The patient has mildly elevated high-sensitivity troponin I levels which have decreased over time. Based upon his presentation appears this is thought related to a non-STEMI type II event brought out by what appears to be acute on chronic systolic mediated CHF. At the present time he is continuing medical therapy. He will continue noninvasive valuation which include a transthoracic echocardiogram to further assess his left ventricular wall motion systolic func tion. His previous invasive studies were reviewed by interventional cardiology. At the present time there is no recommendation for repeat evaluation in the cardiac catheterization laboratory. (2) Atherosclerotic heart disease of nikolai coronary artery without angina pectoris: QUALIFIERS: [place] vs. transplanted heart: nikolai heart Qualified Code(s): I25.10 - Atherosclerotic heart disease of nikolai coronary artery without angina pectoris PLAN: The patient does have a history of CAD. However in the past it appears that CAD was not thought to be the etiology for his underlying cardiomyopathy. As noted above he is continuing medical management. He will continue noninvasive valuation. There are no immediate plans for repeat invasive evaluation at this time. (3) Nonischemic cardiomyopathy: PLAN: The patient does have a cardiomyopathy which is thought out of proportion to his CAD status. He is continuing medical management. The patient has been on afterload reducing therapy in the past. This was with an ARB-losartan. If the patient's hemodynamics allow would be reasonable to restart an afterload reducing agent in the future whether it is an NEDA inhibitor, an ARB, or an agent such as Entresto. He does have an ICD in place. (4) Chronic systolic CHF (congestive heart failure): PLAN: It appears the patient has had acute on chronic systolic mediated CHF. According to the spouse it is possible this may be because of medication adjustment and/or the patient missing his medications. He does appear to be responding to IV diuretic therapy with diuresis and sub sequent improvement in his clinical status. He will continue medical management with eventual adjustment of his IV diuretics back to oral diuretics. (5) History of aortic valve replacement with tissue graft: PLAN: The patient does have an aortic valve prosthesis-bioprosthetic. This is going to be reassessed with a transthoracic echocardiogram for any si gnificant changes that would warrant the need for additional evaluation and care. (6) Implantable cardioverter-defibrillator (ICD) in situ: PLAN: The patient does have an ICD in place which has been reported is functioning appropriately. Addt'l Comments The above was discussed and reviewed with the patient, his house, his daughter, and previously with Dr. Main of interventional cardiology who performed his recent [facility] cardiovascular consultation. This note was generated using a voice recognition system and there may be incorrect words, spelling or punctuation that were not noted when reviewing the office note prior to saving.
--- NOTE | 2021-08-05 12:15 | PN.HOSP_ITS ---
Documented by User: Margarita Petersen NP, RELATIONSHIP COUNSELOR-C 08/05/21 12:28 Subjective Subjective Patient seen and examined. Denies new symptoms or complaints. Denies chest pain, shortness of breath. Patient having episodes of nonsustained V. tach, asymptomatic. Initiated on amiodarone. Objective Data Objective Data Vital Signs: Vital Signs Temp Pulse Resp BP Pulse Ox 97.1 F L 94 18 117/64 97 08/05/21 08:59 08/05/21 09:30 08/05/21 08:59 08/05/21 08:59 08/05/21 08:59 Oxygen Flow Rate (L/min) 97 Oxygen Delivery Method Room Air Weight: 133 lb 6.075 oz Body Mass Index (BMI) 17.9 Intake & Output: Intake and Output for Last 24 Hours 08/03/21 08/04/21 08/05/21 23:59 23:59 23:59 Intake Total 1019.83 / 1019.83 1511.28 / 1511.28 474.22 / 474.22 Output Total 2150 / 2750 1950 / 1950 Balance 1019.83 / 619.83 -638.72 / -1238.72 -1475.78 / -1475.78 Lab / Micro Data Result Diagrams: 08/05/21 05:23 08/05/21 05:23 Labs: Laboratory Results - last 24 hr 08/04/21 15:50: APTT 59.5 H 08/04/21 15:50: Magnesium 2.2 08/04/21 22:30: APTT 50.5 H 08/05/21 05:23: WBC 6.3, RBC 3.69 L, Hgb 11.4 L, Hct 34.2 L, MCV 92.7, MCH 30.9, MCHC 33.3, RDW Std Deviation 46.6 H, RDW Coeff of Bj 13.7, Plt Count 154, MPV 10.2, Immature Gran % (Auto) 0.500, Neut % (Auto) 75.0 H, Lymph % (Auto) 12.8 L, [place] % (Auto) 8.2, Eos % (Auto) 3.0, Baso % (Auto) 0.5, Absolute Neuts (auto) 4.8, Absolute Lymphs (auto) 0.81 L, Nucleated RBC % 0 08/05/21 05:23: PT 13.9, INR 1.1 08/05/21 05:23: Sodium 137, Potassium 3.8, Chloride 108 H, Carbon Dioxide 24.0, Anion Gap 5, BUN 22 H, Creatinine 1.11, Estim Creat Clear Calc 47.42, Est GFR (MDRD) Af Amer 83, Est GFR (MDRD) Non-Af 69, BUN/Creatinine Ratio 19.8, Glucose 116 H, Calcium 8.2 L 08/05/21 05:23: APTT 35.3 Radiography Diagnostic Testing: Radiology Impression Echocardiogram 08/03/21 22:02 Interpretation Summary The study was technically difficult. Severely dilated left ventricle. Severe global left ventricular systolic dysfunction. The estimated ejection fraction is 15 %. The left atrium is mildly enlarged. The right atrium is mildly enlarged. Anterior leaflet diffuse mitral valve thickening. Mild (1+) mitral valve insufficiency. Moderate (2+) tricuspid valve insufficiency. Stable appearing bioprosthetic aortic valve apparatus. Mild focal aortic valve calcification. Trivial pulmonic valve insufficiency. Right ventricular systolic pressure estimated to be 22 mmHg. Unable to assess diastolic dysfunction. ICD or pacer leads identified within the right atrium ICD or pacer leads identified within the right ventricle. Ordering Physician: China Wallace Referring Physician: Rex Bustamante M.D. Performed By: Hemal Marrufo RCS Physical Exam Const alert, oriented x3 and no apparent distress Orientation / Consciousness: awake, oriented to person, oriented to place and oriented to time Nutritional Appearance: cachectic HEENT normocephalic and moist oral mucous membranes Eyes PERRL, EOMs intact bilaterally and conjunctivae normal Neck no lymphadenopathy Resp normal respiratory effort and clear to auscultation bilaterally Cardio regular rate, regular rhythm and no murmurs Cardio Narrative: Intermittent nonsustained V. tach Peripheral Pulses: pulses 2+ throughout GI normal to inspection, nondistended, normoactive bowel sounds, non-tender and non-distended Extremity normal to inspection Skin no rashes or lesions noted Lesions: no lesions Rashes: no rashes Trauma: no lacerations or abrasions Neuro CN's II-XII intact bilaterally, no focal motor deficits, no sensory deficits noted and deep tendon reflexes 2+ bilaterally Psych mental status grossly normal and affect normal Assessment & Plan Assessment/Plan (1) Chest pain: PLAN: 1. Chest pain-cardiology consulted. Troponin mildly elevated however did not trend. Prior cath October 2019 demonstrated nonobstructive coronary arteries, ramus branch with 65% proximal stenosis. Documented PCI would be high risk given severe LV dysfunction. Repeat echocardiogram demonstrates an EF of 15%, mild mitral valve insufficiency, moderate tricuspid valve insufficiency. Aspirin, statin. Plan for continued medical management. DC heparin drip and resume home Eliquis regimen. Likely begin wes/arb or Entresto. 2. Nonsustained ventricular tachycardia-initiate amiodarone 200 mg daily. Monitor telemetry. K, mag normal. 3. 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 Echocardiogram 06/11/2020 demonstrated an EF of 10%, stage III diastolic dysfunction. Repeat echo with EF 15% as noted above. No evidence of acute failure. Continue home Lasix regimen. 4. Recent UTI with urinary retention-continue previously prescribed Keflex and Garcia catheter. Outpatient follow-up with urology. Initiated on Flomax. 5. CAD-continue aspirin, statin, carvedilol, isosorbide. 6. Paroxysmal atrial fibrillation-on Eliquis, carvedilol. 7. Chronic kidney disease stage IIIa-at baseline. 8. Hypertension-stable, continue carvedilol, Lasix, isosorbide. 9. Hyperlipidemia-continue statin. 10. 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 11. Dementia, no known behavioral disturbance history-continue donepezil. 12. Former tobacco use-encouraged cessation. 13. Severe protein calorie malnutrition-as evidenced by cachectic appearance, evidence of muscle and fat loss. Nutrition consulted. Continue ensure/dietary supplementation. DVT prophylaxis-Resume home eliquis This patient was seen by NIK Marie under the supervision of Dr. Alonzo. Documented by User: Dr. Supriya Alonzo DO 08/05/21 14:32 Subjective Subjective This patient was seen in conjunction with Margarita Petersen NP. The following represents my in the patient history and physical examination. Please see below for addendum the above. Patient states he is feeling well overall. No current chest pain or shortness of breath. He is currently on room air. He was given a dose of IV Lasix in the emergency department but has been on his oral Lasix since. Has had some intermittent runs of VT this morning. He does have a defibrillator in place. He currently has no complaints. Objective Data Lab / Micro Data Result Diagrams: 08/05/21 05:23 08/05/21 05:23 Physical Exam Const alert, oriented x3 and no apparent distress Constitutional Narrative: Cachectic, older white male, sitting up on the edge of the bed, at bedside, patient appears older than stated age Exam Limitations: no limitations Nutritional Appearance: cachectic HEENT head/scalp atraumatic and moist oral mucous membranes HEENT Narrative: Mallampati is 1, no thrush Head and Scalp: normocephalic Resp normal respiratory effort, no retractions, no use of accessory muscles and clear to auscultation bilaterally Resp Narrative: Diffusely diminished but otherwise clear Auscultation: Negative for crackles, rales, rhonchi or wheezes Cardio regular rate, S1 normal heart sound, S2 normal heart sound, no murmurs, no rub, no gallops, no clicks and no JVD Cardio Narrative: Irregularly irregular rhythm with few ectopic beats GI normal to inspection, nondistended, normoactive bowel sounds, soft to palpation, non-tender and non-distended GI Narrative: Scaphoid abdomen Extremity Extremity Narrative: Trace bilateral lower extremity edema that is pitting in nature Peripheral Pulses: Yes pulses 2+ throughout Neuro oriented x3, moves all extremities and no focal motor deficits Sensorium / Orientation: awake and alert Speech: speech normal Psych affect normal Psych Narrative: Appropriately interactive Assessment & Plan Assessment/Plan (1) Non-ST elevated myocardial infarction (non-STEMI): (2) Non-sustained ventricular tachycardia: (3) Acute urinary retention: (4) Urinary tract infection: (5) Acute on chronic combined systolic and diastolic heart failure: PLAN: Assessment: Chest pain-resolved NSTEMI type II Acute on chronic combined heart failure Nonsustained ventricular tachycardia Recent UTI-on oral antibiotics Urinary retention-Garcia in place CAD PAF CKD stage IIIa Hypertension Hyperlipidemia History of valvular heart disease status post aortic root replacement/aortic valve replacement 06/11/2020 Dementia COPD History of tobacco abuse Severe malnutrition--> 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 Plan: -No current plans for further noninvasive or invasive studies after review with interventional cardiology -Cardiogram shows poor but stable cardiac function with an EF of 15% -With regards to nonsustained VT will add amiodarone 200 mg daily -Mag and potassium are within goal range -Continue home antibiotics -We will discharge with Garcia in place and recommend follow-up with outpatient urology -Continue home Lasix as ordered -If patient remained stable over the next 24 hours will plan for discharge tomorrow -Recommend follow-up with palliative care after discharge -Overall prognosis is extremely poor Charges/Coding Visit Charges Inpatient E&M: 83675 Subs Hosp L2
--- NOTE | 2021-08-05 12:45 | CASEMGMT ---
RN CM RADIOGRAPHER ANGIOGRAM CM to room to meet with patient for initial transition planning/care coordination assessment. ELIF CAMILO introduced self and role at [facility]. Pt voices understanding and consents to assessment at this time. Pt resting in bed in no distress at this time. , Clari, and daughter, Chitra, @ bedside. Pt is A/O at this time. Noted pt has mild dementia per H/P. Pt able to answer most questions appropriately, but did refer to his for some questions. Care providers, pharmacy, and demographics verified/updated at this time. PCP: Dr Brain Bustamante Specialists: Dr Yeager-cardiology. Pt saw Dr Aguilar years ago. Per , appt is being scheduled w/Dr Aguilar prior to discharge. Preferred Pharmacy: [facility] Retail Insurance: Jojo LEONARDO Prescription Benefit: Yes Living Will/HPOA: Pt has LW and HPOA, but would like to complete new AD. Karyna VIVEROS, is aware. LNOK: , Clari. Daughter, Chitra Living Arrangements: Pt lives w/ in one-story home w/3 steps to enter. Independent w/ADL's. When inquired about IADL's/home mgmt tasks, pt stated, I can do it, but won't. and pt both go grocery shopping. manages home tasks, medications and appts. Transportation: Pt and both drive. DME: Denies using any DME and denies needs. They state pt does not use BIPAP or CPAP. HHC/SNF: No hx SNF. Has had HHC in the past after cardiac surgery. Pt and family deny need for HHC at this time. Pt and family wish for pt to return home and state has no concerns with going home at time of discharge. Pt states does not smoke or drink ETOH. CM to follow for any further discharge planning/needs. Pt and family voice no further concerns/needs at this time. Advised [facility] to ask for CM if any further questions/concerns/needs arise. They voice understanding. ELIF CAMILO discussed Palliative care w/pt and family for CHF. They are interested in talking w/someone about Palliative care. PLAN: Home w/family support and discharge plans in place. Mery BEASLEY RN, CM
[2021-08-05 12:49] LABS: Partial Thromboplast Time 117.9 Seconds (24.1-36.2)
[2021-08-05] MEDS: Amiodarone 200 MG Tablet PO (12:59)
--- NOTE | 2021-08-05 13:36 | CASEMGMT ---
Per Lor ASENCIO CM and Sofia LEASE PURCHASE DRIVER, pt is agreeable to palliative c/s and pt qualifies for palliative c/s per screening tool. Order placed and referral e-mailed. Belen ASENCIO CM
--- NOTE | 2021-08-05 13:58 | CASEMGMT ---
Addendum entered by Karyna Cooper 08/05/21 14:11: Patient and his requested SW fax a copy of patient's Healthcare Power of Hand Collator papers to Dr Bustamante, patient's PCP. FELICE faxed documents. Karyna QUINTEROS Original Note: FELICE was informed patient would like to do a Healthcare Power of Hand Collator (HCPOA.) SW met with patient and his introduced self and role at [facility]. Patient was in agreement with completing documents. SW completed HCPOA with patient. Copies were made and given to patient along with original. FELICE also placed a copy in patient's chart. Patient named his daughter Chitra as his primary HCPOA, his daughter Lexy as his first alternate, and then his Clari as the second alternate. Karyna QUINTEROS
[2021-08-05] MEDS: Tamsulosin HCl 0.4 MG Capsule PO (17:29)
[2021-08-05] MEDS: APIXABAN 2.5 MG TABLET PO (22:07)
[2021-08-05] MEDS: Atorvastatin Calcium 40 MG Tablet PO (22:07)
[2021-08-06 03:31] VITALS: PULSE 65
[2021-08-06 04:05] VITALS: BP 95/63; PULSE 60; RESP 18; TEMP 36.4; O2SAT 96
[2021-08-06] MEDS: Cephalexin 500 MG Capsule PO (05:26)
[2021-08-06 06:42] LABS: Anion Gap 8 (5-15); BUN 20 mg/dL (7-18); BUN/Creat Ratio 16.9 RATIO (10-20); Calcium,Total 8.5 mg/dL (8.5-10.1); Chloride 101 mmol/L (98-107); Creatinine, Serum 1.18 mg/dL (0.70-1.30); EST Glomerular Filtration Rate 64 mL/min (>60); Est Glom Filt Rate - Afr Amer 77 mL/min (>60); Estimated Creatinine Clearance 44.22 ml/min; Glucose 111 mg/dL (74-106); Potassium 3.6 mmol/L (3.5-5.1); Sodium Level 137 mmol/L (136-145)
[2021-08-06] MEDS: Empagliflozin 10 MG Tablet PO (08:06)
[2021-08-06] MEDS: APIXABAN 2.5 MG TABLET PO (08:07)
[2021-08-06] MEDS: Aspirin 81 MG TAB.CHEW PO (08:07)
[2021-08-06] MEDS: Carvedilol 3.125 MG TABLET PO (08:07)
[2021-08-06] MEDS: Isosorbide Mononitrate 30 MG Tablet PO (08:07)
[2021-08-06] MEDS: Donepezil HCl 10 MG Tablet PO (08:07)
[2021-08-06] MEDS: Amiodarone 200 MG Tablet PO (08:07)
--- NOTE | 2021-08-06 08:09 | PN.CARD_ITS ---
Subjective Subjective The patient is awake and alert. He states he feels better than he did upon admission to the hospital. Objective Data Vital Signs: Vital Signs Temp Pulse Resp BP Pulse Ox 97.6 F L 60 18 95/63 96 08/06/21 04:05 08/06/21 04:05 08/06/21 04:05 08/06/21 04:05 08/06/21 04:05 Oxygen Flow Rate (L/min) 97 Oxygen Delivery Method Room Air Weight: 127 lb 6.835 oz Body Mass Index (BMI) 17.9 Intake & Output: Intake and Output for Last 24 Hours 08/04/21 08/05/21 08/06/21 23:59 23:59 23:59 Intake Total 1511.28 / 1511.28 1496.62 / 1496.62 120 / 120 Output Total 2150 / 2750 3550 / 3550 1550 / 1550 Balance -638.72 / -1238.72 -2053.38 / -2053.38 -1430 / -1430 Lab / Micro Data Result Diagrams: 08/05/21 05:23 08/06/21 05:45 Labs: Laboratory Results - last 24 hr 08/05/21 12:20: APTT 117.9 H* 08/06/21 05:45: Sodium 137, Potassium 3.6, Chloride 101, Carbon Dioxide 28.0, Anion Gap 8, BUN 20 H, Creatinine 1.18, Estim Creat Clear Calc 44.22, Est GFR (MDRD) Af Amer 77, Est GFR (MDRD) Non-Af 64, BUN/Creatinine Ratio 16.9, Glucose 111 H, Calcium 8.5 Cardiology Labs/Tests 08/05/21 12:20: APTT 117.9 H* 08/06/21 05:45: Sodium 137, Potassium 3.6, Chloride 101, Carbon Dioxide 28.0, Anion Gap 8, BUN 20 H, Creatinine 1.18, Est GFR (MDRD) Af Amer 77, Est GFR (MDRD) Non-Af 64, BUN/Creatinine Ratio 16.9, Glucose 111 H, Calcium 8.5 Rhythm: Sinus rhythm; underlying IVCD; electronic ventricular paced beats; PVCs; wide-complex dysrhythmia appearing compatible with a combination of underlying IVCD pattern, PVCs, and electronic ventricular paced beats ECHO: As noted below Radiography Diagnostic Testing: Radiology Impression Echocardiogram 08/03/21 22:02 Interpretation Summary The study was technically difficult. Severely dilated left ventricle. Severe global left ventricular systolic dysfunction. The estimated ejection fraction is 15 %. The left atrium is mildly enlarged. The right atrium is mildly enlarged. Anterior leaflet diffuse mitral valve thickening. Mild (1+) mitral valve insufficiency. Moderate (2+) tricuspid valve insufficiency. Stable appearing bioprosthetic aortic valve apparatus. Mild focal aortic valve calcification. Trivial pulmonic valve insufficiency. Right ventricular systolic pressure estimated to be 22 mmHg. Unable to assess diastolic dysfunction. ICD or pacer leads identified within the right atrium ICD or pacer leads identified within the right ventricle. Ordering Physician: China Wallace Referring Physician: Rex Bustamante M.D. Performed By: Hemal Marrufo RCS Physical Exam Const alert, oriented x3 and no apparent distress Orientation / Consciousness: awake HEENT normocephalic, head/scalp atraumatic and hearing grossly normal bilaterally Eyes PERRL, EOMs intact bilaterally and conjunctivae normal Neck full ROM, supple and no JVD Resp clear to auscultation bilaterally Cardio regular rate, regular rhythm, S1 normal heart sound and S2 normal heart sound Rhythm: abnormal rhythm ectopic beats GI normal to inspection, nondistended, normoactive bowel sounds Extremity no pedal edema Skin no rashes or lesions noted Psych mental status grossly normal Assessment & Plan Assessment/Plan (1) Non-ST elevated myocardial infarction (non-STEMI): PLAN: The patient has mildly elevated high-sensitivity troponin I levels which have decreased over time. Based upon his presentation appears this is thought related to a non-STEMI type II event brought out by what appears to be acute on chronic systolic mediated CHF. At the present time he is continuing medical therapy. He has undergone evaluation with a transthoracic echocardiogram with results as noted. His previous invasive studies were reviewed by interventional cardiology. At the present time there is no recommendation for repeat evaluation in the cardiac catheterization laboratory. (2) Atherosclerotic heart disease of [place] coronary artery without angina pectoris: QUALIFIERS: Elem vs. transplanted heart: [place] heart Qualified Code(s): I25.10 - Atherosclerotic heart disease of [place] coronary artery without angina pectoris PLAN: The patient does have a history of CAD. However in the past it appears that CAD was not thought to be the etiology for his underlying cardiomyopathy. As noted above he is continuing medical management. There are no immediate plans for repeat invasive evaluation at this time. (3) Nonischemic cardiomyopathy: PLAN: The patient does have a cardiomyopathy which is thought out of proportion to his CAD status. He is continuing medical management. The patient has been on afterload reducing therapy in the past. This was with an ARB-losartan. If the patient's hemodynamics allow would be reasonable to restart an afterload reducing agent in the future whether it is an NEDA inh ibitor, an ARB, or an agent such as Entresto. He does have an ICD in place. (4) Chronic systolic CHF (congestive heart failure): PLAN: It appears the patient has had acute on chronic systolic mediated CHF. According to the spouse it is possible this may be because of medication adjustment and/or the patient missing his medications. He does appear to be responding to IV diuretic therapy/oral diuretic therapy with diuresis and subsequent improvement in his clinical status . He will need to continue diuretic therapy to avoid recurrent volume overload. (5) History of aortic valve replacement with tissue graft: PLAN: The patient does have an aortic valve prosthesis-bioprosthetic. This is going to be reassessed with a transthoracic echocardiogram for any significant changes that would warrant the need for additional evaluation and care. (6) Implantable cardioverter-defibrillator (ICD) in situ: PLAN: The patient does have underlying ventricular ectopy. He has had wide-complex rhythms which appear compatible with a combination of underlying [place] beats with his IVCD pattern, PVCs, and electronic ventricular paced beats. The patient has been started on amiodarone therapy at 200 mg p.o. daily with the hope that this may help diminish his underlying ventricular ectopy and diminish his risks of possible ICD discharge. The patient does have an ICD in place which has been reported is functioning appropriately. Addt'l Comments Overall, the patient does appear to be symptomatically and objectively improved. At the present time he will continue medical therapy. It was impressed upon the patient that he needs to continue his medications as prescribed and follow- up as an outpatient with adjustment of medications as needed in the hopes of minimizing any recurrence of recurrent acute on chronic systolic mediated CHF. This note was generated using a voice recognition system and there may be incorrect words, spelling or punctuation that were not noted when reviewing the office note prior to saving. Procedure Criteria Type of Procedure Procedure Type: Elective Elective Risks - COVID COVID Risk Discussion: The surgeon/proceduralist and patient have discussed in detail the risk of exposure to and/or potential harm posed by the COVID-19 virus with having a surgery/procedure at this time versus the risk of delaying the surgery/procedure. It is not possible to know either the risk of delaying the surgery or procedure or chance of getting an infection with perfect accuracy, but a joint decision was made between the patient and the surgeon/proceduralist to proceed at this time with the scheduled surgery/procedure as indicated on the consent form.
[2021-08-06] MEDS: Furosemide 40 MG Tablet PO (08:14)
[2021-08-06 08:34] VITALS: PULSE 71
--- NOTE | 2021-08-06 08:34 | PCM.CONS.P ---
Assessment & Plan Assessment/Plan (1) Neurogenic bladder: (2) Acute urinary retention: (3) Chest pain: (4) Headache: (5) Memory loss, short term: (6) Elevated troponin: (7) Acute on chronic combined systolic and diastolic heart failure: (8) Implantable cardioverter-defibrillator (ICD) in situ: (9) Nonischemic cardiomyopathy: PLAN: DONNY SOLER, is a 76 M who was referred to [facility] for symptom management related to [facility] admission on 08/03/21 for chest pain concerning for Non STEMI. Patient has chronic Systolic/Diastolic CHF/Nonischemic cardiomyopathy s/p ACID, CKD stage III unclear subtype, PAF, valvular Heart Disease s/p AVR, HTN, HLD, CAD,and Dementia unclear type with unclear behavioral disturbance history. Discussed Palliative and Hospice options with both patient and daughter, Chitra. Would like to discuss with , Clari. Very interested in the extra assistance. Palliative plan would be as follows: 1) Chest pain : Palliative would follow for support of cardiac medication management and symptoms. Hospice would definitely be an option with EF of 15% especially if cognitive function declines. 2) Memory loss/agitation/insomnia: Patient is on Aricept. Appears to be stable. No behavioral disturbance at this time. Palliative to follow and manage symptoms as needed. 3) urinary retention/ a fib with fluter/ CKD stage 3/ HTN/ hx of elevated troponin/ Hx of aortic valve replacement with tissue graft/ ICD/ CHF/ nonischemic cardiomyopathy/ EF 15% : Complicates overall care, prognosis and recovery. Palliative can provide education of symptoms to report and medication management at upcoming visits but defer management to PCP and specialists. Thank you for the opportunity to participate in this patient's care, please do not hesitate to contact [facility] with any further questions or concerns, direct line is [phone]. Liaison will follow up and discuss palliative services further at discharge. Contact information left with the patient. Greater than 50% of F2F visit dedicated to education and counseling of palliative care services, medications, comorbid conditions and potential assistance with management, and plan of care moving forward. Start time: 829 End time: 933 HPI Consult Data Date of Consult: 08/06/21 HPI Narrative HPI Narrative: DONNY SOLER, is a 76 M who was referred to [facility] related to [facility] admission on 08/03/21 for chest pain concerning for Non STEMI. Patient has chronic Systolic/Diastolic CHF/Nonischemic cardiomyopathy s/p ACID, CKD stage III unclear subtype, PAF, valvular Heart Disease s/p AVR, HTN, HLD, CAD,and Dementia unclear type with unclear behavioral disturbance history. Patient has a former history of tobacco abuse. Reports chest pain earlier in the day that had resolved with a lingering headache, described as 4/10 generalized pressure pain with general malaise. Denies dyspnea, fevers or chills, nausea or vomiting or any cough. He reported to the ER a day prior for complaints of abdominal pain and complaints of small amount of rectal BRB with wiping. CT A/P obtained noting urinary bladder distention, diffuse urinary bladder diverticuli or ureteroceles, small calculi noted in the bladder, dependent hyperdense material in the left lower side of the urinary bladder possibly small milk of calcium stones. There is an umbilical hernia containing fat. There are diffuse degenerative changes of the visualized lumbar spine. Positive for UA and started on Keflex. Catheter was placed secondary to urinary retention with referral to urology at discharge. Work-up in the ED included T 97.7, heart rate 85, BP 115/79, respiratory rate 25, 99% on room air, CBC with WC 11, hemoglobin 13.1, platelet 147 with left shift, BNP 1243.8, troponin 168, BMP with chloride 110, BUN/creatinine 24/1.22, glucose 106 otherwise not marked appearing, chest x-ray with no acute cardiopulmonary findings with chronic changes, EKG SR with PVCs with no acute evidence of ischemia and no change from day prior. In the ED patient administered Tylenol 650 mg po x 1, ASA 324 mg po x 1 and NS. Patient is a poor historian related to dementia. had administered am Eliquis but no evening meds that was confirmed and heparin drip was initiated. Cardiology following. 08/04/21 Patient feels better and headache has resolved. Troponin mildly elevated however did not trend. Prior cath October 2019 demonstrated nonobstructive coronary arteries, ramus branch with 65% proximal stenosis. Echocardiogram 06/11/2020 demonstrated an EF of 10%, stage III diastolic dysfunction. Repeat ECHO 08/05 shows enlarged ventricles with mild to moderate valve insufficiency in the mitral and tricupsid valves with EF of 15%. ICD in place. Patient will resume Eliquis and likely begin a NEDA/ARB or Entresto before discharge. Patient will be following up with urology at discharge. Dementia appears stable at this time with continued Aricept. Does not appear to have any reported behavioral symptoms. PCP: Dr Brain Bustamante, Specialists: Dr Yeager-cardiology. Pt saw Dr Aguilar years ago. Per , appt is being scheduled w/Dr Aguilar prior to discharge. Preferred Pharmacy: [facility]. Patient and did complete while inpatient. HPOA LNOK: Clari. DaughterChitra Pt lives w/ in one-story home w/3 steps to enter. Independent w/ADL's. When inquired about IADL's/home mgmt tasks, pt stated, I can do it, but won't. and pt both go grocery shopping. manages home tasks, medications and appts. Pt and both drive. Denies using any DME and denies needs. They state pt does not use BIPAP or CPAP. No hx SNF. Has had HHC in the past after cardiac surgery. Pt and family deny need for HHC at this time. Pt and family wish for pt to return home and state has no concerns with going home at time of discharge. Pt states does not smoke or drink ETOH. Seen today in his room with daughterChitra present. Patient is alert and oriented. Able to answer questions without assistance. Reports that he feels better today and slept well last night. Denies any further chest pain, headache or issues with mobility. Able to walk independently but staff assist for safety. Palliative and hospice both explained due to EF of 15%. Want to discuss with Clari who is on her way in. Palliative brochure and business card left with family. Plan is for patient to discharge back home with his and follow up with cardiology and urology. Denies any issues or concerns with catheter. [facility] Medical History Abnormal EKG Acute on chronic combined systolic (congestive) and diastolic (congestive) heart failure Atherosclerotic heart disease of [place] coronary artery without angina pectoris Atrial fibrillation and flutter Chronic systolic CHF (congestive heart failure) Essential (primary) hypertension HLD (hyperlipidemia) Nonischemic cardiomyopathy Nonrheumatic aortic (valve) stenosis with insufficiency Nonrheumatic mitral (valve) insufficiency Nonrheumatic tricuspid (valve) insufficiency NSTEMI (non-ST elevated myocardial infarction) (06/11/20) PTSD (post-traumatic stress disorder) PVCs (premature ventricular contractions) Right bundle branch block Home Medications acetaminophen 650 mg PO Q6H PRN PRN tab 06/12/20 [Rx Last Taken Unknown] furosemide 40 mg tablet 40 mg PO BID #180 tablet 07/26/20 [Rx Last Taken Unknown] carvedilol 6.25 mg tablet 6.25 mg PO BID #180 tablet 03/13/21 [Rx Last Taken Unknown] atorvastatin 40 mg tablet 40 mg PO QPM #90 tab 03/19/21 [Rx Last Taken Unknown] isosorbide mononitrate 30 mg tablet,extended release 24 hr 30 mg PO DAILY #30 tab 04/01/21 [Rx Last Taken Unknown] nitroglycerin 0.4 mg sublingual tablet 0.4 mg SUBLINGUAL Q5-15M PRN #25 tab 04/01/21 [Rx Last Taken Unknown] apixaban 2.5 mg tablet 2.5 mg PO BID #180 tab 07/01/21 [Rx Last Taken Unknown] dapagliflozin 5 mg tablet 5 mg PO DAILY #90 tab 07/01/21 [Rx Last Taken Unknown] aspirin [Baby Aspirin] 81 mg PO DAILY 08/02/21 [History Last Taken Unknown] cephalexin 500 mg PO Q6 7 Days #28 cap 08/02/21 [Rx Last Taken Unknown] cholecalciferol (vitamin D3) 50 mcg (2,000 unit) capsule 50 mcg PO DAILY 08/02/21 [History Last Taken Unknown] donepezil 10 mg DAILY 08/02/21 [History Last Taken Unknown] Allergy/AdvReac Type Severity Reaction Status Date / Time Penicillins Allergy Severe Hives Verified 08/03/21 19:02 Family History Mother Cancer Kidney disease Father Myocardial infarction Brother Heart disease Surgical History History of aortic valve replacement with tissue graft (07/26/07) History of left heart catheterization (11/22/19) History of prostate surgery Implantable cardioverter-defibrillator (ICD) in situ Social History household members: spouse Smoking Status: Former smoker quit date: 04/27/71 alcohol intake: never substance use type: does not use what type of physical activity do you participate in: walking frequency: daily ROS Constitutional Constitutional: Denies difficulty sleeping, fatigue, frequent falls or headache(s) ENT HEENT: Reports none Cardiovascular Cardiovascular: Denies chest pain at rest, chest pain with activity, cold extremities, cyanosis, dyspnea at rest or dyspnea on exertion Respiratory/Chest Respiratory/Chest: Denies chest tightness, cough, dyspnea or dyspnea on exertion Gastrointestinal Gastrointestinal: Denies abdominal pain, anorexia or constipation Musculoskeletal Musculoskeletal: Reports none Integumentary Integumentary: Reports none Psychiatric Psychiatric: Denies anxiety, behavioral changes or irritability Physical Exam Const alert, oriented x3 and no apparent distress General Appearance: cooperative and comfortable HEENT normocephalic and head/scalp atraumatic Eyes EOMs intact bilaterally, conjunctivae normal and no scleral icterus Neck no lymphadenopathy and supple Resp normal respiratory effort, normal air movement and no use of accessory muscles Auscultation: clear to auscultation bilaterally Cardio regular rate, regular rhythm, S1 normal heart sound, S2 normal heart sound and no JVD Cardio Narrative: ICD Peripheral Pulses: posterior tibial pulses present GI normal to inspection, nondistended, normoactive bowel sounds, soft to palpation and non-tender Bladder / Kidney Exam: catheter in place Back/Spine normal ROM Extremity normal to inspection, full ROM and no clubbing, cyanosis or edema Skin no rashes or lesions noted Neuro CN's II-XII intact bilaterally, moves all extremities and no focal motor deficits Psych Appearance: appropriate Attitude: calm Activity / Motor Behavior: appropriate eye contact Speech: normal speech Thought Process: normal thought process
[2021-08-06 10:05] VITALS: BP 148/69; PULSE 58; RESP 16; TEMP 36.6; O2SAT 94
--- NOTE | 2021-08-06 10:08 | PCM.DC ---
Discharge Instructions Diet Discharge Diet: Low fat / Low cholesterol Activity Discharge Activity: Return to Normal Activity Dressing / Incision Call your doctor if you observe: Shortness of breath, Dizziness and Chest pain Follow Up Care Test Results: Test results from this visit will be discussed in further detail at your follow-up appointment, if applicable. Discharge Plan Admission Admit Date/Time: 08/03/21 20:29 Primary Reason for Your Visit: Chest pain Attending Provider: Supriya Alonzo Primary Care Provider: Brain Bustamante Consulting Providers: Gunnar Main Discharge Orders/Prescriptions Prescriptions: New amiodarone 200 mg Tablet 200 mg PO DAILYCM 30 Days Qty: 30 RF: 0 tamsulosin 0.4 mg Capsule 0.4 mg PO 1730 30 Days Qty: 30 RF: 0 Continued nitroglycerin [Nitrostat] 0.4 mg tablet, sublingual 0.4 mg sublingual Q5-15M PRN (Reason: chest pain) Qty: 25 RF: 3 Farxiga 5 mg tablet 5 mg PO DAILY Qty: 90 RF: 3 cholecalciferol (vitamin D3) 50 mcg (2,000 unit) capsule 50 mcg PO DAILY RF: 0 acetaminophen 325 MG tablet 650 mg PO Q6H PRN PRN (Reason: Pain Score 1-10/Temp > 100.7 F) RF: 0 aspirin 81 mg Tablet,Chewable 81 mg PO DAILY RF: 0 cephalexin 500 mg capsule 500 mg PO Q6 7 Days Qty: 28 RF: 0 furosemide 40 mg tablet 40 mg PO BID Qty: 60 RF: 0 atorvastatin 40 mg tablet 40 mg PO QPM Qty: 30 RF: 0 carvedilol 6.25 mg tablet 6.25 mg PO BID Qty: 60 RF: 0 isosorbide mononitrate 30 mg tablet extended release 24 hr 30 mg PO DAILY Qty: 30 RF: 0 apixaban 2.5 mg tablet 2.5 mg PO BID Qty: 60 RF: 0 Changed donepezil 10 mg tablet 10 mg PO DAILY Qty: 0 RF: 0 Referrals / Follow Up: Brain Bustamante DO [Primary Care Provider] - In 1 Week Rivera Aguilar MD [STAFF PHYSICIAN] - Within 1 Week (please make appt prior to dc) Louie Yeager MD [STAFF PHYSICIAN] - Within 2 Weeks (SITE COORDINATOR/PA follow up) Disposition Disposition (needs filled in before D/C Order can be placed): Home, Self Care
--- NOTE | 2021-08-06 10:46 | PCM.DC.SUM ---
Documented by User: Margarita Petersen NP, MANUFACTURING PROJECT ENGINEER-C 08/06/21 10:52 Providers Date of Admission: 08/03/21 Date of Discharge: 08/06/21 Primary Care Physician: Dr. Brain Bustamante, Consultations 08/03/21 22:02 Consult: Cardiology Routine Consulting Provider: Gunnar Main Reason for Consult: NSTEMI EMERGENT Consult: No MD Notified: Yes Date Notified: 08/03/21 Time Notified: 20:31 Method of Notification: per ED. Reason For Visit: NONSTEMI Diagnosis Discharge Diagnosis (1) Neurogenic bladder: Status: Acute Code(s): N31.9 - Neuromuscular dysfunction of bladder, unspecified (2) Acute urinary retention: Status: Acute Code(s): R33.8 - Other retention of urine (3) Chest pain: Status: Acute Code(s): R07.9 - Chest pain, unspecified (4) Headache: Status: Acute Code(s): R51.9 - Headache, unspecified (5) Memory loss, short term: Status: Acute Code(s): R41.3 - Other amnesia (6) Elevated troponin: Status: Acute Code(s): R77.8 - Other specified abnormalities of plasma proteins (7) Acute on chronic combined systolic and diastolic heart failure: Status: Chronic Code(s): I50.43 - Acute on chronic combined systolic (congestive) and diastolic (congestive) heart failure (8) Implantable cardioverter-defibrillator (ICD) in situ: Status: Chronic Code(s): Z95.810 - Presence of automatic (implantable) cardiac defibrillator (9) Nonischemic cardiomyopathy: Status: Chronic Code(s): I42.8 - Other cardiomyopathies Medications at Discharge Home Medications acetaminophen 650 mg PO Q6H PRN PRN tab 06/12/20 nitroglycerin 0.4 mg sublingual tablet 0.4 mg SUBLINGUAL Q5-15M PRN #25 tab 04/01/21 dapagliflozin 5 mg tablet 5 mg PO DAILY #90 tab 07/01/21 aspirin 81 mg PO DAILY 08/02/21 cephalexin 500 mg PO Q6 7 Days #28 cap 08/02/21 cholecalciferol (vitamin D3) 50 mcg (2,000 unit) capsule 50 mcg PO DAILY 08/02/21 amiodarone 200 mg PO DAILYCM 30 Days #30 tab 08/06/21 apixaban 2.5 mg PO BID #60 tab 08/06/21 atorvastatin 40 mg PO QPM #30 tab 08/06/21 carvedilol 6.25 mg PO BID #60 tablet 08/06/21 donepezil 10 mg PO DAILY #0 tab 08/06/21 furosemide 40 mg PO BID #60 tablet 08/06/21 isosorbide mononitrate 30 mg PO DAILY #30 tab 08/06/21 tamsulosin 0.4 mg PO 1730 30 Days #30 cap 08/06/21 Hospital Course Operations None Procedures 2-D Echocardiogram Summary of Care Provided Hospital Course: Patient is a 76-year-old male admitted 08/03/21 due to chest pain. 1. Chest pain-cardiology consulted during admission. Troponin mildly elevated however did not trend. Prior cath October 2019 demonstrated nonobstructive coronary arteries, ramus branch with 65% proximal stenosis. Documented PCI would be high risk given severe LV dysfunction. Repeat echocardiogram demonstrates an EF of 15%, mild mitral valve insufficiency, moderate tricuspid valve insufficiency. Aspirin, statin. Plan for continued medical management. Discuss addition of neda/arb or Entresto at outpatient follow up. Follow-up with PCP and cardiology at discharge. Patient to follow with palliative care as well. 2. Nonsustained ventricular tachycardia-initiate amiodarone 200 mg daily. K, mag normal. 3. 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 Echocardiogram 06/11/2020 demonstrated an EF of 10%, stage III diastolic dysfunction. Repeat echo with EF 15% as noted above. No evidence of acute failure. Continue home Lasix regimen. 4. Recent UTI with urinary retention-continue previously prescribed Keflex and Garcia catheter. Outpatient follow-up with urology. Initiated on Flomax. 5. CAD-continue aspirin, statin, carvedilol, isosorbide. 6. Paroxysmal atrial fibrillation-on Eliquis, carvedilol. 7. Chronic kidney disease stage IIIa-at baseline. 8. Hypertension-stable, continue carvedilol, Lasix, isosorbide. 9. Hyperlipidemia-continue statin. 10. 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 11. Dementia, no known behavioral disturbance history-continue donepezil. 12. Former tobacco use-encouraged cessation. 13. Severe protein calorie malnutrition-as evidenced by cachectic appearance, evidence of muscle and fat loss. Nutrition consulted. Continue ensure/dietary supplementation. Physical Exam Const alert, oriented x3 and no apparent distress Orientation / Consciousness: awake, oriented to person, oriented to place and oriented to time Nutritional Appearance: cachectic HEENT normocephalic and moist oral mucous membranes Eyes PERRL, EOMs intact bilaterally and conjunctivae normal Neck no lymphadenopathy Resp normal respiratory effort and clear to auscultation bilaterally Cardio regular rate, regular rhythm and no murmurs Cardio Narrative: Intermittent nonsustained V. tach Peripheral Pulses: pulses 2+ throughout GI normal to inspection, nondistended, normoactive bowel sounds, non-tender and non-distended Extremity normal to inspection Skin no rashes or lesions noted Lesions: no lesions Rashes: no rashes Trauma: no lacerations or abrasions Neuro CN's II-XII intact bilaterally, no focal motor deficits, no sensory deficits noted and deep tendon reflexes 2+ bilaterally Psych mental status grossly normal and affect normal Patient seen and examined prior to discharge. Physical assessment as noted above. Patient is stable for discharge with follow up recommendations as noted above. This patient was seen by NIK Marie under the supervision of Dr. Alonzo. Weight / BMI Weight Weight: 127 lb 6.835 oz Body Mass Index (BMI) 17.9 ABG / Lab / Microbiology Data Result Diagrams: 08/05/21 05:23 08/06/21 05:45 Laboratory: Laboratory Results - last 24 hr 08/05/21 12:20: APTT 117.9 H* 08/06/21 05:45: Sodium 137, Potassium 3.6, Chloride 101, Carbon Dioxide 28.0, Anion Gap 8, BUN 20 H, Creatinine 1.18, Estim Creat Clear Calc 44.22, Est GFR (MDRD) Af Amer 77, Est GFR (MDRD) Non-Af 64, BUN/Creatinine Ratio 16.9, Glucose 111 H, Calcium 8.5 Radiography Diagnostic Testing: Radiology Impression Echocardiogram 08/03/21 22:02 Interpretation Summary The study was technically difficult. Severely dilated left ventricle. Severe global left ventricular systolic dysfunction. The estimated ejection fraction is 15 %. The left atrium is mildly enlarged. The right atrium is mildly enlarged. Anterior leaflet diffuse mitral valve thickening. Mild (1+) mitral valve insufficiency. Moderate (2+) tricuspid valve insufficiency. Stable appearing bioprosthetic aortic valve apparatus. Mild focal aortic valve calcification. Trivial pulmonic valve insufficiency. Right ventricular systolic pressure estimated to be 22 mmHg. Unable to assess diastolic dysfunction. ICD or pacer leads identified within the right atrium ICD or pacer leads identified within the right ventricle. Ordering Physician: China Wallace Referring Physician: Rex Bustamante M.D. Performed By: Hemal Marrufo RCS D/C Instructions Discharge Diet: Low fat / Low cholesterol Call your doctor if you observe: Shortness of breath, Dizziness and Chest pain Meaningful Use Info Meaningful Use Diagnoses (Choose all that apply): None applicable Discharge Plan Admission Admit Date/Time: 08/03/21 20:29 Primary Reason for Your Visit: Chest pain Attending Provider: Supriya Alonzo Primary Care Provider: Brain Bustamante Consulting Providers: Gunnar Main Discharge Orders/Prescriptions Prescriptions: New amiodarone 200 mg Tablet 200 mg PO DAILYCM 30 Days Qty: 30 RF: 0 tamsulosin 0.4 mg Capsule 0.4 mg PO 1730 30 Days Qty: 30 RF: 0 Continued nitroglycerin [Nitrostat] 0.4 mg tablet, sublingual 0.4 mg sublingual Q5-15M PRN (Reason: chest pain) Qty: 25 RF: 3 Farxiga 5 mg tablet 5 mg PO DAILY Qty: 90 RF: 3 cholecalciferol (vitamin D3) 50 mcg (2,000 unit) capsule 50 mcg PO DAILY RF: 0 acetaminophen 325 MG tablet 650 mg PO Q6H PRN PRN (Reason: Pain Score 1-10/Temp > 100.7 F) RF: 0 aspirin 81 mg Tablet,Chewable 81 mg PO DAILY RF: 0 cephalexin 500 mg capsule 500 mg PO Q6 7 Days Qty: 28 RF: 0 furosemide 40 mg tablet 40 mg PO BID Qty: 60 RF: 0 atorvastatin 40 mg tablet 40 mg PO QPM Qty: 30 RF: 0 carvedilol 6.25 mg tablet 6.25 mg PO BID Qty: 60 RF: 0 isosorbide mononitrate 30 mg tablet extended release 24 hr 30 mg PO DAILY Qty: 30 RF: 0 apixaban 2.5 mg tablet 2.5 mg PO BID Qty: 60 RF: 0 Changed donepezil 10 mg tablet 10 mg PO DAILY Qty: 0 RF: 0 Referrals / Follow Up: Brain Bustamante DO [Primary Care Provider] - In 1 Week Rivera Aguilar MD [STAFF PHYSICIAN] - Within 1 Week (please make appt prior to dc) Louie Yeager MD [STAFF PHYSICIAN] - Within 2 Weeks (MANUFACTURING PROJECT ENGINEER/PA follow up) Disposition Disposition (needs filled in before D/C Order can be placed): Home, Self Care Documented by User: Dr. Supriya Alonzo DO 08/06/21 12:25 Providers Date of Admission: 08/03/21 Date of Discharge: 08/06/21 Reason For Visit: NONSTEMI Diagnosis Discharge Diagnosis (1) Acute urinary retention: Status: Acute Code(s): R33.8 - Other retention of urine (2) Acute on chronic combined systolic and diastolic heart failure: Status: Chronic Code(s): I50.43 - Acute on chronic combined systolic (congestive) and diastolic (congestive) heart failure (3) Non-sustained ventricular tachycardia: Status: Acute Code(s): I47.2 - Ventricular tachycardia (4) Urinary tract infection: Status: Acute Code(s): N39.0 - Urinary tract infection, site not specified (5) Non-ST elevated myocardial infarction (non-STEMI): Status: Acute Code(s): I21.4 - Non-ST elevation (NSTEMI) myocardial infarction Medications at Discharge Home Medications acetaminophen 650 mg PO Q6H PRN PRN tab 06/12/20 nitroglycerin 0.4 mg sublingual tablet 0.4 mg SUBLINGUAL Q5-15M PRN #25 tab 04/01/21 dapagliflozin 5 mg tablet 5 mg PO DAILY #90 tab 07/01/21 aspirin 81 mg PO DAILY 08/02/21 cephalexin 500 mg PO Q6 7 Days #28 cap 08/02/21 cholecalciferol (vitamin D3) 50 mcg (2,000 unit) capsule 50 mcg PO DAILY 08/02/21 amiodarone 200 mg PO DAILYCM 30 Days #30 tab 08/06/21 apixaban 2.5 mg PO BID #60 tab 08/06/21 atorvastatin 40 mg PO QPM #30 tab 08/06/21 carvedilol 6.25 mg PO BID #60 tablet 08/06/21 donepezil 10 mg PO DAILY #0 tab 08/06/21 furosemide 40 mg PO BID #60 tablet 08/06/21 isosorbide mononitrate 30 mg PO DAILY #30 tab 08/06/21 tamsulosin 0.4 mg PO 1730 30 Days #30 cap 08/06/21 Hospital Course Operations None Procedures 2-D Echocardiogram Summary of Care Provided Minutes Spent on Discharge: 38 Hospital Course: This patient was seen in conjunction with Margarita Petersen NP. The following is representation my independent history and physical examination. Please see below for addendum the above. Mr. Guevara is a 76-year-old white male who presented to the emergency department was [facility] on 08/03/2021 with a chief complaint of chest pain. The patient has a known history of chronic systolic and diastolic heart failure from a nonischemic cardiomyopathy with NEDA placement as well as valvular heart disease. The day of presentation he complained of chest discomfort that had occurred early in the day however the patient had noted it resolved upon presentation, he also had general malaise but no dyspnea, fever, or chills. He had been seen in the emergency department the day prior and was found to have a significantly distended urinary bladder for which a Garcia was placed and his UA was suggestive of infection he was therefore started on Keflex. He was discharged at that time and asked to follow-up with urology. Unfortunately his urine culture was canceled from that emergency department visit and we do not have an organism of which we are treating. The emergency department his vital signs were overall unremarkable. His CBC was fairly unremarkable. His BNP was markedly elevated at 1243.8 and his initial troponin was 168. His renal function was at baseline on his BNP and his chemistry panel had no other significant abnormalities. His chest x-ray showed no acute cardiopulmonary findings. His EKG showed normal sinus rhythm with PVCs and no evidence of ischemic changes. Given his troponin elevation he was given full dose aspirin and placed on a heparin drip in the emergency department and the case was discussed with the on-call auto finance sales rep who evaluated the patient. After cardiology evaluation recommendations were to repeat his echocardiogram and continue medical therapy. His device was interrogated and showed no recent shocks and his cardiac catheterization was reviewed which was performed in October 2019 and continuation of medical therapy was recommended. During his course he developed some nonsustained VT for which she was placed on 200 mg of amiodarone daily. He had no further events related to this. He was given IV Lasix in the emergency department but otherwise was maintained on his home oral doses. He diuresed well with his home dose of Lasix and was about 3 L negative for his hospitalization and dropped about 3 kg. His echocardiogram showed an EF of 15% with biatrial enlargement, moderate tricuspid insufficiency, stable bioprosthetic aortic valve and a right ventricular systolic pressure of 22 mmHg. This was stable when compared to previous echocardiograms. Given his comorbidities as well as his significant systolic heart failure he was evaluated by palliative care during his hospitalization. Overall hospice was ultimately recommended however the patient declined at this time but will continue with palliative care after discharge. He is to follow-up with cardiology palliative care as an outpatient. He also will need follow-up with urology as an outpatient as well. Flomax was initiated for his urinary retention during his hospitalization and a prescription was faxed at discharge. He was able to be discharged home in stable condition on 08/06/2021. 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 Physical Exam Const alert, oriented x3 and no apparent distress Constitutional Narrative: Cachectic, older white male, sitting up in bed, daughter, patient appears older than stated age General Appearance: cooperative, comfortable and well kempt Orientation / Consciousness: awake, oriented to person, oriented to place and oriented to time Exam Limitations: no limitations Nutritional Appearance: cachectic HEENT normocephalic, head/scalp atraumatic and moist oral mucous membranes HEENT Narrative: Hard of hearing, Mallampati is 1, dentition is poor Eyes PERRL, EOMs intact bilaterally and conjunctivae normal Neck no lymphadenopathy, supple, no JVD and no carotid bruits Neck Narrative: Trachea midline, no thyroid enlargement Resp normal respiratory effort, no retractions, no use of accessory muscles and clear to auscultation bilaterally Resp Narrative: Diffusely diminished but otherwise clear Auscultation: Negative for crackles, rales, rhonchi or wheezes Cardio regular rate, S1 normal heart sound, S2 normal heart sound, no murmurs, no rub, no gallops, no clicks and no JVD Cardio Narrative: Irregularly irregular rhythm with few ectopic beats Peripheral Pulses: pulses 2+ throughout GI normal to inspection, nondistended, normoactive bowel sounds, soft to palpation, non-tender and non-distended GI Narrative: Scaphoid abdomen Extremity normal to inspection and no clubbing, cyanosis or edema Extremity Narrative: Edema has resolved Skin no rashes or lesions noted, no wounds, skin turgor normal and no jaundice Lesions: no lesions Rashes: no rashes Trauma: no lacerations or abrasions Neuro oriented x3, CN's II-XII intact bilaterally, moves all extremities, no focal motor deficits, no sensory deficits noted and deep tendon reflexes 2+ bilaterally Sensorium / Orientation: awake and alert Speech: speech normal Psych mental status grossly normal and affect normal Psych Narrative: Appropriately interactive ABG / Lab / Microbiology Data Result Diagrams: 08/05/21 05:23 08/06/21 05:45 Discharge Plan Admission Admit Date/Time: 08/03/21 20:29 Primary Reason for Your Visit: Chest pain Attending Provider: Supriya Alonzo Primary Care Provider: Brain Bustamante Consulting Providers: Gunnar Main Discharge Orders/Prescriptions Prescriptions: New amiodarone 200 mg Tablet 200 mg PO DAILYCM 30 Days Qty: 30 RF: 0 tamsulosin 0.4 mg Capsule 0.4 mg PO 1730 30 Days Qty: 30 RF: 0 Continued nitroglycerin [Nitrostat] 0.4 mg tablet, sublingual 0.4 mg sublingual Q5-15M PRN (Reason: chest pain) Qty: 25 RF: 3 Farxiga 5 mg tablet 5 mg PO DAILY Qty: 90 RF: 3 cholecalciferol (vitamin D3) 50 mcg (2,000 unit) capsule 50 mcg PO DAILY RF: 0 acetaminophen 325 MG tablet 650 mg PO Q6H PRN PRN (Reason: Pain Score 1-10/Temp > 100.7 F) RF: 0 aspirin 81 mg Tablet,Chewable 81 mg PO DAILY RF: 0 cephalexin 500 mg capsule 500 mg PO Q6 7 Days Qty: 28 RF: 0 furosemide 40 mg tablet 40 mg PO BID Qty: 60 RF: 0 atorvastatin 40 mg tablet 40 mg PO QPM Qty: 30 RF: 0 carvedilol 6.25 mg tablet 6.25 mg PO BID Qty: 60 RF: 0 isosorbide mononitrate 30 mg tablet extended release 24 hr 30 mg PO DAILY Qty: 30 RF: 0 apixaban 2.5 mg tablet 2.5 mg PO BID Qty: 60 RF: 0 Changed donepezil 10 mg tablet 10 mg PO DAILY Qty: 0 RF: 0 Referrals / Follow Up: Brani Bustamante DO [Primary Care Provider] - In 1 Week Rivera Aguilar MD [STAFF PHYSICIAN] - Within 1 Week (please make appt prior to dc) Louie Yeager MD [STAFF PHYSICIAN] - Within 2 Weeks (MANUFACTURING PROJECT ENGINEER/PA follow up) Disposition Disposition (needs filled in before D/C Order can be placed): Home, Self Care Charges/Coding Visit Charges Inpatient E&M: 40314 Disch Hosp
--- NOTE | 2021-08-06 12:33 | PHA.DC.MC ---
Pharmacy Service has performed discharge medication reconciliation and counseling for this patient. 1. AMIODARONE 200MG PO DAILYCM 2. TAMSULOSIN 0.4MG PO DAILY @ 1730 The patient's discharge medication list was reviewed for discrepancies and discrepancies were resolved. Home Medications acetaminophen 650 mg PO Q6H PRN PRN tab 06/12/20 nitroglycerin 0.4 mg sublingual tablet 0.4 mg SUBLINGUAL Q5-15M PRN #25 tab 04/01/21 dapagliflozin 5 mg tablet 5 mg PO DAILY #90 tab 07/01/21 aspirin 81 mg PO DAILY 08/02/21 cephalexin 500 mg PO Q6 7 Days #28 cap 08/02/21 cholecalciferol (vitamin D3) 50 mcg (2,000 unit) capsule 50 mcg PO DAILY 08/02/21 amiodarone 200 mg PO DAILYCM 30 Days #30 tab 08/06/21 apixaban 2.5 mg PO BID #60 tab 08/06/21 atorvastatin 40 mg PO QPM #30 tab 08/06/21 carvedilol 6.25 mg PO BID #60 tablet 08/06/21 donepezil 10 mg PO DAILY #0 tab 08/06/21 furosemide 40 mg PO BID #60 tablet 08/06/21 isosorbide mononitrate 30 mg PO DAILY #30 tab 08/06/21 tamsulosin 0.4 mg PO 1730 30 Days #30 cap 08/06/21 The patient was counseled on the following discharge medications and changes in medications for homegoing were reviewed. The Reason for Use, instructions for use, and potential side effects were reviewed for all new medications. The patient's questions regarding all of their medications were answered. The patient was able to verbally demonstrate an understanding of their discharge medications.
== END 2021-08-06 13:28 | disposition home or self-care (01) | DRG 280 ==
LOC: ED 20:25 → PCU 20:50
PROVIDERS: Internal Medicine Interventional Cardiology; Nurse Practitioner Family; Student in an Organized Health Care Education/Training Program; Admitting Provider Family Medicine; Emergency Provider Emergency Medicine; PCP Family Medicine; Visit Provider Internal Medicine
DX: I13.0 Hypertensive heart and chronic kidney disease with heart failure and stage 1 through stage 4 chronic kidney disease, or unspecified chronic kidney disease (principal); I21.A1 Myocardial infarction type 2; E43 Unspecified severe protein-calorie malnutrition; I50.43 Acute on chronic combined systolic (congestive) and diastolic (congestive) heart failure; F03.91 Unspecified dementia, unspecified severity, with behavioral disturbance; I47.2 Ventricular tachycardia; I45.2 Bifascicular block; N39.0 Urinary tract infection, site not specified; Z68.1 Body mass index [BMI] 19.9 or less, adult; I42.8 Other cardiomyopathies; I48.0 Paroxysmal atrial fibrillation; J44.9 Chronic obstructive pulmonary disease, unspecified; N18.31 Chronic kidney disease, stage 3a; I25.10 Atherosclerotic heart disease of native coronary artery without angina pectoris; I44.0 Atrioventricular block, first degree; E78.5 Hyperlipidemia, unspecified; K42.9 Umbilical hernia without obstruction or gangrene; I49.3 Ventricular premature depolarization; N31.9 Neuromuscular dysfunction of bladder, unspecified; Z87.891 Personal history of nicotine dependence; Z79.01 Long term (current) use of anticoagulants; Z95.810 Presence of automatic (implantable) cardiac defibrillator; Z79.82 Long term (current) use of aspirin; Z95.3 Presence of xenogenic heart valve; Z79.899 Other long term (current) drug therapy
CPT/HCPCS: 36415; 51702; 71045; 74177; 80048; 80053; 80061; 81001; 82274; 83605; 83690; 83735; 83880; 84484; 85025; 85610; 85730; 86850; 86900; 86901; 93005; 93306; 96360; 97162; 97166; 97530; 97802; 99285; J7030; Q9957; Q9967; A4216

== ENCOUNTER 2021-12-10 13:06 | Inpatient (IN) | payer MEDICARE, BC, SELFPAY ==
[2021-12-10] VITALS (9 sets, daily range): BP systolic 96–109; BP diastolic 66–81; PULSE 66–88; RESP 16–18; TEMP 36.1–36.6; O2SAT 94–99; BMI 16.7; BMI 17.2
--- NOTE | 2021-12-10 13:38 | EKG12_ITS ---
Test Reason : CP Blood Pressure : / mmHG Vent. Rate : 073 BPM Atrial Rate : 029 BPM P-R Int : 000 ms QRS Dur : 170 ms QT Int : 466 ms P-R-T Axes : 000 -36 143 degrees QTc Int : 513 ms Undetermined rhythm : Consider Atrial Fibrillation Left axis deviation Left bundle branch block Abnormal ECG Confirmed by GOOD GARZA, MARY ([id number]), editor dictionary BRENT WAHL ([id number]) on 12/11/2021 12:51:36 PM Referred By: Confirmed By:MARY FUNK MD
--- NOTE | 2021-12-10 13:40 | RAD_ITS ---
INDICATION: chest pain EXAMINATION/TECHNIQUE: X-RAY - XR Chest 1 View COMPARISON: 08/03/2021. FINDINGS: LINES/DEVICES: AICD visualized in the left chest with single lead in the RV. Sternal wires are seen in position. LUNGS: Mild prominence of the bronchovascular interstitial lung markings is visualized with subsegmental atelectatic streaks seen most prominent in the left lower lung field. No consolidation, edema or effusion. No pneumothorax. MEDIASTINUM AND CARDIOVASCULAR STRUCTURES: Tortuosity of the thoracic aorta visualized with calcifications visualized in the aortic arch. Cardiac mediastinal silhouette is otherwise unremarkable. BONES AND SOFT TISSUES: Degenerative bone changes are seen. RAD/Chest 1 View (Portable) IMPRESSION: Chronic interstitial lung changes with superimposed scattered areas of airspace opacification and subsegmental atelectatic streaks correlate for early infiltrates or Covid 19 disease. Electronically Signed: Zay Lira MD at 14:05 EDT ,
--- NOTE | 2021-12-10 13:57 | ED.RN ---
Per , pt. has not been taking any of his medications for weeks. When asked patient why he is not taking his medications he shrugged his shoulders but gave no verbal answer.
[2021-12-10 14:05] LABS: Absolute Lymphocyte Count 1.61 X10^3/uL (0.83-4.51); Absolute Neutrophil Count 3.6 X10^3/uL (2.0-7.7); Basophil# 0.01 X10^3/uL; Basophil% 0.2 % (0-1); Eosinophil# 0.01 X10^3/uL; Eosinophils% 0.2 % (0-5); Hematocrit 49.5 % (40-54); Hemoglobin 16.4 g/dL (13.0-16.5); Lymphocyte # 1.61 X10^3/ul (0.83-4.51); Mean Corp Hgb Conc 33.1 g/dL (32-36); Mean Corpuscular Hgb 30.4 pg (27.0-32.0); Mean Corpuscular Volume 91.7 fL (80-94); Mean Platelet Vol. 11.2 fl (6.2-12.0); Monocyte% 8.7 % (0-10); NRBC Flagged by Analyzer 0 % (0-5); Neutrophil # 3.59 X10^3/uL (2.7-7.7); Neutrophil % 62.6 % (47-70); Platelet Count 105 K/mm3 (150-450); RBC Distribution Width CV 13.6 % (11.6-14.6); RBC Distribution Width SD 45.9 fl (35.1-43.9); White Blood Count 5.7 K/mm3 (4.4-11.0)
--- NOTE | 2021-12-10 14:13 | EDS_ITS ---
HPI History of Present Illness Chief Complaint: Chest Pain Informant: patient and spouse/S.O. Limited: dementia Narrative Narrative: Patient presents with for evaluation of chest pain. Patient is an extremely poor historian. Patient and tell me that he has been ill for the past week. They went to [facility] yesterday and he tested positive for COVID. He has been having intermittent sharp stabbing pain over his pacemaker site for quite some time. He tells me it has been more frequent since he became ill but yet tells me the last time it happened was a week ago. The report from [facility] states that he went there with 7 to 10 days of chest pressure. His test results revealed a troponin of 600. Plan was to transfer him to [facility] as his concrete pourer is here however patient and family chose to sign out AGAINST MEDICAL ADVICE. Patient and today state that they were discharged from [facility] and told his to come to [facility] today to be evaluated for his heart. When I asked him specifically what is going on with his heart they just said a bunch of stuff. Patient denies having fever or chills. He denies feeling short of breath but feels that he is short of breath. He has had a dry cough. 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 Atrial fibrillation and flutter Chronic systolic CHF (congestive heart failure) Essential (primary) hypertension HLD (hyperlipidemia) Memory loss, short term Neurogenic bladder Non-ST elevated myocardial infarction (non-STEMI) Non-sustained ventricular tachycardia Nonischemic cardiomyopathy Nonrheumatic aortic (valve) stenosis with insufficiency Nonrheumatic mitral (valve) insufficiency Nonrheumatic tricuspid (valve) insufficiency NSTEMI (non-ST elevated myocardial infarction) (06/11/20) PTSD (post-traumatic stress disorder) PVCs (premature ventricular contractions) Right bundle branch block Home Medications acetaminophen 325 mg tablet 650 mg PO Q6H PRN PRN Pain Score 1-10/Temp > 100.7 F 06/12/20 [Rx Last Taken Unknown] nitroglycerin 0.4 mg sublingual tablet (Nitrostat) 0.4 mg sublingual Q5-15M PRN chest pain #25 tabs 04/01/21 [Rx Last Taken Unknown] dapagliflozin 5 mg tablet (Farxiga) 5 mg PO DAILY #90 tabs 07/01/21 [Rx Last Taken Unknown] cholecalciferol (vitamin D3) 50 mcg (2,000 unit) capsule 50 mcg PO DAILY vitamin 08/02/21 [History Last Taken Unknown] apixaban 2.5 mg tablet 2.5 mg PO BID #60 tabs 08/06/21 [Rx Last Taken Unknown] atorvastatin 40 mg tablet 40 mg PO QPM #30 tabs 08/06/21 [Rx Last Taken Unknown] isosorbide mononitrate 30 mg tablet,extended release 24 hr 30 mg PO DAILY #30 tabs 08/06/21 [Rx Last Taken Unknown] tamsulosin 0.4 mg capsule 0.4 mg PO 1730 30 days #30 caps 08/06/21 [Rx Last Taken Unknown] furosemide 40 mg tablet See Rx Instructions .Route .COMPLEX #180 tabs 08/20/21 [Rx Last Taken Unknown] amiodarone 200 mg tablet 100 mg PO DAILY 30 days #45 tabs 08/23/21 [Rx Last Taken Unknown] carvedilol 3.125 mg tablet 3.125 mg PO BID #180 tabs 08/23/21 [Rx Last Taken Unknown] Allergy/AdvReac Type Severity Reaction Status Date / Time Penicillins Allergy Severe Hives Verified 12/10/21 13:10 milk Allergy Unknown Unknown Verified 12/10/21 13:10 Family History Mother Cancer Kidney disease Father Myocardial infarction Brother Heart disease Surgical History History of aortic valve replacement with tissue graft (07/26/07) History of left heart catheterization (11/22/19) History of prostate surgery Implantable cardioverter-defibrillator (ICD) in situ Social History household members: spouse Smoking Status: Former smoker quit date: 04/27/71 how long ago did patient quit smokin alcohol intake: never substance use type: does not use caffeine: Yes Type: coffee Number of servings: 2 what type of physical activity do you participate in: walking frequency: daily ROS ROS ED Constitutional Constitutional ED: Denies chills or fever(s) Eyes Eyes: Denies change in vision or discharge from eye(s) ENT ENT ED: Denies discharge from eye(s), rhinorrhea or sore throat Cardiovascular Cardiovascular: Reports chest pain; Denies palpitations Respiratory/Chest Respiratory/Chest: Reports cough and dyspnea; Denies sputum Gastrointestinal Gastrointestinal: Denies abdominal pain, diarrhea, nausea or vomiting Genitourinary Genitourinary ED: Denies difficulty urinating or dysuria Musculoskeletal Musculoskeletal: Denies back pain or extremity pain Integumentary Denies Abrasions or rash Neurologic Neurologic: Reports weakness; Denies headache(s) Allergic/Immunologic Allergic/Immunologic ED: Denies lip swelling or urticaria EXAM Physical Exam Const Vital Signs: 12/10/21 13:07 12/10/21 13:51 12/10/21 13:52 Temperature 97.4 F L Temperature Source Temporal Pulse Rate 72 Respiratory Rate 18 Respiratory Effort Short of Breath Blood Pressure 96/71 Blood Pressure Mean 79 Pulse Ox 94 99 Oxygen Delivery Method Room Air Room Air 12/10/21 14:50 Temperature Temperature Source Pulse Rate Respiratory Rate Respiratory Effort Blood Pressure 99/76 Blood Pressure Mean 83 Pulse Ox Oxygen Delivery Method Positive cachectic General Appearance ED: cachectic Nutritional Appearance: cachectic HEENT Reports normocephalic and head/scalp atraumatic Eyes PERRL and EOMs intact bilaterally Neck supple Chest Wall inspection of chest normal and palpation of chest normal Resp normal respiratory effort and clear to auscultation bilaterally Cardio regular rate and regular rhythm GI GI Narrative: Abdomen is soft with diffuse tenderness palpation. No guarding or rebound. Hypoactive bowel sounds noted. Palpation: soft Extremity normal to inspection Extremity Narrative: No calf tenderness or edema. Neuro oriented x3 Neuro Narrative: Generalized weakness with no focal neurodeficits. Sensorium / Orientation: alert Psych mental status grossly normal Skin no rashes or lesions noted MDM MDM MDM Narrative Medical decision making narrative: Patient placed on technician chemical cleaning. EKG and chest x-ray obtained. Lab work ordered. I was able to review the records from [facility] yesterday. Patient's troponin was 616. Per their documentation patient signed out AMA. Lab Data Attestation: I reviewed the patient's lab results. Labs: Laboratory Results - last 24 hr 12/10/21 12/10/21 12/10/21 13:55 13:55 14:30 WBC 5.7 RBC 5.40 Hgb 16.4 Hct 49.5 MCV 91.7 MCH 30.4 MCHC 33.1 RDW Std Deviation 45.9 H RDW Coeff of Bj 13.6 Plt Count 105 L MPV 11.2 Immature Gran % (Auto) 0.300 Neut % (Auto) 62.6 Lymph % (Auto) 28.0 Gibson % (Auto) 8.7 Eos % (Auto) 0.2 Baso % (Auto) 0.2 Absolute Neuts (auto) 3.6 Absolute Lymphs (auto) 1.61 Nucleated RBC % 0 D-Dimer Quant (PE/DVT) Cancelled Sodium 142 Potassium 4.0 Chloride 112 H Carbon Dioxide 22.0 Anion Gap 8 BUN 25 H Creatinine 1.07 Estim Creat Clear Calc 45.92 Est GFR (MDRD) Af Amer 87 Est GFR (MDRD) Non-Af 72 BUN/Creatinine Ratio 23.4 H Glucose 113 H Calcium 8.8 Troponin I High Sens 648 H* 12/10/21 15:02 WBC RBC Hgb Hct MCV MCH MCHC RDW Std Deviation RDW Coeff of Bj Plt Count MPV Immature Gran % (Auto) Neut % (Auto) Lymph % (Auto) Gibson % (Auto) Eos % (Auto) Baso % (Auto) Absolute Neuts (auto) Absolute Lymphs (auto) Nucleated RBC % D-Dimer Quant (PE/DVT) 2.85 H* Sodium Potassium Chloride Carbon Dioxide Anion Gap BUN Creatinine Estim Creat Clear Calc Est GFR (MDRD) Af Amer Est GFR (MDRD) Non-Af BUN/Creatinine Ratio Glucose Calcium Troponin I High Sens Radiography Chest X-Ray - ED: 1 View, Read by ED Physician, Chronic Changes, Right Infiltrate and Left Infiltrate Diagnostic Testing: Clinical Impression(s) from Imaging Studies Chest X-Ray 12/10/21 13:40 IMPRESSION: Chronic interstitial lung changes with superimposed scattered areas of airspace opacification and subsegmental atelectatic streaks correlate for early infiltrates or Covid 19 disease. Electronically Signed: Zay Lira MD at 14:05 EDT Reading Location ID and State: [facility] / [place] Tel , Service support , Chest CTA 12/10/21 15:25 IMPRESSION: 1. No demonstrated pulmonary embolism or arterial dissection. 2. There is bilateral pneumonia. Electronically Signed: Zacarias Al MD at 16:15 EDT , EKG Initial EKG: Attestation: I personally reviewed and interpreted this EKG as follows: Interpretation: Atrial Fibrillation (A. fib at 75 with PVCs and left bundle branch block.) Treatment and Re-Evaluation Narrative: Repeat evaluation patient resting comfortably. He has been receiving IV fluids at 100 cc. Eitel signs are stable. CBC is unremarkable. Chemistry studies reveal normal renal function. Troponin is 648. His D-dimer is elevated at 285. Chest x-ray per my interpretation does appear to show scattered bilateral small infiltrates. This is consistent with COVID. CTA of the chest is obtained and reveals no evidence of PE. There is bilateral pneumonia. I did speak Dr. Yeager, the patient's concrete pourer. He feels that treatment will likely be medical in nature and ensuring patient is back on all his cardiac meds. I will speak with hospitalist regarding admission. Discharge Plan Triage Chief Complaint: Chest Pain ED Provider: Alla Perez Dx/Rx/DC Orders Clinical Impression: COVID-19, NSTEMI (non-ST elevation myocardial infarction) Prescriptions: No Action nitroglycerin [Nitrostat] 0.4 mg tablet, sublingual 0.4 mg sublingual Q5-15M PRN (Reason: chest pain) Qty: 25 3RF Rx Instructions: do not exceed 3 doses per episode Farxiga 5 mg tablet 5 mg PO DAILY Qty: 90 3RF cholecalciferol (vitamin D3) 50 mcg (2,000 unit) capsule 50 mcg PO DAILY carvedilol 3.125 mg tablet 3.125 mg PO BID Qty: 180 3RF amiodarone 200 mg tablet 100 mg PO DAILY 30 Days Qty: 45 3RF acetaminophen 325 MG tablet 650 mg PO Q6H PRN PRN (Reason: Pain Score 1-10/Temp > 100.7 F) 0RF tamsulosin 0.4 mg Capsule 0.4 mg PO 1730 30 Days Qty: 30 0RF atorvastatin 40 mg tablet 40 mg PO QPM Qty: 30 0RF isosorbide mononitrate 30 mg tablet extended release 24 hr 30 mg PO DAILY Qty: 30 0RF apixaban 2.5 mg tablet 2.5 mg PO BID Qty: 60 0RF furosemide 40 mg tablet See Rx Instructions .ROUTE .COMPLEX Qty: 180 3RF Dose Instruction: TAKE 1 TABLET TWICE A DAY Rx Instructions: TAKE 1 TABLET TWICE A DAY Primary Care Provider: Brain Bustamante Referrals: Brain Bustamante, [Primary Care Provider] - Disposition Disposition: Acute Care Hospital [facility]
[2021-12-10] MEDS: 0.9% Normal Saline 1,000 ML 100 ML IV (14:20)
[2021-12-10 14:28] LABS: Anion Gap 8 (5-15); BUN 25 mg/dL (7-18); BUN/Creat Ratio 23.4 RATIO (10-20); Calcium,Total 8.8 mg/dL (8.5-10.1); Chloride 112 mmol/L (98-107); Creatinine, Serum 1.07 mg/dL (0.70-1.30); EST Glomerular Filtration Rate 72 mL/min (>60); Est Glom Filt Rate - Afr Amer 87 mL/min (>60); Estimated Creatinine Clearance 45.92 ml/min; Glucose 113 mg/dL (74-106); Sodium Level 142 mmol/L (136-145); Troponin-I HS 648 pg/mL (3.0-78.0)
--- NOTE | 2021-12-10 14:48 | NURSING ---
PER SANDEEP IN LAB, ARCELIA, WAS TOO Q AND S
[2021-12-10 15:24] LABS: D-Dimer Quantitative (DVT/PE) 2.85 FEU/ug/m (0.27-0.49)
--- NOTE | 2021-12-10 15:25 | CT_ITS ---
EXAM: CT ANGIOGRAPHY CHEST WITHOUT AND WITH INTRAVENOUS CONTRAST CLINICAL INDICATION: cp, sob, elevated d-dimer TECHNIQUE: Helically acquired angiography images were obtained of the chest without and with intravenous contrast. This CT exam was performed using one or more of the following dose reduction techniques: automated exposure control, adjustment of the mA and/or kV according to patient size, and/or use of iterative reconstruction technique. This report was created using [employer] report generation technology. MIP reconstructed images were created and reviewed. CONTRAST: IV 65mL [id number] RADIATION DOSE: CTDIvol = 14.90 mGy, DLP = 171.21 mGy-cm COMPARISON: None. FINDINGS: PULMONARY ARTERIES: No demonstrated pulmonary embolism or arterial dissection. AORTA: There is atherosclerotic calcification of the aortic arch with tortuosity and elongation of the aortic arch and descending thoracic aorta. Normal in caliber. No evidence of dissection. GREAT VESSELS OF AORTIC ARCH: Unremarkable. Normal in caliber. No evidence of dissection. LUNGS AND PLEURAL SPACES: There is bilateral pneumonia. No mass. No pleural effusion or thickening. HEART: There are calcifications of the coronary arteries. MEDIASTINUM: Unremarkable. No mediastinal or hilar adenopathy. Esophagus is unremarkable. No hiatal hernia. THYROID: Unremarkable. No thyroid lesions. BONES/JOINTS: There are degenerative changes of the shoulders. There are multi-level degenerative changes of the thoracic spine. Multiple median sternotomy wires are noted consistent for cardiac surgery. No suspicious lytic or blastic abnormality. TUBES, LINES AND DEVICES: There is a left sided pacemaker battery pack. CT/CTA Chest W/WO Contrast IMPRESSION: 1. No demonstrated pulmonary embolism or arterial dissection. 2. There is bilateral pneumonia. Electronically Signed: Zacarias Al MD at 16:15 EDT ,
--- NOTE | 2021-12-10 17:04 | NURSING ---
DR LANGE FOR DR LANE
[2021-12-10 17:07] LABS: Troponin-I HS 563 pg/mL (3.0-78.0)
--- NOTE | 2021-12-10 17:18 | NURSING ---
SALONI LANGE NSTEMI, COVID
[2021-12-10] MEDS: Aspirin 81 MG TAB.CHEW PO (18:47)
--- NOTE | 2021-12-10 19:44 | CON.PCM.CA_ITS ---
Assessment & Plan Assessment/Plan (1) NSTEMI (non-ST elevation myocardial infarction): PLAN: At the present time the patient has elevated high-sensitivity troponin I levels which are decreasing based upon his most recent report. It is noted that he has had, in the past, elevated high-sensitivity troponin I levels as well. At the present time he appears to be without any acute symptoms of an acute coronary syndrome. His ECG demonstrates his atrial fibrillation with his left axis deviation and his left bundle branch block pattern. His enzyme levels may be compatible with a type II event secondary to his acute respiratory events superimposed upon his history of a non-CAD related cardiomyopathy with diminished LV systolic function/LVEF. At the moment it would be reasonable for the patient to be monitored. An attempt should be made to reinitiate his cardiovascular medical therapy for his multiple cardiovascular conditions, etc. He can be reevaluated noninvasively. At the moment it does not appear he requires urgent/emergent invasive evaluation or care. (2) CAD (coronary artery disease): PLAN: The patient has a history of nonobstructive CAD as noted. Thus, it appears less likely in such a short period of time that he would have developed angiographically significant appearing CAD/hemodynamically significant CAD to explain his symptoms and/or his enzyme findings. At the moment he can be followed and monitored as noted above. He should reinitiate medical therapy to minimize his cardiovascular risks. (3) Cardiomyopathy: PLAN: The patient does have a history of a nonischemic mediated cardiomyopathy. He does not appear to have evidence of acute on chronic systolic CHF at the moment. He should continue medical management. (4) S/P AVR (aortic valve replacement): PLAN: The patient has undergone aortic valve replacement x2. Based upon his most recent noninvasive studies his aortic valve apparatus appeared to be stable. He should continue AHA antibiotic prophylaxis. He can be followed noninvasively by history, exam, and echocardiographic studies as deemed appropriate. (5) CHF (congestive heart failure): PLAN: The patient does not appear to have acute on chronic systolic mediated CHF at the moment. It would be reasonable to reinitiate medical management as deemed appropriate based upon his cardiovascular disease process. (6) Atrial fibrillation and flutter: PLAN: The patient appears to be remaining in an underlying atrial fibrillation. He can continue rate control therapy as deemed appropriate. He should be reinitiated on anticoagulant therapy barring unforeseen c ircumstances. (7) Implantable cardioverter-defibrillator (ICD) in situ: PLAN: The patient's ICD was recently interrogated. It appeared to be functioning appropriately. He will continue medical management. (8) HLD (hyperlipidemia): PLAN: The patient has a history of hyperlipidemia. He should continue risk factor evaluation and care. (9) HTN (hypertension): PLAN: The patient's blood pressure can be followed. He should continue medical management as deemed necessary. (10) COVID-19: PLAN: The patient was diagnosed with COVID-19. He has been placed on respiratory precautions. He will continue evaluation care per internal medicine with respect to the need for medical management, etc. Addt'l Comments The patient's case has been discussed and reviewed with the patient, the [facility] emergency department staff, and Dr. Alonzo of the [facility] staff. This note was generated using a voice recognition system and there may be incorrect words, spelling or punctuation that were not noted when reviewing the office note prior to saving. HPI Consult Data Date of Consult: 12/10/21 HPI Narrative HPI Narrative: DONNY SOLER, is a 76 year old white male who presents for cardiovascular consultation based upon concerns of intermittent chest discomfort, abnormal cardiac enzymes, CAD-nonobstructive, non-CAD related cardiomyopathy, chronic systolic CHF, status post aortic valve replacement ([facility]-1996 and [facility]- 2007: Most recent aortic valve replacement including an aortic root replacement [#22 homograft and #29 freestyle respectively]), atrial fibrillation/flutter, status post ICD placement, hyperlipidemia, hypertension, in the setting of COVID-19 positivity. The patient had apparently been complaining of not feeling well for the last week and having intermittent chest discomfort. At times this was concerning for a somewhat sharp stabbing discomfort. He was evaluated at the [facility]. At that time he was found to have an elevated high-sensitivity troponin I level and was reported as positive for COVID-19. According to the emergency department staff he reportedly signed out of their emergency department AMA. However, his family states that is incorrect and he left their emergency department to subsequently presented to [facility] emergency department for further evaluation. The patient states that his chest pain has waxed and waned. He states at times it has been sharp and stabbing. He states sometimes it occurs over where he believes his ICD is located. Sometimes he believes he has back discomfort. Sometimes he believes his discomfort is worsened by certain physical movements or activities. He is not complaining of ongoing discomfort at the present time. He states that he does not feel acutely short of breath or dyspneic. There is been no report of orthopnea or PND. He notes in the past he has had some waxing and waning edema of his ankle area but not at the moment. There has been no near-syncope or syncope. He does not recall his ICD discharging. He states he has not been taking his cardiovascular medications for quite some time. He states he just stopped. [facility] Medical History Abnormal EKG Acute on chronic combined systolic (congestive) and diastolic (congestive) heart failure Atherosclerotic heart disease of pauma coronary artery without angina pectoris Atrial fibrillation and flutter Chronic systolic CHF (congestive heart failure) Essential (primary) hypertension HLD (hyperlipidemia) Memory loss, short term Neurogenic bladder Non-ST elevated myocardial infarction (non-STEMI) Non-sustained ventricular tachycardia Nonischemic cardiomyopathy Nonrheumatic aortic (valve) stenosis with insufficiency Nonrheumatic mitral (valve) insufficiency Nonrheumatic tricuspid (valve) insufficiency NSTEMI (non-ST elevated myocardial infarction) (06/11/20) PTSD (post-traumatic stress disorder) PVCs (premature ventricular contractions) Right bundle branch block Home Medications nitroglycerin 0.4 mg sublingual tablet (Nitrostat) 0.4 mg sublingual Q5-15M PRN chest pain #25 tabs 04/01/21 [Rx Last Taken Unknown] dapagliflozin 5 mg tablet (Farxiga) 5 mg PO DAILY #90 tabs 07/01/21 [Rx Last Taken 2 Months Ago ~10/10/21] cholecalciferol (vitamin D3) 50 mcg (2,000 unit) capsule 50 mcg PO DAILY vitamin 08/02/21 [History Last Taken 2 Months Ago ~10/10/21] isosorbide mononitrate 30 mg tablet,extended release 24 hr 30 mg PO DAILY #30 tabs 08/06/21 [Rx Last Taken 2 Months Ago ~10/10/21] tamsulosin 0.4 mg capsule 0.4 mg PO 1730 30 days #30 caps 08/06/21 [Rx Last Taken 2 Months Ago ~10/10/21] amiodarone 200 mg tablet 100 mg PO DAILY 30 days #45 tabs 08/23/21 [Rx Last Taken 2 Months Ago ~10/10/21] carvedilol 3.125 mg tablet 3.125 mg PO BID #180 tabs 08/23/21 [Rx Last Taken 2 Months Ago ~10/10/21] apixaban 2.5 mg tablet 2.5 mg PO BID BLOOD THINNER 12/10/21 [History Last Taken 2 Months Ago ~10/10/21] atorvastatin 40 mg tablet 40 mg PO QHS HLD 12/10/21 [History Last Taken 2 Months Ago ~10/10/21] furosemide 40 mg tablet 40 mg PO BID 12/10/21 [History Last Taken 2 Months Ago ~10/10/21] Allergy/AdvReac Type Severity Reaction Status Date / Time Penicillins Allergy Severe Hives Verified 12/10/21 13:10 milk Allergy Unknown Unknown Verified 12/10/21 13:10 Family History Mother Cancer Kidney disease Father Myocardial infarction Brother Heart disease Surgical History History of aortic valve replacement with tissue graft (07/26/07) History of left heart catheterization (11/22/19) History of prostate surgery Implantable cardioverter-defibrillator (ICD) in situ Social History household members: spouse Smoking Status: Former smoker quit date: 04/27/71 how long ago did patient quit smokin alcohol intake: never substance use type: does not use caffeine: Yes Type: coffee Number of servings: 2 what type of physical activity do you participate in: walking frequency: daily ROS Constitutional Constitutional: Reports as per HPI Eyes Eyes: Reports as per HPI ENT HEENT: Reports as per HPI Cardiovascular Cardiovascular: Reports chest pain and dyspnea Respiratory/Chest Respiratory/Chest: Reports dyspnea Gastrointestinal Gastrointestinal: Reports as per HPI Genitourinary Genitourinary: Reports as per HPI Musculoskeletal Musculoskeletal: Reports as per HPI Integumentary Integumentary: Reports as per HPI Neurologic Neurologic: Reports as per HPI Psychiatric Psychiatric: Reports as per HPI Physical Exam Const alert, oriented x3 and no apparent distress Orientation / Consciousness: awake HEENT normocephalic, head/scalp atraumatic and hearing grossly normal bilaterally Teeth and Gingiva: poor dentition Eyes PERRL, EOMs intact bilaterally, conjunctivae normal and no scleral icterus Neck full ROM, supple and no JVD Carotids: normal carotid upstroke Chest Chest: left pectoral incision Resp normal respiratory effort Auscultation: wheezes scattered wheezes Cardio S1 normal heart sound and S2 normal heart sound Rhythm: abnormal rhythm irregularly irregular GI normal to inspection, nondistended, normoactive bowel sounds, soft to palpation and non-tender Extremity no pedal edema Skin no rashes or lesions noted Psych mental status grossly normal Risk Stratification Risk Stratification Applicable: Yes Age >/= 65: Yes >/= 3 CAD Risk Factors (HTN, HLD, DM, family hx of CAD, or current smoker): Yes Aspirin Use in the Past 7 Days: No Severe Angina (>/= episodes in 24 hours): No EKG ST Changes >/= 0.5mm: No Positive Cardiac Marker: Yes YARITZA Risk Stratification Score: 3 YARITZA % Risk: 13% Risk Procedure Criteria Type of Procedure Procedure Type: Elective Elective Risks - COVID COVID Risk Discussion: The surgeon/proceduralist and patient have discussed in detail the risk of exposure to and/or potential harm posed by the COVID-19 virus with having a surg edson/procedure at this time versus the risk of delaying the surgery/procedure. It is not possible to know either the risk of delaying the surgery or procedure or chance of getting an infection with perfect accuracy, but a joint decision was made between the patient and the surgeon/proceduralist to proceed at this time with the scheduled surgery/procedure as indicated on the consent form. Objective Data Vital Signs: Vital Signs Temp Pulse Resp BP Pulse Ox O2 Del Method 97.8 F 68 16 109/72 99 Room Air 12/10/21 18:25 12/10/21 19:00 12/10/21 18:25 12/10/21 18:25 12/10/21 18:25 12/10/21 18:25 Oxygen Delivery Method Room Air Weight: 124 lb Body Mass Index (BMI) 17.2 Lab / Micro Data Result Diagrams: 12/10/21 13:55 12/10/21 13:55 Labs: Laboratory Results - last 24 hr 12/10/21 13:55: WBC 5.7, RBC 5.40, Hgb 16.4, Hct 49.5, MCV 91.7, MCH 30.4, MCHC 33.1, RDW Std Deviation 45.9 H, RDW Coeff of Bj 13.6, Plt Count 105 L, MPV 11.2, Immature Gran % (Auto) 0.300, Neut % (Auto) 62.6, Lymph % (Auto) 28.0, [place] % (Auto) 8.7, Eos % (Auto) 0.2, Baso % (Auto) 0.2, Absolute Neuts (auto) 3.6, Absolute Lymphs (auto) 1.61, Nucleated RBC % 0 12/10/21 13:55: Sodium 142, Potassium 4.0, Chloride 112 H, Carbon Dioxide 22.0, Anion Gap 8, BUN 25 H, Creatinine 1.07, Estim Creat Clear Calc 45.92, Est GFR (MDRD) Af Amer 87, Est GFR (MDRD) Non-Af 72, BUN/Creatinine Ratio 23.4 H, Glucose 113 H, Calcium 8.8, Troponin I High Sens 648 H* 12/10/21 14:30: D-Dimer Quant (PE/DVT) Cancelled 12/10/21 15:02: D-Dimer Quant (PE/DVT) 2.85 H* 12/10/21 16:13: Troponin I High Sens 563 H* Cardiology Labs/Tests 12/10/21 13:55: WBC 5.7, RBC 5.40, Hgb 16.4, Hct 49.5, MCV 91.7, MCH 30.4, MCHC 33.1, Plt Count 105 L, MPV 11.2, Immature Gran % (Auto) 0.300, Neut % (Auto) 62.6, Lymph % (Auto) 28.0, Newberry % (Auto) 8.7, Eos % (Auto) 0.2, Baso % (Auto) 0.2, Absolute Neuts (auto) 3.6, Nucleated RBC % 0 12/10/21 13:55: Sodium 142, Potassium 4.0, Chloride 112 H, Carbon Dioxide 22.0, Anion Gap 8, BUN 25 H, Creatinine 1.07, Est GFR (MDRD) Af Amer 87, Est GFR (MDRD) Non-Af 72, BUN/Creatinine Ratio 23.4 H, Glucose 113 H, Calcium 8.8 12/10/21 14:30: D-Dimer Quant (PE/DVT) Cancelled 12/10/21 15:02: D-Dimer Quant (PE/DVT) 2.85 H* Rhythm: Atrial fibrillation EKG: Atrial fibrillation; left axis deviation; left bundle branch block Transthoracic echocardiogram: 06/11/2020 Interpretation Summary Severely dilated left ventricle. The estimated ejection fraction is 10 %. Stage 3 diastolic dysfunction. There is severe global hypokinesis of the left ventricle. Mild (1+) tricuspid valve insufficiency. Pulmonary artery systolic pressure is 40 mmHg. Bioprosthetic aortic valve. Contrast injection was performed. Echocardiogram 08/03/2021: Interpretation Summary The study was technically difficult. ? Severely dilated left ventricle. Severe global left ventricular systolic dysfunction. The estimated ejection fraction is 15 %. The left atrium is mildly enlarged. The right atrium is mildly enlarged. Anterior leaflet diffuse mitral valve thickening. Mild (1+) mitral valve insufficiency. Moderate (2+) tricuspid valve insufficiency. Stable appearing bioprosthetic aortic valve apparatus. Mild focal aortic valve calcification. Trivial pulmonic valve insufficiency. Right ventricular systolic pressure estimated to be 22 mmHg. Unable to assess diastolic dysfunction. ICD or pacer leads identified within the right atrium ICD or pacer leads identified within the right ventricle. Cardiac cath: 11/22/2019: [facility] CONCLUSIONS Non obstructive coronary arteries Ramus branch with 65% proximal stenosis but doubtful that would improve LV dysfunction, and PCI would be high risk given severe LV dysfunction. RECOMMENDATIONS Management as per referring Tumbler Tender Would hold on PCI of small Ramus branch given severe LV dysfunciton out of proportion of amount of CAD. ? Doubtful that PCI of Ramus would appreciably improve LV function. Would recommend starting cozaar, lasix and eliquis for severe LV dysfunction and moderate pulmonary HTN in order to prevent LV thrombus and DVT. Manual sheath removal as pt is too thin for closure.? D/w Dr Long. DESCRIPTION OF? PROCEDURE The patient arrived to the procedure lab. The risks and benefits of the procedure as well as a full description of our services here and current unavailability of surgical backup were fully explained to the patient and/or their significant other prior to the catheterization. The Timeout was completed, verifying the correct patient and procedure. The patient's procedural site was prepped and draped in the usual fashion. Local anesthetic was given subcutaneously to right groin region with Lidocaine 2%. Using a modified Seldinger technique, arterial access was obtained via the right femoral artery, a 4Fr sheath was inserted? Left Coronary Artery selective angiography was performed in multiple views using a 4 Fr. JL5 catheter. Right Coronary Artery selective angiography was then performed in multiple views using a 4 Fr. 3DRC catheter.The arterial sheath was pulled and manual compression applied until hemostasis is achieved. CORONARY ANGIOGRAPHY DOMINANCE:? Co- Dominant LEFT HEART ASSESSMENT Left Ventricular Ejection Fraction: Not assessed LEFT MAIN: Mild calcification, Angiographically normal LEFT ANTERIOR DESCENDING ARTERY: PROX LAD: Mild luminal irregularities less than 30% DIAGONAL 1: Mid - Moderate luminal irregularities up to 50% CIRCUMFLEX ARTERY: PROX CIRC: Mild luminal irregularities less than 30% OM 1: Proximal - Mild luminal irregularities less than 30% RAMUS: 65 % Stenosis RIGHT CORONARY ARTERY: MID RCA: Mild luminal irregularities less than 30% ICD: [place]: Model: D150: Serial number: [id number]: Implant date: 09-16-2018: Single-chamber ICD Interrogation date: 11-26-2021 Battery longevity: 12 years Radiography Diagnostic Testing: Radiology Impression Chest X-Ray 12/10/21 13:40 IMPRESSION: Chronic interstitial lung changes with superimposed scattered areas of airspace opacification and subsegmental atelectatic streaks correlate for early infiltrates or Covid 19 disease. Electronically Signed: Zay Lira MD at 14:05 EDT , Chest CTA 12/10/21 15:25 IMPRESSION: 1. No demonstrated pulmonary embolism or arterial dissection. 2. There is bilateral pneumonia. Electronically Signed: Zacarias Al MD at 16:15 EDT ,
--- NOTE | 2021-12-10 20:45 | HP.PCM.HOS_ITS ---
HPI - General General Date of Admission: 12/10/21 Date of Service: 12/10/21 Chief Complaint: Chest pain HPI Narrative DONNY SOLER, is a 76 M who presented to the emergency department [facility] on 12/10/2021 secondary to chest pain. The patient is an extremely poor historian and his does assist with his history. He had evidently been ill for the past week and went to [facility] yesterday and tested positive for COVID-19 at that time. His had been hospitalized previously for COVID-19. At presentation over there he complained of chest pain and reported that was stabbing over his pacemaker site. The report from [facility] noted that he went there was 7 to 10 days of chest pressure and his initial troponin was 600. Per documentation there the recommendation was for transfer to [place] however they decided to leave AGAINST MEDICAL ADVICE. Patient and his state that they were discharged from [facility] and told to come here today to be evaluated. He has had some nasal congestion and s ome malaise with decreased appetite and weakness but no shortness of breath or hypoxia. He has had an intermittent cough that is been dry. He currently is not complaining of any chest pain. It is documented that the last time he took his cardiac medications for his nonischemic cardiomyopathy was approximately 2 months ago. His stated that he refused to take them and he could not give me a reason as to why he does not take them any longer. He did indicate to her that he did not think they were working. Vital signs here on presentation emergency department showed a temperature of 97.4, heart rate of 72, blood pressure of 96/71, respiratory rate of 18, pulse ox was 94% on room air with a repeat at 99%. His CBC was overall unremarkable other than thrombocytopenia which showed a platelet count of 105,000. This is lower than his baseline however his platelets appear to fluctuate some. His BMP shows a mildly elevated BUN at 25 and a serum creatinine of 1.05 and given his body habitus I suspect this would be lower indicating some mild dehydration but otherwise is overall unimpressive. A D-dimer was obtained and found to be 2.85 for which a CTA of his chest was performed. This was negative for PE or dissection but did show multifocal bilateral slight infiltrates consistent with COVID-19 infection. His initial troponin was 648. EKG was normal sinus rhythm without any ST-T changes consistent with acute ischemia. Given his troponin elevation the case was discussed with cardiology by the emergency department physician who recommended admission with evaluation of his LV. But thought that he would most likely be treated medically at this time. 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 Atrial fibrillation and flutter Chronic systolic CHF (congestive heart failure) Essential (primary) hypertension HLD (hyperlipidemia) Memory loss, short term Neurogenic bladder Non-ST elevated myocardial infarction (non-STEMI) Non-sustained ventricular tachycardia Nonischemic cardiomyopathy Nonrheumatic aortic (valve) stenosis with insufficiency Nonrheumatic mitral (valve) insufficiency Nonrheumatic tricuspid (valve) insufficiency NSTEMI (non-ST elevated myocardial infarction) (06/11/20) PTSD (post-traumatic stress disorder) PVCs (premature ventricular contractions) Right bundle branch block Home Medications nitroglycerin 0.4 mg sublingual tablet (Nitrostat) 0.4 mg sublingual Q5-15M PRN chest pain #25 tabs 04/01/21 [Rx Last Taken Unknown] dapagliflozin 5 mg tablet (Farxiga) 5 mg PO DAILY #90 tabs 07/01/21 [Rx Last Taken 2 Months Ago ~10/10/21] cholecalciferol (vitamin D3) 50 mcg (2,000 unit) capsule 50 mcg PO DAILY vitamin 08/02/21 [History Last Taken 2 Months Ago ~10/10/21] isosorbide mononitrate 30 mg tablet,extended release 24 hr 30 mg PO DAILY #30 tabs 08/06/21 [Rx Last Taken 2 Months Ago ~10/10/21] tamsulosin 0.4 mg capsule 0.4 mg PO 1730 30 days #30 caps 08/06/21 [Rx Last Taken 2 Months Ago ~10/10/21] amiodarone 200 mg tablet 100 mg PO DAILY 30 days #45 tabs 08/23/21 [Rx Last Taken 2 Months Ago ~10/10/21] carvedilol 3.125 mg tablet 3.125 mg PO BID #180 tabs 08/23/21 [Rx Last Taken 2 Months Ago ~10/10/21] apixaban 2.5 mg tablet 2.5 mg PO BID BLOOD THINNER 12/10/21 [History Last Taken 2 Months Ago ~10/10/21] atorvastatin 40 mg tablet 40 mg PO QHS HLD 12/10/21 [History Last Taken 2 Months Ago ~10/10/21] furosemide 40 mg tablet 40 mg PO BID 12/10/21 [History Last Taken 2 Months Ago ~10/10/21] Allergy/AdvReac Type Severity Reaction Status Date / Time Penicillins Allergy Severe Hives Verified 12/10/21 13:10 milk Allergy Unknown Unknown Verified 12/10/21 13:10 Family History Mother Cancer Kidney disease Father Myocardial infarction Brother Heart disease Surgical History History of aortic valve replacement with tissue graft (07/26/07) History of left heart catheterization (11/22/19) History of prostate surgery Implantable cardioverter-defibrillator (ICD) in situ Social History household members: spouse Smoking Status: Former smoker quit date: 04/27/71 how long ago did patient quit smokin alcohol intake: never substance use type: does not use caffeine: Yes Type: coffee Number of servings: 2 what type of physical activity do you participate in: walking frequency: daily ROS Constitutional Constitutional: Reports anorexia, fatigue, malaise and weakness; Denies change in weight, chills, fever(s), night sweats or other Eyes Eyes: Denies blurry vision, change in eye color, change in vision, discharge from eye(s), double vision, erythema, eye pain, loss of vision or other ENT HEENT: Denies abnormal hearing, dysphagia, ear pain, epistaxis, headache(s), hearing loss, nasal congestion, nasal discharge, post nasal drip, sinus pressure, sore throat or other Cardiovascular Cardiovascular: Reports chest pain; Denies claudication, dyspnea on exertion, edema, lightheadedness, orthopnea, palpitations, paroxysmal nocturnal dyspnea, rapid heart rate, syncope or other Respiratory/Chest Respiratory/Chest: Reports cough; Denies dyspnea, excessive phlegm production, hemoptysis, productive cough, shortness of breath at rest, shortness of breath with exertion, wheezing or other Gastrointestinal Gastrointestinal: Denies abdominal pain, coffee ground emesis, constipation, diarrhea, dyspepsia, hematemesis, hematochezia, loose stools, melena, nausea, vomiting or other Genitourinary Genitourinary: Denies burning urination, difficulty urinating, dysuria, hematuria, nocturia, urinary frequency, urinary hesitancy, urinary incontinence, urinary urgency or other Musculoskeletal Musculoskeletal: Reports myalgias; Denies arthralgias, back pain, joint pain, joint stiffness, joint swelling, neck pain or other Neurologic Neurologic: Reports confusion and other Details: Dementia at baseline Endocrine Endocrinology: Denies change in body appearance, cold intolerance, excessive sweating, heat intolerance, polydipsia, polyuria or other Hematologic/Lymphatic Hematologic/Lymphatic: Denies anemia, easy bleeding, easy bruising, lymphadenopathy or other Allergic/Immunologic Allergic/Immunologic: Denies rhinitis, hives, eczemia, asthma or other Vital Signs Vital Signs Vital Signs: 12/10/21 13:07 12/10/21 13:51 12/10/21 13:52 Temperature 97.4 F L Temperature Source Temporal Pulse Rate 72 Respiratory Rate 18 Respiratory Effort Short of Breath Blood Pressure 96/71 Blood Pressure Mean 79 Blood Pressure Source Blood Pressure Position Blood Pressure Location Pulse Ox 94 99 Oxygen Delivery Method Room Air Room Air 12/10/21 14:50 12/10/21 16:53 12/10/21 17:57 Temperature 97.4 F L Temperature Source Temporal Pulse Rate 66 66 Respiratory Rate 16 16 Respiratory Effort Blood Pressure 99/76 97/81 H 97/81 H Blood Pressure Mean 83 86 86 Blood Pressure Source Blood Pressure Position Blood Pressure Location Pulse Ox 98 98 Oxygen Delivery Method Room Air Room Air 12/10/21 18:25 12/10/21 18:35 12/10/21 19:00 Temperature 97.8 F Temperature Source Oral Pulse Rate 79 88 68 Respiratory Rate 16 Respiratory Effort Blood Pressure 109/72 Blood Pressure Mean 84 Blood Pressure Source Monitor Blood Pressure Position Semi-Fowlers Blood Pressure Location Right Arm Pulse Ox 99 Oxygen Delivery Method Room Air Weight Weight: 56.245 kg Body Mass Index (BMI) 17.2 Physical Exam Const alert and no apparent distress Constitutional Narrative: Older white male lying in bed, thin/cachectic/appears much older than stated age, at bedside, patient appears in no distress at this time, oriented to self/location and was able to tell me the year but not the month or the president of [facility] General Appearance: cooperative HEENT normocephalic and head/scalp atraumatic HEENT Narrative: Mild hearing loss, dentition is poor, Mallampati is 1-2, mucous membranes are dry Eyes PERRL, EOMs intact bilaterally and conjunctivae normal Eyes Narrative: No scleral icterus Neck no lymphadenopathy, supple, no JVD and no carotid bruits Resp normal respiratory effort, no retractions, no use of accessory muscles and clear to auscultation bilaterally Resp Narrative: Diminished but clear Auscultation: Negative for crackles, rales, rhonchi or wheezes Cardio regular rate, regular rhythm, S1 normal heart sound, S2 normal heart sound, no murmurs, no rub, no gallops, no clicks and no JVD GI normal to inspection, nondistended, normoactive bowel sounds, soft to palpation, non-tender and non-distended; Negative for hepatosplenomegaly GI Narrative: Scaphoid abdomen Extremity no clubbing, cyanosis or edema Neuro CN's II-XII intact bilaterally, moves all extremities and no focal motor deficits Neuro Narrative: Generalized weakness noted Speech: speech normal Psych Psych Narrative: Affect is flat, patient's interactions are odd at times Results Lab / Micro Data Attestation: I reviewed the patient's lab results. Result Diagrams: 12/10/21 13:55 12/10/21 13:55 Labs: Laboratory Results - last 24 hr 12/10/21 13:55: WBC 5.7, RBC 5.40, Hgb 16.4, Hct 49.5, MCV 91.7, MCH 30.4, MCHC 33.1, RDW Std Deviation 45.9 H, RDW Coeff of Bj 13.6, Plt Count 105 L, MPV 11.2, Immature Gran % (Auto) 0.300, Neut % (Auto) 62.6, Lymph % (Auto) 28.0, Mon o % (Auto) 8.7, Eos % (Auto) 0.2, Baso % (Auto) 0.2, Absolute Neuts (auto) 3.6, Absolute Lymphs (auto) 1.61, Nucleated RBC % 0 12/10/21 13:55: Sodium 142, Potassium 4.0, Chloride 112 H, Carbon Dioxide 22.0, Anion Gap 8, BUN 25 H, Creatinine 1.07, Estim Creat Clear Calc 45.92, Est GFR (MDRD) Af Amer 87, Est GFR (MDRD) Non-Af 72, BUN/Creatinine Ratio 23.4 H, Glucose 113 H, Calcium 8.8, Troponin I High Sens 648 H* 12/10/21 14:30: D-Dimer Quant (PE/DVT) Cancelled 12/10/21 15:02: D-Dimer Quant (PE/DVT) 2.85 H* 12/10/21 16:13: Troponin I High Sens 563 H* Radiology Impression Chest X-Ray 12/10/21 13:40 IMPRESSION: Chronic interstitial lung changes with superimposed scattered areas of airspace opacification and subsegmental atelectatic streaks correlate for early infiltrates or Covid 19 disease. Electronically Signed: Zay Lira MD at 14:05 EDT , Chest CTA 12/10/21 15:25 IMPRESSION: 1. No demonstrated pulmonary embolism or arterial dissection. 2. There is bilateral pneumonia. Electronically Signed: Zacarias Al MD at 16:15 EDT , Assessment & Plan Assessment/Plan (1) COVID-19: (2) NSTEMI (non-ST elevation myocardial infarction): (3) Thrombocytopenia: PLAN: Plan NSTEMI -May be demand related secondary to his acute COVID-19 infection -Potentially troponin elevation could be related to myocarditis related to COVID-19 however patient is currently not having any chest pain -Reinitiate home cardiac medications as patient has been noncompliant -Start aspirin 81 mg -Check echocardiogram -Cycle cardiac enzymes for trend -Discussed case with cardiology and they will evaluate the patient Acute COVID-19 infection -Symptoms predominantly include mild dry cough, malaise, generalized weakness, and myalgias - was recently infected as well and was hospitalized for the same -No hypoxia or shortness of breath -May need therapy consultation depending on how he does with nursing staff Mild thrombocytopenia -Suspect related to acute COVID-19 infection -Appears to be baseline low/borderline -Continue to monitor CAD/hypertension/hyperlipidemia -Restart home med since she has been noncompliant -Carvedilol 3.125 mill Sunday been ID -Atorvastatin 40 mg q. at bedtime's -Lasix 40 mg p.o. twice daily -Isosorbide mononitrate 30 mg daily -Treatment as above Nonischemic cardiomyopathy -most recent echocardiogram is from 08/03/2021 and showed an EF of 50% with a severely dilated LV and global LV dysfunction, mild biatrial enlargement, 2+ tricuspid valve insufficiency, stable appearing bioprosthetic aortic valve, right ventricular systolic pressure 22 mmHg -Patient does have an ICD -Restart home medications -It appears the patient was evaluated by palliative care previously--> evaluation after discharge would be appropriate again DM-2 -Patient is supposed to be on oral agents however noncompliant -Last hemoglobin A1c from 2018 was 5.6 -We will trend blood sugars -Blood sugar in the emergency department was 113 -Doubt that this is any longer a problem Suspected severe malnutrition -Start supplements -Consult dietitian -BMI is 17.3 and p.o. intake is poor per BPH -Continue Flomax as History of paroxysmal atrial fibrillation -Restart home amiodarone -Restart apixaban 5 mg p.o. twice daily DVT prophylaxis -Apixaban CODE STATUS -DNR with no intubation as per discussion with the patient and his in the emergency department prior to admission Charges/Coding Visit Charges Inpatient E&M: 50792 Init Hosp L3
[2021-12-10 21:43] LABS: Troponin-I HS 511 pg/mL (3.0-78.0)
[2021-12-10] MEDS: Atorvastatin Calcium 40 MG Tablet PO (21:48)
[2021-12-10] MEDS: Carvedilol 3.125 MG TABLET PO (21:48)
[2021-12-10] MEDS: APIXABAN 5 MG TABLET PO (21:49)
--- NOTE | 2021-12-10 22:06 | EKG12_ITS ---
Test Reason : CP Blood Pressure : / mmHG Vent. Rate : 075 BPM Atrial Rate : 070 BPM P-R Int : 000 ms QRS Dur : 172 ms QT Int : 460 ms P-R-T Axes : 000 -33 148 degrees QTc Int : 513 ms Atrial fibrillation with premature ventricular or aberrantly conducted complexes Left axis deviation Left bundle branch block Abnormal ECG Confirmed by ANDRZEJ GARZA, CORNELL ([id number]), production editor BRENT WAHL ([id number]) on 12/12/2021 10:06:18 AM Referred By: KELLY Confirmed By:CORNELL DONNELLY MD
[2021-12-11 03:00] VITALS: PULSE 74
[2021-12-11 03:45] VITALS: BP 104/68; PULSE 70; RESP 16; TEMP 35.9; O2SAT 95
--- NOTE | 2021-12-11 05:55 | ECHOD_ITS ---
Reason For Study: ELEVATED TROP Procedure This was a 2D Doppler, Color Flow transthoracic echocardiogram. The exam was of adequate technical quality. Exam performed portable in patient room. The exam was abbreviated due to the COVID 19 protocol. Left Ventricle Severely dilated left ventricle. Mild concentric left ventricular hypertrophy. Severe global left ventricular systolic dysfunction. The estimated ejection fraction is 15 %. Diastolic function is indeterminate. Right Ventricle Normal RV size. ICD or pacer leads identified within the right ventricle. Normal systolic function. Atria The left atrium is mildly enlarged. Normal right atrium. ICD or pacer leads identified within the right atrium. No doppler evidence for ASD. Mitral Valve There is no mitral annular calcification. Mild papillary muscle dysfunction of the mitral valve. Mild (1+) mitral valve insufficiency. Tricuspid Valve Normal tricuspid valve. Mild to moderate (1-2+) tricuspid valve insufficiency. Right ventricular systolic pressure estimated to be 27 mmHg. Aortic Valve Trisinus/trileaflet aortic valve. Mild focal aortic valve calcification. Trivial aortic valve insufficiency. Stable appearing bioprosthetic aortic valve apparatus. Pulmonic Valve The pulmonic valve is not well visualized. Mild (1+) pulmonic valve insufficiency. Great Vessels The aortic root was not well visualized. Pericardium/Pleural No pericardial effusion. MMode/2D Measurements & Calculations LVIDd: 6.5 cm IVSd: 1.3 cm LAV(MOD-bp): 81.1 ml LVIDs: 5.7 cm LVPWd: 1.5 cm LAV(MOD-bp) Indexed: 47.1 ml/m2 FS: 12.3 % LAV(MOD-sp2): 101.6 ml LAV(MOD-sp4): 67.2 ml SV(MOD-sp4): 40.4 ml SV(sp4-el): 44.6 ml LVAd ap4: 45.7 cm2 LVLd ap4: 8.9 cm EDV(MOD-sp4): 193.4 ml EDV(sp4-el): 200.3 ml LVAs ap4: 39.5 cm2 LVLs ap4: 8.5 cm ESV(MOD-sp4): 153.1 ml ESV(sp4-el): 155.6 ml EF(MOD-sp4): 20.9 % EF(sp4-el): 22.3 % LA A4 area: 22.2 cm2 LA dimension(2D): 4.8 cm RA A4 area: 15.8 cm2 Doppler Measurements & Calculations PA V2 max: 95.9 cm/sec TR max patricia: 243.0 cm/sec TR max P.6 mmHg ECHO/Echo Complete Interpretation Summary Severely dilated left ventricle. Severe global left ventricular systolic dysfunction. The estimated ejection fraction is 15 %. Mild concentric left ventricular hypertrophy. The left atrium is mildly enlarged. Mild papillary muscle dysfunction of the mitral valve. Mild (1+) mitral valve insufficiency. Mild to moderate (1-2+) tricuspid valve insufficiency. Stable appearing bioprosthetic aortic valve apparatus. Mild focal aortic valve calcification. Trivial aortic valve insufficiency. Mild (1+) pulmonic valve insufficiency. Right ventricular systolic pressure estimated to be 27 mmHg. Diastolic function is indeterminate. ICD or pacer leads identified within the right atrium ICD or pacer leads identified within the right ventricle. Comment: 2D echocardiographic images demonstrate a mobile echodensity in the le ft atrium near the interatrial septum of uncertain etiology with a differential diagnosis includin g etiologies such as thrombus, however, other etiologies such as a left atrial myxoma cannot necessa rily be excluded- clinical correlation recommended. Comment: The above [facility]. Ordering Physician: Supriya Alonzo Referring Physician: Rex Bustamante M.D. Performed By: Ana Rodriguez RCS
[2021-12-11 06:26] LABS: Absolute Lymphocyte Count 1.34 X10^3/uL (0.83-4.51); Basophil# 0.01 X10^3/uL; Basophil% 0.2 % (0-1); Eosinophil# 0.05 X10^3/uL; Hematocrit 40.8 % (40-54); Hemoglobin 13.6 g/dL (13.0-16.5); Lymphocyte # 1.34 X10^3/ul (0.83-4.51); Lymphocyte % 27.7 % (19-41); Mean Corp Hgb Conc 33.3 g/dL (32-36); Mean Corpuscular Hgb 30.6 pg (27.0-32.0); Mean Corpuscular Volume 91.9 fL (80-94); Mean Platelet Vol. 11.1 fl (6.2-12.0); Monocyte# 0.43 X10^3/uL; Monocyte% 8.9 % (0-10); NRBC Flagged by Analyzer 0 % (0-5); Neutrophil # 2.99 X10^3/uL (2.7-7.7); Neutrophil % 61.8 % (47-70); Platelet Count 103 K/mm3 (150-450); RBC Distribution Width CV 13.5 % (11.6-14.6); Red Blood Count 4.44 M/mm3 (4.6-6.2); White Blood Count 4.8 K/mm3 (4.4-11.0)
[2021-12-11 07:18] LABS: ALB/GLOB Ratio 0.8 RATIO (0.9-2.4); AST(SGOT) 22 U/L (15-37); Alanine Aminotransfer ALT/SGPT 13 U/L (16-61); Albumin, Serum 2.5 g/dL (3.2-5.0); Alkaline Phosphatase 70 U/L (45-117); Anion Gap 5 (5-15); BUN 23 mg/dL (7-18); BUN/Creat Ratio 25.5 RATIO (10-20); Calcium,Total 8.1 mg/dL (8.5-10.1); Chloride 116 mmol/L (98-107); EST Glomerular Filtration Rate 87 mL/min (>60); Est Glom Filt Rate - Afr Amer 106 mL/min (>60); Estimated Creatinine Clearance 56.42 ml/min; Globulin 3.3 g/dL (2.2-4.2); Glucose 89 mg/dL (74-106); Phosphorus 2.5 mg/dL (2.5-4.9); Potassium 3.5 mmol/L (3.5-5.1); Protein, Total 5.8 g/dL (6.4-8.2); Sodium Level 144 mmol/L (136-145); Thyroid Stim Hormone (TSH) 2.69 uIU/mL (0.358-3.74)
[2021-12-11 07:32] VITALS: PULSE 72
--- NOTE | 2021-12-11 08:38 | NURSING ---
pt called out twice now asking when can get out of here. and that want to go home dr. matos aware [facility] and will round at 1000 and let pt go home. called into room and picked up phone and aware.
--- NOTE | 2021-12-11 10:00 | CASEMGMT ---
RN CM called patient in room for initial transition planning/care coordination assessment. RN CM introduced self and role at [facility]. Patient is alert and oriented. Patient willing to participate in assessment and is able to answer all questions appropriately. Care providers, pharmacy, and demographics verified. Patient wishes to discharge home, denies need for home health at this time. Patient states he has no further needs or concerns at this time. CM to follow for discharge planning needs that may arise. PCP: Robby Specialists: [employer] [facility] Insurance: Jojo LEONARDO Prescription Benefit: yes Living Will/HPOA: yes, Clari Guevara LNOK: , daughter Living Arrangements: Patient lives with in a 1 story home with no steps to enter. Patient states he is independent at home. Transportation: self, DME/HHC: Patient denies DME or previous HHC Disposition Plan: Patient to discharge home with family support and follow-up plans in place. Marline CARREONN, RN, CM
[2021-12-11] MEDS: Isosorbide Mononitrate 30 MG Tablet PO (10:15)
[2021-12-11] MEDS: Furosemide 40 MG Tablet PO (10:15)
[2021-12-11] MEDS: Carvedilol 3.125 MG TABLET PO (10:15)
[2021-12-11] MEDS: APIXABAN 5 MG TABLET PO (10:15)
[2021-12-11 10:23] VITALS: BP 117/92; PULSE 68; RESP 16; TEMP 36.6; O2SAT 97
--- NOTE | 2021-12-11 10:59 | CASEMGMT ---
Patient has a Healthcare Power of [place] on file at [facility]. Patient's daughter Chitra Ca is patient's Healthcare Power of [place]. Patient does not have a Healthcare Living Will. Karyna QUINTEROS
--- NOTE | 2021-12-11 11:22 | DCINST_ITS ---
Discharge Instructions Diet Discharge Diet: No restrictions Activity Discharge Activity: Return to Normal Activity Weight Bearing Status: Full weight bearing Follow Up Care Test Results: Test results from this visit will be discussed in further detail at your follow- up appointment, if applicable. Discharge Plan Admission Admit Date/Time: 12/10/21 17:22 Primary Reason for Your Visit: NSTEMI Attending Provider: Slade Bob Primary Care Provider: Brain Bustamante Consulting Providers: Louie Yeager ; Supriya Alonzo Discharge Orders/Prescriptions Prescriptions: Continued nitroglycerin [Nitrostat] 0.4 mg tablet, sublingual 0.4 mg sublingual Q5-15M PRN (Reason: chest pain) Qty: 25 3RF Rx Instructions: do not exceed 3 doses per episode Farxiga 5 mg tablet 5 mg PO DAILY Qty: 90 3RF cholecalciferol (vitamin D3) 50 mcg (2,000 unit) capsule 50 mcg PO DAILY carvedilol 3.125 mg tablet 3.125 mg PO BID Qty: 180 3RF amiodarone 200 mg tablet 100 mg PO DAILY 30 Days Qty: 45 3RF tamsulosin 0.4 mg Capsule 0.4 mg PO 1730 30 Days Qty: 30 0RF isosorbide mononitrate 30 mg tablet extended release 24 hr 30 mg PO DAILY Qty: 30 0RF furosemide 40 mg tablet 40 mg PO BID Rx Instructions: TAKE 1 TABLET TWICE A DAY atorvastatin 40 mg tablet 40 mg PO QHS apixaban 2.5 mg tablet 2.5 mg PO BID Referrals / Follow Up: Brain Bustamante DO [Primary Care Provider] - Disposition Disposition (needs filled in before D/C Order can be placed): Home, Self Care
[2021-12-11 11:24] VITALS: BP 117/92; PULSE 68; RESP 16; TEMP 36.6; O2SAT 97
--- NOTE | 2021-12-11 11:24 | CASEMGMT ---
Per Dr. Bob, pt has been non-compliant with all meds. Pt has already been on Eliquis in past. Pt is on room air. Pt voices no further questions/concerns/needs with discharge and is anxious to be discharged. Belen ASENCIO CM
--- NOTE | 2021-12-11 11:36 | PHA.DC.MR ---
Pharmacy Service has performed discharge medication reconciliation for this patient. The patient's discharge medication list was reviewed for discrepancies and discrepancies were resolved. Home Medications nitroglycerin 0.4 mg sublingual tablet (Nitrostat) 0.4 mg sublingual Q5-15M PRN chest pain #25 tabs 04/01/21 dapagliflozin 5 mg tablet (Farxiga) 5 mg PO DAILY #90 tabs 07/01/21 cholecalciferol (vitamin D3) 50 mcg (2,000 unit) capsule 50 mcg PO DAILY vitamin 08/02/21 isosorbide mononitrate 30 mg tablet,extended release 24 hr 30 mg PO DAILY #30 tabs 08/06/21 tamsulosin 0.4 mg capsule 0.4 mg PO 1730 30 days #30 caps 08/06/21 amiodarone 200 mg tablet 100 mg PO DAILY 30 days #45 tabs 08/23/21 carvedilol 3.125 mg tablet 3.125 mg PO BID #180 tabs 08/23/21 apixaban 2.5 mg tablet 2.5 mg PO BID BLOOD THINNER 12/10/21 atorvastatin 40 mg tablet 40 mg PO QHS HLD 12/10/21 furosemide 40 mg tablet 40 mg PO BID 12/10/21
--- NOTE | 2021-12-18 08:26 | DS.PCM_ITS ---
Providers Date of Admission: 12/10/21 Date of Discharge: 12/11/21 Primary Care Physician: Dr. Brain Bustamante, DO Consultations 12/10/21 18:13 Consult: Cardiology Routine Consulting Provider: Louie Yeager Reason for Consult: troponin elevation EMERGENT Consult: No MD Notified: Yes Date Notified: 12/10/21 Time Notified: 17:27 Method of Notification: Verbal Reason For Visit: NSTEMI Diagnosis Discharge Diagnosis (1) NSTEMI (non-ST elevation myocardial infarction): Status: Acute Code(s): I21.4 - Non-ST elevation (NSTEMI) myocardial infarction (2) CAD (coronary artery disease): Status: Acute Code(s): I25.10 - Atherosclerotic heart disease of [place] coronary artery without angina pectoris (3) Cardiomyopathy: Status: Acute Code(s): I42.9 - Cardiomyopathy, unspecified (4) S/P AVR (aortic valve replacement): Status: Acute Code(s): Z95.2 - Presence of prosthetic heart valve (5) CHF (congestive heart failure): Status: Acute Code(s): I50.9 - Heart failure, unspecified (6) Atrial fibrillation and flutter: Status: Acute Code(s): I48.91 - Unspecified atrial fibrillation; I48.92 - Unspecified atrial flutter (7) Implantable cardioverter-defibrillator (ICD) in situ: Status: Acute Code(s): Z95.810 - Presence of automatic (implantable) cardiac defibrillator (8) HLD (hyperlipidemia): Status: Acute Code(s): E78.5 - Hyperlipidemia, unspecified (9) HTN (hypertension): Status: Chronic Code(s): I10 - Essential (primary) hypertension (10) COVID-19: Status: Acute Code(s): U07.1 - COVID-19 (11) Thrombocytopenia: Status: Acute Code(s): D69.6 - Thrombocytopenia, unspecified Plan Final gnosis: #1 non-STEMI #2 coronary artery disease #3 nonischemic cardiomyopathy #4 COVID-19 infection without pneumonia #5 essential hypertension #6 hyperlipidemia Medications at Discharge Home Medications nitroglycerin 0.4 mg sublingual tablet (Nitrostat) 0.4 mg sublingual Q5-15M PRN chest pain #25 tabs 04/01/21 dapagliflozin 5 mg tablet (Farxiga) 5 mg PO DAILY #90 tabs 07/01/21 cholecalciferol (vitamin D3) 50 mcg (2,000 unit) capsule 50 mcg PO DAILY vitamin 08/02/21 isosorbide mononitrate 30 mg tablet,extended release 24 hr 30 mg PO DAILY #30 tabs 08/06/21 tamsulosin 0.4 mg capsule 0.4 mg PO 1730 30 days #30 caps 08/06/21 amiodarone 200 mg tablet 100 mg PO DAILY 30 days #45 tabs 08/23/21 carvedilol 3.125 mg tablet 3.125 mg PO BID #180 tabs 08/23/21 apixaban 2.5 mg tablet 2.5 mg PO BID BLOOD THINNER 12/10/21 atorvastatin 40 mg tablet 40 mg PO QHS HLD 12/10/21 furosemide 40 mg tablet 40 mg PO BID 12/10/21 Hospital Course Operations None Procedures 2-D Echocardiogram Summary of Care Provided Minutes Spent on Discharge: 31 Hospital Course: 76-year-old white male was seen in the emergency room at [facility] for evaluation of chest pain, he had been tested at [facility] the day before and tested positive for COVID-19. Patient had been ill for approximately 5 to 7 days, the troponin that was done at [facility] was elevated at 600, there was plans to transfer him to [place] however the family chose to sign out AGAINST MEDICAL ADVICE and he shows up to the ER at [facility] for evaluation of chest discomfort. Patient was a poor historian and did not specifically complain of chest pain. Work-up in the emergency room showed a normal white blood cell count, patient's BUN was elevated at 25 and chloride was elevated at 112 his D-dimer was elevated at 2.85, chest x-ray showed chronic interstitial lung changes with superimposed scattered areas of airspace opacification and atelectatic streaks, CT of the chest was performed which showed no evidence of pulmonary embolism but showed evidence of bilateral pneumonia, EKG showed atrial fibrillation with a rate of 75 with PVCs, left bundle branch block was noted. Patient's troponin was elevated at 648. Patient was not hypoxic on room air. Patient was not felt to have COVID-19 pneumonia, he was admitted to PCU and seen in consultation by car lebronbenjie, serial troponins trended downward, an echocardiogram was obtained which showed an EF of 15%, this was unchanged from an echocardiogram that had been obtained in July 2021. Cardiology elected to treat the patient medically and not perform any invasive testing. On 12/11/2021, patient was seen and examined: On examination he appeared in good health and spirits. Vital signs as documented. Skin warm and dry and without overt rashes. Neck without JVD, neck was supple, trachea midline, thyroid was normal. Lungs clear bilaterally, normal air movement was noted. Heart exam notable for irregular rhythm, normal sounds and absence of murmurs, rubs or gallops. Abdomen unremarkable and without evidence of organomegaly, masses, or abdominal aortic enlargement. Bowel sounds are present, abdomen is not distended. Extremities nonedematous, no cyanosis was noted, no clubbing was noted. Neuro: Cranial nerves II through XII are grossly intact, no focal motor deficits were noted, sensation to light touch and pinprick intact, motor exam 5/5 throughout. Psych: Patient is alert and oriented x3, he does not appear anxious or depressed, he does not appear agitated. On 12/11/2021, patient was seen and examined and felt to be stable for discharge home. Weight / BMI Weight Weight: 56.245 kg Body Mass Index (BMI) 17.2 ABG / Lab / Microbiology Data Result Diagrams: 12/11/21 05:45 12/11/21 05:45 D/C Instructions Discharge Diet: No restrictions Weight Bearing Status: Full weight bearing Meaningful Use Info Meaningful Use Diagnoses (Choose all that apply): AMI AMI/Post PCI/Angioplasty Aspirin given w/in 24hrs of arrival?: No Reason no aspirin w/in 24hrs of arrival?: not indicated ASA at discharge?: No Reason ASA not ordered:: Drug Interaction (on full anticoagulation) Antiplatelet Therapy at Discharge:: No Reason Antiplatelet Therapy not ordered:: not needed Statins at discharge?: Yes Chris/ARB at discharge?: No Reason Chris/ARB not ordered:: Not indicated Beta Aleksander at discharge?: Yes Done w/ Acute OK measure.: Yes Documented LVEF (%): 15 Discharge Plan Admission Admit Date/Time: 12/10/21 17:22 Primary Reason for Your Visit: NSTEMI Attending Provider: Slade Bob Primary Care Provider: Brain Bustamante Consulting Providers: Louie Yeager ; Supriya Alonzo Discharge Orders/Prescriptions Prescriptions: Continued nitroglycerin [Nitrostat] 0.4 mg tablet, sublingual 0.4 mg sublingual Q5-15M PRN (Reason: chest pain) Qty: 25 3RF Rx Instructions: do not exceed 3 doses per episode Farxiga 5 mg tablet 5 mg PO DAILY Qty: 90 3RF cholecalciferol (vitamin D3) 50 mcg (2,000 unit) capsule 50 mcg PO DAILY carvedilol 3.125 mg tablet 3.125 mg PO BID Qty: 180 3RF amiodarone 200 mg tablet 100 mg PO DAILY 30 Days Qty: 45 3RF tamsulosin 0.4 mg Capsule 0.4 mg PO 1730 30 Days Qty: 30 0RF isosorbide mononitrate 30 mg tablet extended release 24 hr 30 mg PO DAILY Qty: 30 0RF furosemide 40 mg tablet 40 mg PO BID Rx Instructions: TAKE 1 TABLET TWICE A DAY atorvastatin 40 mg tablet 40 mg PO QHS apixaban 2.5 mg tablet 2.5 mg PO BID Referrals / Follow Up: Brain Bustamante DO [Primary Care Provider] - 12/18/21 1:00 pm (Your appt is with Slade Mariee ) Disposition Disposition (needs filled in before D/C Order can be placed): Home, Self Care Charges/Coding Visit Charges Inpatient E&M: 00133 Disch Hosp
== END 2021-12-11 11:57 | disposition home or self-care (01) | DRG 280 ==
LOC: ED 16:46 → PCU 17:43
PROVIDERS: Admitting Provider Internal Medicine; Emergency Provider Emergency Medicine; PCP Family Medicine; Visit Provider Internal Medicine
DX: I21.4 Non-ST elevation (NSTEMI) myocardial infarction (principal); E43 Unspecified severe protein-calorie malnutrition; U07.1 COVID-19; I42.8 Other cardiomyopathies; I48.92 Unspecified atrial flutter; I50.22 Chronic systolic (congestive) heart failure; Z68.1 Body mass index [BMI] 19.9 or less, adult; D69.6 Thrombocytopenia, unspecified; I11.0 Hypertensive heart disease with heart failure; E11.9 Type 2 diabetes mellitus without complications; I48.0 Paroxysmal atrial fibrillation; E78.5 Hyperlipidemia, unspecified; I25.10 Atherosclerotic heart disease of native coronary artery without angina pectoris; I44.7 Left bundle-branch block, unspecified; N40.0 Benign prostatic hyperplasia without lower urinary tract symptoms; Z66 Do not resuscitate; Z91.14 Patient's other noncompliance with medication regimen; Z95.2 Presence of prosthetic heart valve; Z95.810 Presence of automatic (implantable) cardiac defibrillator; Z79.01 Long term (current) use of anticoagulants; Z79.84 Long term (current) use of oral hypoglycemic drugs; Z79.899 Other long term (current) drug therapy; Z87.891 Personal history of nicotine dependence
CPT/HCPCS: 36415; 71045; 71275; 80048; 80053; 83735; 84100; 84443; 84484; 85025; 85379; 93005; 93306; 99251; 99284; J7030; Q9967; G0463

== ENCOUNTER 2021-12-21 20:59 | Emergency (ER) | payer MEDICARE, BC, SELFPAY ==
[2021-12-21 21:00] VITALS: BP 107/81; PULSE 41; RESP 15; TEMP 36.5; O2SAT 97; BMI 17.4
--- NOTE | 2021-12-21 21:10 | EKG12_ITS ---
Test Reason : CP Blood Pressure : / mmHG Vent. Rate : 089 BPM Atrial Rate : 340 BPM P-R Int : 000 ms QRS Dur : 162 ms QT Int : 412 ms P-R-T Axes : 000 -25 139 degrees QTc Int : 501 ms Undetermined rhythm : Consider Atrial Fibrillation/Flutter with occasional PVC's Left bundle branch block Abnormal ECG Confirmed by GOOD GARZA, MARY ([id number]), film editor BRENT WAHL ([id number]) on 12/24/2021 7:53:36 AM Referred By: AMBROSIO Confirmed By:MARY FUNK MD
--- NOTE | 2021-12-21 21:30 | RAD_ITS ---
STUDY: X-RAY CHEST REASON FOR EXAM: Male, 76 years old. chest pain TECHNIQUE: Single AP portable view of the chest. COMPARISON: 12/10/2021 FINDINGS: Left subclavian AICD which is unchanged. Status post median sternotomy. Patchy alveolar opacities in both lungs consistent with bilateral pneumonia. There is no demonstrated pleural abnormality. There is moderate cardiac enlargement. Normal mediastinum and gene. Normal visualized pulmonary arteries. Normal visualized aortic arch and descending thoracic aorta. Normal visualized thoracic spine. Normal visualized ribs, clavicles, and shoulders. There is no demonstrated abnormality of the visualized soft tissue structures of the upper abdomen. RAD/Chest 1 View (Portable) IMPRESSION: Patchy bilateral pneumonia. Electronically Signed: Camilo Schaffer MD at 22:08 EDT ,
[2021-12-21 21:32] LABS: Absolute Lymphocyte Count 1.81 X10^3/uL (0.83-4.51); Absolute Neutrophil Count 4.4 X10^3/uL (2.0-7.7); Basophil# 0.04 X10^3/uL; Basophil% 0.6 % (0-1); Eosinophil# 0.07 X10^3/uL; Hematocrit 40.8 % (40-54); Hemoglobin 13.1 g/dL (13.0-16.5); Lymphocyte # 1.81 X10^3/ul (0.83-4.51); Lymphocyte % 25.9 % (19-41); Mean Corp Hgb Conc 32.1 g/dL (32-36); Mean Corpuscular Hgb 30.1 pg (27.0-32.0); Mean Corpuscular Volume 93.8 fL (80-94); Mean Platelet Vol. 10.4 fl (6.2-12.0); Monocyte# 0.64 X10^3/uL; Monocyte% 9.2 % (0-10); NRBC Flagged by Analyzer 0 % (0-5); Platelet Count 148 K/mm3 (150-450); RBC Distribution Width CV 14.4 % (11.6-14.6); RBC Distribution Width SD 48.6 fl (35.1-43.9); Red Blood Count 4.35 M/mm3 (4.6-6.2)
--- NOTE | 2021-12-21 21:34 | ED.RN ---
pt and pts family states pt does not take any of his prescribed medications
--- NOTE | 2021-12-21 22:05 | ED.VIS.CHEST ---
HPI History of Present Illness Chief Complaint: Chest Pain Informant: patient and family Narrative Narrative: Patient complains of chest discomfort. He points to the middle of his chest, he states that hurts everywhere. He states this has been going on for some time.. brought him in because of this tonight, and the fact that he has been very fidgety. He just complains of pain everywhere. Complaining of chest pain is new according to the , however the daughter is here and states this is not new, he complains of chest pain off and on all the time, but him feeling and appearing very anxious and fidgety is new. History significantly limited because the patient is confused which the daughter states is not new. He was recommended for palliative care 6 months ago, but he refused. He does not take his medications. He was diagnosed with some type of growth on his heart a month ago, he is not a surgical candidate for this, daughter states everyone is on the same page that they are in agreement he is not to have management of this surgically. Patient states everything hurts right now including his abdomen, his chest, his back he states otherwise he feels pretty good. He does admit to some nausea. [facility] Medical History Abnormal EKG Acute on chronic combined systolic (congestive) and diastolic (congestive) heart failure Atherosclerotic heart disease of [place] coronary artery without angina pectoris Atrial fibrillation and flutter CAD (coronary artery disease) Cardiomyopathy CHF (congestive heart failure) Chronic systolic CHF (congestive heart failure) COVID-19 Essential (primary) hypertension HLD (hyperlipidemia) Memory loss, short term Neurogenic bladder Non-ST elevated myocardial infarction (non-STEMI) Non-sustained ventricular tachycardia Nonischemic cardiomyopathy Nonrheumatic aortic (valve) stenosis with insufficiency Nonrheumatic mitral (valve) insufficiency Nonrheumatic tricuspid (valve) insufficiency NSTEMI (non-ST elevated myocardial infarction) (06/11/20) NSTEMI (non-ST elevation myocardial infarction) PTSD (post-traumatic stress disorder) PVCs (premature ventricular contractions) Right bundle branch block Home Medications nitroglycerin 0.4 mg sublingual tablet (Nitrostat) 0.4 mg sublingual Q5-15M PRN chest pain #25 tabs 04/01/21 [Rx Last Taken Unknown] dapagliflozin 5 mg tablet (Farxiga) 5 mg PO DAILY #90 tabs 07/01/21 [Rx Last Taken 2 Months Ago ~10/10/21] cholecalciferol (vitamin D3) 50 mcg (2,000 unit) capsule 50 mcg PO DAILY vitamin 08/02/21 [History Last Taken 2 Months Ago ~10/10/21] isosorbide mononitrate 30 mg tablet,extended release 24 hr 30 mg PO DAILY #30 tabs 08/06/21 [Rx Last Taken 2 Months Ago ~10/10/21] tamsulosin 0.4 mg capsule 0.4 mg PO 1730 30 days #30 caps 08/06/21 [Rx Last Taken 2 Months Ago ~10/10/21] amiodarone 200 mg tablet 100 mg PO DAILY 30 days #45 tabs 08/23/21 [Rx Last Taken 2 Months Ago ~10/10/21] carvedilol 3.125 mg tablet 3.125 mg PO BID #180 tabs 08/23/21 [Rx Last Taken 2 Months Ago ~10/10/21] apixaban 2.5 mg tablet 2.5 mg PO BID BLOOD THINNER 12/10/21 [History Last Taken 2 Months Ago ~10/10/21] atorvastatin 40 mg tablet 40 mg PO QHS HLD 12/10/21 [History Last Taken 2 Months Ago ~10/10/21] furosemide 40 mg tablet 40 mg PO BID 12/10/21 [History Last Taken 2 Months Ago ~10/10/21] Allergy/AdvReac Type Severity Reaction Status Date / Time Penicillins Allergy Severe Hives Verified 12/10/21 13:10 milk Allergy Unknown Unknown Verified 12/10/21 13:10 Family History Mother Cancer Kidney disease Father Myocardial infarction Brother Heart disease Surgical History History of aortic valve replacement with tissue graft (07/26/07) History of left heart catheterization (11/22/19) History of prostate surgery Implantable cardioverter-defibrillator (ICD) in situ S/P AVR (aortic valve replacement) Social History household members: spouse Smoking Status: Former smoker quit date: 04/27/71 how long ago did patient quit smokin alcohol intake: never substance use type: does not use caffeine: Yes Type: coffee Number of servings: 2 what type of physical activity do you participate in: walking frequency: daily ROS ROS ED Review of Systems ROS Unobtainable: due to mental status Eyes Eyes: Denies blurry vision or diplopia ENT ENT ED: Denies ear pain or sore throat Cardiovascular Cardiovascular: Reports chest pain; Denies racing heartbeat Respiratory/Chest Respiratory/Chest: Denies dyspnea Gastrointestinal Gastrointestinal: Reports abdominal pain and nausea; Denies vomiting Musculoskeletal Musculoskeletal: Reports back pain and other Details: Pain everywhere see HPI ; Denies neck pain Integumentary Denies abscess or rash Neurologic Neurologic: Denies headache(s), paresthesias or weakness EXAM Physical Exam Const Vital Signs: 12/21/21 21:00 12/21/21 21:29 12/21/21 21:29 Temperature 97.7 F L Temperature Source Temporal Pulse Rate 41 L Respiratory Rate 15 Respiratory Effort Normal Blood Pressure 107/81 H Blood Pressure Mean 89 Pulse Ox 97 Oxygen Delivery Method Room Air Room Air 12/21/21 23:01 Temperature Temperature Source Pulse Rate 69 Respiratory Rate 15 Respiratory Effort Blood Pressure 106/82 H Blood Pressure Mean 90 Pulse Ox 99 Oxygen Delivery Method Room Air Positive well nourished and well developed Constitutional Narrative: thin, anxious/agitated General Appearance ED: well developed and NAD HEENT Reports moist mucous membranes normocephalic and atraumatic Eyes PERRL and EOMs intact bilaterally Neck full ROM and supple Resp normal respiratory effort and clear to auscultation bilaterally Cardio regular rhythm and no murmurs Rate: Negative for tachycardic Rhythm: abnormal rhythm irregularly irregular GI non-tender and non-distended Auscultation: normoactive bowel sounds Palpation: soft Back/Spine no CVA tenderness General Back: other FROM Extremity normal to inspection General Extremety ED: Negative for edema, pulses abnormal or tenderness General Extremity: Negative for edema or pulses abnormal Neuro CN's II-XII intact bilaterally and no sensory deficits noted Neuro Narrative: Limited orientation, patient does not want to answer all questions. Sensorium / Orientation: awake and alert Motor Exam: strength 5/5 throughout Psych Attitude: agitated Skin no rashes or lesions noted and no wounds MDM MDM MDM Narrative Medical decision making narrative: Patient appears to have bilateral infiltrates, chronic A. fib with a left little branch block, stable appearing EKG, he is anticoagulated on apixaban. His infiltrates are similar appearing that they were on 12/10, 11 days ago, and in that period of time he had COVID. He does not have a leukocytosis. He was treated with antibiotics regardless, as at the time it was thought that his pneumonia may not be COVID related. Family states he has been coughing still but it is improved, and he has had no dyspnea which he agrees that he does not have now, and no fevers at home that they know of. The x-ray does not look worse than it did prior. They state although he has been not taking any of his medications, the states that she thinks he did take and finish the antibiotic that was given to him at discharge although upon reviewing the discharge medications, there were no antibiotics. His troponin is elevated but it always is, the significance of this is unknown at this time. Apparently he has an ejection fraction last measured here at 15%, family states the last numbers they were told were 10-12%. If he indeed has been having chest discomfort most of the day today, then a troponin of 337 is relatively good for him and likely not indicative of acute coronary syndrome, however since I am able to get no idea about his discomfort and how long he has had it or any history concerning the details of it, I am able to give them relatively limited information and due to his poor cardiac function I recommend admission especially because he is agitated even after we gave him Haldol 2 mg IV. Family wants to take him home. The patient wants to go home. He is redirectable for a very short period of time saying that he needs to get up and walk and go. He seems a little disoriented, however family states this is normal for him, and he is just anxious and agitated. He usually is anxious, however this is more so than usual. I discussed with them, including the and daughter as well as the patient, that if this is cardiac-related pain, I cannot rule out the possibility of the patient dying at home if he does not want to be admitted. They understand that. I also discussed the chest x-ray findings, which are no worse than they were 11 days ago and probably related to COVID as is his cough and may be even his diffuse pain although again I do not know how long he has had it. They understand that as well. They also understand that it would be easier to try to care for his agitation in a safe way here in the hospital, but they want to take him home. I recommend against giving him other medication such as Benadryl or Ativan, and he should take his usual medications which they are in agreement with, telling him if we go home you will have to start taking her medications. I believe everyone in the room has the capacity to make this decision at this time but they are leaving AGAINST MEDICAL ADVICE. Lab Data Attestation: I reviewed the patient's lab results. Labs: Laboratory Results - last 24 hr 12/21/21 12/21/21 12/21/21 21:15 21:15 21:15 WBC 7.0 RBC 4.35 L Hgb 13.1 Hct 40.8 MCV 93.8 MCH 30.1 MCHC 32.1 RDW Std Deviation 48.6 H RDW Coeff of Bj 14.4 Plt Count 148 L MPV 10.4 Immature Gran % (Auto) 0.300 Neut % (Auto) 63.0 Lymph % (Auto) 25.9 [place] % (Auto) 9.2 Eos % (Auto) 1.0 Baso % (Auto) 0.6 Absolute Neuts (auto) 4.4 Absolute Lymphs (auto) 1.81 Nucleated RBC % 0 Sodium 143 Potassium 4.2 Chloride 113 H Carbon Dioxide 26.0 Anion Gap 4 L BUN 25 H Creatinine 1.18 Estim Creat Clear Calc 43.38 Est GFR (MDRD) Af Amer 77 Est GFR (MDRD) Non-Af 64 BUN/Creatinine Ratio 21.2 H Glucose 150 H Calcium 8.5 Total Bilirubin 0.50 Direct Bilirubin 0.20 AST 15 ALT 16 Alkaline Phosphatase 101 Troponin I High Sens 337 H* Total Protein 6.5 Albumin 2.8 L Globulin 3.7 Lipase 113 Urine Color Urine Clarity Urine pH Ur Specific [place] Urine Protein Urine Glucose (UA) Urine Ketones Urine Occult Blood Urine Nitrite Urine Bilirubin Urine Urobilinogen Ur Leukocyte Esterase 12/21/21 23:06 WBC RBC Hgb Hct MCV MCH MCHC RDW Std Deviation RDW Coeff of Bj Plt Count MPV Immature Gran % (Auto) Neut % (Auto) Lymph % (Auto) [place] % (Auto) Eos % (Auto) Baso % (Auto) Absolute Neuts (auto) Absolute Lymphs (auto) Nucleated RBC % Sodium Potassium Chloride Carbon Dioxide Anion Gap BUN Creatinine Estim Creat Clear Calc Est GFR (MDRD) Af Amer Est GFR (MDRD) Non-Af BUN/Creatinine Ratio Glucose Calcium Total Bilirubin Direct Bilirubin AST ALT Alkaline Phosphatase Troponin I High Sens Total Protein Albumin Globulin Lipase Urine Color Yellow Urine Clarity Cloudy Urine pH 6.5 Ur Specific [place] 1.015 Urine Protein 30 H Urine Glucose (UA) Normal Urine Ketones 15 H Urine Occult Blood 50 H Urine Nitrite Negative Urine Bilirubin Negative Urine Urobilinogen 1 H Ur Leukocyte Esterase 500 H Radiography Chest X-Ray - ED: 1 View and Read by ED Physician (Bilateral patchy abnormalities) Diagnostic Testing: Clinical Impression(s) from Imaging Studies Chest X-Ray 12/21/21 21:30 IMPRESSION: Patchy bilateral pneumonia. Electronically Signed: Camilo Schaffer MD at 22:08 EDT , Rhythm Strip Rhythm Strip: A-fib Rate: 85 Ectopy: PVC(s) EKG Initial EKG: Attestation: I personally reviewed and interpreted this EKG as follows: Interpretation: No Acute Injury Pattern, Atrial Fibrillation, LBBB and Non-Specific ST Changes Prior EKG tracings: available for review Prior: Unchanged Discharge Plan Triage Chief Complaint: Chest Pain ED Provider: Kolton Vieyra Dx/Rx/DC Orders Clinical Impression: Chest pain, Elevated troponin, Diffuse pain, Restlessness and agitation Instructions: ED Chest Pain, Uncertain Cause Prescriptions: Continued nitroglycerin [Nitrostat] 0.4 mg tablet, sublingual 0.4 mg sublingual Q5-15M PRN (Reason: chest pain) Qty: 25 3RF Rx Instructions: do not exceed 3 doses per episode Farxiga 5 mg tablet 5 mg PO DAILY Qty: 90 3RF cholecalciferol (vitamin D3) 50 mcg (2,000 unit) capsule 50 mcg PO DAILY carvedilol 3.125 mg tablet 3.125 mg PO BID Qty: 180 3RF amiodarone 200 mg tablet 100 mg PO DAILY 30 Days Qty: 45 3RF tamsulosin 0.4 mg Capsule 0.4 mg PO 1730 30 Days Qty: 30 0RF isosorbide mononitrate 30 mg tablet extended release 24 hr 30 mg PO DAILY Qty: 30 0RF furosemide 40 mg tablet 40 mg PO BID Rx Instructions: TAKE 1 TABLET TWICE A DAY atorvastatin 40 mg tablet 40 mg PO QHS apixaban 2.5 mg tablet 2.5 mg PO BID Primary Care Provider: Brain Bustamante Referrals: Brain Bustamante, DO [Primary Care Provider] - As soon as possible Disposition Disposition: Against Medical Advice Capacity Capacity Assessment Tool Can the patient make a choice & communicate that choice?: Yes Can the patient understand benefits, risks and alternatives?: Unable to Determine Can the patient make a logical, rational choice?: Yes Is the choice the patient makes consistent w/ their values?: Unable to Determine Is there an impending, emergent risk to the patient?: Unable to Determine Does the patient have an Advance Directive?: Yes (DNR-CCA according to POA daughter) Is there a Surrogate Available?: Yes i.e. HCPOA: Yes (daughter) i.e. close relative (spouse, child, parent, sibling)?: Yes ()
[2021-12-21 22:21] LABS: Anion Gap 4 (5-15); BUN 25 mg/dL (7-18); BUN/Creat Ratio 21.2 RATIO (10-20); Calcium,Total 8.5 mg/dL (8.5-10.1); Chloride 113 mmol/L (98-107); Creatinine, Serum 1.18 mg/dL (0.70-1.30); EST Glomerular Filtration Rate 64 mL/min (>60); Est Glom Filt Rate - Afr Amer 77 mL/min (>60); Estimated Creatinine Clearance 43.38 ml/min; Glucose 150 mg/dL (74-106); Potassium 4.2 mmol/L (3.5-5.1); Sodium Level 143 mmol/L (136-145); Troponin-I HS (w/2H Reflex) 337 pg/mL (3.0-78.0)
[2021-12-21] MEDS: Ondansetron 4 MG/2 ML Vial IV (22:58)
[2021-12-21] MEDS: Haloperidol Lactate 5 MG/ML Vial 2 MG IV (22:58)
[2021-12-21 23:01] VITALS: BP 106/82; PULSE 69; RESP 15; O2SAT 99
[2021-12-21 23:11] LABS: AST(SGOT) 15 U/L (15-37); Alanine Aminotransfer ALT/SGPT 16 U/L (16-61); Albumin, Serum 2.8 g/dL (3.2-5.0); Alkaline Phosphatase 101 U/L (45-117); Globulin 3.7 g/dL (2.2-4.2); Lipase 113 U/L (73-393); Protein, Total 6.5 g/dL (6.4-8.2)
[2021-12-21 23:13] LABS: Mucous, Urine 0 SEEN /hpf (<or=2+); Squamous Epithelial Cells - UA 0 SEEN /hpf (0-5)
[2021-12-21 23:24] LABS: Color, Urine Yellow (Yellow); Glucose, Dipstick Normal (Normal); Ketone-Dipstick 15 mg/dl (Negative); Leukocyte Esterase-Dipstick 500 /ul (Negative); Nitrite-Dipstick Negative (Negative); Occult Blood-Urine 50 /ul (Negative); Protein-Dipstick 30 mg/dl (Negative); Specific Gravity, Urine 1.015 (1.002-1.030); Urine Bilirubin Dipstick Negative (Negative); Urine Clarity Cloudy (Clear); Urine Urobilinogen 1 mg/dl (Normal); Urine pH 6.5 (5.0 - 8.0)
[2021-12-21 23:27] LABS: Reflex Troponin-HS? (from REC) Y
[2021-12-21 23:31] VITALS: BP 117/93; PULSE 88; RESP 24; O2SAT 98
[2021-12-21 23:44] LABS: White Blood Cells >100 SEEN /hpf (0-5)
[2021-12-21 23:45] LABS: Bacteria 3+ /hpf (None Seen); Red Blood Cells-Urine 0-5 SEEN /hpf (0-5)
== END 2021-12-21 23:31 | disposition left against medical advice (07) ==
PROVIDERS: Emergency Provider Emergency Medicine; PCP Family Medicine; Visit Provider Emergency Medicine
DX: R07.9 Chest pain, unspecified (principal); I11.0 Hypertensive heart disease with heart failure; I50.22 Chronic systolic (congestive) heart failure; I48.20 Chronic atrial fibrillation, unspecified; R77.8 Other specified abnormalities of plasma proteins; R11.0 Nausea; R41.0 Disorientation, unspecified; E78.5 Hyperlipidemia, unspecified; I25.10 Atherosclerotic heart disease of native coronary artery without angina pectoris; Z87.891 Personal history of nicotine dependence; Z79.899 Other long term (current) drug therapy; Z79.01 Long term (current) use of anticoagulants
CPT/HCPCS: 71045; 80048; 80076; 81001; 83690; 84484; 85025; 93005; 96374; 96375; 99282; J7030; J7050; A4216; J2405

== ENCOUNTER → 2022-02-19 | Outpatient (CLI) | payer MEDICARE, BC, SELFPAY ==
[2022-02-19 16:07] LABS: Bacteria 0 SEEN /hpf (None Seen); Mucous, Urine 0 SEEN /hpf (<or=2+); Red Blood Cells-Urine 0 SEEN /hpf (0-5); Squamous Epithelial Cells - UA 0 SEEN /hpf (0-5)
[2022-02-19 16:55] LABS: Color, Urine Yellow (Yellow); Glucose, Dipstick Normal (Normal); Ketone-Dipstick 5 mg/dl (Negative); Leukocyte Esterase-Dipstick 500 /ul (Negative); Nitrite-Dipstick Negative (Negative); Occult Blood-Urine 150 /ul (Negative); Protein-Dipstick 100 mg/dl (Negative); Urine Bilirubin Dipstick Negative (Negative); Urine Clarity Cloudy (Clear); Urine Urobilinogen Normal (Normal)
[2022-02-19 17:22] LABS: White Blood Cells >100 SEEN /hpf (0-5)
== END | disposition home or self-care (01) ==
LOC: LABSPEC 16:05
PROVIDERS: PCP Family Medicine; Referring Provider Nurse Practitioner Family; Visit Provider Nurse Practitioner Family
DX: R30.0 Dysuria (principal); N28.9 Disorder of kidney and ureter, unspecified
CPT/HCPCS: 81001; 87077; 87086; 87088; 87186

== ENCOUNTER → 2022-03-26 | Outpatient (CLI) | payer MEDICARE, BC, SELFPAY ==
[2022-03-26 15:19] LABS: Absolute Lymphocyte Count 1.58 X10^3/uL (0.83-4.51); Absolute Neutrophil Count 4.2 X10^3/uL (2.0-7.7); Basophil# 0.03 X10^3/uL; Basophil% 0.5 % (0-1); Eosinophil# 0.11 X10^3/uL; Eosinophils% 1.7 % (0-5); Hematocrit 41.9 % (40-54); Hemoglobin 13.2 g/dL (13.0-16.5); Lymphocyte # 1.58 X10^3/ul (0.83-4.51); Mean Corp Hgb Conc 31.5 g/dL (32-36); Mean Corpuscular Hgb 30.3 pg (27.0-32.0); Mean Corpuscular Volume 96.1 fL (80-94); Mean Platelet Vol. 10.3 fl (6.2-12.0); Monocyte# 0.62 X10^3/uL; Monocyte% 9.4 % (0-10); NRBC Flagged by Analyzer 0 % (0-5); Neutrophil # 4.21 X10^3/uL (2.7-7.7); Neutrophil % 64.1 % (47-70); Platelet Count 173 K/mm3 (150-450); RBC Distribution Width SD 60.8 fl (35.1-43.9); Red Blood Count 4.36 M/mm3 (4.6-6.2); White Blood Count 6.6 K/mm3 (4.4-11.0)
[2022-03-26 16:32] LABS: ALB/GLOB Ratio 0.8 RATIO (0.9-2.4); AST(SGOT) 29 U/L (15-37); Alanine Aminotransfer ALT/SGPT 30 U/L (16-61); Alkaline Phosphatase 137 U/L (45-117); Amylase 111 U/L (25-115); Anion Gap 8 (5-15); BUN 30 mg/dL (7-18); BUN/Creat Ratio 19.4 RATIO (10-20); Calcium,Total 8.3 mg/dL (8.5-10.1); Chloride 109 mmol/L (98-107); Creatinine, Serum 1.55 mg/dL (0.70-1.30); EST Glomerular Filtration Rate 47 mL/min (>60); Est Glom Filt Rate - Afr Amer 56 mL/min (>60); Globulin 3.7 g/dL (2.2-4.2); Glucose 99 mg/dL (74-106); Lipase 1338 U/L (73-393); Potassium 4.2 mmol/L (3.5-5.1); Protein, Total 6.7 g/dL (6.4-8.2); Sodium Level 140 mmol/L (136-145); T4 Free Direct 1.14 ng/dL (0.76-1.46)
== END | disposition home or self-care (01) ==
LOC: BIMLAB 14:15
PROVIDERS: PCP Family Medicine; Referring Provider Physician Assistant; Visit Provider Physician Assistant
DX: R10.11 Right upper quadrant pain (principal); R19.7 Diarrhea, unspecified; R39.9 Unspecified symptoms and signs involving the genitourinary system
CPT/HCPCS: 36415; 80053; 82150; 83690; 84439; 84443; 85025

== ENCOUNTER 2022-03-27 09:39 | Inpatient (IN) | payer MEDICARE, BC, SELFPAY ==
[2022-03-27 09:40] VITALS: BP 107/83; PULSE 72; RESP 18; TEMP 36.1; O2SAT 100; BMI 18.3
[2022-03-27 10:53] LABS: AST(SGOT) 32 U/L (15-37); Alanine Aminotransfer ALT/SGPT 29 U/L (16-61); Albumin, Serum 2.9 g/dL (3.2-5.0); Alkaline Phosphatase 132 U/L (45-117); Anion Gap 8 (5-15); BUN 29 mg/dL (7-18); BUN/Creat Ratio 22.5 RATIO (10-20); Bilirubin, Direct 0.38 mg/dL (0.00-0.30); Calcium,Total 8.9 mg/dL (8.5-10.1); Chloride 110 mmol/L (98-107); Creatinine, Serum 1.29 mg/dL (0.70-1.30); EST Glomerular Filtration Rate 58 mL/min (>60); Est Glom Filt Rate - Afr Amer 70 mL/min (>60); Globulin 3.7 g/dL (2.2-4.2); Glucose 101 mg/dL (74-106); Lipase 1624 U/L (73-393); Potassium 3.9 mmol/L (3.5-5.1); Protein, Total 6.6 g/dL (6.4-8.2); Sodium Level 142 mmol/L (136-145)
--- NOTE | 2022-03-27 12:09 | CT_ITS ---
STUDY: CT ABDOMEN AND PELVIS WITH CONTRAST REASON FOR EXAM: Male, 76 years old. Elevated lipase, nausea, abdominal fullness -- IV PO Contrast RADIATION DOSAGE (If Supplied By Facility): CTDIvol = ( 17.55 ) mGy, DLP = ( 736.39 ) mGycm TECHNIQUE: Transaxial images were obtained from the dome of the diaphragm to the symphysis pubis with oral contrast. Oral and amp;amp; IV Gastrografin and amp;amp; 100mL Isovue-300 was administered. Sagittal and coronal images were reconstructed. Individualized dose optimization techniques were used for this CT. COMPARISON: Comparison is made with prior study dated 08/02/2021. FINDINGS: The visualized lung bases are unremarkable. Coronary artery calcification. Mild cardiomegaly. There is decreased attenuation of the liver consistent with steatosis. Normal gallbladder and extrahepatic biliary system. Normal spleen. Normal pancreas. There is symmetric enlargement of the adrenal glands suggesting adrenal hyperplasia. Mild degree of bilateral hydronephrosis and hydroureter. Small cyst in the upper pole of the right kidney. Normal visualized stomach. Normal small intestine. There are multiple colonic diverticula consistent with diverticulosis. The appendix is visualized and appears normal. There is diffuse atherosclerotic calcification of the abdominal aorta and its major visceral branches, without a demonstrated aneurysm. Normal inferior vena cava. Normal retroperitoneum. 1 significant, there is a marked degree of distention of the urinary bladder. There is evidence of multiple bladder diverticula. Small calculi are seen at the base of the bladder. There is a 1 cm calculus at the right ureterovesical junction. Which again, there is prostatic enlargement with indentation of the bladder base. Normal abdominal wall. There are diffuse degenerative changes of the visualized lumbar spine. CT/Abdomen/Pelvis WITH Contrast IMPRESSION: Marked degree of distention of the urinary bladder with multiple trabeculations and diverticula. 1 cm calculus at the right ureterovesical junction. Bladder calculi. Electronically Signed: Natalio Patel MD at 14:42 EST ,
[2022-03-27 12:50] VITALS: BP 110/65; PULSE 84; RESP 16; O2SAT 99
--- NOTE | 2022-03-27 12:54 | EX.ED.DYSGE1 ---
HPI History of Present Illness Chief Complaint: Abn Labs [facility] Medical History Abnormal EKG Acute on chronic combined systolic (congestive) and diastolic (congestive) heart failure Atherosclerotic heart disease of [place] coronary artery without angina pectoris Atrial fibrillation and flutter CAD (coronary artery disease) Cardiomyopathy CHF (congestive heart failure) CHF (congestive heart failure) Chronic systolic CHF (congestive heart failure) COVID-19 Essential (primary) hypertension HLD (hyperlipidemia) Memory loss, short term Neurogenic bladder Non-ST elevated myocardial infarction (non-STEMI) Non-sustained ventricular tachycardia Nonischemic cardiomyopathy Nonrheumatic aortic (valve) stenosis with insufficiency Nonrheumatic mitral (valve) insufficiency Nonrheumatic tricuspid (valve) insufficiency NSTEMI (non-ST elevated myocardial infarction) (06/11/20) NSTEMI (non-ST elevation myocardial infarction) PTSD (post-traumatic stress disorder) PVCs (premature ventricular contractions) Right bundle branch block Home Medications nitroglycerin 0.4 mg sublingual tablet (Nitrostat) 0.4 mg sublingual Q5-15M PRN chest pain #25 tabs 04/01/21 [Rx Last Taken Unknown] lorazepam 0.5 mg tablet 0.5 mg PO BID PRN 02/19/22 [History Last Taken Unknown] disability placard #1 ea 02/28/22 [Rx Last Taken Unknown] Allergy/AdvReac Type Severity Reaction Status Date / Time Penicillins Allergy Severe Hives Verified 03/27/22 09:41 milk Allergy Unknown Unknown Verified 03/27/22 09:41 Family History Mother Cancer Kidney disease Father Myocardial infarction Brother Heart disease Surgical History History of aortic valve replacement with tissue graft (07/26/07) History of left heart catheterization (11/22/19) History of prostate surgery Implantable cardioverter-defibrillator (ICD) in situ S/P AVR (aortic valve replacement) Social History household members: spouse Smoking Status: Former smoker quit date: 04/27/71 how long ago did patient quit smokin alcohol intake: never substance use type: does not use caffeine: Yes Type: coffee Number of servings: 2 what type of physical activity do you participate in: walking frequency: daily EXAM Physical Exam Const Vital Signs: 03/27/22 09:40 03/27/22 10:31 03/27/22 12:50 Temperature 97.0 F L Temperature Source Temporal Pulse Rate 72 84 Respiratory Rate 18 16 Respiratory Effort Normal Respiratory Pattern Normal Blood Pressure 107/83 H 110/65 Blood Pressure Mean 91 80 Pulse Ox 100 99 Oxygen Delivery Method Room Air 03/27/22 15:41 Temperature Temperature Source Pulse Rate 60 Respiratory Rate 16 Respiratory Effort Respiratory Pattern Blood Pressure 112/78 Blood Pressure Mean 89 Pulse Ox 97 Oxygen Delivery Method MDM MDM MDM Narrative Medical decision making narrative: Patient with vague symptoms elevated lipase. He is does not have history of pancreatitis. [place] history cholelithiasis. Denies history of drinking. He complains of this vague pain with fullness in his stomach. We will repeat blood work. Basic metabolic panel reveals slight elevation in creatinine up to 1.29. GFR is 58. Liver profile is unremarkable. Lipase is 1224. CBC that was performed yesterday is unremarkable. Because of reported back pain and patient being cachectic CT of the abdomen with p.o. and IV contrast was obtained to evaluate for malignancy. Patient has evidence of urinary retention and has an obstructing ureteral stone. Garcia was placed. Urine returned creamy white thick urine. Urine was sent for culture. Sepsis work-up was undertaken. I was made aware of the urine at 1546. Antibiotics were ordered. Since he has hives to penicillin levofloxacin was ordered. Dr. Aguilar's been made paged to make him aware since he will probably need a ureteral stent. Initially patient metabolic panel, liver profile lipase were ordered since he had blood work yesterday. In light of the abnormal CAT scan finding additional blood work was obtained including urine culture, blood cultures. Dr. Aguilar has been made aware the patient. He understands that patient has an obstructing stone with infection. He requested admission to medicine. Case discussed with China Wallace. She will admit patient. Lab Data Attestation: I reviewed the patient's lab results. Labs: Laboratory Results - last 24 hr 03/27/22 03/27/22 09:55 16:00 WBC 4.1 L RBC 3.77 L Hgb 11.7 L Hct 35.7 L MCV 94.7 H MCH 31.0 MCHC 32.8 RDW Std Deviation 58.8 H RDW Coeff of Bj 16.7 H Plt Count 141 L MPV 9.8 Immature Gran % (Auto) 0.500 Neut % (Auto) 50.4 Lymph % (Auto) 32.3 Charles % (Auto) 11.9 H Eos % (Auto) 4.4 Baso % (Auto) 0.5 Absolute Neuts (auto) 2.1 Absolute Lymphs (auto) 1.33 Nucleated RBC % 0 Sodium 142 Potassium 3.9 Chloride 110 H Carbon Dioxide 24.0 Anion Gap 8 BUN 29 H Creatinine 1.29 Estim Creat Clear Calc 41.90 Est GFR (MDRD) Af Amer 70 Est GFR (MDRD) Non-Af 58 L BUN/Creatinine Ratio 22.5 H Glucose 101 Calcium 8.9 Total Bilirubin 0.80 Direct Bilirubin 0.38 H AST 32 ALT 29 Alkaline Phosphatase 132 H Total Protein 6.6 Albumin 2.9 L Globulin 3.7 Lipase 1624 H Radiography Diagnostic Testing: Clinical Impression(s) from Imaging Studies Abdomen/Pelvis CT 03/27/22 12:09 IMPRESSION: Marked degree of distention of the urinary bladder with multiple trabeculations and diverticula. 1 cm calculus at the right ureterovesical junction. Bladder calculi. Electronically Signed: Natalio Patel MD at 14:42 EST , EKG Initial EKG: Attestation: I personally reviewed and interpreted this EKG as follows: Interpretation: Atrial Fibrillation (Ventricular rate 67. ME 170 ms. Morphology consistent with left bundle branch block. QT is prolonged at 502 ms. [place] is to the left.) Treatment and Re-Evaluation Narrative: I was informed by patient's nurse at 1252 that he is complaining of pain and moaning. He is now complaining abdominal pain. He was ordered morphine and Zofran for his pain and nausea. Critical Care Time Critical Care Time: Yes Critical care time (excluding procedures): 30-74 minutes (32), Including time spent: (Street, physical, documentation, review of prior records, independent review of laboratory results with interpretation and initiation of treatment), Discussing w/Patient &/or Family/Utility Operator Yarn, Discussing w/Consultants, Arranging Admission or Transfer and Performing Direct Patient Care at Bedside Discharge Plan Dx/Rx/DC Orders Clinical Impression: Hydronephrosis with urinary obstruction due to ureteral calculus, HLD (hyperlipidemia), Atrial fibrillation and flutter, HTN (hypertension), Urinary tract infection Disposition Disposition: Acute Care Hospital [facility]
[2022-03-27] MEDS: Ondansetron 4 MG/2 ML Vial IV (13:05)
[2022-03-27] MEDS: Morphine 4 MG/ML Syringe IV (13:05)
[2022-03-27 15:41] VITALS: BP 112/78; PULSE 60; RESP 16; O2SAT 97
--- NOTE | 2022-03-27 15:48 | ED.RN ---
st cathed with 1300 return purulent urine.
--- NOTE | 2022-03-27 15:52 | EKG12_ITS ---
Test Reason : Blood Pressure : / mmHG Vent. Rate : 067 BPM Atrial Rate : 000 BPM P-R Int : 000 ms QRS Dur : 170 ms QT Int : 502 ms P-R-T Axes : 000 -28 152 degrees QTc Int : 530 ms Atrial fibrillation with premature ventricular or aberrantly conducted complexes Left bundle branch block Abnormal ECG Confirmed by GOOD GARZA, MARY ([id number]), book or script editor BRENT WAHL ([id number]) on 04/02/2022 9:04:06 AM Referred By: Confirmed By:MARY FUNK MD
--- NOTE | 2022-03-27 16:02 | HP.PCM.HOS_ITS ---
HPI - General General Date of Admission: 03/27/22 Date of Service: 03/27/22 Chief Complaint: Malaise, abdominal fullness sensation. HPI Narrative The patient is a 76 y/o M w/ PMHx: Chronic combined Diastolic/Systolic CHF/Nonischemic cardiomyopathy s/p AICD, Valvular Heart Disease s/p AVR with tissue graft, HTN, HLD, CAD, PAF, Chronic short-term memory impairment, PTSD, Former tobacco use, Neurogenic bladder who presents to the [facility] ED on 03/27/22 with history of malaise, fatigue, sensation of fullness to the abdomen especially to the lower abdomen with suprapubic discomfort with palpation and decreased urine output over the last 2 to 3 days with reported chills but no specific fevers prompting eventual ED evaluation. In the ED and upon evaluation patient did complain of epigastric discomfort with palpation. He denies any recent nausea or emesis or significant severe abdominal pain prior. Work-up in the ED included T 97, heart rate 72, BP 107/83, respiratory rate 18, 100% room air, CMP with chloride 110, BUN/creat 29/1.29, T bili 0.8, D bili 0.38, AST/LT 32/29, alk phos 132, lipase 1624, CT abdomen and pelvis with marked degree of distention of the urinary bladder with multiple trabeculations and diverticula, 1 cm calculus at the right ureterovesical junction with bladder calculi concurrently, EKG with atrial fibrillation, rate controlled without acute evidence of ischemia. In the ED patient administered levaquin, morphine, zofran. Pending LA and CBC upon evaluation which eventually resulted with CBC with WBC 4.1, hemoglobin 0.7, MCV 94.7, platelet 141 without marked shift and lactic acid 0.7. ED discussed case with Urology who evaluated the patient and reviewed the films and felt that likely his presentation was secondary to urinary retention and given improvement with catheter placement as far as discomfort was concerned plan continued nonoperative management at this point. Urology did not feel that any of the stones were leading to significant hydronephrosis. [facility] Medical History Abnormal EKG Acute on chronic combined systolic (congestive) and diastolic (congestive) heart failure Atherosclerotic heart disease of [place] coronary artery without angina pectoris Atrial fibrillation and flutter CAD (coronary artery disease) Cardiomyopathy CHF (congestive heart failure) CHF (congestive heart failure) Chronic systolic CHF (congestive heart failure) COVID-19 Essential (primary) hypertension HLD (hyperlipidemia) Memory loss, short term Neurogenic bladder Non-ST elevated myocardial infarction (non-STEMI) Non-sustained ventricular tachycardia Nonischemic cardiomyopathy Nonrheumatic aortic (valve) stenosis with insufficiency Nonrheumatic mitral (valve) insufficiency Nonrheumatic tricuspid (valve) insufficiency NSTEMI (non-ST elevated myocardial infarction) (06/11/20) NSTEMI (non-ST elevation myocardial infarction) PTSD (post-traumatic stress disorder) PVCs (premature ventricular contractions) Right bundle branch block Home Medications nitroglycerin 0.4 mg sublingual tablet (Nitrostat) 0.4 mg sublingual Q5-15M PRN chest pain #25 tabs 04/01/21 [Rx Last Taken Unknown] lorazepam 0.5 mg tablet 0.5 mg PO BID PRN Anxiety 02/19/22 [History Last Taken 03/27/22] disability placard #1 ea 02/28/22 [Rx Last Taken Unknown] apixaban 2.5 mg tablet (Eliquis) 2.5 mg PO DAILY BLOOD THINNER 03/27/22 [History Last Taken Unknown] furosemide 40 mg tablet 40 mg PO DAILY FLUID 03/27/22 [History Last Taken Unknown] Allergy/AdvReac Type Severity Reaction Status Date / Time Penicillins Allergy Severe Hives Verified 03/27/22 09:41 milk Allergy Unknown Unknown Verified 03/27/22 09:41 Family History Mother Cancer Kidney disease Father Myocardial infarction Brother Heart disease Surgical History History of aortic valve replacement with tissue graft (07/26/07) History of left heart catheterization (11/22/19) History of prostate surgery Implantable cardioverter-defibrillator (ICD) in situ S/P AVR (aortic valve replacement) Social History household members: spouse Smoking Status: Former smoker quit date: 04/27/71 how long ago did patient quit smokin alcohol intake: never substance use type: does not use caffeine: Yes Type: coffee Number of servings: 2 what type of physical activity do you participate in: walking frequency: daily ROS ROS Narrative Admission Review of Systems: CONSTITUTIONAL: No weight loss, fever, + chills, weakness or fatigue. HEENT: Eyes: No visual loss, blurred vision, double vision or yellow sclerae. Ears, Nose, Throat: No hearing loss, sneezing, congestion, runny nose or sore throat. SKIN: + Various staged abrasions. CARDIOVASCULAR: No chest pain, chest pressure or chest discomfort, palpitations, edema, orthopnea, syncopal events. RESPIRATORY: No shortness of breath, cough or sputum, wheezing, hemoptysis. GASTROINTESTINAL: + Abdominal discomfort, fullness, No anorexia, nausea, vomiting, diarrhea, melena, BRBPR. GENITOURINARY: + Decreased UOP, suprapubic discomfort, fullness. NEUROLOGICAL: No headache, dizziness, syncope, paralysis, ataxia, numbness or tingling in the extremities, focal weakness, change in bowel or bladder control, seizure. MUSCULOSKELETAL: + muscle, back pain, joint pain or stiffness. HEMATOLOGIC: + anemia, bleeding or bruising. LYMPHATICS: No enlarged nodes. No history of splenectomy. PSYCHIATRIC: + history of depression or anxiety. ENDOCRINOLOGIC: No reports of sweating, cold or heat intolerance. No polyuria or polydipsia. ALLERGIES: + history of hives. Vital Signs Vital Signs Vital Signs: 03/27/22 09:40 03/27/22 10:31 03/27/22 12:50 Temperature 97.0 F L Temperature Source Temporal Pulse Rate 72 84 Respiratory Rate 18 16 Respiratory Effort Normal Respiratory Pattern Normal Blood Pressure 107/83 H 110/65 Blood Pressure Mean 91 80 Pulse Ox 100 99 Oxygen Delivery Method Room Air 03/27/22 15:41 Temperature Temperature Source Pulse Rate 60 Respiratory Rate 16 Respiratory Effort Respiratory Pattern Blood Pressure 112/78 Blood Pressure Mean 89 Pulse Ox 97 Oxygen Delivery Method Weight Weight: 132 lb Body Mass Index (BMI) 18.3 Physical Exam Narrative Physical Examination: General: Awake, alert, oriented x 3 and cooperative, seated upright in the ED bed, fatigued appearing otherwise no acute distress. Skin: Normal color, normal turgor, no icterus, no cyanosis except occasional staged ecchymoses. HEENT: AT/NC, EOMI, PERRLA, dry MM, no carotid bruits or JVD noted. Lungs: Mildly diminished, greater bases, appropriate effort, no rales, ronchi or wheezing. Heart: Irregular, currently appears rate controlled; no gallop, rub audible. Abdomen: Soft, mild discomfort to the epigastric region and also the suprapubic region, no marked distention, no rebound or guarding, mildly hyperactive bowel sounds, no obvious HSM. Extremities: No cyanosis, clubbing, or edema. Neurological: Patient awake, alert, oriented as noted, cognitive function despite history of short-term memory issues appears intact; pupils equally reactive to light and accommodation, cranial nerves grossly normal, moving all 4 extremities, no focal deficits, strength moderately global decreased. Psychiatric: Affect appears fatigued otherwise normal, no acute evidence of depressive or anxiety feelings. Results Lab / Micro Data Result Diagrams: 03/27/22 16:00 03/27/22 09:55 Labs: Laboratory Results - last 24 hr 03/27/22 09:55: Sodium 142, Potassium 3.9, Chloride 110 H, Carbon Dioxide 24.0, Anion Gap 8, BUN 29 H, Creatinine 1.29, Estim Creat Clear Calc 41.90, Est GFR (MDRD) Af Amer 70, Est GFR (MDRD) Non-Af 58 L, BUN/Creatinine Ratio 22.5 H, Glucose 101, Calcium 8.9, Total Bilirubin 0.80, Direct Bilirubin 0.38 H, AST 32, ALT 29, Alkaline Phosphatase 132 H, Total Protein 6.6, Albumin 2.9 L, Globulin 3.7, Lipase 1624 H Radiology Impression Abdomen/Pelvis CT 03/27/22 12:09 IMPRESSION: Marked degree of distention of the urinary bladder with multiple trabeculations and diverticula. 1 cm calculus at the right ureterovesical junction. Bladder calculi. Electronically Signed: Natalio Patel MD at 14:42 EST , Assessment & Plan Assessment/Plan (1) Urinary tract infection: PLAN: Plan The patient is a 76 y/o M w/ PMHx: Chronic combined Diastolic/Systolic CHF/Nonischemic cardiomyopathy s/p AICD, Valvular Heart Disease s/p AVR with tissue graft, HTN, HLD, CAD, PAF, Chronic short-term memory impairment, PTSD, Former tobacco use, Neurogenic bladder who presents to the [facility] ED on 03/27/22 with history of malaise, fatigue, sensation of fullness to the abdomen especially to the lower abdomen with suprapubic discomfort with palpation and decreased urine output over the last 2 to 3 days with reported chills but no specific fevers prompting eventual ED evaluation. #1. Acute pancreatitis w/ abdominal pain: Will admit to PCU for bed availability, maintain on IVFs, NPO, PPI, IV/po pain control, trend lipase, CMP. Will obtain RUQ US, FLP, denied alcohol consumption as risk for pancreatitis. Earlier in the day labs obtained outpatient with CBC WC 6.6, hemoglobin 13.2, platelet 173 without marked shift, BUN/creatinine 30/1.55 at that time, T bili 1.60, alk phos 137, AST/ALT 29/30 and lipase 1338 at that time. #2. Acute Complicated Urinary Tract Infection with Urinary Retention with Underlying Neurogenic Bladder with associated Mild bilateral hydronephrosis and hydroureter with multiple trabeculated shins and diverticula as well as 1 cm calculus right ureter vesicular junction: Patient with significant urinary bladder distention with improvement with Garcia catheter placement, will continue, urology consulted and following. Most recent culture 02/19/2022 with Enterococcus 80-100,000 sensitive to all agents except tetracycline including sensitivity to ampicillin, ciprofloxacin, Levaquin, nitrofurantoin and vancomycin. We will maintain on IV Levaquin therapy with altered dosing as needed. No current operative intervention needs per urology recent evaluation. #3. Chronic combined Diastolic/Systolic CHF/Nonischemic cardiomyopathy: s/p AICD. 08/03/2021 echocardiogram with severe global LV systolic dysfunction, EF 15%, mildly enlarged LA and RA, mild MVI, moderate TBI, stable appearing bioprosthetic AV apparatus, trivial PVI, RVSP 22 mmHg. Given history will need to be very cautious with IV fluids given acute pancreatitis presentation as noted above. We will continue patient home apixaban, temporarily holding Lasix as needed for hydration cautiously, not on NEDA inhibitor/ARB nor beta-krystal therapy nor statin therapy. #4. Valvular Heart Disease: s/p AVR with tissue graft, 08/03/2021 echocardiogram with severe global LV systolic dysfunction, EF 15%, mildly enlarged LA and RA, mild MVI, moderate TBI, stable appearing bioprosthetic AV apparatus, trivial PVI, RVSP 22 mmHg. #5. Hypertension: Temporarily holding patient home Lasix given acute presentation number 1, add back once appropriate, PRN hydralazine. #6. Hyperlipidemia: Not on therapy, defer to outpatient #7. CAD: From description assume nonobstructive CAD, continue apixaban, not on beta-krystal/NEDA inhibitor/ARB/statin therapy, defer to outpatient. #8. PAF: Rate controlled, not on any rate or rhythm agent currently, we will continue patient home Eliquis regimen. #9. Chronic short-term memory impairment: Noted in history, appropriate orientation with discussions, will continue to closely monitor but may need fr equent reminders. #10. PTSD: We will continue as needed Ativan however patient would benefit from consideration in addition to her agents. #11. Former tobacco use: Encourage continued tobacco cessation. #12. DVT prophylaxis: SCDs, continue patient home apixaban regimen. #13. CODE status: Patient JUNIOR is his and living will is currently in place. Discussed CODE status at length including difference between FULL code, DNR-CCA and DNR-CC status. Following discussions about the differences in these status, requested Full Code status. Advanced Care Planning Face to Face Time: 16 minutes. Charges/Coding Visit Charges Inpatient E&M: 21083 Init Hosp L3 Procedures Hospitalists Procedures: 32855 Advncd Care Plan 30 Min
[2022-03-27] MEDS: levoFLOXacin IV 750 MG/150 ML BAG 100 MG IV (16:06)
[2022-03-27 16:09] LABS: Absolute Lymphocyte Count 1.33 X10^3/uL (0.83-4.51); Absolute Neutrophil Count 2.1 X10^3/uL (2.0-7.7); Basophil# 0.02 X10^3/uL; Basophil% 0.5 % (0-1); Eosinophil# 0.18 X10^3/uL; Eosinophils% 4.4 % (0-5); Hematocrit 35.7 % (40-54); Hemoglobin 11.7 g/dL (13.0-16.5); Lymphocyte # 1.33 X10^3/ul (0.83-4.51); Lymphocyte % 32.3 % (19-41); Mean Corp Hgb Conc 32.8 g/dL (32-36); Mean Corpuscular Volume 94.7 fL (80-94); Mean Platelet Vol. 9.8 fl (6.2-12.0); Monocyte# 0.49 X10^3/uL; Monocyte% 11.9 % (0-10); NRBC Flagged by Analyzer 0 % (0-5); Neutrophil # 2.08 X10^3/uL (2.7-7.7); Neutrophil % 50.4 % (47-70); Platelet Count 141 K/mm3 (150-450); RBC Distribution Width CV 16.7 % (11.6-14.6); RBC Distribution Width SD 58.8 fl (35.1-43.9); Red Blood Count 3.77 M/mm3 (4.6-6.2); White Blood Count 4.1 K/mm3 (4.4-11.0)
[2022-03-27 16:46] LABS: Lactic Acid 0.7 mmol/L (0.4-1.9)
[2022-03-27 17:12] VITALS: BP 112/64; PULSE 90; RESP 16; TEMP 36.1; O2SAT 97
--- NOTE | 2022-03-27 17:19 | US_ITS ---
STUDY: ABDOMINAL ULTRASOUND - RIGHT UPPER QUADRANT REASON FOR VISIT: Male, 76 years old pancreatitis, evaluation GB TECHNIQUE: Ultrasound evaluation of the right upper quadrant was performed with real-time and static alexandra-scale imaging. TECHNICAL QUALITY: Adequate. COMPARISON: CT of the abdomen 03/27/2022 FINDINGS: Liver: The liver measures 15.3 cm. There is diffusely increased echogenicity of the liver. The bile ducts are within normal limits. There is hepatic color flow. The direction of portal flow is hepatopetal. There is no demonstrated mass lesion. Gallbladder: Normal distended gallbladder. The gallbladder wall measures 2 mm. There is a negative sonographic Card''s sign. There is no pericholecystic fluid. There are no gallstones. Common Bile Duct (C.B.D.): The common bile duct measures 7 mm. Pancreas: Pancreas is suboptimally visualized due to bowel gas producing artifact.. Right Kidney: Normal size of the right kidney. The right kidney measures 10.7 x 5.1 x 4.6 cm. Normal renal cortex. The right cortex measures 1.9 cm. There is a cyst measuring approximately 7 mm in size.. There is no right hydronephrosis. US/Gallbladder IMPRESSION: Mildly enlarged fatty infiltrated liver. No evidence for gallstones or acute cholecystitis Electronically Signed: Chetan Mazariegos MD at 18:05 EST ,
[2022-03-27 17:22] VITALS: BMI 19.1
[2022-03-27] MEDS: 0.9% Normal Saline 1,000 ML 100 ML IV (18:26)
[2022-03-27 18:35] VITALS: PULSE 68
[2022-03-27 19:00] VITALS: PULSE 64
[2022-03-28 00:56] VITALS: BP 101/77; PULSE 68; RESP 18; TEMP 36.6; O2SAT 97
[2022-03-28 03:00] VITALS: PULSE 72
[2022-03-28 04:05] VITALS: BP 99/78; PULSE 86; RESP 18; TEMP 36.6; O2SAT 95
[2022-03-28] MEDS: 0.9% Normal Saline 1,000 ML 100 ML IV (04:09)
--- NOTE | 2022-03-28 04:42 | NURSING ---
Pt voiced frustration with being in the hospital, reminded pt of his diagnosis of pancreatitis and the need to be npo for a time. Pt is upset about his NPO status. Offered to call pt's family for him in the morning. Pt requested to have his called now. Assisted pt in dialing. Pt's answered briefly and then the line disconnected. Will help him try again later this am.
--- NOTE | 2022-03-28 06:59 | NURSING ---
Shift documentation reviewed with Anastasiya ASENCIO.
[2022-03-28 07:00] VITALS: PULSE 74
[2022-03-28 07:05] LABS: Absolute Lymphocyte Count 0.83 X10^3/uL (0.83-4.51); Absolute Neutrophil Count 3.7 X10^3/uL (2.0-7.7); Basophil# 0.02 X10^3/uL; Basophil% 0.4 % (0-1); Eosinophils% 1.9 % (0-5); Hematocrit 34.6 % (40-54); Hemoglobin 11.3 g/dL (13.0-16.5); Lymphocyte # 0.83 X10^3/ul (0.83-4.51); Lymphocyte % 16.1 % (19-41); Mean Corp Hgb Conc 32.7 g/dL (32-36); Mean Corpuscular Hgb 30.9 pg (27.0-32.0); Mean Corpuscular Volume 94.5 fL (80-94); Mean Platelet Vol. 10.3 fl (6.2-12.0); Monocyte# 0.48 X10^3/uL; Monocyte% 9.3 % (0-10); NRBC Flagged by Analyzer 0 % (0-5); Neutrophil # 3.73 X10^3/uL (2.7-7.7); Neutrophil % 72.1 % (47-70); Platelet Count 140 K/mm3 (150-450); RBC Distribution Width CV 16.2 % (11.6-14.6); RBC Distribution Width SD 56.5 fl (35.1-43.9); Red Blood Count 3.66 M/mm3 (4.6-6.2); White Blood Count 5.2 K/mm3 (4.4-11.0)
--- NOTE | 2022-03-28 07:41 | PCM.CONS.U ---
Assessment & Plan Assessment/Plan (1) Urinary tract infection: PLAN: treat UTI (2) Urinary retention: PLAN: home with narayan (3) BPH (benign prostatic hyperplasia): PLAN: follow up as outpatient for further work up HPI Consult Data Date of Consult: 03/28/22 HPI Narrative Reason for Consultation: retention of urine HPI Narrative: DONNY SOLER, is a 76 M who presents with severe retention of urine , narayan placed in ER has several stones in the bladder, has a very stretch out poorly functioning bladder and will need to go home with narayan. on ct scan one of the stone is suspected to be in the distal ureter but on my review I don't see an obstruction stone so no intervention needed. He can follow up as an outpateint with me after discharge to discuss management option for his prostate and work up (r/o cancer, bph) after discharge. call with questions. 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 Atrial fibrillation and flutter CAD (coronary artery disease) Cardiomyopathy CHF (congestive heart failure) CHF (congestive heart failure) Chronic systolic CHF (congestive heart failure) COVID-19 Essential (primary) hypertension HLD (hyperlipidemia) Memory loss, short term Neurogenic bladder Non-ST elevated myocardial infarction (non-STEMI) Non-sustained ventricular tachycardia Nonischemic cardiomyopathy Nonrheumatic aortic (valve) stenosis with insufficiency Nonrheumatic mitral (valve) insufficiency Nonrheumatic tricuspid (valve) insufficiency NSTEMI (non-ST elevated myocardial infarction) (06/11/20) NSTEMI (non-ST elevation myocardial infarction) PTSD (post-traumatic stress disorder) PVCs (premature ventricular contractions) Right bundle branch block Home Medications nitroglycerin 0.4 mg sublingual tablet (Nitrostat) 0.4 mg sublingual Q5-15M PRN chest pain #25 tabs 04/01/21 [Rx Last Taken Unknown] lorazepam 0.5 mg tablet 0.5 mg PO BID PRN Anxiety 02/19/22 [History Last Taken 03/27/22] disability placard #1 ea 02/28/22 [Rx Last Taken Unknown] apixaban 2.5 mg tablet (Eliquis) 2.5 mg PO DAILY BLOOD THINNER 03/27/22 [History Last Taken Unknown] furosemide 40 mg tablet 40 mg PO DAILY FLUID 03/27/22 [History Last Taken Unknown] Allergy/AdvReac Type Severity Reaction Status Date / Time Penicillins Allergy Severe Hives Verified 03/27/22 09:41 milk Allergy Unknown Unknown Verified 03/27/22 09:41 Family History Mother Cancer Kidney disease Father Myocardial infarction Brother Heart disease Surgical History History of aortic valve replacement with tissue graft (07/26/07) History of left heart catheterization (11/22/19) History of prostate surgery Implantable cardioverter-defibrillator (ICD) in situ S/P AVR (aortic valve replacement) Social History household members: spouse Smoking Status: Former smoker quit date: 04/27/71 how long ago did patient quit smokin alcohol intake: never substance use type: does not use caffeine: Yes Type: coffee Number of servings: 2 what type of physical activity do you participate in: walking frequency: daily Physical Exam Const alert and oriented x3 General Appearance: cooperative HEENT normocephalic, head/scalp atraumatic, EAC's normal and TM's normal bilaterally Eyes PERRL and EOMs intact bilaterally Pupil: sluggish Neck no lymphadenopathy, supple and no JVD General: trachea midline Lymph Lymphatic: no lymphadenopathy noted, lymphedema and lymphadenopathy Resp normal respiratory effort, normal air movement and clear to auscultation bilaterally Cardio regular rate, regular rhythm and peripheral pulses 2+ throughout GI soft to palpation, non-tender and non-distended Extremity normal capillary refill and no clubbing, cyanosis or edema General Extremity: no tenderness to palpation of joints or extremities Skin no rashes or lesions noted General Skin Exam: turgor normal Lesions: no lesions Rashes: no rashes Neuro CN's II-XII intact bilaterally Speech: speech normal Motor Exam: strength 5/5 throughout; Negative for general weakness Psych thought process normal, cooperative and affect normal Appearance: appropriate Lab / Micro Data Result Diagrams: 03/28/22 05:40 03/27/22 09:55 Labs: Laboratory Results - last 24 hr 03/27/22 09:55: Sodium 142, Potassium 3.9, Chloride 110 H, Carbon Dioxide 24.0, Anion Gap 8, BUN 29 H, Creatinine 1.29, Estim Creat Clear Calc 41.90, Est GFR (MDRD) Af Amer 70, Est GFR (MDRD) Non-Af 58 L, BUN/Creatinine Ratio 22.5 H, Glucose 101, Calcium 8.9, Total Bilirubin 0.80, Direct Bilirubin 0.38 H, AST 32, ALT 29, Alkaline Phosphatase 132 H, Total Protein 6.6, Albumin 2.9 L, Globulin 3.7, Lipase 1624 H 03/27/22 16:00: WBC 4.1 L, RBC 3.77 L, Hgb 11.7 L, Hct 35.7 L, MCV 94.7 H, MCH 31.0, MCHC 32.8, RDW Std Deviation 58.8 H, RDW Coeff of Bj 16.7 H, Plt Count 141 L, MPV 9.8, Immature Gran % (Auto) 0.500, Neut % (Auto) 50.4, Lymph % (Auto) 32.3, [place] % (Auto) 11.9 H, Eos % (Auto) 4.4, Baso % (Auto) 0.5, Absolute Neuts (auto) 2.1, Absolute Lymphs (auto) 1.33, Nucleated RBC % 0 03/27/22 16:17: Lactic Acid 0.7 03/28/22 05:40: WBC 5.2, RBC 3.66 L, Hgb 11.3 L, Hct 34.6 L, MCV 94.5 H, MCH 30.9, MCHC 32.7, RDW Std Deviation 56.5 H, RDW Coeff of Bj 16.2 H, Plt Count 140 L, MPV 10.3, Immature Gran % (Auto) 0.200, Neut % (Auto) 72.1 H, Lymph % (Auto) 16.1 L, [place] % (Auto) 9.3, Eos % (Auto) 1.9, Baso % (Auto) 0.4, Absolute Neuts (auto) 3.7, Absolute Lymphs (auto) 0.83, Nucleated RBC % 0 Radiology Impression Abdomen/Pelvis CT 03/27/22 12:09 IMPRESSION: Marked degree of distention of the urinary bladder with multiple trabeculations and diverticula. 1 cm calculus at the right ureterovesical junction. Bladder calculi. Electronically Signed: Natalio Patel MD at 14:42 EST , Gallbladder Ultrasound 03/27/22 17:19 IMPRESSION: Mildly enlarged fatty infiltrated liver. No evidence for gallstones or acute cholecystitis Electronically Signed: Chetan Mazariegos MD at 18:05 EST ,
[2022-03-28 07:47] LABS: ALB/GLOB Ratio 0.7 RATIO (0.9-2.4); AST(SGOT) 20 U/L (15-37); Alanine Aminotransfer ALT/SGPT 21 U/L (16-61); Albumin, Serum 2.4 g/dL (3.2-5.0); Alkaline Phosphatase 107 U/L (45-117); Anion Gap 8 (5-15); BUN 14 mg/dL (7-18); BUN/Creat Ratio 16.9 RATIO (10-20); Calcium,Total 7.8 mg/dL (8.5-10.1); Chloride 110 mmol/L (98-107); Cholesterol 90 mg/dL (200); Creatinine, Serum 0.83 mg/dL (0.70-1.30); EST Glomerular Filtration Rate 96 mL/min (>60); Est Glom Filt Rate - Afr Amer 116 mL/min (>60); Estimated Creatinine Clearance 62.32 ml/min; Globulin 3.4 g/dL (2.2-4.2); Glucose 54 mg/dL (74-106); High Density Lipoprotein 40 mg/dL; Lipase 363 U/L (73-393); Potassium 3.8 mmol/L (3.5-5.1); Protein, Total 5.8 g/dL (6.4-8.2); Sodium Level 139 mmol/L (136-145); Triglycerides 67 mg/dL; Very Low Density Lipoprotein 13 mg/dL (5-40)
[2022-03-28 08:06] VITALS: O2SAT 95
--- NOTE | 2022-03-28 10:25 | CASEMGMT ---
RN CM Face to Face with patient for initial transition planning/care coordination assessment. RN CM introduced self and role at [facility]. Patient lying in bed, alert and oriented. Patient willing to participate in assessment and is able to answer all questions appropriately. Care providers, pharmacy, and demographics verified. Patient wishes to discharge home, denies need for home health at this time. Patient states he has no further needs or concerns at this time. CM to follow for discharge planning needs that may arise. PCP: Brain Bustamante Specialists: none [facility]erred Pharmacy: [facility] Insurance: Jojo LEONARDO Prescription Benefit: yes Living Will/HPOA: none LNOK: Living Arrangements: Patient lives with in a single story home with 3-4 steps and railing to enter the home. Patient states he is independent at home. Transportation: self, DME/HHC: Patient denies DME in the home. No previous HHC or SNF. Disposition Plan: Patient to discharge home with family support and follow-up plans inplace. Marline BEASLEY, RN, CM
--- NOTE | 2022-03-28 11:20 | DCINST_ITS ---
Discharge Instructions Diet Discharge Diet: No restrictions Activity Discharge Activity: Return to Normal Activity Weight Bearing Status: Full weight bearing Follow Up Care Test Results: Test results from this visit will be discussed in further detail at your follow- up appointment, if applicable. Discharge Plan Admission Admit Date/Time: 03/27/22 16:05 Primary Reason for Your Visit: bladder stone, cystitis Attending Provider: Slade Bob Primary Care Provider: Brain Bustamante Consulting Providers: China Wallace Discharge Orders/Prescriptions Prescriptions: New levofloxacin 500 mg tablet 500 mg PO DAILY Qty: 10 0RF Continued nitroglycerin [Nitrostat] 0.4 mg tablet, sublingual 0.4 mg sublingual Q5-15M PRN (Reason: chest pain) Qty: 25 3RF Rx Instructions: do not exceed 3 doses per episode lorazepam 0.5 mg tablet 0.5 mg PO BID PRN (Reason: Anxiety) furosemide 40 mg tablet 40 mg PO DAILY Eliquis 2.5 mg tablet 2.5 mg PO DAILY (DME) disability placard See Rx Instructions .ROUTE .MEDSUPPLY Qty: 1 0RF Rx Instructions: As directed, Length of time: 5 years Referrals / Follow Up: Brain Bustamante DO [Primary Care Provider] - Rivera Aguilar MD [Med Staff - Active Staff] - See Referral Note (see him as scheduled) Disposition Disposition (needs filled in before D/C Order can be placed): Home, Self Care
--- NOTE | 2022-03-28 11:28 | DS.PCM_ITS ---
Providers Date of Admission: 03/27/22 Date of Discharge: 03/28/22 Primary Care Physician: Dr. Brain Bustamante, DO Reason For Visit: COMPLICATED UTI, OBSTRUCTIVE CALCULUS, HYDRO, Diagnosis Discharge Diagnosis (1) Urinary tract infection: Status: Acute Code(s): N39.0 - Urinary tract infection, site not specified (2) Urinary retention: Status: Acute Code(s): R33.9 - Retention of urine, unspecified (3) BPH (benign prostatic hyperplasia): Status: Acute Code(s): N40.0 - Benign prostatic hyperplasia without lower urinary tract symptoms Plan 1. Acute pancreatitis 2. Acute cystitis 3. Neurogenic bladder 4. Nonischemic cardiomyopathy 5. Essential hypertension 6. Bladder stone Medications at Discharge Home Medications nitroglycerin 0.4 mg sublingual tablet (Nitrostat) 0.4 mg sublingual Q5-15M PRN chest pain #25 tabs 04/01/21 lorazepam 0.5 mg tablet 0.5 mg PO BID PRN Anxiety 02/19/22 disability placard #1 ea 02/28/22 apixaban 2.5 mg tablet (Eliquis) 2.5 mg PO DAILY BLOOD THINNER 03/27/22 furosemide 40 mg tablet 40 mg PO DAILY FLUID 03/27/22 levofloxacin 500 mg tablet 500 mg PO DAILY #10 tabs 03/28/22 Hospital Course Operations None Procedures None Summary of Care Provided Minutes Spent on Discharge: 31 Hospital Course: This 76-year-old white male was seen in the emergency room at [facility] with complaints of abdominal discomfort.Work-up in the emergency room included a CT of the abdomen and pelvis which showed what appeared to be a 1 cm calculus at the right ureterovesical junction along with bladder calculiIn addition to marked distention of the urinary bladder.. Patient's lipase was elevatedAt 1624,Patient's white blood cell count was 4.1.EKG was performed which showed atrial fibrillation which was a known rhythm for the patient, his rate was controlled. In the emergency room the patient was administered Levaquin, morphine, Zofran and a Garcia catheter was placedWith return of urine. The case was discussed with urology by the emergency room physician, urology evaluated the patient and reviewed the films and felt that the patient's presentation was secondary to urinary retention and did not feel the patient needed a stent put in the ureter, he did not feel that the patient had an obstruction. Patient was admitted to PCU, placed on IV antibiotics, repeat lipase was found to be normal. On 03/28/2022, patient was seen and examined: On examination he appeared in good health and spirits. Vital signs as documented. Skin warm and dry and without overt rashes. Neck without JVD, neck was supple, trachea midline, thyroid was normal. Lungs clear bilaterally, normal air movement was noted. Heart exam notable for irregular rhythm, normal sounds and absence of murmurs, rubs or gallops. Abdomen unremarkable and without evidence of organomegaly, masses, or abdominal aortic enlargement. Bowel sounds are present, abdomen is not distended. Extremities nonedematous, no cyanosis was noted, no clubbing was noted. Neuro: Cranial nerves II through XII are grossly intact, no focal motor deficits were noted, sensation to light touch and pinprick intact, motor exam 5/5 throughout. Psych: Patient is alert and oriented x3, he does not appear anx ious or depressed, he does not appear agitated. On 03/28/2022, patient was seen and examined and felt to be stable for discharge home, he was discharged home with a Garcia catheter. He was instructed to follow-up with urology Weight / BMI Weight Weight: 57.3 kg Body Mass Index (BMI) 19.1 ABG / Lab / Microbiology Data Result Diagrams: 03/28/22 05:40 03/28/22 05:40 Laboratory: Laboratory Results - last 24 hr 03/27/22 16:00: WBC 4.1 L, RBC 3.77 L, Hgb 11.7 L, Hct 35.7 L, MCV 94.7 H, MCH 31.0, MCHC 32.8, RDW Std Deviation 58.8 H, RDW Coeff of Bj 16.7 H, Plt Count 141 L, MPV 9.8, Immature Gran % (Auto) 0.500, Neut % (Auto) 50.4, Lymph % (Auto) 32.3, [place] % (Auto) 11.9 H, Eos % (Auto) 4.4, Baso % (Auto) 0.5, Absolute Neuts (auto) 2.1, Absolute Lymphs (auto) 1.33, Nucleated RBC % 0 03/27/22 16:17: Lactic Acid 0.7 03/28/22 05:40: WBC 5.2, RBC 3.66 L, Hgb 11.3 L, Hct 34.6 L, MCV 94.5 H, MCH 30.9, MCHC 32.7, RDW Std Deviation 56.5 H, RDW Coeff of Bj 16.2 H, Plt Count 140 L, MPV 10.3, Immature Gran % (Auto) 0.200, Neut % (Auto) 72.1 H, Lymph % (Auto) 16.1 L, [place] % (Auto) 9.3, Eos % (Auto) 1.9, Baso % (Auto) 0.4, Absolute Neuts (auto) 3.7, Absolute Lymphs (auto) 0.83, Nucleated RBC % 0 03/28/22 05:40: Sodium 139, Potassium 3.8, Chloride 110 H, Carbon Dioxide 21.0, Anion Gap 8, BUN 14, Creatinine 0.83, Estim Creat Clear Calc 62.32, Est GFR (MDRD) Af Amer 116, Est GFR (MDRD) Non-Af 96, BUN/Creatinine Ratio 16.9, Glucose 54 L, Calcium 7.8 L, Total Bilirubin 0.90, AST 20, ALT 21, Alkaline Phosphatase 107, Total Protein 5.8 L, Albumin 2.4 L, Globulin 3.4, Albumin/Globulin Ratio 0.7 L, Triglycerides 67, Cholesterol 90, LDL Cholesterol 37, VLDL Cholesterol 13, HDL Cholesterol 40, Lipase 363 Microbiology: Microbiology 03/27/22 15:45 Urine Catheter - Garcia Urine Culture - Preliminary GPC Poss Enterococcus sp Radiography Diagnostic Testing: Radiology Impression Abdomen/Pelvis CT 03/27/22 12:09 IMPRESSION: Marked degree of distention of the urinary bladder with multiple trabeculations and diverticula. 1 cm calculus at the right ureterovesical junction. Bladder calculi. Electronically Signed: Natalio Patel MD at 14:42 EST , Gallbladder Ultrasound 03/27/22 17:19 IMPRESSION: Mildly enlarged fatty infiltrated liver. No evidence for gallstones or acute cholecystitis Electronically Signed: Chetan Mazariegos MD at 18:05 EST Reading Location ID and State: [facility] / [place] , Service support , D/C Instructions Discharge Diet: No restrictions Weight Bearing Status: Full weight bearing Meaningful Use Info Meaningful Use Diagnoses (Choose all that apply): None applicable Discharge Plan Admission Admit Date/Time: 03/27/22 16:05 Primary Reason for Your Visit: bladder stone, cystitis Attending Provider: Slade Bob Primary Care Provider: Brain Bustamante Consulting Providers: China Wallace Discharge Orders/Prescriptions Prescriptions: New levofloxacin 500 mg tablet 500 mg PO DAILY Qty: 10 0RF Continued nitroglycerin [Nitrostat] 0.4 mg tablet, sublingual 0.4 mg sublingual Q5-15M PRN (Reason: chest pain) Qty: 25 3RF Rx Instructions: do not exceed 3 doses per episode lorazepam 0.5 mg tablet 0.5 mg PO BID PRN (Reason: Anxiety) furosemide 40 mg tablet 40 mg PO DAILY Eliquis 2.5 mg tablet 2.5 mg PO DAILY (DME) disability placard See Rx Instructions .ROUTE .MEDSUPPLY Qty: 1 0RF Rx Instructions: As directed, Length of time: 5 years Referrals / Follow Up: Brain Bustamante DO [Primary Care Provider] - (Please call the office to schedule an appt) Rivera Aguilar MD [Med Staff - Active Staff] - See Referral Note (see him as scheduled Please call the office on Thursday03-31-22 to schedule an appt. ) Disposition Disposition (needs filled in before D/C Order can be placed): Home, Self Care Charges/Coding Visit Charges Inpatient E&M: 98844 Disch Hosp
[2022-03-28 11:42] VITALS: BP 99/78; PULSE 86; RESP 18; TEMP 36.6; O2SAT 95
[2022-03-28] MEDS: APIXABAN 2.5 MG TABLET (WCH) PO (11:47)
== END 2022-03-28 13:12 | disposition home or self-care (01) | DRG 689 ==
LOC: ED 15:57 → PCU 03-28 07:04
PROVIDERS: Admitting Provider Family Medicine; Emergency Provider Emergency Medicine; PCP Family Medicine; Visit Provider Internal Medicine
DX: N13.6 Pyonephrosis (principal); K85.90 Acute pancreatitis without necrosis or infection, unspecified; I42.8 Other cardiomyopathies; I50.42 Chronic combined systolic (congestive) and diastolic (congestive) heart failure; I11.0 Hypertensive heart disease with heart failure; I48.0 Paroxysmal atrial fibrillation; E78.5 Hyperlipidemia, unspecified; I25.10 Atherosclerotic heart disease of native coronary artery without angina pectoris; Z79.01 Long term (current) use of anticoagulants; F43.10 Post-traumatic stress disorder, unspecified; B95.2 Enterococcus as the cause of diseases classified elsewhere; Z95.2 Presence of prosthetic heart valve; Z87.891 Personal history of nicotine dependence; Z86.16 Personal history of COVID-19; N40.1 Benign prostatic hyperplasia with lower urinary tract symptoms; N31.9 Neuromuscular dysfunction of bladder, unspecified; R33.8 Other retention of urine; Z79.899 Other long term (current) drug therapy; Z95.810 Presence of automatic (implantable) cardiac defibrillator
CPT/HCPCS: 36415; 51702; 74177; 76705; 80048; 80053; 80061; 80076; 82150; 83605; 83690; 84439; 84443; 85025; 87040; 87077; 87086; 87088; 87186; 93005; 97161; 97166; 99251; 99285; J7030; J7050; Q9967; A4216; G0463; J2405

== ENCOUNTER 2022-04-23 08:24 | Day surgery (SDC) | payer MEDICARE, BC, SELFPAY ==
[2022-04-23] VITALS (7 sets, daily range): BP systolic 91–137; BP diastolic 57–96; PULSE 64–88; RESP 16–18; TEMP 36.1–36.7; O2SAT 99–100; BMI 18.7
[2022-04-23] MEDS: Lactated Ringers 1,000 ML 15 ML IV (09:07)
[2022-04-23] MEDS: Cefazolin 2 GM in 0.9% Normal Saline 100 ML IV (10:45)
[2022-04-23] MEDS: Lidocaine Jelly 2% 20 ML Syringe (URO-JET) 1 APPLIC (10:55)
--- NOTE | 2022-04-23 11:23 | HP.PCM_ITS ---
HPI - General General Date of Service: 04/23/22 Chief Complaint: Urinary retention and bladder stones HPI Narrative DONNY SOLER, is a 76 M who presents to laser his bladder stones he has very large stones in his bladder when to laser these out he also has an obstructive prostate not emptying his bladder but he is refused prostate surgery he understands is possible that just getting rid of the stones will not alleviate his symptoms. [facility] Medical History Abnormal EKG Acute on chronic combined systolic (congestive) and diastolic (congestive) heart failure Anxiety Atherosclerotic heart disease of [place] coronary artery without angina pectoris Atrial fibrillation and flutter Bruising CAD (coronary artery disease) Cardiology follow-up encounter Cardiomyopathy CHF (congestive heart failure) CHF (congestive heart failure) Chronic systolic CHF (congestive heart failure) COVID-19 Essential (primary) hypertension Former smoker History of atrial fibrillation History of echocardiogram HLD (hyperlipidemia) Hydronephrosis with urinary obstruction due to ureteral calculus Memory loss, short term Neurogenic bladder Non-ST elevated myocardial infarction (non-STEMI) Non-sustained ventricular tachycardia Nonischemic cardiomyopathy Nonrheumatic aortic (valve) stenosis with insufficiency Nonrheumatic mitral (valve) insufficiency Nonrheumatic tricuspid (valve) insufficiency NSTEMI (non-ST elevated myocardial infarction) (06/11/20) NSTEMI (non-ST elevation myocardial infarction) Prostate disease PTSD (post-traumatic stress disorder) PVCs (premature ventricular contractions) Right bundle branch block Home Medications nitroglycerin 0.4 mg sublingual tablet (Nitrostat) 0.4 mg sublingual Q5-15M PRN chest pain #25 tabs 04/01/21 [Rx Last Taken Unknown] lorazepam 0.5 mg tablet 0.5 mg PO BID PRN Anxiety 02/19/22 [History Last Taken 03/27/22] disability placard #1 ea 02/28/22 [Rx Last Taken Unknown] apixaban 2.5 mg tablet (Eliquis) 2.5 mg PO DAILY BLOOD THINNER 03/27/22 [History Last Taken 04/20/22] furosemide 40 mg tablet 40 mg PO DAILY FLUID 03/27/22 [History Last Taken Unknown] aspirin 81 mg tablet 81 mg PO DAILY 04/22/22 [History Last Taken 04/20/22] carvedilol 3.125 mg tablet 3.125 mg PO DAILY 04/22/22 [History Last Taken 04/22/22] tamsulosin 0.4 mg capsule 0.4 mg PO DAILY 04/22/22 [History Last Taken Unknown] Allergy/AdvReac Type Severity Reaction Status Date / Time Penicillins Allergy Severe Hives Verified 04/23/22 09:07 milk Allergy Unknown Unknown Verified 04/23/22 09:07 Family History Mother Cancer Kidney disease Father Myocardial infarction Brother Heart disease Surgical History History of aortic valve replacement with tissue graft (07/26/07) History of left heart catheterization (11/22/19) History of prostate surgery Implantable cardioverter-defibrillator (ICD) in situ S/P AVR (aortic valve replacement) Social History household members: spouse Smoking Status: Former smoker quit date: 04/27/71 how long ago did patient quit smokin alcohol intake: never substance use type: does not use caffeine: Yes Type: coffee Number of servings: 2 what type of physical activity do you participate in: walking frequency: daily Vital Signs Vital Signs Vital Signs: 04/23/22 09:00 04/23/22 09:00 Temperature 98.0 F Temperature Source Temporal Pulse Rate 64 Respiratory Rate 18 Respiratory Pattern Normal Blood Pressure 137/96 H Blood Pressure Mean 109 Blood Pressure Source Monitor Blood Pressure Position Semi-Fowlers Blood Pressure Location Left Arm Pulse Ox 100 Oxygen Delivery Method Room Air Weight Weight: 61 kg Body Mass Index (BMI) 18.7
--- NOTE | 2022-04-23 11:24 | DCINST_ITS ---
Discharge Instructions Diet Discharge Diet: No restrictions Dressing / Incision Call your doctor if your incision/area has: Continuous Slow Oozing, Increased Pain/ Swelling, Increased Redness and Foul Smelling Discharge Call your doctor if you observe: Fever of 101 or Higher, Numbness or Tingling, Shortness of breath, Dizziness, Calf discomfort and Uncontrolled pain Follow Up Care Please Follow Up With: Rivera Aguilar MD Test Results: Test results from this visit will be discussed in further detail at your follow- up appointment, if applicable. Discharge Plan Admission Primary Reason for Your Visit: laser bladder stone Attending Provider: Rivera Aguilar Primary Care Provider: Brain Bustamante Discharge Orders/Prescriptions Prescriptions: Continued nitroglycerin [Nitrostat] 0.4 mg tablet, sublingual 0.4 mg sublingual Q5-15M PRN (Reason: chest pain) Qty: 25 3RF Rx Instructions: do not exceed 3 doses per episode lorazepam 0.5 mg tablet 0.5 mg PO BID PRN (Reason: Anxiety) furosemide 40 mg tablet 40 mg PO DAILY carvedilol 3.125 mg tablet 3.125 mg PO DAILY tamsulosin 0.4 mg capsule 0.4 mg PO DAILY Held Eliquis 2.5 mg tablet 2.5 mg PO DAILY Hold Instructions: Resume on 04/30/22. aspirin 81 mg Tablet 81 mg PO DAILY Hold Instructions: Resume on 04/30/22. No Action (DME) disability placard See Rx Instructions .ROUTE .MEDSUPPLY Qty: 1 0RF Rx Instructions: As directed, Length of time: 5 years Referrals / Follow Up: Brain Bustamante DO [Primary Care Provider] - Rivera Aguilar MD [Med Staff - Active Staff] - Disposition Disposition (needs filled in before D/C Order can be placed): Home, Self Care
--- NOTE | 2022-04-23 11:24 | PCM.OPRPT ---
Report of Operation Date of Procedure: 04/23/22 Pre-Operative Diagnosis: BPH with obstruction large bladder stones Post-Operative Diagnosis: Same Surgery/Procedure Performed:: Cystoscopy and cystolitholapaxy of large bladder stones, and also cauterization of a bladder neck bleeding Description of Surgical Findings:: Patient was taken back to the operating room he underwent MAC local anesthetic, put a lidocaine jelly into the urethra the penis testicles were prepped and draped in usual sterile fashion went into the bladder with a 26 [place] continuous-flow resectoscope with a laser bridge he did have a prior TURP but this is long time ago had a lot of heavy regrowth he has refused a TURP to alleviate obstruction does have a trabeculated heavily trabeculated bladder multiple stones within the bladder I then put in 1000 laser fiber into the bladder and then lasered the stones one by one into little pieces until all the stones were lasered into tiny pieces of stones a very big. After lasering the stones then there was some bleeding from the bladder neck so I used the Bugbee electrode and cauterized this bleeding to stop the bleeding and then there was no more bleeding in the bladder. I then drained the bladder patient's anesthetic was reversed taken back to the PACU in good condition and he will go home today follow-up in a few weeks in the office for checkup he understands and also explained to the family since he did have surgery in his prostate that his symptoms may not be alleviated. But the patient refused a TURP. Surgeon: Rivera Aguilar Type of Anesthesia: MAC Drains: none Admit VTE Documentation VTE Present on Admission: No
== END 2022-04-23 12:56 | disposition home or self-care (01) ==
LOC: SDC 08:27 → AC 08:28
PROVIDERS: PCP Family Medicine; Referring Provider Urology; Visit Provider Urology
PROC: (CPT 52318; principal; 2022-04-23 10:10)
DX: N40.1 Benign prostatic hyperplasia with lower urinary tract symptoms (principal); I11.0 Hypertensive heart disease with heart failure; I42.8 Other cardiomyopathies; I50.22 Chronic systolic (congestive) heart failure; I25.10 Atherosclerotic heart disease of native coronary artery without angina pectoris; F43.10 Post-traumatic stress disorder, unspecified; Z86.16 Personal history of COVID-19; Z87.891 Personal history of nicotine dependence; E78.5 Hyperlipidemia, unspecified; N21.0 Calculus in bladder; I25.2 Old myocardial infarction; Z95.4 Presence of other heart-valve replacement
CPT/HCPCS: 52318; 53899; 00910; J7120